=== PATIENT | female | born 1985 | race American Indian/Alaskan Native ===

== ENCOUNTER 2016-10-14 17:47 | Emergency (ER) | payer SELFPAY ==
[2016-10-14 19:13] LABS: Basophils % (Auto) 0.9 % (0.0-1.8); Eosinophils % (Auto) 0.1 % (0.0-4.3); Hematocrit 33.6 % (30.3-42.9); Hemoglobin 10.5 gm/dl (10.1-14.3); Mean Corpuscular HGB Conc 31 % (30-34); Mean Corpuscular Hemoglobin 28 pg (28-32); Mean Corpuscular Volume 89 fl (79-97); Platelet Count 284 K/mm3 (140-440); Red Blood Count 3.79 M/mm3 (3.65-5.03); Reticulocyte % 3.29 % (0.78-2.58); White Blood Count 18.2 K/mm3 (4.5-11.0)
[2016-10-14 19:26] LABS: Red Cell Distribution Width 21.3 % (13.2-15.2)
[2016-10-14] MEDS ORDERED: BENADRYL IV ONE (20:46)
[2016-10-14] MEDS ORDERED: DILAUDID IV ONE (20:46)
[2016-10-14] MEDS ORDERED: ZOFRAN IV ONE (20:46)
[2016-10-14] MEDS ORDERED: D5NS 0.2% 1,000 ML IV SCH (21:00)
[2016-10-14] MEDS ORDERED: ULTRAM PO ONE (21:13)
[2016-10-14] MEDS ORDERED: DUONEB 0.5 MG-3 MG/3 ML SOLN IH ONE (21:19)
[2016-10-14] MEDS ORDERED: LASIX IV ONE (21:19)
--- NOTE | 2016-10-14 21:28 | Emergency Department Report ---
HPI - General Chief Complaint: Sickle Cell Crisis Time Seen by Provider: 10/14/16 20:44 - HPI HPI: The patient is a 31-year-old female with a history of sickle cell disease, CHF, COPD, on 2 L home O2, chronic tachycardia, and mild chronic kidney disease, presents for evaluation of dyspnea and leg pain. The patient reports constant and severe dyspnea since this morning, onset 8 hours ago, exacerbated with physical activity and lying flat. She also complains of pain to the bilateral distal lower extremities, consistent with previous sickle cell pain attacks, throbbing in quality, 10/10 in severity, constant since onset 8 hours ago as well. The patient denies fall or trauma to the chest or legs, productive cough , syncope, chest pain, hemoptysis, back pain, paresthesias, chills, fever. She shares that she was discharged from [facility] yesterday after admission for similar symptoms. She and her mother submit that the patient has been admitted multiple times agree hospital over the past 2-3 months. ED Past Medical Hx - Past Medical History Previous Medical History?: Yes Hx Congestive Heart Failure: Yes Hx Renal Disease: Yes Hx Sickle Cell Disease: Yes - Social History Smoking Status: Never Smoker Substance Use Type: None - Medications Home Medications: Home Medications Medication Instructions Recorded Confirmed Last Taken Type ALBUTEROL Inhaler [Proair] 2 puff IH QID PRN 10/14/16 10/14/16 10/14/16 History Folic Acid [FA-8] 0.8 mg PO DAILY 10/14/16 10/14/16 10/14/16 History Furosemide [Lasix TAB] 40 mg PO QDAY 10/14/16 10/14/16 10/14/16 History Metoprolol [Lopressor TAB] 50 mg PO BID 10/14/16 10/14/16 10/14/16 History Nystatin [Nystop Powder] 1 applicatio TP TID 10/14/16 10/14/16 10/14/16 History Ranitidine HCl 75 mg PO DAILY 10/14/16 10/14/16 10/14/16 History traMADol [Ultram] 50 mg PO Q4HR PRN 10/14/16 10/14/16 10/14/16 History ED Review of Systems ROS: Stated complaint: SICKLE CELL CRISIS Other details as noted in HPI Constitutional: denies: fever ENT: denies: throat or neck pain Respiratory: reports: cough & shortness of breath Cardiovascular: denies: chest pain Endocrine: denies unexplained weight loss or gain Gastrointestinal: denies: abdominal pain, nausea Genitourinary: denies: dysuria Musculoskeletal: reports leg pain and leg swelling Skin: denies: rash Neurological: denies: headache Hematological/Lymphatic: denies: easy bleeding or easy bruising Psych: denies sadness or hopelessness Physical Exam - Physical Exam Vital Signs: Vital Signs 10/14/16 10/14/16 10/14/16 17:42 17:50 17:56 Temperature 98.7 F Pulse Rate 115 H Respiratory Rate Blood Pressure 130/69 Blood Pressure [Right] O2 Sat by Pulse 56 L 100 66 L Oximetry 10/14/16 10/14/16 10/14/16 18:00 18:01 18:10 Temperature Pulse Rate Respiratory 16 Rate Blood Pressure 130/69 123/66 Blood Pressure [Right] O2 Sat by Pulse 100 66 L 98 Oximetry 10/14/16 10/14/16 10/14/16 18:20 18:30 18:40 Temperature Pulse Rate Respiratory Rate Blood Pressure 99/28 99/28 99/28 Blood Pressure [Right] O2 Sat by Pulse 66 L 69 L 75 L Oximetry 10/14/16 10/14/16 10/14/16 18:50 19:00 19:10 Temperature Pulse Rate Respiratory Rate Blood Pressure 99/28 99/28 52/37 Blood Pressure [Right] O2 Sat by Pulse 80 L 60 L 69 L Oximetry 10/14/16 10/14/16 10/14/16 19:20 19:30 19:38 Temperature Pulse Rate 95 H Respiratory 16 Rate Blood Pressure 52/37 52/37 Blood Pressure 112/81 [Right] O2 Sat by Pulse 80 L 83 L 81 L Oximetry 10/14/16 10/14/16 10/14/16 19:48 19:51 20:01 Temperature Pulse Rate 140 H 140 H 144 H Respiratory 20 25 H 32 H Rate Blood Pressure 99/28 89/48 Blood Pressure [Right] O2 Sat by Pulse 81 L 86 78 L Oximetry 10/14/16 20:11 Temperature Pulse Rate 148 H Respiratory 11 L Rate Blood Pressure 89/48 Blood Pressure [Right] O2 Sat by Pulse 81 L Oximetry Physical Exam: General: well-nourished, well-developed, no acute distress, patient morbidly obese Head: Normocephalic, atraumatic Eyes: normal sclera ENT: Mucous membranes are pale and dry Neck: trachea midline, neck supple, No neck stiffness, no cervical adenopathy Respiratory: Diminished breath sounds and bi-basialr crackles present to bilateral lung kelly Cardio: S1 and S2 present, no murmurs, rubs, gallops, capillary refill is delayed Abdomen: Normoactive bowel sounds, soft abdomen, no rigidity, no guarding or rebound tenderness Musc: 1+ pitting edema to bilateral legs, circumferential distal lower leg tenderness to palpation present bilaterally, no redness, fluctuance, or crepitus , no sign of infection Skin: No rash Neuro: no facial drooping, normal speech Psych: Normal affect ED Course Vital Signs 10/14/16 10/14/16 10/14/16 17:42 17:50 17:56 Temperature 98.7 F Pulse Rate 115 H Respiratory Rate Blood Pressure 130/69 Blood Pressure [Right] O2 Sat by Pulse 56 L 100 66 L Oximetry 10/14/16 10/14/16 10/14/16 18:00 18:01 18:10 Temperature Pulse Rate Respiratory 16 Rate Blood Pressure 130/69 123/66 Blood Pressure [Right] O2 Sat by Pulse 100 66 L 98 Oximetry 10/14/16 10/14/16 10/14/16 18:20 18:30 18:40 Temperature Pulse Rate Respiratory Rate Blood Pressure 99/28 99/28 99/28 Blood Pressure [Right] O2 Sat by Pulse 66 L 69 L 75 L Oximetry 10/14/16 10/14/16 10/14/16 18:50 19:00 19:10 Temperature Pulse Rate Respiratory Rate Blood Pressure 99/28 99/28 52/37 Blood Pressure [Right] O2 Sat by Pulse 80 L 60 L 69 L Oximetry 10/14/16 10/14/16 10/14/16 19:20 19:30 19:38 Temperature Pulse Rate 95 H Respiratory 16 Rate Blood Pressure 52/37 52/37 Blood Pressure 112/81 [Right] O2 Sat by Pulse 80 L 83 L 81 L Oximetry 10/14/16 10/14/16 10/14/16 19:48 19:51 20:01 Temperature Pulse Rate 140 H 140 H 144 H Respiratory 20 25 H 32 H Rate Blood Pressure 99/28 89/48 Blood Pressure [Right] O2 Sat by Pulse 81 L 86 78 L Oximetry 10/14/16 20:11 Temperature Pulse Rate 148 H Respiratory 11 L Rate Blood Pressure 89/48 Blood Pressure [Right] O2 Sat by Pulse 81 L Oximetry ED Medical Decision Making - Lab Data Result diagrams: 10/14/16 18:50 10/14/16 22:12 - Medical Decision Making The patient was seen and examined by myself. The patient is placed on a shelter monitor and continuous pulse ox. On initial evaluation, the patient was found to have crackles to bibasilar lung kelly, exam findings concerning for acute CHF, and with hypotension, blood pressure 84/40, HR in 140s, and low oxygen saturation of 80% on home O2 of 2L, and despite increasing supplemental oxygenation via nasal cannula. The patient is placed on a nonrebreather as she has no tachypnea and only reports mild dyspnea, and she is given a tablet of tramadol for pain, a slow infusion of fluid for low blood pressure, and IV Lasix for treatment of CHF. Oxygen saturation increases to 95% on nonrebreather. EKG exhibited a narrow QRS complexes regular tachycardia, sinus tachycardia versus an SVT. The patient and family members deny known history of arrhythmia. The patient states that her heart rate is "always 150" when not on her labetalol. As the patient is likely in an acute CHF, chronotropic inhibiting medications will be withheld. The on-call quarter lining smoother is paged. Discharge record from [facility] are reviewed and exhibit that the patient has history of chronic tachycardia during admissions at [facility]. Evaluation and management orders were placed. The patient's blood pressure is found to have increased to 101/62. The patient is given 5 mg of IV Cardizem and her heart rate decreases from 150 to 125. Multiple bedside assessments were performed to assess patient responsiveness to administer medications. X-ray of the chest reveals cardiomegaly, moderate to severe pulmonary vascular congestion, and bilateral pleural effusions. Lab results reveal leukocytosis, WBC 18, elevated BNP of 13,000. The patient and the patient's mother submit that they prefers that the patient be transferred to [facility] where the patient has received care during multiple admissions over the past 2-3 months. The [facility] transfer line is contacted. The on shift [place] ER physician Dr. Roman agrees to accept transfer of the patient. The [facility] on-call quarter lining smoother Dr. Dela Cruz returns page. 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 The patient is given IV adenosine and her tachycardia resolves. The patient is placed on BiPAP at request of accepting transfer physician. On reevaluation the patient's found to have oxygen saturation of 100%, and maintenance of normal blood pressure and heart rate. The patient is transferred in serious condition to [facility]. Critical Care Time: Yes Critical care time in (mins) excluding proc time.: 45 Critical care attestation.: If time is entered above; I have spent that time in minutes in the direct care of this critically ill patient, excluding procedure time. Critical Care Time: Due to the critical nature of this patients presentation, which necessitated multiple bedside assessments, manipulation and supportive measures to prevent further life threatening deterioration, I would like to bill for a total of 45 minutes of critical care time. This was exclusive of any separately billable procedures. ED Disposition Clinical Impression: Heart failure, acute systolic, Sickle cell pain crisis, AVNRT (AV ray re- entry tachycardia), Hypovolemic shock Respiratory failure with hypoxia Qualifiers: Chronicity: acute on chronic Qualified Code(s): J96.21 - Acute and chronic respiratory failure with hypoxia Disposition: DC/TX ANOTHER TYPE HEALTHCARE Is pt being admited?: No Does the pt Need Aspirin: No Condition: Critical Referrals: PRIMARY CARE, [Primary Care Provider] - 3-5 Days Time of Disposition: 21:24
[2016-10-14] MEDS ORDERED: CARDIZEM IV ONE (22:41)
[2016-10-14 22:42] LABS: Alanine Aminotransferase 16 units/L (7-56); Albumin 3.3 g/dL (3.9-5); Alkaline Phosphatase 53 units/L (35-129); Anion Gap 18 mmol/L; BUN/Creatinine Ratio 11.66; Bilirubin,Total 7.4 mg/dL (0.1-1.2); Blood Urea Nitrogen 14 mg/dL (7-17); Calcium 8.7 mg/dL (8.4-10.2); Carbon Dioxide 33 mmol/L (22-30); Chloride 96.8 mmol/L (98-107); Glucose 114 mg/dL (65-100); Potassium 4.9 mmol/L (3.6-5.0); Sodium 143 mmol/L (137-145); Total Protein 6.6 g/dL (6.3-8.2)
[2016-10-14] MEDS ORDERED: NACL 0.9% 1000 ML 1,000 ML ONE (23:32)
[2016-10-15] LABS: ISTAT Base Excess 9; ISTAT HCO3 33.4; ISTAT PCO2 51.7 (35-45); ISTAT PH 7.419 (7.35-7.45); ISTAT PO2 136 (80-105); ISTAT SO2 99; ISTAT TCO2 35
[2016-10-15 00:22] VITALS: BP 115/81
[2016-10-15 00:48] LABS: Bilirubin,Urine NEG (Negative); Blood,Urine NEG (Negative); Ketones,Urine NEG (Negative); Leukocyte Esterase,Urine NEG (Negative); Nitrite,Urine NEG (Negative); Protein,Urine <15 mg/dL mg/dL (Negative); RBC,Urine < 1.0 /HPF (0.0-6.0); Urobilinogen,Urine < 2.0 mg/dL (<2.0); WBC,Urine < 1.0 /HPF (0.0-6.0)
[2016-10-15] MEDS ORDERED: NACL 0.9% 1000 ML 1,000 ML IV ONE (01:05)
--- NOTE | 2016-10-15 09:38 | XRay Report ---
PORTABLE CHEST INDICATION: Chest pain. COMPARISON: None similar. FINDINGS: Portable, frontal chest radiographs, 2 images, suggest cardiomegaly with silhouette obscured due to pulmonary haziness, more so in the mid to lower lung zones, possibly congestive/atelectatic/related to patient's body habitus. Diaphragm not visible. Right suprahilar bronchovascular prominence. EKG leads. Intact bones. CONCLUSION: Cardiomegaly and mild pulmonary vascular congestion suspected on this exam limited due to patient body habitus, as described. Please correlate. Thank you for the opportunity to participate in this patient's care.
== END 2016-10-15 01:11 | disposition other institution (70) ==
LOC: ED 17:47
DX: I50.21 Acute systolic (congestive) heart failure (principal); D57.00 Hb-SS disease with crisis, unspecified; I47.1 Supraventricular tachycardia; R57.1 Hypovolemic shock; J96.21 Acute and chronic respiratory failure with hypoxia; N28.9 Disorder of kidney and ureter, unspecified; Z88.5 Allergy status to narcotic agent
CPT/HCPCS: 36415; 71010; 80053; 80061; 81001; 82140; 82803; 83880; 84484; 85025; 85045; 93005; 93010; 96374; 96375; J0153; J1170; J1200; J1940; J2405; J7030

== ENCOUNTER 2017-02-08 19:09 | Inpatient (IN) | payer OTHER ==
[2017-02-08] MEDS ORDERED: LASIX IV ONE (20:25)
[2017-02-08] MEDS ORDERED: LOPRESSOR IV ONE (20:25)
[2017-02-08 20:50] LABS: Hematocrit 29.8 % (30.3-42.9); Hemoglobin 9.8 gm/dl (10.1-14.3); Mean Corpuscular HGB Conc 33 % (30-34); Mean Corpuscular Hemoglobin 28 pg (28-32); Mean Corpuscular Volume 86 fl (79-97); Platelet Count 302 K/mm3 (140-440); Red Blood Count 3.45 M/mm3 (3.65-5.03)
[2017-02-08 20:55] LABS: Red Cell Distribution Width 20.4 % (13.2-15.2)
[2017-02-08 21:10] LABS: Anion Gap 15 mmol/L; BUN/Creatinine Ratio 8.57; Blood Urea Nitrogen 6 mg/dL (7-17); Calcium 8.5 mg/dL (8.4-10.2); Carbon Dioxide 32 mmol/L (22-30); Chloride 100.1 mmol/L (98-107); Glucose 89 mg/dL (65-100); Sodium 143 mmol/L (137-145)
[2017-02-08 21:30] LABS: Albumin 3.3 g/dL (3.9-5); Bilirubin,Direct 1.1 mg/dL (0-0.2); Bilirubin,Indirect 6.1 mg/dL; Bilirubin,Total 7.2 mg/dL (0.1-1.2); Total Protein 6.7 g/dL (6.3-8.2)
[2017-02-08 21:32] LABS: Blastocytes % (Manual) 0 %
[2017-02-08 21:33] LABS: Basophils % (Manual) 0 % (0.0-1.8)
[2017-02-08 21:36] LABS: Sickle Cells Few; Target Cells 3+
[2017-02-08 21:37] LABS: Anisocytosis 1+; Diff Status Complete; Giant Platelets 1+; Platelet Estimate Consistent w Auto; Poikilocytosis Few
[2017-02-08 21:54] LABS: Cholesterol 64 mg/dL (50-199); HDL Cholesterol 21 mg/dL (40-59); LDL Cholesterol,Direct 28 mg/dL (50-130); Triglycerides 76 mg/dL (2-149)
--- NOTE | 2017-02-08 22:42 | XRay Report ---
FINAL REPORT EXAM: XR CHEST 1V AP HISTORY: shortness of breath TECHNIQUE: AP portable chest radiograph. PRIORS: None FINDINGS: There are bilateral ground-glass opacities and dilated pulmonary arteries. The left hemidiaphragm and costophrenic angle are obscured. The cardiac silhouette is markedly enlarged. The osseous structures are intact. IMPRESSION: CHF. Probable small bilateral pleural effusions. Marked cardiomegaly. Pericardial effusion is not excluded.
--- NOTE | 2017-02-08 23:03 | Emergency Department Report ---
HPI - General Chief Complaint: Dyspnea/Respdistress Time Seen by Provider: 02/08/17 20:24 - HPI HPI: Patient is 31 with complicated medical history. She has history of morbid obesity, CHF, sickle cell disease. Patient states for the past 2 days she has been short of breath, unable to walk, due to her symptoms. Patient states she has been holding her cardiac medications due to dizziness. Patient states her legs have progressively become more swollen. She denies any alleviating or exacerbating factors. Patient denies any sick contacts. Patient's also complaining of chest pain, left-sided, pressure-like, 4-10. ED Past Medical Hx - Past Medical History Previous Medical History?: Yes Hx Hypertension: Yes Hx Congestive Heart Failure: Yes Hx Renal Disease: Yes Hx Sickle Cell Disease: Yes Hx Asthma: Yes - Surgical History Past Surgical History?: No - Family History Family history: hypertension - Social History Smoking Status: Never Smoker Substance Use Type: None - Medications Home Medications: Home Medications Medication Instructions Recorded Confirmed Last Taken Type ALBUTEROL Inhaler [Proair] 2 puff IH QID PRN 10/14/16 02/08/17 02/08/17 History Folic Acid [FA-8] 0.8 mg PO DAILY 10/14/16 02/08/17 02/08/17 History Furosemide [Lasix TAB] 40 mg PO QDAY 10/14/16 02/08/17 02/08/17 History Metoprolol [Lopressor TAB] 50 mg PO BID 10/14/16 02/08/17 01/25/17 History Nystatin [Nystop Powder] 1 applicatio TP TID 10/14/16 02/08/17 02/08/17 History Ranitidine HCl 75 mg PO DAILY 10/14/16 02/08/17 02/08/17 History traMADol [Ultram] 50 mg PO Q4HR PRN 10/14/16 02/08/17 02/08/17 History ED Review of Systems ROS: Stated complaint: SOB X2DAYS/BED SORES/SWELLING LEGS Other details as noted in HPI Comment: All other systems reviewed and negative Respiratory: wheezing Cardiovascular: chest pain Physical Exam - Physical Exam Vital Signs: Vital Signs 02/08/17 02/08/17 02/08/17 19:43 19:53 20:38 Temperature 99.0 F Pulse Rate 141 H 141 H 134 H Respiratory 13 13 Rate Blood Pressure 139/59 122/56 Blood Pressure 139/59 [Left] O2 Sat by Pulse 99 99 Oximetry 02/08/17 21:38 Temperature Pulse Rate 96 H Respiratory 20 Rate Blood Pressure Blood Pressure 102/67 [Left] O2 Sat by Pulse 93 Oximetry Physical Exam: - General Limitations: No Limitations General appearance: alert, morbidly obese - Head Head exam: Present: atraumatic, normocephalic - Eye Eye exam: Present: normal appearance, EOMI. Absent: nystagmus - ENT ENT exam: Present: normal exam, normal orophraynx, mucous membranes moist, normal external ear exam - Neck Neck exam: Present: normal inspection, full ROM. Absent: tenderness, meningismus - Respiratory Respiratory exam: Present: normal lung sounds bilaterally. Absent: respiratory distress, wheezes, rales, rhonchi, stridor, chest wall tenderness, accessory muscle use, decreased breath sounds, prolonged expiratory - Cardiovascular Cardiovascular Exam: Patient has tachycardia, severe JVD bilaterally - GI/Abdominal GI/Abdominal exam: Present: soft, normal bowel sounds. Absent: distended, tenderness, guarding, rebound, rigid, pulsatile mass - Rectal Rectal exam: Present: deferred - Extremities Exam Extremities exam: Present: Four plus pedal edema bilaterally - Back Exam Back exam: Present: normal inspection, full ROM. Absent: tenderness, CVA tenderness (R), CVA tenderness (L), muscle spasm, paraspinal tenderness, vertebral tenderness - Neurological Exam Neurological exam: Present: alert, oriented X3, normal gait, other (Extraocular movements intact. Tongue midline. No facial droop. Facial sensation intact to light touch in the V1, V2, V3 distribution bilaterally. 5 and 5 strength in 4 extremities.. Sensation is intact to light touch in 4 extremities.). Absent : motor sensory deficit - Psychiatric Psychiatric exam: Present: flat affect, suicidal ideation. Absent: homicidal ideation - Skin Skin exam: Present: warm, dry, intact, normal color. Absent: rash ED Course Vital Signs 02/08/17 02/08/17 02/08/17 19:43 19:53 20:38 Temperature 99.0 F Pulse Rate 141 H 141 H 134 H Respiratory 13 13 Rate Blood Pressure 139/59 122/56 Blood Pressure 139/59 [Left] O2 Sat by Pulse 99 99 Oximetry 02/08/17 21:38 Temperature Pulse Rate 96 H Respiratory 20 Rate Blood Pressure Blood Pressure 102/67 [Left] O2 Sat by Pulse 93 Oximetry ED Medical Decision Making - Lab Data Result diagrams: 02/08/17 20:39 02/08/17 20:39 Critical care attestation.: If time is entered above; I have spent that time in minutes in the direct care of this critically ill patient, excluding procedure time. ED Disposition Clinical Impression: Acute exacerbation of CHF (congestive heart failure) Disposition: OP ADMIT IP TO THIS HOSP Is pt being admited?: Yes Does the pt Need Aspirin: Yes Condition: Stable Referrals: PRIMARY CARE, [Primary Care Provider] - 3-5 Days
[2017-02-08] MEDS ORDERED: PROAIR IH PRN (23:32)
[2017-02-08] MEDS ORDERED: ULTRAM PO PRN (23:32)
[2017-02-08] MEDS ORDERED: AMBIEN PO PRN (23:34)
[2017-02-08] MEDS ORDERED: ZOFRAN IV PRN (23:34)
[2017-02-08] MEDS ORDERED: TYLENOL PO PRN (23:34)
--- NOTE | 2017-02-08 23:35 | History and Physical Report ---
History of Present Illness Date of examination: 02/08/17 Date of admission: 02/08/17 23:04 Chief complaint: Shortness of breath History of present illness: Patient is a 31-year-old extremely obese woman BMI 98.7 who is mostly bedbound with history of hypertension, anemia with prior blood transfusions, asthma, CHF and sickle cell disease who presents with shortness of breath and increased swelling in her back flank legs with a pain crisis. She was taken off her Lasix and other CHF medication 2 weeks ago she went to [facility], reason not given. She developed leg swelling and her mother called the cardiology clinic at [place] but was unable to get to see the doctor, so she stayed off her CHF medications. Patient denies any chest pain, fevers or chills. She has sores between her thighs, nonproductive cough, or between her buttocks. Chest x- ray, 1 view reported as CHF, probable small bilateral pleural effusion, marked cardiomegaly, pericardial effusion is not excluded. Carbon dioxide 32, total bilirubin 7.2 with direct bilirubin 1.1 normal AST ALT alcohol phosphatase, troponin 0.062, proBNP 1445. Past medical history: CHF, extreme obesity, sickle cell disease, hypertension Past surgical history: Tonsillectomy, ankle surgery Social history: Denies tobacco smoking or alcohol or drugs Family history: Father of heart failure in his 40s and hypertension ROS: Constitutional: no weight loss, no weight gain, no chills, no sweats, no fatigue , no weakness, no poor appetite Ears, nose, mouth and throat: no deferred, no ear pain, no decreased hearing, no sinus pressure, no bleeding gums, no dental pain, no mouth pain, no hoarseness, no sore throat, no swelling in mouth, no post-nasal drip, no headache, no vertigo, no pain front of neck, no neck lump Cardiovascular: See HPI Respiratory: no cough with sputum, no excessive sputum, no hemoptysis, no pleurisy, no pain, no pain on inspiration, no respiratory infections, no other Gastrointestinal: no nausea, no diarrhea, no constipation, no hematemesis, no hematochezia, no loss of appetite, no early satiety, no indigestion, no dyspepsia/bloating Genitourinary Male: no flank pain, no discharge, no urinary hesitancy, no nocturia Rectal: no incontinence, no bleeding, no itching, no discharge Musculoskeletal: no neck stiffness, no shooting arm pain, no arm numbness/ tingling, no shooting leg pain, no leg numbness/tingling, no atrophy, no limitation of motion, no fractures, no loss of height, no prior amputations, no arthritis Integumentary: no depigmentation, no dryness, no unusual bruising Neurological: no weakness, no tingling, no syncope, no vertigo, no migraines, no aphasia, no change in mentation, no changes in smell/taste, no balance difficulties, no double vision, no burning pain, no paralysis Psychiatric: hypersomnia, change in libido, irritability, no anxiety, no memory loss, no sleep disturbances, no change in appetite, no disorientation, no hallucinations, no paranoia, no hopelessness, no anxiety attacks, no confusion Endocrine: no cold intolerance, no polyphagia, no polydipsia, no polyuria, no nocturia, no proptosis, no palpatations, no high blood sugars, no low blood sugars, no fatigue Hematologic/Lymphatic: no easy bruising, no lymphedema Allergic/Immunologic: no urticaria, no allergic rhinitis, no anaphylaxis Medications and Allergies Allergies Allergy/AdvReac Type Severity Reaction Status Date / Time morphine Allergy Hives Verified 02/08/17 19:50 shrimp Allergy Hives Verified 02/08/17 19:50 Home Medications Medication Instructions Recorded Confirmed Last Taken Type ALBUTEROL Inhaler [Proair] 2 puff IH QID PRN 10/14/16 02/08/17 02/08/17 History Folic Acid [FA-8] 0.8 mg PO DAILY 10/14/16 02/08/17 02/08/17 History Furosemide [Lasix TAB] 40 mg PO QDAY 10/14/16 02/08/17 02/08/17 History Metoprolol [Lopressor TAB] 50 mg PO BID 10/14/16 02/08/17 01/25/17 History Nystatin [Nystop Powder] 1 applicatio TP TID 10/14/16 02/08/17 02/08/17 History Ranitidine HCl 75 mg PO DAILY 10/14/16 02/08/17 02/08/17 History traMADol [Ultram] 50 mg PO Q4HR PRN 10/14/16 02/08/17 02/08/17 History Active Meds: Active Medications Acetaminophen (Tylenol) 325 mg PO Q6H PRN PRN Reason: Pain, Mild (1-3) Albuterol (Proair) 2 puff IH QID PRN PRN Reason: Shortness Of Breath Diphenhydramine HCl (Benadryl) 25 mg IV Q6H PRN PRN Reason: Itching Furosemide (Lasix) 40 mg IV 0600,1800 ONEAL Hydromorphone HCl (Dilaudid) 1 mg IV Q4H PRN PRN Reason: Pain , Severe (7-10) Metoprolol Tartrate (Lopressor) 50 mg PO BID ONEAL Nystatin (Nystop) 1 applic TP TID ONEAL Ondansetron HCl (Zofran) 4 mg IV Q4H PRN PRN Reason: Nausea And Vomiting Pantoprazole Sodium (Protonix) 40 mg PO QDAY ONEAL Zolpidem Tartrate (Ambien) 5 mg PO QHS PRN PRN Reason: Sleep Exam - Physical Exam Narrative exam: Pulse ox dropped to 82% with minimal activity, 96% on 2 L GEN: Extreme obesity BMI 98.7 mild increase accessory muscle usage, AWAKE, ALERT , ORIENTATED x 3 HEENT: NCAT, PERRL, EOMI, OP CLEAR, sclera icterus NECK: SUPPLE, NO THYROMEGALY, equivocal JVD, NO LAD CVS: Regular tachycardia, NORMAL S1S2 LUNGS/CHEST: Bibasilar crackles, NORMAL CHEST EXPANSION B, diminished AIR ENTRY B ABD: nontender, distended but soft Anasarca and flanks, GBS, NO REBOUND OR GUARDING EXT/SKIN: Anasarca, leg edema bilaterally, jaundice MSK: FROM X 4 EXTREMITIES NEURO: CN 2-12 GROSSLY INTACT, NO NEW FOCAL DEFICITS PSY: CALM - Constitutional Vitals: Temp Pulse Resp BP Pulse Ox 99.0 F 96 H 20 102/67 93 02/08/17 19:43 02/08/17 21:38 02/08/17 21:38 02/08/17 21:38 02/08/17 21:38 Results - Labs CBC & Chem 7: 02/08/17 20:39 02/08/17 20:39 Assessment and Plan Patient is a 31-year-old extremely obese woman BMI 98.7 who is mostly bedbound with history of hypertension, anemia with prior blood transfusions, asthma, CHF and sickle cell disease who presents with shortness of breath and increased swelling in her back flank legs with a pain crisis. She was taken off her Lasix and other CHF medication 2 weeks ago she went to [facility], reason not given. She developed leg swelling and her mother called the cardiology clinic at [place] but was unable to get to see the doctor, so she stayed off her CHF medications. Patient denies any chest pain, fevers or chills. She has sores between her thighs, nonproductive cough, or between her buttocks. Chest x- ray, 1 view reported as CHF, probable small bilateral pleural effusion, marked cardiomegaly, pericardial effusion is not excluded. Carbon dioxide 32, total bilirubin 7.2 with direct bilirubin 1.1 normal AST/ALT/alk phosphatase, troponin 0.062, proBNP 1445. -Acute hypoxic respiratory failure due to CHF due to noncompliance: Treat with oxygen and CHF, counseled compliance -Suspect acute on chronic diastolic heart failure, not on CARLOS MANUEL inhibitor, patient does mention a history of acute renal failure in the past, I don't know if this is the reason they took off her CHF medications when she visited [place] ED ~ 2 weeks ago: Treat with IV Lasix, consult cardiology, get echocardiogram -Extreme obesity BMI 98.7: Consult Dietitian -Sickle cell pain crisis with hemolytic anemia and jaundice: Consulted hematology/oncology, With IV fluids because of the heart failure, complex medical decision, treat with IV pain medicine and Benadryl -Functional quadriplegia: Consult PT -Pressure wound bedbound state: Consult wound care to evaluate any wounds -Mildly elevated troponin may be related to CHF: Repeat cardiac enzymes and troponin follow levels, consult cardiology -Anemia most likely related to sickle cell anemia: Consult hematology oncology -DVT prophylaxis: Subcutaneous heparin, monitor CBC carefully Full code Disposition: Inpatient care The high probability of a clinically significant, sudden or life threatening deterioration of the [neurologic,cardiac] system(s) required my full and direct attention, intervention and personal management. The aggregate critical care time was [42] minutes. This time is in addition to time spent performing reported procedures but includes the following: [x] Data Review and interpretation [x] Patient assessment and monitoring of vital signs [x] Documentation [x] Medication orders and management
[2017-02-08] MEDS ORDERED: PROVENTIL IH PRN (23:42)
[2017-02-09] MEDS: HEPARIN SUB-Q SCH ×3 (00:52→23:03)
[2017-02-09] MEDS: DILAUDID IV PRN ×3 (04:33→23:02)
[2017-02-09] MEDS: BENADRYL IV PRN ×3 (04:34→23:03)
--- NOTE | 2017-02-09 05:54 | Admit Criteria Form ---
Admission Criteria Documentation: HEART FAILURE: COMMON COMPLICATIONS Clinical Indications for Inpatient Care ([place]/check or initial the applicable condition/criteria): Ongoing inpatient care may be indicated for heart failure with 1 or more of the following (1)(2)(3)(4)(5)(6)(7)(8): [ ]I. New-onset heart failure [ ]II. Acute cardiac ischemia causing or associated with failure [ ]III. Ongoing need for care for primary condition requiring frequent therapy adjustments because of changes in cardiac function (eg, drug dosage changes for drugs that are renally metabolized) [X ]IV. Complications of heart failure, including 1 or more of the following: [ ]a) Hemodynamic instability [ ]b) Pericardial effusion [ ]c) Symptomatic pleural effusion(16) [ ]d) Hypoxemia [ ]e) Tachypnea [ X]f) Dyspnea [ ]g) Syncope [ ]h) Altered mental status [ ]i) Acute renal insufficiency that is severe (reduction of more than 50% in estimated glomerular filtration rate from baseline) or progressive (reduction of more than 25% in estimated glomerular filtration rate from baseline, with creatinine continuing to rise) [ ]j) Debilitating anasarca (eg tissue breakdown with infection, inability to void due to edema)(E) (17) [ ]k) Clinically significant metabolic abnormalities due to heart failure (e.g., new-onset metabolic acidosis) Extended stay may be needed until ALL of the following are present(1)(3)(18)(41) (55): [ ]a) Hemodynamic stability [ ]b) Stable and effective diuretic regimen established (or patient on stable dialysis regimen if in chronic renal failure) [ ]c) Volume status acceptable on oral medication [ ]d) Breathing comfortably at rest [ ]e) Saturation of arterial oxygen greater than 90% or at acceptable baseline [ ]f) Pulmonary edema absent or improved [ ]g) Peripheral or sacral edema absent or improved [ ]h) Renal function stable and manageable at a lower level of care [ ]i) Complications (e.g., pleural effusion) resolved or manageable at a lower level of care [ ]j) Patient or caregiver has received written discharge instructions or educational material addressing activity level, diet, discharge medications, follow-up appointment, weight monitoring, and what to do if symptoms worsen. (56)(57)(58) The original [facility] [employer] content created by Yudelka Roberto has been revised. The portions of the content which have been revised are identified through the use of italic text or in bold, and Yudelka Roberto has neither reviewed nor approved the modified material.All other unmodified content is copyright [facility] [employer]. Please see references footnoted in the original [facility] edition 2017 Admission Criteria Met: Yes
[2017-02-09 06:18] LABS: Hemoglobin 10.1 gm/dl (10.1-14.3); Mean Corpuscular HGB Conc 34 % (30-34); Mean Corpuscular Hemoglobin 29 pg (28-32); Mean Corpuscular Volume 86 fl (79-97); Platelet Count 299 K/mm3 (140-440); Red Blood Count 3.51 M/mm3 (3.65-5.03); White Blood Count 9.6 K/mm3 (4.5-11.0)
[2017-02-09 06:19] LABS: Red Cell Distribution Width 20.4 % (13.2-15.2)
[2017-02-09 06:35] LABS: Creatine Kinase 47 units/L (30-135)
[2017-02-09 06:36] LABS: Creatine Kinase MB < 1.0 ng/mL (0.0-4.0)
[2017-02-09 06:38] LABS: Alanine Aminotransferase 9 units/L (7-56); Albumin 3.4 g/dL (3.9-5); Alkaline Phosphatase 69 units/L (35-129); Anion Gap 16 mmol/L; BUN/Creatinine Ratio 8.75; Blood Urea Nitrogen 7 mg/dL (7-17); Calcium 8.3 mg/dL (8.4-10.2); Carbon Dioxide 32 mmol/L (22-30); Chloride 99.4 mmol/L (98-107); Glucose 95 mg/dL (65-100); Potassium 3.8 mmol/L (3.6-5.0); Sodium 144 mmol/L (137-145); Total Protein 6.9 g/dL (6.3-8.2)
[2017-02-09] MEDS: LASIX IV SCH ×2 (07:03→17:40)
--- NOTE | 2017-02-09 07:25 | Progress Note ---
<MARKOS LU - Last Filed: 02/09/17 14:16> Assessment and Plan Assessment and plan: Acute hypoxic respiratory failure due to CHF due to noncompliance Oxygen supplement counseled compliance Suspect acute on chronic diastolic heart failure Echocardiogram awaiting for results District I's and daily weights, fluid restriction 1200ml in 24 hrs Treat with IV Lasix, Beta blockers consult cardiology, Sickle cell pain crisis with hemolytic anemia and jaundice Consulted hematology/oncology, With IV fluids because of the heart failure, complex medical decision, treat with IV pain medicine and Benadryl Mildly elevated troponin may be related to CHF: Repeat cardiac enzymes and troponin follow levels Consulted cardiology Anemia most likely related to sickle cell anemia Consult hematology oncology Pressure wound bed bound state Pressure ulcer to left buttock Consult wound care Dr. Glynn Berg Functional quadriplegia Consult PT Extreme obesity BMI 98.7 Consult Dietitian DVT prophylaxis Subcutaneous heparin monitor CBC carefully History Interval history: Patient complaining left leg pain rated her pain level 7/10. Hospitalist Physical - Constitutional Vitals: Temp Pulse Resp BP Pulse Ox 98.9 F 113 H 20 98/44 92 02/09/17 05:22 02/09/17 05:22 02/09/17 05:22 02/09/17 05:22 02/09/17 05:22 General appearance: Present: mild distress, other (on 2LNC with SPO2 >95%) - EENT Eyes: Present: PERRL ENT: hearing intact - Neck Neck: Present: supple - Respiratory Respiratory: bilateral: rales - Cardiovascular Heart rate: 100 Rhythm: regular Heart Sounds: Present: S1 & S2 - Extremities Extremities: no ischemia Peripheral Pulses: within normal limits - Abdominal General gastrointestinal: soft, non-tender - Integumentary Integumentary: Present: clear, warm, dry - Psychiatric Psychiatric: appropriate mood/affect - Neurologic Neurologic: CNII-XII intact - Allied Health Allied health notes reviewed: nursing Results - Labs CBC & Chem 7: 02/09/17 05:37 02/09/17 05:37 Labs: Laboratory Last Values WBC 9.6 K/mm3 (4.5-11.0) 02/09/17 05:37 RBC 3.51 M/mm3 (3.65-5.03) L 02/09/17 05:37 Hgb 10.1 gm/dl (10.1-14.3) 02/09/17 05:37 Hct 30.0 % (30.3-42.9) L 02/09/17 05:37 MCV 86 fl (79-97) 02/09/17 05:37 MCH 29 pg (28-32) 02/09/17 05:37 MCHC 34 % (30-34) 02/09/17 05:37 RDW 20.4 % (13.2-15.2) H 02/09/17 05:37 Plt Count 299 K/mm3 (140-440) 02/09/17 05:37 Claiborne % (Auto) Appliance Service Technician 02/08/17 20:39 Add Manual Diff Complete 02/08/17 20:39 Total Counted 100 02/08/17 20:39 Seg Neuts % (Manual) 65.0 % (40.0-70.0) 02/08/17 20:39 Band Neutrophils % 0 % 02/08/17 20:39 Lymphocytes % (Manual) 13.0 % (13.4-35.0) L 02/08/17 20:39 Reactive Lymphs % (Man) 0 % 02/08/17 20:39 Monocytes % (Manual) 20.0 % (0.0-7.3) H 02/08/17 20:39 Eosinophils % (Manual) 2.0 % (0.0-4.3) 02/08/17 20:39 Basophils % (Manual) 0 % (0.0-1.8) 02/08/17 20:39 Metamyelocytes % 0 % 02/08/17 20:39 Myelocytes % 0 % 02/08/17 20:39 Promyelocytes % 0 % 02/08/17 20:39 Blast Cells % 0 % 02/08/17 20:39 Nucleated RBC % 1.0 % (0.0-0.9) H 02/08/17 20:39 Seg Neutrophils # Man 5.9 K/mm3 (1.8-7.7) 02/08/17 20:39 Band Neutrophils # 0.0 K/mm3 02/08/17 20:39 Lymphocytes # (Manual) 1.2 K/mm3 (1.2-5.4) 02/08/17 20:39 Abs React Lymphs (Man) 0.0 K/mm3 02/08/17 20:39 Monocytes # (Manual) 1.8 K/mm3 (0.0-0.8) H 02/08/17 20:39 Eosinophils # (Manual) 0.2 K/mm3 (0.0-0.4) 02/08/17 20:39 Basophils # (Manual) 0.0 K/mm3 (0.0-0.1) 02/08/17 20:39 Metamyelocytes # 0.0 K/mm3 02/08/17 20:39 Myelocytes # 0.0 K/mm3 02/08/17 20:39 Promyelocytes # 0.0 K/mm3 02/08/17 20:39 Blast Cells # 0.0 K/mm3 02/08/17 20:39 WBC Morphology Not Reportable 02/08/17 20:39 Hypersegmented Neuts Not Reportable 02/08/17 20:39 Hyposegmented Neuts Not Reportable 02/08/17 20:39 Hypogranular Neuts Not Reportable 02/08/17 20:39 Smudge Cells Not Reportable 02/08/17 20:39 Toxic Granulation Not Reportable 02/08/17 20:39 Toxic Vacuolation Not Reportable 02/08/17 20:39 Dohle Bodies Not Reportable 02/08/17 20:39 Pelger-Huet Anomaly Not Reportable 02/08/17 20:39 James Rods Not Reportable 02/08/17 20:39 Platelet Estimate Consistent w auto 02/08/17 20:39 Clumped Platelets Not Reportable 02/08/17 20:39 Plt Clumps, EDTA Not Reportable 02/08/17 20:39 Large Platelets Not Reportable 02/08/17 20:39 Giant Platelets 1+ 02/08/17 20:39 Platelet Satelliting Not Reportable 02/08/17 20:39 Plt Morphology Comment Not Reportable 02/08/17 20:39 RBC Morphology Not Reportable 02/08/17 20:39 Dimorphic RBCs Not Reportable 02/08/17 20:39 Polychromasia Not Reportable 02/08/17 20:39 Hypochromasia Not Reportable 02/08/17 20:39 Poikilocytosis Few 02/08/17 20:39 Anisocytosis 1+ 02/08/17 20:39 Microcytosis Not Reportable 02/08/17 20:39 Macrocytosis Not Reportable 02/08/17 20:39 Spherocytes Not Reportable 02/08/17 20:39 Pappenheimer Bodies Not Reportable 02/08/17 20:39 Sickle Cells Few 02/08/17 20:39 Target Cells 3+ 02/08/17 20:39 Tear Drop Cells Not Reportable 02/08/17 20:39 Ovalocytes Not Reportable 02/08/17 20:39 Helmet Cells Not Reportable 02/08/17 20:39 [place] Bodies Not Reportable 02/08/17 20:39 Troy Rings Not Reportable 02/08/17 20:39 [place] Cells Not Reportable 02/08/17 20:39 Bite Cells Not Reportable 02/08/17 20:39 Crenated Cell Not Reportable 02/08/17 20:39 Elliptocytes Not Reportable 02/08/17 20:39 Acanthocytes (Spur) Not Reportable 02/08/17 20:39 Rouleaux Not Reportable 02/08/17 20:39 Hemoglobin C Crystals Not Reportable 02/08/17 20:39 Schistocytes Not Reportable 02/08/17 20:39 Malaria parasites Not Reportable 02/08/17 20:39 Benjamin Bodies Not Reportable 02/08/17 20:39 Hem Pathologist Commnt No 02/08/17 20:39 Sodium 144 mmol/L (137-145) 02/09/17 05:37 Potassium 3.8 mmol/L (3.6-5.0) 02/09/17 05:37 Chloride 99.4 mmol/L (98-107) 02/09/17 05:37 Carbon Dioxide 32 mmol/L (22-30) H 02/09/17 05:37 Anion Gap 16 mmol/L 02/09/17 05:37 BUN 7 mg/dL (7-17) 02/09/17 05:37 Creatinine 0.8 mg/dL (0.7-1.2) 02/09/17 05:37 Estimated GFR > 60 ml/min 02/09/17 05:37 BUN/Creatinine Ratio 8.75 % 02/09/17 05:37 Glucose 95 mg/dL (65-100) 02/09/17 05:37 Calcium 8.3 mg/dL (8.4-10.2) L 02/09/17 05:37 Total Bilirubin 8.40 mg/dL (0.1-1.2) H 02/09/17 05:37 Direct Bilirubin 1.1 mg/dL (0-0.2) H 02/08/17 20:39 Indirect Bilirubin 6.1 mg/dL 02/08/17 20:39 AST 20 units/L (5-40) 02/09/17 05:37 ALT 9 units/L (7-56) 02/09/17 05:37 Alkaline Phosphatase 69 units/L (35-129) 02/09/17 05:37 Total Creatine Kinase 47 units/L (30-135) 02/09/17 05:37 CK-MB (CK-2) < 1.0 ng/mL (0.0-4.0) 02/09/17 05:37 CK-MB (CK-2) Rel Index 2.1 (0-4) 02/09/17 05:37 Troponin T 0.065 ng/mL (0.00-0.029) H 02/09/17 05:37 NT-Pro-B Natriuret Pep 1445 pg/mL (0-450) H 02/08/17 20:39 Total Protein 6.9 g/dL (6.3-8.2) 02/09/17 05:37 Albumin 3.4 g/dL (3.9-5) L 02/09/17 05:37 Albumin/Globulin Ratio 1.0 % 02/09/17 05:37 Triglycerides 76 mg/dL (2-149) 02/08/17 20:39 Cholesterol 64 mg/dL (50-199) 02/08/17 20:39 LDL Cholesterol Direct 28 mg/dL (50-130) L 02/08/17 20:39 HDL Cholesterol 21 mg/dL (40-59) L 02/08/17 20:39 Cholesterol/HDL Ratio 3.04 % 02/08/17 20:39 TSH 6.720 mlU/mL (0.270-4.200) H 02/09/17 05:37 HCG, Qual Negative (Negative) 02/08/17 20:39 <EMMANUELLE LAL - Last Filed: 02/10/17 02:34> Assessment and Plan Assessment and plan: I saw and evaluated the patient. I agree with the findings and the plan of care as documented in the Nurse Practitioner's~note, with the following corrections and additions. Patient is morbidly obese with BMI of 98.7. She has acute on chronic CHF. Cardiology following. Hospitalist Physical - Constitutional Vitals: Temp Pulse Resp BP Pulse Ox 98.9 F 132 H 22 129/58 95 02/09/17 05:22 02/09/17 23:16 02/09/17 23:02 02/09/17 23:16 02/09/17 21:12 Results - Labs CBC & Chem 7: 02/09/17 05:37 02/09/17 05:37 Labs: Laboratory Last Values WBC 9.6 K/mm3 (4.5-11.0) 02/09/17 05:37 RBC 3.51 M/mm3 (3.65-5.03) L 02/09/17 05:37 Hgb 10.1 gm/dl (10.1-14.3) 02/09/17 05:37 Hct 30.0 % (30.3-42.9) L 02/09/17 05:37 MCV 86 fl (79-97) 02/09/17 05:37 MCH 29 pg (28-32) 02/09/17 05:37 MCHC 34 % (30-34) 02/09/17 05:37 RDW 20.4 % (13.2-15.2) H 02/09/17 05:37 Plt Count 299 K/mm3 (140-440) 02/09/17 05:37 Claiborne % (Auto) Appliance Service Technician 02/08/17 20:39 Add Manual Diff Complete 02/08/17 20:39 Total Counted 100 02/08/17 20:39 Seg Neuts % (Manual) 65.0 % (40.0-70.0) 02/08/17 20:39 Band Neutrophils % 0 % 02/08/17 20:39 Lymphocytes % (Manual) 13.0 % (13.4-35.0) L 02/08/17 20:39 Reactive Lymphs % (Man) 0 % 02/08/17 20:39 Monocytes % (Manual) 20.0 % (0.0-7.3) H 02/08/17 20:39 Eosinophils % (Manual) 2.0 % (0.0-4.3) 02/08/17 20:39 Basophils % (Manual) 0 % (0.0-1.8) 02/08/17 20:39 Metamyelocytes % 0 % 02/08/17 20:39 Myelocytes % 0 % 02/08/17 20:39 Promyelocytes % 0 % 02/08/17 20:39 Blast Cells % 0 % 02/08/17 20:39 Nucleated RBC % 1.0 % (0.0-0.9) H 02/08/17 20:39 Seg Neutrophils # Man 5.9 K/mm3 (1.8-7.7) 02/08/17 20:39 Band Neutrophils # 0.0 K/mm3 02/08/17 20:39 Lymphocytes # (Manual) 1.2 K/mm3 (1.2-5.4) 02/08/17 20:39 Abs React Lymphs (Man) 0.0 K/mm3 02/08/17 20:39 Monocytes # (Manual) 1.8 K/mm3 (0.0-0.8) H 02/08/17 20:39 Eosinophils # (Manual) 0.2 K/mm3 (0.0-0.4) 02/08/17 20:39 Basophils # (Manual) 0.0 K/mm3 (0.0-0.1) 02/08/17 20:39 Metamyelocytes # 0.0 K/mm3 02/08/17 20:39 Myelocytes # 0.0 K/mm3 02/08/17 20:39 Promyelocytes # 0.0 K/mm3 02/08/17 20:39 Blast Cells # 0.0 K/mm3 02/08/17 20:39 WBC Morphology Not Reportable 02/08/17 20:39 Hypersegmented Neuts Not Reportable 02/08/17 20:39 Hyposegmented Neuts Not Reportable 02/08/17 20:39 Hypogranular Neuts Not Reportable 02/08/17 20:39 Smudge Cells Not Reportable 02/08/17 20:39 Toxic Granulation Not Reportable 02/08/17 20:39 Toxic Vacuolation Not Reportable 02/08/17 20:39 Dohle Bodies Not Reportable 02/08/17 20:39 Pelger-Huet Anomaly Not Reportable 02/08/17 20:39 James Rods Not Reportable 02/08/17 20:39 Platelet Estimate Consistent w auto 02/08/17 20:39 Clumped Platelets Not Reportable 02/08/17 20:39 Plt Clumps, EDTA Not Reportable 02/08/17 20:39 Large Platelets Not Reportable 02/08/17 20:39 Giant Platelets 1+ 02/08/17 20:39 Platelet Satelliting Not Reportable 02/08/17 20:39 Plt Morphology Comment Not Reportable 02/08/17 20:39 RBC Morphology Not Reportable 02/08/17 20:39 Dimorphic RBCs Not Reportable 02/08/17 20:39 Polychromasia Not Reportable 02/08/17 20:39 Hypochromasia Not Reportable 02/08/17 20:39 Poikilocytosis Few 02/08/17 20:39 Anisocytosis 1+ 02/08/17 20:39 Microcytosis Not Reportable 02/08/17 20:39 Macrocytosis Not Reportable 02/08/17 20:39 Spherocytes Not Reportable 02/08/17 20:39 Pappenheimer Bodies Not Reportable 02/08/17 20:39 Sickle Cells Few 02/08/17 20:39 Target Cells 3+ 02/08/17 20:39 Tear Drop Cells Not Reportable 02/08/17 20:39 Ovalocytes Not Reportable 02/08/17 20:39 Helmet Cells Not Reportable 02/08/17 20:39 [place] Bodies Not Reportable 02/08/17 20:39 Troy Rings Not Reportable 02/08/17 20:39 Fabi Cells Not Reportable 02/08/17 20:39 Bite Cells Not Reportable 02/08/17 20:39 Crenated Cell Not Reportable 02/08/17 20:39 Elliptocytes Not Reportable 02/08/17 20:39 Acanthocytes (Spur) Not Reportable 02/08/17 20:39 Rouleaux Not Reportable 02/08/17 20:39 Hemoglobin C Crystals Not Reportable 02/08/17 20:39 Schistocytes Not Reportable 02/08/17 20:39 Malaria parasites Not Reportable 02/08/17 20:39 Benjamin Bodies Not Reportable 02/08/17 20:39 Hem Pathologist Commnt No 02/08/17 20:39 Sodium 144 mmol/L (137-145) 02/09/17 05:37 Potassium 3.8 mmol/L (3.6-5.0) 02/09/17 05:37 Chloride 99.4 mmol/L (98-107) 02/09/17 05:37 Carbon Dioxide 32 mmol/L (22-30) H 02/09/17 05:37 Anion Gap 16 mmol/L 02/09/17 05:37 BUN 7 mg/dL (7-17) 02/09/17 05:37 Creatinine 0.8 mg/dL (0.7-1.2) 02/09/17 05:37 Estimated GFR > 60 ml/min 02/09/17 05:37 BUN/Creatinine Ratio 8.75 % 02/09/17 05:37 Glucose 95 mg/dL (65-100) 02/09/17 05:37 Calcium 8.3 mg/dL (8.4-10.2) L 02/09/17 05:37 Total Bilirubin 8.40 mg/dL (0.1-1.2) H 02/09/17 05:37 Direct Bilirubin 1.1 mg/dL (0-0.2) H 02/08/17 20:39 Indirect Bilirubin 6.1 mg/dL 02/08/17 20:39 AST 20 units/L (5-40) 02/09/17 05:37 ALT 9 units/L (7-56) 02/09/17 05:37 Alkaline Phosphatase 69 units/L (35-129) 02/09/17 05:37 Total Creatine Kinase 47 units/L (30-135) 02/09/17 05:37 CK-MB (CK-2) < 1.0 ng/mL (0.0-4.0) 02/09/17 05:37 CK-MB (CK-2) Rel Index 2.1 (0-4) 02/09/17 05:37 Troponin T 0.065 ng/mL (0.00-0.029) H 02/09/17 05:37 NT-Pro-B Natriuret Pep 1445 pg/mL (0-450) H 02/08/17 20:39 Total Protein 6.9 g/dL (6.3-8.2) 02/09/17 05:37 Albumin 3.4 g/dL (3.9-5) L 02/09/17 05:37 Albumin/Globulin Ratio 1.0 % 02/09/17 05:37 Triglycerides 76 mg/dL (2-149) 02/08/17 20:39 Cholesterol 64 mg/dL (50-199) 02/08/17 20:39 LDL Cholesterol Direct 28 mg/dL (50-130) L 02/08/17 20:39 HDL Cholesterol 21 mg/dL (40-59) L 02/08/17 20:39 Cholesterol/HDL Ratio 3.04 % 02/08/17 20:39 TSH 6.720 mlU/mL (0.270-4.200) H 02/09/17 05:37 Free T4 1.24 ng/dL (0.76-1.46) 02/09/17 05:37 HCG, Qual Negative (Negative) 02/08/17 20:39
[2017-02-09] MEDS: DUONEB *Not for PRN Use IH SCH ×3 (08:08→20:48)
[2017-02-09] MEDS: PROTONIX PO SCH (11:27)
[2017-02-09] MEDS: LOPRESSOR PO SCH ×2 (11:27→23:16)
--- NOTE | 2017-02-09 14:05 | Consultation ---
History of Present Illness Consult date: 02/09/17 Consult reason: congestive heart failure History of present illness: This is a 31yr old female with a history of morbid obesity, CHF and Sickle cell disease on home oxygen. Patient reports she is bedbound and hasn't walked in 6 months. She presented to this hospital with complaints of short of breath admitted with acute hypoxic respiratory failure. Patient states her cardiac medications were discontinued and since then, her breathing has progressively worsened. She denies chest pain. A chest x-ray in the ED reports CHF with possible pericardial effusion. Cardiology consultation was requested. Medications and Allergies Allergies Allergy/AdvReac Type Severity Reaction Status Date / Time morphine Allergy Hives Verified 02/08/17 19:50 shrimp Allergy Hives Verified 02/08/17 19:50 Home Medications Medication Instructions Recorded Confirmed Last Taken Type ALBUTEROL Inhaler [Proair] 2 puff IH QID PRN 10/14/16 02/08/17 02/08/17 History Folic Acid [FA-8] 0.8 mg PO DAILY 10/14/16 02/08/17 02/08/17 History Furosemide [Lasix TAB] 40 mg PO QDAY 10/14/16 02/08/17 02/08/17 History Metoprolol [Lopressor TAB] 50 mg PO BID 10/14/16 02/08/17 01/25/17 History Nystatin [Nystop Powder] 1 applicatio TP TID 10/14/16 02/08/17 02/08/17 History Ranitidine HCl 75 mg PO DAILY 10/14/16 02/08/17 02/08/17 History traMADol [Ultram] 50 mg PO Q4HR PRN 10/14/16 02/08/17 02/08/17 History Active Meds: Active Medications Acetaminophen (Tylenol) 325 mg PO Q6H PRN PRN Reason: Pain, Mild (1-3) Albuterol (Proventil) 2.5 mg IH Q4HRT PRN PRN Reason: Shortness Of Breath Albuterol/Ipratropium (Duoneb *Not For Prn Use*) 1 ampul IH TIDRT ONEAL Last Admin: 02/09/17 08:08 Dose: 1 ampul Diphenhydramine HCl (Benadryl) 25 mg IV Q6H PRN PRN Reason: Itching Last Admin: 02/09/17 04:34 Dose: 25 mg Furosemide (Lasix) 40 mg IV 0600,1800 [facility] Last Admin: 02/09/17 07:03 Dose: 40 mg Heparin Sodium (Porcine) (Heparin) 5,000 unit SUB-Q Q12HR [facility] Last Admin: 02/09/17 11:27 Dose: 5,000 unit Hydromorphone HCl (Dilaudid) 1 mg IV Q4H PRN PRN Reason: Pain , Severe (7-10) Last Admin: 02/09/17 04:33 Dose: 1 mg Metoprolol Tartrate (Lopressor) 50 mg PO BID [facility] Last Admin: 02/09/17 11:27 Dose: 50 mg Nystatin (Nystop) 1 applic TP TID [facility] Ondansetron HCl (Zofran) 4 mg IV Q4H PRN PRN Reason: Nausea And Vomiting Pantoprazole Sodium (Protonix) 40 mg PO QDAY [facility] Last Admin: 02/09/17 11:27 Dose: 40 mg Zolpidem Tartrate (Ambien) 5 mg PO QHS PRN PRN Reason: Sleep Physical Examination Vital Signs Temp Pulse Resp BP Pulse Ox 99.0 F 141 H 13 139/59 99 02/08/17 19:43 02/08/17 19:43 02/08/17 19:43 02/08/17 19:43 02/08/17 19:43 General appearance: no acute distress, obese Cardiac: Positive: Reg Rate and Rhythm Results 02/09/17 05:37 02/09/17 05:37 Cardiac Enzymes 02/09/17 02/09/17 02/09/17 Range/Units 00:30 05:37 05:37 AST 20 (5-40) units/L CK-MB (CK-2) 1.0 < 1.0 (0.0-4.0) ng/mL CBC 02/09/17 Range/Units 05:37 WBC 9.6 (4.5-11.0) K/mm3 RBC 3.51 L (3.65-5.03) M/mm3 Hgb 10.1 (10.1-14.3) gm/dl Hct 30.0 L (30.3-42.9) % Plt Count 299 (140-440) K/mm3 Comprehensive Metabolic Panel 08/21/17 Range/Units 05:37 Sodium 144 (137-145) mmol/L Potassium 3.8 (3.6-5.0) mmol/L Chloride 99.4 (98-107) mmol/L Carbon Dioxide 32 H (22-30) mmol/L BUN 7 (7-17) mg/dL Creatinine 0.8 (0.7-1.2) mg/dL Glucose 95 (65-100) mg/dL Calcium 8.3 L (8.4-10.2) mg/dL AST 20 (5-40) units/L ALT 9 (7-56) units/L Alkaline Phosphatase 69 (35-129) units/L Total Protein 6.9 (6.3-8.2) g/dL Albumin 3.4 L (3.9-5) g/dL Assessment and Plan Acute hypoxic respiratory failure CHF Sickle cell disease on home oxygen Morbidly obese Pressure ulcers Hypothyroidism TSH 6.7 We will get an echocardiogram for LVEF assessment.
[2017-02-09] MEDS: NYSTOP TP SCH ×2 (17:40→23:29)
[2017-02-10] MEDS: BENADRYL IV PRN ×4 (04:35→22:27)
[2017-02-10] MEDS: DILAUDID IV PRN ×4 (04:35→22:25)
[2017-02-10] MEDS: LASIX IV SCH ×2 (06:21→17:42)
--- NOTE | 2017-02-10 07:32 | Progress Note ---
<MARKOS LU - Last Filed: 02/10/17 10:57> Assessment and Plan Assessment and plan: Acute hypoxic respiratory failure due to CHF due to noncompliance Oxygen supplement counseled compliance Acute on chronic diastolic heart failure Echocardiogram awaiting for results District I's and daily weights, fluid restriction 1200ml in 24 hrs Treat with IV Lasix, Beta blockers Followed by cardiology. Sickle cell pain crisis with hemolytic anemia and jaundice Consulted hematology/oncology, With IV fluids because of the heart failure, complex medical decision, treat with IV pain medicine and Benadryl Mildly elevated troponin may be related to CHF: Repeat cardiac enzymes and troponin follow levels Consulted cardiology Anemia most likely related to sickle cell anemia Consult hematology oncology Pressure wound bed bound state Pressure ulcer to left buttock Consult wound care Dr. Glynn Berg Functional quadriplegia Consult physical therapy Extreme obesity BMI 98.7 Counseling done patient strongly advised to lose weight and life style changes is important to improve cardiovascular diseases. Consult Dietitian DVT prophylaxis Subcutaneous heparin History Interval history: Patient has uneventful overnight, she denies pain at present time. Hospitalist Physical - Constitutional Vitals: Temp Pulse Resp BP Pulse Ox 98.3 F 117 H 20 115/59 93 02/10/17 07:13 02/10/17 07:13 02/10/17 07:13 02/10/17 07:13 02/10/17 07:13 General appearance: Present: mild distress, other (on 2LNC with SPO2 >95%) - EENT Eyes: Present: PERRL ENT: hearing intact - Neck Neck: Present: supple - Respiratory Respiratory effort: normal Respiratory: bilateral: CTA - Cardiovascular Heart rate: 102 Rhythm: regular Heart Sounds: Present: S1 & S2 - Extremities Extremities: no ischemia Extremity abnormal: edema (Left lower extremity), other - Abdominal General gastrointestinal: soft, non-tender - Integumentary Integumentary: Present: clear (Sacral ulcers), warm, dry - Psychiatric Psychiatric: appropriate mood/affect - Neurologic Neurologic: CNII-XII intact - Allied Health Allied health notes reviewed: nursing Results - Labs CBC & Chem 7: 02/10/17 07:55 02/10/17 07:55 Labs: Laboratory Last Values WBC 9.6 K/mm3 (4.5-11.0) 02/09/17 05:37 RBC 3.51 M/mm3 (3.65-5.03) L 02/09/17 05:37 Hgb 10.1 gm/dl (10.1-14.3) 02/09/17 05:37 Hct 30.0 % (30.3-42.9) L 02/09/17 05:37 MCV 86 fl (79-97) 02/09/17 05:37 MCH 29 pg (28-32) 02/09/17 05:37 MCHC 34 % (30-34) 02/09/17 05:37 RDW 20.4 % (13.2-15.2) H 02/09/17 05:37 Plt Count 299 K/mm3 (140-440) 02/09/17 05:37 [place] % (Auto) Hand Inspector 02/08/17 20:39 Add Manual Diff Complete 02/08/17 20:39 Total Counted 100 02/08/17 20:39 Seg Neuts % (Manual) 65.0 % (40.0-70.0) 02/08/17 20:39 Band Neutrophils % 0 % 02/08/17 20:39 Lymphocytes % (Manual) 13.0 % (13.4-35.0) L 02/08/17 20:39 Reactive Lymphs % (Man) 0 % 02/08/17 20:39 Monocytes % (Manual) 20.0 % (0.0-7.3) H 02/08/17 20:39 Eosinophils % (Manual) 2.0 % (0.0-4.3) 02/08/17 20:39 Basophils % (Manual) 0 % (0.0-1.8) 02/08/17 20:39 Metamyelocytes % 0 % 02/08/17 20:39 Myelocytes % 0 % 02/08/17 20:39 Promyelocytes % 0 % 02/08/17 20:39 Blast Cells % 0 % 02/08/17 20:39 Nucleated RBC % 1.0 % (0.0-0.9) H 02/08/17 20:39 Seg Neutrophils # Man 5.9 K/mm3 (1.8-7.7) 02/08/17 20:39 Band Neutrophils # 0.0 K/mm3 02/08/17 20:39 Lymphocytes # (Manual) 1.2 K/mm3 (1.2-5.4) 02/08/17 20:39 Abs React Lymphs (Man) 0.0 K/mm3 02/08/17 20:39 Monocytes # (Manual) 1.8 K/mm3 (0.0-0.8) H 02/08/17 20:39 Eosinophils # (Manual) 0.2 K/mm3 (0.0-0.4) 02/08/17 20:39 Basophils # (Manual) 0.0 K/mm3 (0.0-0.1) 02/08/17 20:39 Metamyelocytes # 0.0 K/mm3 02/08/17 20:39 Myelocytes # 0.0 K/mm3 02/08/17 20:39 Promyelocytes # 0.0 K/mm3 02/08/17 20:39 Blast Cells # 0.0 K/mm3 02/08/17 20:39 WBC Morphology Not Reportable 02/08/17 20:39 Hypersegmented Neuts Not Reportable 02/08/17 20:39 Hyposegmented Neuts Not Reportable 02/08/17 20:39 Hypogranular Neuts Not Reportable 02/08/17 20:39 Smudge Cells Not Reportable 02/08/17 20:39 Toxic Granulation Not Reportable 02/08/17 20:39 Toxic Vacuolation Not Reportable 02/08/17 20:39 Dohle Bodies Not Reportable 02/08/17 20:39 Pelger-Huet Anomaly Not Reportable 02/08/17 20:39 James Rods Not Reportable 02/08/17 20:39 Platelet Estimate Consistent w auto 02/08/17 20:39 Clumped Platelets Not Reportable 02/08/17 20:39 Plt Clumps, EDTA Not Reportable 02/08/17 20:39 Large Platelets Not Reportable 02/08/17 20:39 Giant Platelets 1+ 02/08/17 20:39 Platelet Satelliting Not Reportable 02/08/17 20:39 Plt Morphology Comment Not Reportable 02/08/17 20:39 RBC Morphology Not Reportable 02/08/17 20:39 Dimorphic RBCs Not Reportable 02/08/17 20:39 Polychromasia Not Reportable 02/08/17 20:39 Hypochromasia Not Reportable 02/08/17 20:39 Poikilocytosis Few 02/08/17 20:39 Anisocytosis 1+ 02/08/17 20:39 Microcytosis Not Reportable 02/08/17 20:39 Macrocytosis Not Reportable 02/08/17 20:39 Spherocytes Not Reportable 02/08/17 20:39 Pappenheimer Bodies Not Reportable 02/08/17 20:39 Sickle Cells Few 02/08/17 20:39 Target Cells 3+ 02/08/17 20:39 Tear Drop Cells Not Reportable 02/08/17 20:39 Ovalocytes Not Reportable 02/08/17 20:39 Helmet Cells Not Reportable 02/08/17 20:39 [place] Bodies Not Reportable 02/08/17 20:39 [place] Rings Not Reportable 02/08/17 20:39 Fabi Cells Not Reportable 02/08/17 20:39 Bite Cells Not Reportable 02/08/17 20:39 Crenated Cell Not Reportable 02/08/17 20:39 Elliptocytes Not Reportable 02/08/17 20:39 Acanthocytes (Spur) Not Reportable 02/08/17 20:39 Rouleaux Not Reportable 02/08/17 20:39 Hemoglobin C Crystals Not Reportable 02/08/17 20:39 Schistocytes Not Reportable 02/08/17 20:39 Malaria parasites Not Reportable 02/08/17 20:39 Benjamin Bodies Not Reportable 02/08/17 20:39 Hem Pathologist Commnt No 02/08/17 20:39 Sodium 144 mmol/L (137-145) 02/09/17 05:37 Potassium 3.8 mmol/L (3.6-5.0) 02/09/17 05:37 Chloride 99.4 mmol/L (98-107) 02/09/17 05:37 Carbon Dioxide 32 mmol/L (22-30) H 02/09/17 05:37 Anion Gap 16 mmol/L 02/09/17 05:37 BUN 7 mg/dL (7-17) 02/09/17 05:37 Creatinine 0.8 mg/dL (0.7-1.2) 02/09/17 05:37 Estimated GFR > 60 ml/min 02/09/17 05:37 BUN/Creatinine Ratio 8.75 % 02/09/17 05:37 Glucose 95 mg/dL (65-100) 02/09/17 05:37 Calcium 8.3 mg/dL (8.4-10.2) L 02/09/17 05:37 Total Bilirubin 8.40 mg/dL (0.1-1.2) H 02/09/17 05:37 Direct Bilirubin 1.1 mg/dL (0-0.2) H 02/08/17 20:39 Indirect Bilirubin 6.1 mg/dL 02/08/17 20:39 AST 20 units/L (5-40) 02/09/17 05:37 ALT 9 units/L (7-56) 02/09/17 05:37 Alkaline Phosphatase 69 units/L (35-129) 02/09/17 05:37 Total Creatine Kinase 47 units/L (30-135) 02/09/17 05:37 CK-MB (CK-2) < 1.0 ng/mL (0.0-4.0) 02/09/17 05:37 CK-MB (CK-2) Rel Index 2.1 (0-4) 02/09/17 05:37 Troponin T 0.065 ng/mL (0.00-0.029) H 02/09/17 05:37 NT-Pro-B Natriuret Pep 1445 pg/mL (0-450) H 02/08/17 20:39 Total Protein 6.9 g/dL (6.3-8.2) 02/09/17 05:37 Albumin 3.4 g/dL (3.9-5) L 02/09/17 05:37 Albumin/Globulin Ratio 1.0 % 02/09/17 05:37 Triglycerides 76 mg/dL (2-149) 02/08/17 20:39 Cholesterol 64 mg/dL (50-199) 02/08/17 20:39 LDL Cholesterol Direct 28 mg/dL (50-130) L 02/08/17 20:39 HDL Cholesterol 21 mg/dL (40-59) L 02/08/17 20:39 Cholesterol/HDL Ratio 3.04 % 02/08/17 20:39 TSH 6.720 mlU/mL (0.270-4.200) H 02/09/17 05:37 Free T4 1.24 ng/dL (0.76-1.46) 02/09/17 05:37 HCG, Qual Negative (Negative) 02/08/17 20:39 <KAMANDA,EMMANUELLE O - Last Filed: 02/10/17 14:16> Assessment and Plan Assessment and plan: I saw and evaluated the patient. I agree with the findings and the plan of care as documented in the Nurse Practitioner's~note, with the following corrections and additions. Patient with morbid obesity with acute on chronic CHF. She also has cor pulmonale. Will consult pulmonology environmental services manager as recommended. Hospitalist Physical - Constitutional Vitals: Temp Pulse Resp BP Pulse Ox 98.7 F 115 H 20 113/64 95 02/10/17 11:05 02/10/17 11:05 02/10/17 11:05 02/10/17 11:05 02/10/17 11:05 Results - Labs CBC & Chem 7: 02/10/17 07:55 02/10/17 07:55 Labs: Laboratory Last Values WBC 9.7 K/mm3 (4.5-11.0) 02/10/17 07:55 RBC 3.49 M/mm3 (3.65-5.03) L 02/10/17 07:55 Hgb 10.1 gm/dl (10.1-14.3) 02/10/17 07:55 Hct 29.8 % (30.3-42.9) L 02/10/17 07:55 MCV 85 fl (79-97) 02/10/17 07:55 MCH 29 pg (28-32) 02/10/17 07:55 MCHC 34 % (30-34) 02/10/17 07:55 RDW 20.6 % (13.2-15.2) H 02/10/17 07:55 Plt Count 300 K/mm3 (140-440) 02/10/17 07:55 [place] % (Auto) Hand Inspector 02/10/17 07:55 Add Manual Diff Complete 02/10/17 07:55 Total Counted 100 02/10/17 07:55 Seg Neuts % (Manual) 40.0 % (40.0-70.0) 02/10/17 07:55 Band Neutrophils % 2.0 % 02/10/17 07:55 Lymphocytes % (Manual) 31.0 % (13.4-35.0) 02/10/17 07:55 Reactive Lymphs % (Man) 0 % 02/10/17 07:55 Monocytes % (Manual) 21.0 % (0.0-7.3) H 02/10/17 07:55 Eosinophils % (Manual) 5.0 % (0.0-4.3) H 02/10/17 07:55 Basophils % (Manual) 0 % (0.0-1.8) 02/10/17 07:55 Metamyelocytes % 1.0 % 02/10/17 07:55 Myelocytes % 0 % 02/10/17 07:55 Promyelocytes % 0 % 02/10/17 07:55 Blast Cells % 0 % 02/10/17 07:55 Nucleated RBC % Not Reportable 02/10/17 07:55 Seg Neutrophils # Man 3.9 K/mm3 (1.8-7.7) 02/10/17 07:55 Band Neutrophils # 0.2 K/mm3 02/10/17 07:55 Lymphocytes # (Manual) 3.0 K/mm3 (1.2-5.4) 02/10/17 07:55 Abs React Lymphs (Man) 0.0 K/mm3 02/10/17 07:55 Monocytes # (Manual) 2.0 K/mm3 (0.0-0.8) H 02/10/17 07:55 Eosinophils # (Manual) 0.5 K/mm3 (0.0-0.4) H 02/10/17 07:55 Basophils # (Manual) 0.0 K/mm3 (0.0-0.1) 02/10/17 07:55 Metamyelocytes # 0.1 K/mm3 02/10/17 07:55 Myelocytes # 0.0 K/mm3 02/10/17 07:55 Promyelocytes # 0.0 K/mm3 02/10/17 07:55 Blast Cells # 0.0 K/mm3 02/10/17 07:55 WBC Morphology Not Reportable 02/10/17 07:55 Hypersegmented Neuts Not Reportable 02/10/17 07:55 Hyposegmented Neuts Not Reportable 02/10/17 07:55 Hypogranular Neuts Not Reportable 02/10/17 07:55 Smudge Cells Not Reportable 02/10/17 07:55 Toxic Granulation Not Reportable 02/10/17 07:55 Toxic Vacuolation Not Reportable 02/10/17 07:55 Dohle Bodies Not Reportable 02/10/17 07:55 Pelger-Huet Anomaly Not Reportable 02/10/17 07:55 James Rods Not Reportable 02/10/17 07:55 Platelet Estimate Not Reportable 02/10/17 07:55 Clumped Platelets Not Reportable 02/10/17 07:55 Plt Clumps, EDTA Not Reportable 02/10/17 07:55 Large Platelets Not Reportable 02/10/17 07:55 Giant Platelets Not Reportable 02/10/17 07:55 Platelet Satelliting Not Reportable 02/10/17 07:55 Plt Morphology Comment Not Reportable 02/10/17 07:55 RBC Morphology Not Reportable 02/10/17 07:55 Dimorphic RBCs Not Reportable 02/10/17 07:55 Polychromasia Few 02/10/17 07:55 Hypochromasia 1+ 02/10/17 07:55 Poikilocytosis Not Reportable 02/10/17 07:55 Anisocytosis 1+ 02/10/17 07:55 Microcytosis Not Reportable 02/10/17 07:55 Macrocytosis Not Reportable 02/10/17 07:55 Spherocytes Not Reportable 02/10/17 07:55 Pappenheimer Bodies Not Reportable 02/10/17 07:55 Sickle Cells Not Reportable 02/10/17 07:55 Target Cells 2+ 02/10/17 07:55 Tear Drop Cells Not Reportable 02/10/17 07:55 Ovalocytes Not Reportable 02/10/17 07:55 Helmet Cells Not Reportable 02/10/17 07:55 [place] Bodies Not Reportable 02/10/17 07:55 [place] Rings Not Reportable 02/10/17 07:55 Fabi Cells Not Reportable 02/10/17 07:55 Bite Cells Not Reportable 02/10/17 07:55 Crenated Cell Not Reportable 02/10/17 07:55 Elliptocytes Not Reportable 02/10/17 07:55 Acanthocytes (Spur) Not Reportable 02/10/17 07:55 Rouleaux Not Reportable 02/10/17 07:55 Hemoglobin C Crystals Not Reportable 02/10/17 07:55 Schistocytes Few 02/10/17 07:55 Malaria parasites Not Reportable 02/10/17 07:55 Benjamin Bodies Not Reportable 02/10/17 07:55 Hem Pathologist Commnt No 02/10/17 07:55 Sodium 142 mmol/L (137-145) 02/10/17 07:55 Potassium 4.6 mmol/L (3.6-5.0) D 02/10/17 07:55 Chloride 97.8 mmol/L (98-107) L 02/10/17 07:55 Carbon Dioxide 34 mmol/L (22-30) H 02/10/17 07:55 Anion Gap 15 mmol/L 02/10/17 07:55 BUN 8 mg/dL (7-17) 02/10/17 07:55 Creatinine 1.1 mg/dL (0.7-1.2) 02/10/17 07:55 Estimated GFR > 60 ml/min 02/10/17 07:55 BUN/Creatinine Ratio 7.27 % 02/10/17 07:55 Glucose 98 mg/dL (65-100) 02/10/17 07:55 Calcium 8.2 mg/dL (8.4-10.2) L 02/10/17 07:55 Total Bilirubin 8.40 mg/dL (0.1-1.2) H 02/09/17 05:37 Direct Bilirubin 1.1 mg/dL (0-0.2) H 02/08/17 20:39 Indirect Bilirubin 6.1 mg/dL 02/08/17 20:39 AST 20 units/L (5-40) 02/09/17 05:37 ALT 9 units/L (7-56) 02/09/17 05:37 Alkaline Phosphatase 69 units/L (35-129) 02/09/17 05:37 Total Creatine Kinase 47 units/L (30-135) 02/09/17 05:37 CK-MB (CK-2) < 1.0 ng/mL (0.0-4.0) 02/09/17 05:37 CK-MB (CK-2) Rel Index 2.1 (0-4) 02/09/17 05:37 Troponin T 0.065 ng/mL (0.00-0.029) H 02/09/17 05:37 NT-Pro-B Natriuret Pep 1445 pg/mL (0-450) H 02/08/17 20:39 Total Protein 6.9 g/dL (6.3-8.2) 02/09/17 05:37 Albumin 3.4 g/dL (3.9-5) L 02/09/17 05:37 Albumin/Globulin Ratio 1.0 % 02/09/17 05:37 Triglycerides 76 mg/dL (2-149) 02/08/17 20:39 Cholesterol 64 mg/dL (50-199) 02/08/17 20:39 LDL Cholesterol Direct 28 mg/dL (50-130) L 02/08/17 20:39 HDL Cholesterol 21 mg/dL (40-59) L 02/08/17 20:39 Cholesterol/HDL Ratio 3.04 % 02/08/17 20:39 TSH 6.720 mlU/mL (0.270-4.200) H 02/09/17 05:37 Free T4 1.24 ng/dL (0.76-1.46) 02/09/17 05:37 HCG, Qual Negative (Negative) 02/08/17 20:39
[2017-02-10] MEDS: NYSTOP TP SCH ×4 (08:00→22:34)
[2017-02-10 08:41] LABS: Hematocrit 29.8 % (30.3-42.9); Hemoglobin 10.1 gm/dl (10.1-14.3); Mean Corpuscular HGB Conc 34 % (30-34); Mean Corpuscular Hemoglobin 29 pg (28-32); Mean Corpuscular Volume 85 fl (79-97); Platelet Count 300 K/mm3 (140-440); Red Blood Count 3.49 M/mm3 (3.65-5.03); White Blood Count 9.7 K/mm3 (4.5-11.0)
[2017-02-10 08:44] LABS: Red Cell Distribution Width 20.6 % (13.2-15.2)
[2017-02-10 08:54] LABS: Anion Gap 15 mmol/L; BUN/Creatinine Ratio 7.27; Blood Urea Nitrogen 8 mg/dL (7-17); Calcium 8.2 mg/dL (8.4-10.2); Carbon Dioxide 34 mmol/L (22-30); Chloride 97.8 mmol/L (98-107); Glucose 98 mg/dL (65-100); Sodium 142 mmol/L (137-145)
[2017-02-10] MEDS: DUONEB *Not for PRN Use IH SCH ×3 (09:00→22:18)
[2017-02-10] MEDS ORDERED: PROVENTIL IH PRN (09:06)
[2017-02-10] MEDS: HEPARIN SUB-Q SCH ×2 (09:19→22:16)
[2017-02-10] MEDS: LOPRESSOR PO SCH ×2 (09:19→22:32)
[2017-02-10] MEDS: PROTONIX PO SCH (09:20)
[2017-02-10 09:24] LABS: Potassium 4.6 mmol/L (3.6-5.0)
[2017-02-10 10:11] LABS: Anisocytosis 1+; Basophils % (Manual) 0 % (0.0-1.8); Blastocytes % (Manual) 0 %
[2017-02-10 10:12] LABS: Hypochromasia 1+; Polychromasia Few; Schistocytes Few; Target Cells 2+
[2017-02-10 10:13] LABS: Diff Status Complete
--- NOTE | 2017-02-10 11:49 | Progress Note ---
Assessment and Plan Acute hypoxic respiratory failure CHF with a preserved ejection fraction Sickle cell disease on home oxygen Morbidly obese Pressure ulcers Hypothyroidism TSH 6.7 Echocardiogram demonstrates a dilated right heart chambers, moderate tricuspid regurgitation and moderate pulmonary hypertension. Findings are consistent with cor pulmonale associated with her chronic lung disease. Left ventricle chamber size and systolic function are normal, EF 50-55%. Recommendations: Pulmonary evaluation and management of her chronic lung disease, cor pulmonale and pulmonary hypertension. Continue medical therapy for CHF with a preserved ejection fraction. Subjective Date of service: 02/10/17 Interval history: Patient reports she is feeling better. Objective Vital Signs Temp Pulse Pulse Pulse Resp Resp Resp 02/10/17 09:21 20 02/10/17 09:19 102 H 02/10/17 09:16 02/10/17 09:15 132 H 20 02/10/17 09:03 02/10/17 09:00 119 H 18 02/10/17 08:59 02/10/17 08:51 20 02/10/17 07:35 20 02/10/17 07:13 98.3 F 117 H 20 02/10/17 05:05 20 02/10/17 04:35 20 02/09/17 23:32 20 02/09/17 23:16 132 H 02/09/17 23:02 22 02/09/17 22:00 110 H 20 22 02/09/17 21:12 02/09/17 20:55 97 H 24 02/09/17 20:42 95 H 22 02/09/17 19:17 75 02/09/17 14:18 88 20 02/09/17 14:08 85 20 BP Pulse Ox 02/10/17 09:21 02/10/17 09:19 116/81 02/10/17 09:16 95 02/10/17 09:15 02/10/17 09:03 93 02/10/17 09:00 02/10/17 08:59 93 02/10/17 08:51 02/10/17 07:35 02/10/17 07:13 115/59 93 02/10/17 05:05 02/10/17 04:35 02/09/17 23:32 02/09/17 23:16 129/58 02/09/17 23:02 02/09/17 22:00 02/09/17 21:12 95 02/09/17 20:55 02/09/17 20:42 02/09/17 19:17 02/09/17 14:18 02/09/17 14:08 - Physical Examination General: No Apparent Distress, Other (obese) HEENT: Positive: PERRL Neck: Positive: trachea midline Cardiac: Positive: Reg Rate and Rhythm - Labs and Meds CBC 02/10/17 Range/Units 07:55 WBC 9.7 (4.5-11.0) K/mm3 RBC 3.49 L (3.65-5.03) M/mm3 Hgb 10.1 (10.1-14.3) gm/dl Hct 29.8 L (30.3-42.9) % Plt Count 300 (140-440) K/mm3 Comprehensive Metabolic Panel 02/10/17 Range/Units 07:55 Sodium 142 (137-145) mmol/L Potassium 4.6 D (3.6-5.0) mmol/L Chloride 97.8 L (98-107) mmol/L Carbon Dioxide 34 H (22-30) mmol/L BUN 8 (7-17) mg/dL Creatinine 1.1 (0.7-1.2) mg/dL Glucose 98 (65-100) mg/dL Calcium 8.2 L (8.4-10.2) mg/dL
--- NOTE | 2017-02-10 12:11 | Consultation ---
History of Present Illness Consult date: 02/10/17 Reason for consult: other (Left buttock infection) - History of present illness History of present illness: Left buttock has been draining for "some time". No fever or chills. Medications and Allergies Allergies Allergy/AdvReac Type Severity Reaction Status Date / Time morphine Allergy Hives Verified 02/08/17 19:50 shrimp Allergy Hives Verified 02/08/17 19:50 Home Medications Medication Instructions Recorded Confirmed Last Taken Type ALBUTEROL Inhaler [Proair] 2 puff IH QID PRN 10/14/16 02/08/17 02/08/17 History Folic Acid [FA-8] 0.8 mg PO DAILY 10/14/16 02/08/17 02/08/17 History Furosemide [Lasix TAB] 40 mg PO QDAY 10/14/16 02/08/17 02/08/17 History Metoprolol [Lopressor TAB] 50 mg PO BID 10/14/16 02/08/17 01/25/17 History Nystatin [Nystop Powder] 1 applicatio TP TID 10/14/16 02/08/17 02/08/17 History Ranitidine HCl 75 mg PO DAILY 10/14/16 02/08/17 02/08/17 History traMADol [Ultram] 50 mg PO Q4HR PRN 10/14/16 02/08/17 02/08/17 History Active Meds: Active Medications Acetaminophen (Tylenol) 325 mg PO Q6H PRN PRN Reason: Pain, Mild (1-3) Albuterol (Proventil) 2.5 mg IH Q4HRT PRN PRN Reason: Shortness Of Breath Albuterol/Ipratropium (Duoneb *Not For Prn Use*) 1 ampul IH Q6HRT [facility] Budesonide (Pulmicort) 0.5 mg IH Q12HRT [facility] Diphenhydramine HCl (Benadryl) 25 mg IV Q6H PRN PRN Reason: Itching Last Admin: 02/10/17 10:00 Dose: 25 mg Furosemide (Lasix) 40 mg IV 0600,1800 [facility] Last Admin: 02/10/17 06:21 Dose: 40 mg Heparin Sodium (Porcine) (Heparin) 5,000 unit SUB-Q Q12HR [facility] Last Admin: 02/10/17 09:19 Dose: 5,000 unit Hydromorphone HCl (Dilaudid) 1 mg IV Q4H PRN PRN Reason: Pain , Severe (7-10) Last Admin: 02/10/17 08:51 Dose: 1 mg Metoprolol Tartrate (Lopressor) 50 mg PO BID [facility] Last Admin: 02/10/17 09:19 Dose: 50 mg Nystatin (Nystop) 1 applic TP TID [facility] Last Admin: 02/10/17 08:00 Dose: Not Given Ondansetron HCl (Zofran) 4 mg IV Q4H PRN PRN Reason: Nausea And Vomiting Pantoprazole Sodium (Protonix) 40 mg PO QDAY [facility] Last Admin: 02/10/17 09:20 Dose: 40 mg Zolpidem Tartrate (Ambien) 5 mg PO QHS PRN PRN Reason: Sleep Review of Systems All systems: negative Exam Vital Signs Temp Pulse Resp BP Pulse Ox 99.0 F 141 H 13 139/59 99 02/08/17 19:43 02/08/17 19:43 02/08/17 19:43 02/08/17 19:43 02/08/17 19:43 - General physical appearance Positive: well developed, well nourished, no distress - Eyes Positive: PERRL, normal occular movement - ENT Positive: normal pinna, normal nares, normal mucosa, no hearing loss, no congestion - Neck Positive: no masses, no bruits, trachea midline, no venous distension - Respiratory Positive: normal expansion, normal respiratory effort, clear to auscultation - Cardiovascular Rhythm: regular Heart Sounds: Present: S1 & S2. Absent: rub, click - Extremities Extremities: no ischemia, pulses symmetrical, No edema - Breasts Breasts: deferred - Abdomen Abdomen: Present: soft, bowel sounds normal. Absent: tender, distended Hernia: none - Genitourinary Female Genitourinary: deferred - Integumentary other (There is a medial left buttock abscess which is draining purulent fluid via a 3 mm punctum.) - Neurologic Neurologic: alert and oriented to time, place and person, motor strength and sensation are grossly intact - Musculoskeletal normal gait, normal posture - Psychiatric Psychiatric: appropriate mood/affect, intact judgment & insight Results - Labs 02/10/17 07:55 02/10/17 07:55 Abnormal lab results 02/10/17 02/10/17 Range/Units 07:55 07:55 RBC 3.49 L (3.65-5.03) M/mm3 Hct 29.8 L (30.3-42.9) % RDW 20.6 H (13.2-15.2) % Monocytes % (Manual) 21.0 H (0.0-7.3) % Eosinophils % (Manual) 5.0 H (0.0-4.3) % Monocytes # (Manual) 2.0 H (0.0-0.8) K/mm3 Eosinophils # (Manual) 0.5 H (0.0-0.4) K/mm3 Chloride 97.8 L (98-107) mmol/L Carbon Dioxide 34 H (22-30) mmol/L Calcium 8.2 L (8.4-10.2) mg/dL Diabetes panel 02/10/17 Range/Units 07:55 Sodium 142 (137-145) mmol/L Potassium 4.6 D (3.6-5.0) mmol/L Chloride 97.8 L (98-107) mmol/L Carbon Dioxide 34 H (22-30) mmol/L BUN 8 (7-17) mg/dL Creatinine 1.1 (0.7-1.2) mg/dL Glucose 98 (65-100) mg/dL Calcium 8.2 L (8.4-10.2) mg/dL Calcium panel 02/10/17 Range/Units 07:55 Calcium 8.2 L (8.4-10.2) mg/dL Pituitary panel 02/10/17 Range/Units 07:55 Sodium 142 (137-145) mmol/L Potassium 4.6 D (3.6-5.0) mmol/L Chloride 97.8 L (98-107) mmol/L Carbon Dioxide 34 H (22-30) mmol/L BUN 8 (7-17) mg/dL Creatinine 1.1 (0.7-1.2) mg/dL Glucose 98 (65-100) mg/dL Calcium 8.2 L (8.4-10.2) mg/dL Adrenal panel 02/10/17 Range/Units 07:55 Sodium 142 (137-145) mmol/L Potassium 4.6 D (3.6-5.0) mmol/L Chloride 97.8 L (98-107) mmol/L Carbon Dioxide 34 H (22-30) mmol/L BUN 8 (7-17) mg/dL Creatinine 1.1 (0.7-1.2) mg/dL Glucose 98 (65-100) mg/dL Calcium 8.2 L (8.4-10.2) mg/dL Assessment and Plan - Patient Problems (1) Left buttock abscess Current Visit: Yes Status: Acute Plan to address problem: I&D tomorrow. Pt is very anxious and wants to "talk it over" with her mother. I will go ahead and post her for I&D tomorrow and proceed if she consents.
[2017-02-10] MEDS ORDERED: LEVAQUIN 750MG/150ML 750 MG/150 ML BAG IV ONE (13:00)
--- NOTE | 2017-02-10 17:20 | Consultation ---
History of Present Illness Reason for consult: dyspnea, pulmonary hypertension, other (Cor pulmonale) History of present illness: 31-year-old extremely obese woman ,reportedly mostly bedbound for the past 6 mionths, admited with SOB,swelling and history of CHF. PMH of history of hypertension, anemia with prior blood transfusions, asthma, CHF and sickle cell disease who presents Reportedly, she was taken off her Lasix and other CHF medication 2 weeks ago, went to [facility], reason not given. She developed leg swelling and "her mother called the cardiology clinic at [place] but was unable to get to see the doctor, so she stayed off her CHF medications". Reportedly, the patient reports a stat she had been seeing a [facility] mostly for management of asthma. She seems to have established care there in April. She was sent to the pulmonary clinic and had been started oxygen at home. She was told that she may have sleep apnea but never had a sleep study ordered this appears to be pending. Denies any chest pain, fevers or chills Echocardiogram done here in the hospital shows evidence of severe pulmonary hypertension with pressure 77 mmHg, right ventricular strain changes and normal ejection fraction. See report on record. The patient be seen by cardiology already and pulmonary consultation was requested. Sleep history was reviewed with the patient. Sleep is characterized by a restless sleep. The patient reports snoring and breathing problems with sleep time. Also some history of daytime sleepiness with problems concentrating and doing routine tasks. Past History Past Medical History: heart failure, other (sleep apnea, asthma) Social history: single, lives with family, full code. denies: smoking, alcohol abuse, prescription drug abuse, IV drug use Medications and Allergies Allergies Allergy/AdvReac Type Severity Reaction Status Date / Time morphine Allergy Hives Verified 02/08/17 19:50 shrimp Allergy Hives Verified 02/08/17 19:50 Home Medications Medication Instructions Recorded Confirmed Last Taken Type ALBUTEROL Inhaler [Proair] 2 puff IH QID PRN 10/14/16 02/08/17 02/08/17 History Folic Acid [FA-8] 0.8 mg PO DAILY 10/14/16 02/08/17 02/08/17 History Furosemide [Lasix TAB] 40 mg PO QDAY 10/14/16 02/08/17 02/08/17 History Metoprolol [Lopressor TAB] 50 mg PO BID 10/14/16 02/08/17 01/25/17 History Nystatin [Nystop Powder] 1 applicatio TP TID 10/14/16 02/08/17 02/08/17 History Ranitidine HCl 75 mg PO DAILY 10/14/16 02/08/17 02/08/17 History traMADol [Ultram] 50 mg PO Q4HR PRN 10/14/16 02/08/17 02/08/17 History Active Meds: Active Medications Acetaminophen (Tylenol) 325 mg PO Q6H PRN PRN Reason: Pain, Mild (1-3) Albuterol (Proventil) 2.5 mg IH Q4HRT PRN PRN Reason: Shortness Of Breath Albuterol/Ipratropium (Duoneb *Not For Prn Use*) 1 ampul IH Q6HRT [facility] Last Admin: 02/10/17 14:33 Dose: 1 ampul Budesonide (Pulmicort) 0.5 mg IH Q12HRT [facility] Diphenhydramine HCl (Benadryl) 25 mg IV Q6H PRN PRN Reason: Itching Last Admin: 02/10/17 10:00 Dose: 25 mg Furosemide (Lasix) 40 mg IV 0600,1800 [facility] Last Admin: 02/10/17 06:21 Dose: 40 mg Heparin Sodium (Porcine) (Heparin) 5,000 unit SUB-Q Q12HR [facility] Last Admin: 02/10/17 09:19 Dose: 5,000 unit Hydromorphone HCl (Dilaudid) 1 mg IV Q4H PRN PRN Reason: Pain , Severe (7-10) Last Admin: 02/10/17 08:51 Dose: 1 mg Levofloxacin/Dextrose (Levaquin 750mg/150ml) 750 mg in 150 mls @ 100 mls/hr IV Q24H [facility] PRN Reason: Protocol Metoprolol Tartrate (Lopressor) 50 mg PO BID [facility] Last Admin: 02/10/17 09:19 Dose: 50 mg Nystatin (Nystop) 1 applic TP TID [facility] Last Admin: 02/10/17 08:00 Dose: Not Given Ondansetron HCl (Zofran) 4 mg IV Q4H PRN PRN Reason: Nausea And Vomiting Pantoprazole Sodium (Protonix) 40 mg PO QDAY [facility] Last Admin: 02/10/17 09:20 Dose: 40 mg Zolpidem Tartrate (Ambien) 5 mg PO QHS PRN PRN Reason: Sleep Physical Examination Vital signs: Vital Signs Temp Pulse Resp BP Pulse Ox 99.0 F 141 H 13 139/59 99 02/08/17 19:43 02/08/17 19:43 02/08/17 19:43 02/08/17 19:43 02/08/17 19:43 General appearance: no acute distress, alert, other (superobesity) Eyes: non-icteric ENT: oropharynx moist, other (R Boby Marco, Mallampati 4) Neck: supple, no lymphadenopathy, other (cannot evaluate for JVD) Ascultation: Bilateral: clear, diminished breath sounds (Limited excursions) Cardiovascular: regular rate and rhythm (grossly normal murmurs) Gastrointestinal: normoactive bowel sounds, non-distended, other (cannot evaluate for organomegaly severe morbid patient) Extremities: no cyanosis, edema (+1 lower extremities) normal mental status, non-focal exam, pupils equal and round, CN II-XII normal, motor strength normal and mood appropriate, affect normal Results - Laboratory Findings CBC and BMP: 02/10/17 07:55 02/10/17 07:55 Abnormal lab findings: Abnormal Labs 02/09/17 02/09/17 02/09/17 00:30 05:37 05:37 RBC Hct RDW Monocytes % (Manual) Eosinophils % (Manual) Monocytes # (Manual) Eosinophils # (Manual) Chloride Carbon Dioxide Calcium Total Bilirubin Troponin T 0.055 H 0.065 H Albumin TSH 6.720 H 02/09/17 02/09/17 02/10/17 05:37 05:37 07:55 RBC 3.51 L 3.49 L Hct 30.0 L 29.8 L RDW 20.4 H 20.6 H Monocytes % (Manual) 21.0 H Eosinophils % (Manual) 5.0 H Monocytes # (Manual) 2.0 H Eosinophils # (Manual) 0.5 H Chloride Carbon Dioxide 32 H Calcium 8.3 L Total Bilirubin 8.40 H Troponin T Albumin 3.4 L TSH 02/10/17 07:55 RBC Hct RDW Monocytes % (Manual) Eosinophils % (Manual) Monocytes # (Manual) Eosinophils # (Manual) Chloride 97.8 L Carbon Dioxide 34 H Calcium 8.2 L Total Bilirubin Troponin T Albumin TSH - Diagnostic Findings Chest x-ray: report reviewed PFT's: report reviewed (Echo) Assessment and Plan Dyspnea-multifactorial most likely related to combination of bronchial hyperactivity disorder, pulmonary hypertension and severe morbid obesity with mechanical limitations and deconditioning Cor pulmonale,secondary to PHT Pulmonary hypertension, c/u, possibly due to OHS,chronic hypoxia,SS disease. Extreme morbid obesity.Triggering all of the above Obesity hypoventilation syndrome, suspected-high HCO3+ STOP BANG >3 Asthma/bronchial hyperactivity disorder by history Buttock abscess Rec Gentle diuresis, but caution with volume depletion in the setting of RV overload Oxygen support avoid hypoxemia at night ABG,check for chronic hypercapnic failure,OHS May need BPAP at night empyrically ABX per IMS for buttock abscess Nutritional management , wt loss diet AVOID NARCOTICS if possible, if hypercapnic failure present Will need ventilation/perfusion scanning to evaluate for chronic thromboembolic pulmonary hypertension or CTEPH Consider also HIV for pulmonary hypertension evaluation Discussed with patient in detail.
[2017-02-10 19:37] LABS: ISTAT Base Excess 9; ISTAT HCO3 36.1; ISTAT PCO2 77.7 (35-45); ISTAT PH 7.276 (7.35-7.45); ISTAT PO2 68 (80-105); ISTAT SO2 89; ISTAT TCO2 38
[2017-02-10] MEDS: PULMICORT IH SCH (22:19)
[2017-02-10 23:02] LABS: ISTAT Base Excess 11; ISTAT HCO3 37.1; ISTAT PCO2 71.2 (35-45); ISTAT PH 7.325 (7.35-7.45); ISTAT PO2 77 (80-105); ISTAT SO2 93; ISTAT TCO2 39
[2017-02-11] MEDS: LASIX IV SCH ×2 (05:10→17:11)
[2017-02-11] MEDS: BENADRYL IV PRN ×3 (05:13→17:16)
[2017-02-11] MEDS: DILAUDID IV PRN (05:13)
[2017-02-11 05:27] LABS: ISTAT Base Excess 10; ISTAT HCO3 35.8; ISTAT PCO2 63.3 (35-45); ISTAT PO2 76 (80-105); ISTAT SO2 94; ISTAT TCO2 38
--- NOTE | 2017-02-11 08:18 | Progress Note ---
<MARKOS LU - Last Filed: 02/11/17 11:37> Assessment and Plan Assessment and plan: Acute hypoxic respiratory failure due to CHF due to noncompliance Most likely due to obesity hypoventilation syndrome She was on BiPAP overnight.Patient currently on 4NLC maintaining SPO2>98%. NO acute respiratory distress noted. Patient transfer back to Telemetry floor. Continue oxygen supplement counseled compliance Pulmonary consulted We will get ventilation/perfusion scanning and HIV testing, as part of pulmonary hypertension workup per Discontinue Dilaudid, due to risk of precipitating worsening respiratory failure per Pulmonary Obesity hypoventilation syndrome ABG when necessary Closely monitor patient. Pulmonary hypertension Most likely due to OHS,chronic hypoxia,SS disease. Cor pulmonale Most likely due to PHT Pulmonary consulted Acute on chronic diastolic heart failure Echocardiogram demonstrates a dilated right heart chambers, moderate tricuspid regurgitation and moderate pulmonary hypertension. Findings are consistent with cor pulmonale associated with her chronic lung disease. Left ventricle chamber size and systolic function are normal, EF 50-55%. Strict I/O's and daily weights, fluid restriction 1200ml in 24 hrs Treat with IV Lasix, Beta blockers Followed by cardiology. Sickle cell pain crisis with hemolytic anemia and jaundice Consulted hematology/oncology, With IV fluids because of the heart failure, complex medical decision, treat with IV pain medicine and Benadryl Mildly elevated troponin may be related to CHF: Consulted cardiology Anemia most likely related to sickle cell anemia Consult hematology oncology Pressure wound bed bound state Pressure ulcer to left buttock Consult wound care Dr. Glynn Berg Functional quadriplegia Consult physical therapy Extreme obesity BMI 98.7 Counseling done patient strongly advised to lose weight and life style changes is important to improve cardiovascular diseases. Consult Dietitian DVT prophylaxis Subcutaneous heparin History Interval history: Patient respiratory distress and transfer to ICU, currently on 4NCL and maintaining SPO2 >98% Hospitalist Physical - Constitutional Vitals: Temp Pulse Resp BP Pulse Ox 98.7 F 126 H 17 107/62 95 02/11/17 04:00 02/11/17 08:00 02/11/17 08:00 02/11/17 08:00 02/11/17 08:00 General appearance: Present: mild distress, other (on 4LNC with SPO2 >98%) - EENT Eyes: Present: PERRL ENT: hearing intact - Neck Neck: Present: supple, normal ROM - Respiratory Respiratory effort: normal Respiratory: bilateral: CTA - Cardiovascular Heart rate: 86 Rhythm: regular Heart Sounds: Present: S1 & S2 - Extremities Extremity abnormal: edema, other (left leg) - Abdominal General gastrointestinal: soft, non-tender - Integumentary Integumentary: Present: clear, warm, dry - Psychiatric Psychiatric: appropriate mood/affect - Neurologic Neurologic: CNII-XII intact - Allied Health Allied health notes reviewed: nursing Results - Labs CBC & Chem 7: 02/11/17 08:09 02/11/17 08:09 Labs: Laboratory Last Values WBC 9.7 K/mm3 (4.5-11.0) 02/10/17 07:55 RBC 3.49 M/mm3 (3.65-5.03) L 02/10/17 07:55 Hgb 10.1 gm/dl (10.1-14.3) 02/10/17 07:55 Hct 29.8 % (30.3-42.9) L 02/10/17 07:55 MCV 85 fl (79-97) 02/10/17 07:55 MCH 29 pg (28-32) 02/10/17 07:55 MCHC 34 % (30-34) 02/10/17 07:55 RDW 20.6 % (13.2-15.2) H 02/10/17 07:55 Plt Count 300 K/mm3 (140-440) 02/10/17 07:55 [place] % (Auto) Information Technology Security Analyst 02/10/17 07:55 Add Manual Diff Complete 02/10/17 07:55 Total Counted 100 02/10/17 07:55 Seg Neuts % (Manual) 40.0 % (40.0-70.0) 02/10/17 07:55 Band Neutrophils % 2.0 % 02/10/17 07:55 Lymphocytes % (Manual) 31.0 % (13.4-35.0) 02/10/17 07:55 Reactive Lymphs % (Man) 0 % 02/10/17 07:55 Monocytes % (Manual) 21.0 % (0.0-7.3) H 02/10/17 07:55 Eosinophils % (Manual) 5.0 % (0.0-4.3) H 02/10/17 07:55 Basophils % (Manual) 0 % (0.0-1.8) 02/10/17 07:55 Metamyelocytes % 1.0 % 02/10/17 07:55 Myelocytes % 0 % 02/10/17 07:55 Promyelocytes % 0 % 02/10/17 07:55 Blast Cells % 0 % 02/10/17 07:55 Nucleated RBC % Not Reportable 02/10/17 07:55 Seg Neutrophils # Man 3.9 K/mm3 (1.8-7.7) 02/10/17 07:55 Band Neutrophils # 0.2 K/mm3 02/10/17 07:55 Lymphocytes # (Manual) 3.0 K/mm3 (1.2-5.4) 02/10/17 07:55 Abs React Lymphs (Man) 0.0 K/mm3 02/10/17 07:55 Monocytes # (Manual) 2.0 K/mm3 (0.0-0.8) H 02/10/17 07:55 Eosinophils # (Manual) 0.5 K/mm3 (0.0-0.4) H 02/10/17 07:55 Basophils # (Manual) 0.0 K/mm3 (0.0-0.1) 02/10/17 07:55 Metamyelocytes # 0.1 K/mm3 02/10/17 07:55 Myelocytes # 0.0 K/mm3 02/10/17 07:55 Promyelocytes # 0.0 K/mm3 02/10/17 07:55 Blast Cells # 0.0 K/mm3 02/10/17 07:55 WBC Morphology Not Reportable 02/10/17 07:55 Hypersegmented Neuts Not Reportable 02/10/17 07:55 Hyposegmented Neuts Not Reportable 02/10/17 07:55 Hypogranular Neuts Not Reportable 02/10/17 07:55 Smudge Cells Not Reportable 02/10/17 07:55 Toxic Granulation Not Reportable 02/10/17 07:55 Toxic Vacuolation Not Reportable 02/10/17 07:55 Dohle Bodies Not Reportable 02/10/17 07:55 Pelger-Huet Anomaly Not Reportable 02/10/17 07:55 James Rods Not Reportable 02/10/17 07:55 Platelet Estimate Not Reportable 02/10/17 07:55 Clumped Platelets Not Reportable 02/10/17 07:55 Plt Clumps, EDTA Not Reportable 02/10/17 07:55 Large Platelets Not Reportable 02/10/17 07:55 Giant Platelets Not Reportable 02/10/17 07:55 Platelet Satelliting Not Reportable 02/10/17 07:55 Plt Morphology Comment Not Reportable 02/10/17 07:55 RBC Morphology Not Reportable 02/10/17 07:55 Dimorphic RBCs Not Reportable 02/10/17 07:55 Polychromasia Few 02/10/17 07:55 Hypochromasia 1+ 02/10/17 07:55 Poikilocytosis Not Reportable 02/10/17 07:55 Anisocytosis 1+ 02/10/17 07:55 Microcytosis Not Reportable 02/10/17 07:55 Macrocytosis Not Reportable 02/10/17 07:55 Spherocytes Not Reportable 02/10/17 07:55 Pappenheimer Bodies Not Reportable 02/10/17 07:55 Sickle Cells Not Reportable 02/10/17 07:55 Target Cells 2+ 02/10/17 07:55 Tear Drop Cells Not Reportable 02/10/17 07:55 Ovalocytes Not Reportable 02/10/17 07:55 Helmet Cells Not Reportable 02/10/17 07:55 [place] Bodies Not Reportable 02/10/17 07:55 [place] Rings Not Reportable 02/10/17 07:55 [place] Cells Not Reportable 02/10/17 07:55 Bite Cells Not Reportable 02/10/17 07:55 Crenated Cell Not Reportable 02/10/17 07:55 Elliptocytes Not Reportable 02/10/17 07:55 Acanthocytes (Spur) Not Reportable 02/10/17 07:55 Rouleaux Not Reportable 02/10/17 07:55 Hemoglobin C Crystals Not Reportable 02/10/17 07:55 Schistocytes Few 02/10/17 07:55 Malaria parasites Not Reportable 02/10/17 07:55 [place] Bodies Not Reportable 02/10/17 07:55 Hem Pathologist Commnt No 02/10/17 07:55 POC ABG pH 7.360 (7.35-7.45) 02/11/17 05:19 POC ABG pCO2 63.3 (35-45) H 02/11/17 05:19 POC ABG pO2 76 (80-105) L 02/11/17 05:19 POC ABG HCO3 35.8 02/11/17 05:19 POC ABG Total CO2 38 02/11/17 05:19 POC ABG O2 Sat 94 02/11/17 05:19 POC ABG Base Excess 10 02/11/17 05:19 FiO2 35 % 02/11/17 05:19 Sodium 142 mmol/L (137-145) 02/10/17 07:55 Potassium 4.6 mmol/L (3.6-5.0) D 02/10/17 07:55 Chloride 97.8 mmol/L (98-107) L 02/10/17 07:55 Carbon Dioxide 34 mmol/L (22-30) H 02/10/17 07:55 Anion Gap 15 mmol/L 02/10/17 07:55 BUN 8 mg/dL (7-17) 02/10/17 07:55 Creatinine 1.1 mg/dL (0.7-1.2) 02/10/17 07:55 Estimated GFR > 60 ml/min 02/10/17 07:55 BUN/Creatinine Ratio 7.27 % 02/10/17 07:55 Glucose 98 mg/dL (65-100) 02/10/17 07:55 Calcium 8.2 mg/dL (8.4-10.2) L 02/10/17 07:55 Total Bilirubin 8.40 mg/dL (0.1-1.2) H 02/09/17 05:37 Direct Bilirubin 1.1 mg/dL (0-0.2) H 02/08/17 20:39 Indirect Bilirubin 6.1 mg/dL 02/08/17 20:39 AST 20 units/L (5-40) 02/09/17 05:37 ALT 9 units/L (7-56) 02/09/17 05:37 Alkaline Phosphatase 69 units/L (35-129) 02/09/17 05:37 Total Creatine Kinase 47 units/L (30-135) 02/09/17 05:37 CK-MB (CK-2) < 1.0 ng/mL (0.0-4.0) 02/09/17 05:37 CK-MB (CK-2) Rel Index 2.1 (0-4) 02/09/17 05:37 Troponin T 0.065 ng/mL (0.00-0.029) H 02/09/17 05:37 NT-Pro-B Natriuret Pep 1445 pg/mL (0-450) H 02/08/17 20:39 Total Protein 6.9 g/dL (6.3-8.2) 02/09/17 05:37 Albumin 3.4 g/dL (3.9-5) L 02/09/17 05:37 Albumin/Globulin Ratio 1.0 % 02/09/17 05:37 Triglycerides 76 mg/dL (2-149) 02/08/17 20:39 Cholesterol 64 mg/dL (50-199) 02/08/17 20:39 LDL Cholesterol Direct 28 mg/dL (50-130) L 02/08/17 20:39 HDL Cholesterol 21 mg/dL (40-59) L 02/08/17 20:39 Cholesterol/HDL Ratio 3.04 % 02/08/17 20:39 TSH 6.720 mlU/mL (0.270-4.200) H 02/09/17 05:37 Free T4 1.24 ng/dL (0.76-1.46) 02/09/17 05:37 HCG, Qual Negative (Negative) 02/08/17 20:39 <EMMANUELLE LAL O - Last Filed: 02/11/17 12:09> Assessment and Plan Assessment and plan: I saw and evaluated the patient. I agree with the findings and the plan of care as documented in the Nurse Practitioner's~note, with the following corrections and additions. Patient transferred to ICU yesterday because of acute on chronic resp failure. She was put on BIPAP, is now better, so will transfer back to telemetry. Hospitalist Physical - Constitutional Vitals: Temp Pulse Resp BP Pulse Ox 98.5 F 75 13 116/63 98 02/11/17 08:00 02/11/17 11:51 02/11/17 11:51 02/11/17 11:51 02/11/17 11:51 Results - Labs CBC & Chem 7: 02/11/17 08:09 02/11/17 08:09 Labs: Laboratory Last Values WBC 10.0 K/mm3 (4.5-11.0) 02/11/17 08:09 RBC 3.43 M/mm3 (3.65-5.03) L 02/11/17 08:09 Hgb 9.9 gm/dl (10.1-14.3) L 02/11/17 08:09 Hct 29.2 % (30.3-42.9) L 02/11/17 08:09 MCV 85 fl (79-97) 02/11/17 08:09 MCH 29 pg (28-32) 02/11/17 08:09 MCHC 34 % (30-34) 02/11/17 08:09 RDW 20.1 % (13.2-15.2) H 02/11/17 08:09 Plt Count 313 K/mm3 (140-440) 02/11/17 08:09 [place] % (Auto) Information Technology Security Analyst 02/10/17 07:55 Add Manual Diff Complete 02/10/17 07:55 Total Counted 100 02/10/17 07:55 Seg Neuts % (Manual) 40.0 % (40.0-70.0) 02/10/17 07:55 Band Neutrophils % 2.0 % 02/10/17 07:55 Lymphocytes % (Manual) 31.0 % (13.4-35.0) 02/10/17 07:55 Reactive Lymphs % (Man) 0 % 02/10/17 07:55 Monocytes % (Manual) 21.0 % (0.0-7.3) H 02/10/17 07:55 Eosinophils % (Manual) 5.0 % (0.0-4.3) H 02/10/17 07:55 Basophils % (Manual) 0 % (0.0-1.8) 02/10/17 07:55 Metamyelocytes % 1.0 % 02/10/17 07:55 Myelocytes % 0 % 02/10/17 07:55 Promyelocytes % 0 % 02/10/17 07:55 Blast Cells % 0 % 02/10/17 07:55 Nucleated RBC % Not Reportable 02/10/17 07:55 Seg Neutrophils # Man 3.9 K/mm3 (1.8-7.7) 02/10/17 07:55 Band Neutrophils # 0.2 K/mm3 02/10/17 07:55 Lymphocytes # (Manual) 3.0 K/mm3 (1.2-5.4) 02/10/17 07:55 Abs React Lymphs (Man) 0.0 K/mm3 02/10/17 07:55 Monocytes # (Manual) 2.0 K/mm3 (0.0-0.8) H 02/10/17 07:55 Eosinophils # (Manual) 0.5 K/mm3 (0.0-0.4) H 02/10/17 07:55 Basophils # (Manual) 0.0 K/mm3 (0.0-0.1) 02/10/17 07:55 Metamyelocytes # 0.1 K/mm3 02/10/17 07:55 Myelocytes # 0.0 K/mm3 02/10/17 07:55 Promyelocytes # 0.0 K/mm3 02/10/17 07:55 Blast Cells # 0.0 K/mm3 02/10/17 07:55 WBC Morphology Not Reportable 02/10/17 07:55 Hypersegmented Neuts Not Reportable 02/10/17 07:55 Hyposegmented Neuts Not Reportable 02/10/17 07:55 Hypogranular Neuts Not Reportable 02/10/17 07:55 Smudge Cells Not Reportable 02/10/17 07:55 Toxic Granulation Not Reportable 02/10/17 07:55 Toxic Vacuolation Not Reportable 02/10/17 07:55 Dohle Bodies Not Reportable 02/10/17 07:55 Pelger-Huet Anomaly Not Reportable 02/10/17 07:55 James Rods Not Reportable 02/10/17 07:55 Platelet Estimate Not Reportable 02/10/17 07:55 Clumped Platelets Not Reportable 02/10/17 07:55 Plt Clumps, EDTA Not Reportable 02/10/17 07:55 Large Platelets Not Reportable 02/10/17 07:55 Giant Platelets Not Reportable 02/10/17 07:55 Platelet Satelliting Not Reportable 02/10/17 07:55 Plt Morphology Comment Not Reportable 02/10/17 07:55 RBC Morphology Not Reportable 02/10/17 07:55 Dimorphic RBCs Not Reportable 02/10/17 07:55 Polychromasia Few 02/10/17 07:55 Hypochromasia 1+ 02/10/17 07:55 Poikilocytosis Not Reportable 02/10/17 07:55 Anisocytosis 1+ 02/10/17 07:55 Microcytosis Not Reportable 02/10/17 07:55 Macrocytosis Not Reportable 02/10/17 07:55 Spherocytes Not Reportable 02/10/17 07:55 Pappenheimer Bodies Not Reportable 02/10/17 07:55 Sickle Cells Not Reportable 02/10/17 07:55 Target Cells 2+ 02/10/17 07:55 Tear Drop Cells Not Reportable 02/10/17 07:55 Ovalocytes Not Reportable 02/10/17 07:55 Helmet Cells Not Reportable 02/10/17 07:55 [place] Bodies Not Reportable 02/10/17 07:55 [place] Rings Not Reportable 02/10/17 07:55 [place] Cells Not Reportable 02/10/17 07:55 Bite Cells Not Reportable 02/10/17 07:55 Crenated Cell Not Reportable 02/10/17 07:55 Elliptocytes Not Reportable 02/10/17 07:55 Acanthocytes (Spur) Not Reportable 02/10/17 07:55 Rouleaux Not Reportable 02/10/17 07:55 Hemoglobin C Crystals Not Reportable 02/10/17 07:55 Schistocytes Few 02/10/17 07:55 [place] parasites Not Reportable 02/10/17 07:55 Benjamin Bodies Not Reportable 02/10/17 07:55 Hem Pathologist Commnt No 02/10/17 07:55 POC ABG pH 7.360 (7.35-7.45) 02/11/17 05:19 POC ABG pCO2 63.3 (35-45) H 02/11/17 05:19 POC ABG pO2 76 (80-105) L 02/11/17 05:19 POC ABG HCO3 35.8 02/11/17 05:19 POC ABG Total CO2 38 02/11/17 05:19 POC ABG O2 Sat 94 02/11/17 05:19 POC ABG Base Excess 10 02/11/17 05:19 FiO2 35 % 02/11/17 05:19 Sodium 140 mmol/L (137-145) 02/11/17 08:09 Potassium 4.3 mmol/L (3.6-5.0) 02/11/17 08:09 Chloride 97.2 mmol/L (98-107) L 02/11/17 08:09 Carbon Dioxide 32 mmol/L (22-30) H 02/11/17 08:09 Anion Gap 15 mmol/L 02/11/17 08:09 BUN 9 mg/dL (7-17) 02/11/17 08:09 Creatinine 1.1 mg/dL (0.7-1.2) 02/11/17 08:09 Estimated GFR > 60 ml/min 02/11/17 08:09 BUN/Creatinine Ratio 8.18 % 02/11/17 08:09 Glucose 78 mg/dL (65-100) 02/11/17 08:09 Calcium 8.1 mg/dL (8.4-10.2) L 02/11/17 08:09 Total Bilirubin 7.60 mg/dL (0.1-1.2) H 02/11/17 08:09 Direct Bilirubin 1.1 mg/dL (0-0.2) H 02/08/17 20:39 Indirect Bilirubin 6.1 mg/dL 02/08/17 20:39 AST 19 units/L (5-40) 02/11/17 08:09 ALT 8 units/L (7-56) 02/11/17 08:09 Alkaline Phosphatase 62 units/L (35-129) 02/11/17 08:09 Total Creatine Kinase 47 units/L (30-135) 02/09/17 05:37 CK-MB (CK-2) < 1.0 ng/mL (0.0-4.0) 02/09/17 05:37 CK-MB (CK-2) Rel Index 2.1 (0-4) 02/09/17 05:37 Troponin T 0.065 ng/mL (0.00-0.029) H 02/09/17 05:37 NT-Pro-B Natriuret Pep 1445 pg/mL (0-450) H 02/08/17 20:39 Total Protein 6.6 g/dL (6.3-8.2) 02/11/17 08:09 Albumin 3.1 g/dL (3.9-5) L 02/11/17 08:09 Albumin/Globulin Ratio 0.9 % 02/11/17 08:09 Triglycerides 76 mg/dL (2-149) 02/08/17 20:39 Cholesterol 64 mg/dL (50-199) 02/08/17 20:39 LDL Cholesterol Direct 28 mg/dL (50-130) L 02/08/17 20:39 HDL Cholesterol 21 mg/dL (40-59) L 02/08/17 20:39 Cholesterol/HDL Ratio 3.04 % 02/08/17 20:39 TSH 6.720 mlU/mL (0.270-4.200) H 02/09/17 05:37 Free T4 1.24 ng/dL (0.76-1.46) 02/09/17 05:37 HCG, Qual Negative (Negative) 02/08/17 20:39
[2017-02-11] MEDS: NYSTOP TP SCH ×3 (08:21→21:25)
[2017-02-11 08:30] LABS: Hematocrit 29.2 % (30.3-42.9); Hemoglobin 9.9 gm/dl (10.1-14.3); Mean Corpuscular HGB Conc 34 % (30-34); Mean Corpuscular Hemoglobin 29 pg (28-32); Mean Corpuscular Volume 85 fl (79-97); Platelet Count 313 K/mm3 (140-440); Red Blood Count 3.43 M/mm3 (3.65-5.03)
[2017-02-11 08:32] LABS: Red Cell Distribution Width 20.1 % (13.2-15.2)
[2017-02-11 08:39] LABS: Alanine Aminotransferase 8 units/L (7-56); Albumin 3.1 g/dL (3.9-5); Albumin/Globulin Ratio 0.9 %; Alkaline Phosphatase 62 units/L (35-129); Anion Gap 15 mmol/L; BUN/Creatinine Ratio 8.18; Blood Urea Nitrogen 9 mg/dL (7-17); Calcium 8.1 mg/dL (8.4-10.2); Carbon Dioxide 32 mmol/L (22-30); Chloride 97.2 mmol/L (98-107); Glucose 78 mg/dL (65-100); Potassium 4.3 mmol/L (3.6-5.0); Sodium 140 mmol/L (137-145); Total Protein 6.6 g/dL (6.3-8.2)
--- NOTE | 2017-02-11 08:47 | Progress Note ---
Assessment and Plan Acute on chronic respiratory failure. Consistent with initial diagnostic impression of obesity hypoventilation syndrome. She was on BiPAP overnight. Currently she appears to be stable. No wheezing or chest congestion noted Cor pulmonale,secondary to PHT. Heart COMPENSATION picture Pulmonary hypertension, c/u, possibly due to OHS,chronic hypoxia,SS disease. Extreme morbid obesity.Triggering all of the above Obesity hypoventilation syndrome, see ABG Asthma/bronchial hyperactivity disorder by history Buttock abscess Rec Continue oxygen support. Goal is to maintain oximetry between 90 and 92%. Discussed with nurse and respiratory therapy. I agree with BiPAP at nighttime empirically. This was discussed with the patient. Oxygen goals are the same. She will need outpatient sleep study evaluation for review of concurrent RENE. Discussed with hospitalist need for ventilation/perfusion scanning and HIV testing, as part of pulmonary hypertension workup Also recommend to discontinue Dilaudid, due to risk of precipitating worsening respiratory failure. Recommend nonnarcotic medications and caution with sedation DVT prophylaxis should be maintained at all times, in view of echo findings Discussed need for weight reduction diet/program with energy engineer. She will discuss this with the patient. Critical care time was 35 minutes of [id number]-en-[id number] evaluation coordination of care Subjective Date of service: 02/11/17 Principal diagnosis: a/c ARF,OHS,cor pulmonale,PHT Interval history: Reports no respiratory complaints but "I will like a breathing treatment". Also wants to eat. Objective Vital Signs - 12hr 02/10/17 02/10/17 02/10/17 20:51 21:01 21:11 Temperature Pulse Rate 81 82 82 Respiratory 20 17 18 Rate Blood Pressure 116/55 107/60 107/60 O2 Sat by Pulse 98 86 97 Oximetry 02/10/17 02/10/17 02/10/17 21:21 21:30 21:31 Temperature Pulse Rate 83 79 82 Respiratory 18 18 15 Rate Blood Pressure 107/60 106/55 107/60 O2 Sat by Pulse 96 97 96 Oximetry 02/10/17 02/10/17 02/10/17 21:41 21:51 22:00 Temperature Pulse Rate 82 84 Respiratory 18 15 20 Rate Blood Pressure 107/60 107/60 O2 Sat by Pulse 95 94 97 Oximetry 02/10/17 02/10/17 02/10/17 22:01 22:11 22:21 Temperature Pulse Rate 82 81 82 Respiratory 15 18 25 H Rate Blood Pressure 106/55 106/55 106/55 O2 Sat by Pulse 90 97 97 Oximetry 02/10/17 02/10/17 02/10/17 22:31 22:32 22:41 Temperature Pulse Rate 84 81 82 Respiratory 21 15 Rate Blood Pressure 106/55 106/55 106/55 O2 Sat by Pulse 97 95 Oximetry 02/10/17 02/10/17 02/10/17 22:51 23:01 23:11 Temperature Pulse Rate 82 81 85 Respiratory 22 19 17 Rate Blood Pressure 106/55 124/61 124/61 O2 Sat by Pulse 99 90 91 Oximetry 02/10/17 02/10/17 02/10/17 23:21 23:31 23:40 Temperature Pulse Rate 83 83 82 Respiratory 17 13 185 H Rate Blood Pressure 106/55 106/55 124/61 O2 Sat by Pulse 96 97 93 Oximetry 02/10/17 02/10/17 02/10/17 23:41 23:42 23:51 Temperature Pulse Rate 84 82 83 Respiratory 17 16 19 Rate Blood Pressure 106/55 124/61 106/55 O2 Sat by Pulse 92 91 92 Oximetry 02/10/17 02/11/17 02/11/17 23:57 00:00 00:01 Temperature 98.8 F Pulse Rate 82 84 Respiratory 19 17 Rate Blood Pressure 106/55 91/28 O2 Sat by Pulse 93 85 Oximetry 02/11/17 02/11/17 02/11/17 00:11 00:21 00:31 Temperature Pulse Rate 82 93 H 81 Respiratory 20 15 18 Rate Blood Pressure 91/28 91/28 124/61 O2 Sat by Pulse 94 89 89 Oximetry 02/11/17 02/11/17 02/11/17 00:41 00:51 01:01 Temperature Pulse Rate 81 88 79 Respiratory 16 20 14 Rate Blood Pressure 124/61 124/61 124/61 O2 Sat by Pulse 90 88 87 Oximetry 02/11/17 02/11/17 02/11/17 01:11 01:21 01:31 Temperature Pulse Rate 80 81 82 Respiratory 12 15 20 Rate Blood Pressure 151/71 151/71 91/28 O2 Sat by Pulse 93 93 90 Oximetry 02/11/17 02/11/17 02/11/17 01:41 01:51 02:01 Temperature Pulse Rate 79 80 81 Respiratory 21 13 19 Rate Blood Pressure 91/28 91/28 123/51 O2 Sat by Pulse 91 96 89 Oximetry 02/11/17 02/11/17 02/11/17 02:10 02:20 02:31 Temperature Pulse Rate 81 82 81 Respiratory 13 18 20 Rate Blood Pressure 123/51 123/51 123/51 O2 Sat by Pulse 92 93 94 Oximetry 02/11/17 02/11/17 02/11/17 02:33 02:41 02:50 Temperature Pulse Rate 81 86 85 Respiratory 18 12 19 Rate Blood Pressure 123/51 123/51 123/51 O2 Sat by Pulse 93 92 94 Oximetry 02/11/17 02/11/17 02/11/17 03:01 03:11 03:20 Temperature Pulse Rate 88 88 88 Respiratory 17 14 17 Rate Blood Pressure 103/53 103/53 103/53 O2 Sat by Pulse 88 91 92 Oximetry 02/11/17 02/11/17 02/11/17 03:31 03:41 03:50 Temperature Pulse Rate 89 87 87 Respiratory 15 14 21 Rate Blood Pressure 103/53 103/53 103/53 O2 Sat by Pulse 89 92 92 Oximetry 02/11/17 02/11/17 02/11/17 04:00 04:01 04:11 Temperature 98.7 F Pulse Rate 84 85 87 Respiratory 18 13 Rate Blood Pressure 167/69 167/69 O2 Sat by Pulse 88 92 Oximetry 02/11/17 02/11/17 02/11/17 04:21 04:31 04:41 Temperature Pulse Rate 88 91 H 92 H Respiratory 15 15 15 Rate Blood Pressure 167/69 167/69 167/69 O2 Sat by Pulse 96 76 L 87 Oximetry 02/11/17 02/11/17 02/11/17 04:50 05:00 05:11 Temperature Pulse Rate 86 Respiratory 16 14 18 Rate Blood Pressure 167/69 123/77 123/77 O2 Sat by Pulse 94 95 72 L Oximetry 02/11/17 02/11/17 02/11/17 05:21 05:31 05:41 Temperature Pulse Rate 85 71 138 H Respiratory 19 20 13 Rate Blood Pressure 123/77 140/77 140/77 O2 Sat by Pulse 91 89 92 Oximetry 02/11/17 02/11/17 02/11/17 05:51 06:00 06:11 Temperature Pulse Rate 139 H 73 Respiratory 19 19 19 Rate Blood Pressure 140/77 113/60 113/60 O2 Sat by Pulse 90 90 91 Oximetry 02/11/17 02/11/17 02/11/17 06:21 06:31 06:41 Temperature Pulse Rate 75 166 H 87 Respiratory 17 16 12 Rate Blood Pressure 113/60 113/60 113/60 O2 Sat by Pulse 93 83 L 97 Oximetry 02/11/17 02/11/17 02/11/17 06:51 07:00 07:11 Temperature Pulse Rate 165 H 154 H 152 H Respiratory 20 18 21 Rate Blood Pressure 113/60 102/56 102/56 O2 Sat by Pulse 93 85 93 Oximetry 02/11/17 02/11/17 02/11/17 07:21 07:31 07:41 Temperature Pulse Rate 113 H 86 93 H Respiratory 21 20 22 Rate Blood Pressure 102/56 102/56 102/56 O2 Sat by Pulse 94 92 91 Oximetry 02/11/17 02/11/17 07:51 08:00 Temperature 98.5 F Pulse Rate 126 H Respiratory 16 17 Rate Blood Pressure 102/56 107/62 O2 Sat by Pulse 95 95 Oximetry Constitutional: no acute distress, alert, other (superobesity) Eyes: non-icteric ENT: oropharynx moist, other (macroglossia, Mallampati 4) Neck: supple, no lymphadenopathy, other (cannot evaluate for JVD) Ascultation: Bilateral: clear, diminished breath sounds (Limited excursions) Cardiovascular: regular rate and rhythm (no murmurs) Gastrointestinal: normoactive bowel sounds, non-distended, other (cannot evaluate for organomegaly severe morbid patient) Extremities: no cyanosis, edema (+1 lower extremities) Neurologic: normal mental status, non-focal exam, pupils equal and round, CN II- XII normal, motor strength normal and Psychiatric: mood appropriate, affect normal CBC and BMP: 02/11/17 08:09 02/11/17 08:09 ABG, PT/INR, D-dimer: ABG POC ABG pH 7.360 (7.35-7.45) 02/11/17 05:19 POC ABG pCO2 63.3 (35-45) H 02/11/17 05:19 POC ABG pO2 76 (80-105) L 02/11/17 05:19 POC ABG HCO3 35.8 02/11/17 05:19 POC ABG Total CO2 38 02/11/17 05:19 POC ABG O2 Sat 94 02/11/17 05:19 Abnormal lab findings: Abnormal Labs 02/09/17 02/09/17 02/09/17 00:30 05:37 05:37 RBC Hgb Hct RDW Monocytes % (Manual) Eosinophils % (Manual) Monocytes # (Manual) Eosinophils # (Manual) POC ABG pH POC ABG pCO2 POC ABG pO2 Chloride Carbon Dioxide Calcium Total Bilirubin Troponin T 0.055 H 0.065 H Albumin TSH 6.720 H 02/09/17 02/09/17 02/10/17 05:37 05:37 07:55 RBC 3.51 L 3.49 L Hgb Hct 30.0 L 29.8 L RDW 20.4 H 20.6 H Monocytes % (Manual) 21.0 H Eosinophils % (Manual) 5.0 H Monocytes # (Manual) 2.0 H Eosinophils # (Manual) 0.5 H POC ABG pH POC ABG pCO2 POC ABG pO2 Chloride Carbon Dioxide 32 H Calcium 8.3 L Total Bilirubin 8.40 H Troponin T Albumin 3.4 L TSH 02/10/17 02/10/17 02/10/17 07:55 18:16 22:52 RBC Hgb Hct RDW Monocytes % (Manual) Eosinophils % (Manual) Monocytes # (Manual) Eosinophils # (Manual) POC ABG pH 7.276 L 7.325 L POC ABG pCO2 77.7 H 71.2 H POC ABG pO2 68 L 77 L Chloride 97.8 L Carbon Dioxide 34 H Calcium 8.2 L Total Bilirubin Troponin T Albumin TSH 02/11/17 02/11/17 02/11/17 05:19 08:09 08:09 RBC 3.43 L Hgb 9.9 L Hct 29.2 L RDW 20.1 H Monocytes % (Manual) Eosinophils % (Manual) Monocytes # (Manual) Eosinophils # (Manual) POC ABG pH POC ABG pCO2 63.3 H POC ABG pO2 76 L Chloride 97.2 L Carbon Dioxide 32 H Calcium 8.1 L Total Bilirubin 7.60 H Troponin T Albumin 3.1 L TSH
[2017-02-11] MEDS: DUONEB *Not for PRN Use IH SCH ×4 (09:16→20:16)
[2017-02-11] MEDS: PULMICORT IH SCH ×2 (09:18→20:16)
--- NOTE | 2017-02-11 09:59 | Progress Note ---
Hospitalist Physical - Constitutional Vitals: Temp Pulse Resp BP Pulse Ox 98.5 F 126 H 17 107/62 95 02/11/17 08:00 02/11/17 08:00 02/11/17 08:00 02/11/17 08:00 02/11/17 08:00 General appearance: Present: mild distress, other (on 2LNC with SPO2 >95%) Results - Labs CBC & Chem 7: 02/11/17 08:09 02/11/17 08:09 Labs: Laboratory Last Values WBC 10.0 K/mm3 (4.5-11.0) 02/11/17 08:09 RBC 3.43 M/mm3 (3.65-5.03) L 02/11/17 08:09 Hgb 9.9 gm/dl (10.1-14.3) L 02/11/17 08:09 Hct 29.2 % (30.3-42.9) L 02/11/17 08:09 MCV 85 fl (79-97) 02/11/17 08:09 MCH 29 pg (28-32) 02/11/17 08:09 MCHC 34 % (30-34) 02/11/17 08:09 RDW 20.1 % (13.2-15.2) H 02/11/17 08:09 Plt Count 313 K/mm3 (140-440) 02/11/17 08:09 [place] % (Auto) Utility Person 02/10/17 07:55 Add Manual Diff Complete 02/10/17 07:55 Total Counted 100 02/10/17 07:55 Seg Neuts % (Manual) 40.0 % (40.0-70.0) 02/10/17 07:55 Band Neutrophils % 2.0 % 02/10/17 07:55 Lymphocytes % (Manual) 31.0 % (13.4-35.0) 02/10/17 07:55 Reactive Lymphs % (Man) 0 % 02/10/17 07:55 Monocytes % (Manual) 21.0 % (0.0-7.3) H 02/10/17 07:55 Eosinophils % (Manual) 5.0 % (0.0-4.3) H 02/10/17 07:55 Basophils % (Manual) 0 % (0.0-1.8) 02/10/17 07:55 Metamyelocytes % 1.0 % 02/10/17 07:55 Myelocytes % 0 % 02/10/17 07:55 Promyelocytes % 0 % 02/10/17 07:55 Blast Cells % 0 % 02/10/17 07:55 Nucleated RBC % Not Reportable 02/10/17 07:55 Seg Neutrophils # Man 3.9 K/mm3 (1.8-7.7) 02/10/17 07:55 Band Neutrophils # 0.2 K/mm3 02/10/17 07:55 Lymphocytes # (Manual) 3.0 K/mm3 (1.2-5.4) 02/10/17 07:55 Abs React Lymphs (Man) 0.0 K/mm3 02/10/17 07:55 Monocytes # (Manual) 2.0 K/mm3 (0.0-0.8) H 02/10/17 07:55 Eosinophils # (Manual) 0.5 K/mm3 (0.0-0.4) H 02/10/17 07:55 Basophils # (Manual) 0.0 K/mm3 (0.0-0.1) 02/10/17 07:55 Metamyelocytes # 0.1 K/mm3 02/10/17 07:55 Myelocytes # 0.0 K/mm3 02/10/17 07:55 Promyelocytes # 0.0 K/mm3 02/10/17 07:55 Blast Cells # 0.0 K/mm3 02/10/17 07:55 WBC Morphology Not Reportable 02/10/17 07:55 Hypersegmented Neuts Not Reportable 02/10/17 07:55 Hyposegmented Neuts Not Reportable 02/10/17 07:55 Hypogranular Neuts Not Reportable 02/10/17 07:55 Smudge Cells Not Reportable 02/10/17 07:55 Toxic Granulation Not Reportable 02/10/17 07:55 Toxic Vacuolation Not Reportable 02/10/17 07:55 Dohle Bodies Not Reportable 02/10/17 07:55 Pelger-Huet Anomaly Not Reportable 02/10/17 07:55 James Rods Not Reportable 02/10/17 07:55 Platelet Estimate Not Reportable 02/10/17 07:55 Clumped Platelets Not Reportable 02/10/17 07:55 Plt Clumps, EDTA Not Reportable 02/10/17 07:55 Large Platelets Not Reportable 02/10/17 07:55 Giant Platelets Not Reportable 02/10/17 07:55 Platelet Satelliting Not Reportable 02/10/17 07:55 Plt Morphology Comment Not Reportable 02/10/17 07:55 RBC Morphology Not Reportable 02/10/17 07:55 Dimorphic RBCs Not Reportable 02/10/17 07:55 Polychromasia Few 02/10/17 07:55 Hypochromasia 1+ 02/10/17 07:55 Poikilocytosis Not Reportable 02/10/17 07:55 Anisocytosis 1+ 02/10/17 07:55 Microcytosis Not Reportable 02/10/17 07:55 Macrocytosis Not Reportable 02/10/17 07:55 Spherocytes Not Reportable 02/10/17 07:55 Pappenheimer Bodies Not Reportable 02/10/17 07:55 Sickle Cells Not Reportable 02/10/17 07:55 Target Cells 2+ 02/10/17 07:55 Tear Drop Cells Not Reportable 02/10/17 07:55 Ovalocytes Not Reportable 02/10/17 07:55 Helmet Cells Not Reportable 02/10/17 07:55 [place] Bodies Not Reportable 02/10/17 07:55 [place] Rings Not Reportable 02/10/17 07:55 Fabi Cells Not Reportable 02/10/17 07:55 Bite Cells Not Reportable 02/10/17 07:55 Crenated Cell Not Reportable 02/10/17 07:55 Elliptocytes Not Reportable 02/10/17 07:55 Acanthocytes (Spur) Not Reportable 02/10/17 07:55 Rouleaux Not Reportable 02/10/17 07:55 Hemoglobin C Crystals Not Reportable 02/10/17 07:55 Schistocytes Few 02/10/17 07:55 Malaria parasites Not Reportable 02/10/17 07:55 Benjamin Bodies Not Reportable 02/10/17 07:55 Hem Pathologist Commnt No 02/10/17 07:55 POC ABG pH 7.360 (7.35-7.45) 02/11/17 05:19 POC ABG pCO2 63.3 (35-45) H 02/11/17 05:19 POC ABG pO2 76 (80-105) L 02/11/17 05:19 POC ABG HCO3 35.8 02/11/17 05:19 POC ABG Total CO2 38 02/11/17 05:19 POC ABG O2 Sat 94 02/11/17 05:19 POC ABG Base Excess 10 02/11/17 05:19 FiO2 35 % 02/11/17 05:19 Sodium 140 mmol/L (137-145) 02/11/17 08:09 Potassium 4.3 mmol/L (3.6-5.0) 02/11/17 08:09 Chloride 97.2 mmol/L (98-107) L 02/11/17 08:09 Carbon Dioxide 32 mmol/L (22-30) H 02/11/17 08:09 Anion Gap 15 mmol/L 02/11/17 08:09 BUN 9 mg/dL (7-17) 02/11/17 08:09 Creatinine 1.1 mg/dL (0.7-1.2) 02/11/17 08:09 Estimated GFR > 60 ml/min 02/11/17 08:09 BUN/Creatinine Ratio 8.18 % 02/11/17 08:09 Glucose 78 mg/dL (65-100) 02/11/17 08:09 Calcium 8.1 mg/dL (8.4-10.2) L 02/11/17 08:09 Total Bilirubin 7.60 mg/dL (0.1-1.2) H 02/11/17 08:09 Direct Bilirubin 1.1 mg/dL (0-0.2) H 02/08/17 20:39 Indirect Bilirubin 6.1 mg/dL 02/08/17 20:39 AST 19 units/L (5-40) 02/11/17 08:09 ALT 8 units/L (7-56) 02/11/17 08:09 Alkaline Phosphatase 62 units/L (35-129) 02/11/17 08:09 Total Creatine Kinase 47 units/L (30-135) 02/09/17 05:37 CK-MB (CK-2) < 1.0 ng/mL (0.0-4.0) 02/09/17 05:37 CK-MB (CK-2) Rel Index 2.1 (0-4) 02/09/17 05:37 Troponin T 0.065 ng/mL (0.00-0.029) H 02/09/17 05:37 NT-Pro-B Natriuret Pep 1445 pg/mL (0-450) H 02/08/17 20:39 Total Protein 6.6 g/dL (6.3-8.2) 02/11/17 08:09 Albumin 3.1 g/dL (3.9-5) L 02/11/17 08:09 Albumin/Globulin Ratio 0.9 % 02/11/17 08:09 Triglycerides 76 mg/dL (2-149) 02/08/17 20:39 Cholesterol 64 mg/dL (50-199) 02/08/17 20:39 LDL Cholesterol Direct 28 mg/dL (50-130) L 02/08/17 20:39 HDL Cholesterol 21 mg/dL (40-59) L 02/08/17 20:39 Cholesterol/HDL Ratio 3.04 % 02/08/17 20:39 TSH 6.720 mlU/mL (0.270-4.200) H 02/09/17 05:37 Free T4 1.24 ng/dL (0.76-1.46) 02/09/17 05:37 HCG, Qual Negative (Negative) 02/08/17 20:39
[2017-02-11] MEDS: LOPRESSOR PO SCH ×2 (10:42→21:24)
[2017-02-11] MEDS: PROTONIX PO SCH (10:43)
[2017-02-11] MEDS: HEPARIN SUB-Q SCH ×4 (10:45→21:25)
[2017-02-11] MEDS ORDERED: LEVAQUIN 750MG/150ML 750 MG/150 ML BAG IV SCH (13:00)
--- NOTE | 2017-02-11 13:09 | Progress Note ---
Assessment and Plan Acute hypoxic respiratory failure CHF with a preserved ejection fraction Sickle cell disease on home oxygen Morbidly obese Buttock abscess Hypothyroidism TSH 6.7 Echocardiogram demonstrates a dilated right heart chambers, moderate tricuspid regurgitation and moderate pulmonary hypertension. Findings are consistent with cor pulmonale associated with her chronic lung disease. Left ventricle chamber size and systolic function are normal, EF 50-55%. Recommendations: Continue medical therapy for CHF with a preserved ejection fraction. Subjective Date of service: 02/11/17 Principal diagnosis: a/c ARF,OHS,cor pulmonale,PHT Interval history: Transferred to CCU overnight. Patient has no complaints. Objective Vital Signs Temp Pulse Pulse Resp Resp BP Pulse Ox 02/11/17 12:22 95 H 18 02/11/17 12:00 98.0 F 02/11/17 11:51 75 13 116/63 98 02/11/17 11:41 71 11 L 116/63 99 02/11/17 11:31 72 16 116/63 97 02/11/17 11:21 75 21 116/63 94 02/11/17 11:11 95 H 14 116/63 74 L 02/11/17 11:00 86 12 116/63 86 02/11/17 10:51 102 H 12 113/59 92 02/11/17 10:42 86 113/59 02/11/17 10:41 103 H 12 113/59 94 02/11/17 10:31 84 18 113/59 85 02/11/17 10:21 87 12 113/59 90 02/11/17 10:11 84 11 L 113/59 89 02/11/17 10:00 83 12 113/59 96 02/11/17 09:51 91 H 14 104/69 78 L 02/11/17 09:41 86 15 104/69 92 02/11/17 09:31 84 11 L 104/69 96 02/11/17 09:21 83 11 L 104/69 94 02/11/17 09:11 10 L 104/69 90 02/11/17 09:00 83 12 104/69 90 02/11/17 08:51 83 14 107/62 81 L 02/11/17 08:50 94 H 18 02/11/17 08:41 167 H 24 107/62 87 02/11/17 08:31 183 H 19 107/62 88 02/11/17 08:21 161 H 20 107/62 93 02/11/17 08:11 101 H 27 H 107/62 92 02/11/17 08:00 98.5 F 126 H 17 107/62 95 02/11/17 07:51 16 102/56 95 02/11/17 07:41 93 H 22 102/56 91 02/11/17 07:31 86 20 102/56 92 02/11/17 07:21 113 H 21 102/56 94 02/11/17 07:11 152 H 21 102/56 93 02/11/17 07:00 154 H 18 102/56 85 02/11/17 06:51 165 H 20 113/60 93 02/11/17 06:41 87 12 113/60 97 02/11/17 06:31 166 H 16 113/60 83 L 02/11/17 06:21 75 17 113/60 93 02/11/17 06:11 73 19 113/60 91 02/11/17 06:00 139 H 19 113/60 90 02/11/17 05:51 19 140/77 90 02/11/17 05:41 138 H 13 140/77 92 02/11/17 05:31 71 20 140/77 89 02/11/17 05:21 85 19 123/77 91 02/11/17 05:11 18 123/77 72 L 02/11/17 05:00 14 123/77 95 02/11/17 04:50 86 16 167/69 94 02/11/17 04:41 92 H 15 167/69 87 02/11/17 04:31 91 H 15 167/69 76 L 02/11/17 04:21 88 15 167/69 96 02/11/17 04:11 87 13 167/69 92 02/11/17 04:01 85 18 167/69 88 02/11/17 04:00 98.7 F 84 02/11/17 03:50 87 21 103/53 92 02/11/17 03:41 87 14 103/53 92 02/11/17 03:31 89 15 103/53 89 02/11/17 03:20 88 17 103/53 92 02/11/17 03:11 88 14 103/53 91 02/11/17 03:01 88 17 103/53 88 02/11/17 02:50 85 19 123/51 94 02/11/17 02:41 86 12 123/51 92 02/11/17 02:33 81 18 123/51 93 02/11/17 02:31 81 20 123/51 94 02/11/17 02:20 82 18 123/51 93 02/11/17 02:10 81 13 123/51 92 02/11/17 02:01 81 19 123/51 89 02/11/17 01:51 80 13 / 96 02/11/17 01:41 79 21 91 02/11/17 01:31 82 20 / 90 02/11/17 01:21 81 15 151/71 93 02/11/17 01:11 80 12 151/71 93 02/11/17 01:01 79 14 124/61 87 02/11/17 00:51 88 20 124/61 88 02/11/17 00:41 81 16 124/61 90 02/11/17 00:31 81 18 124/61 89 02/11/17 00:21 93 H 15 89 02/11/17 00:11 82 20 94 02/11/17 00:01 84 17 85 02/11/17 00:00 98.8 F 02/10/17 23:57 82 19 106/55 93 02/10/17 23:51 83 19 106/55 92 02/10/17 23:42 82 16 124/61 91 02/10/17 23:41 84 17 106/55 92 02/10/17 23:40 82 185 H 124/61 93 02/10/17 23:31 83 13 106/55 97 02/10/17 23:21 83 17 106/55 96 02/10/17 23:11 85 17 124/61 91 02/10/17 23:01 81 19 124/61 90 02/10/17 22:51 82 22 106/55 99 02/10/17 22:41 82 15 106/55 95 02/10/17 22:32 81 106/55 02/10/17 22:31 84 21 106/55 97 02/10/17 22:21 82 25 H 106/55 97 02/10/17 22:11 81 18 106/55 97 02/10/17 22:01 82 15 106/55 90 02/10/17 22:00 20 97 02/10/17 21:51 84 15 107/60 94 02/10/17 21:41 82 18 107/60 95 02/10/17 21:31 82 15 107/60 96 02/10/17 21:30 79 18 106/55 97 02/10/17 21:21 83 18 107/60 96 02/10/17 21:11 82 18 107/60 97 02/10/17 21:01 82 17 107/60 86 02/10/17 20:51 81 20 116/55 98 02/10/17 20:41 81 14 116/55 97 02/10/17 20:31 81 14 116/55 95 02/10/17 20:21 82 13 116/55 95 02/10/17 20:11 81 15 116/55 97 02/10/17 20:00 83 16 88/36 98 02/10/17 19:51 13 88/36 97 02/10/17 19:41 110 H 23 98 02/10/17 19:30 22 88/36 96 02/10/17 19:20 87 19 02/10/17 19:14 13 02/10/17 18:16 98 02/10/17 15:07 98.4 F 90 20 133/61 93 02/10/17 14:45 80 20 02/10/17 14:33 80 20 - Physical Examination General: No Apparent Distress, Other (obese) HEENT: Positive: PERRL Cardiac: Positive: Reg Rate and Rhythm - Labs and Meds Cardiac Enzymes 02/11/17 Range/Units 08:09 AST 19 (5-40) units/L CBC 02/11/17 Range/Units 08:09 WBC 10.0 (4.5-11.0) K/mm3 RBC 3.43 L (3.65-5.03) M/mm3 Hgb 9.9 L (10.1-14.3) gm/dl Hct 29.2 L (30.3-42.9) % Plt Count 313 (140-440) K/mm3 Comprehensive Metabolic Panel 02/11/17 Range/Units 08:09 Sodium 140 (137-145) mmol/L Potassium 4.3 (3.6-5.0) mmol/L Chloride 97.2 L (98-107) mmol/L Carbon Dioxide 32 H (22-30) mmol/L BUN 9 (7-17) mg/dL Creatinine 1.1 (0.7-1.2) mg/dL Glucose 78 (65-100) mg/dL Calcium 8.1 L (8.4-10.2) mg/dL AST 19 (5-40) units/L ALT 8 (7-56) units/L Alkaline Phosphatase 62 (35-129) units/L Total Protein 6.6 (6.3-8.2) g/dL Albumin 3.1 L (3.9-5) g/dL
--- NOTE | 2017-02-11 16:40 | Progress Note ---
Assessment and Plan 1) Pt refuses I&D even under local with IV sedation. She is concerned about respiratory complications. This is not unreasonable but I did inform her that I thought the I&D could be performed under local with IV sedation with minimal risk of complication. Despite my encouragement, she refuses to give consent. I will therefore sign off. I would continue appropriate antibiotics (Cipro or Levaquin) for at least two weeks. - Patient Problems (1) Left buttock abscess Current Visit: Yes Status: Acute Subjective Date of service: 02/11/17 Patient Reports: Positive: no new complaints, feels better (Pt is afraid to have surgery, even under local with IV sedation.) Objective Vital Signs - 12hr 02/11/17 02/11/17 02/11/17 04:41 04:50 05:00 Temperature Pulse Rate 92 H 86 Pulse Rate [ Anterior Bilateral Throughout] Pulse Rate [ Left Radial] Pulse Rate [ Right Radial] Respiratory 15 16 14 Rate Respiratory Rate [Anterior Bilateral Throughout] Blood Pressure 167/69 167/69 123/77 O2 Sat by Pulse 87 94 95 Oximetry 02/11/17 02/11/17 02/11/17 05:11 05:21 05:31 Temperature Pulse Rate 85 71 Pulse Rate [ Anterior Bilateral Throughout] Pulse Rate [ Left Radial] Pulse Rate [ Right Radial] Respiratory 18 19 20 Rate Respiratory Rate [Anterior Bilateral Throughout] Blood Pressure 123/77 123/77 140/77 O2 Sat by Pulse 72 L 91 89 Oximetry 02/11/17 02/11/17 02/11/17 05:41 05:51 06:00 Temperature Pulse Rate 138 H 139 H Pulse Rate [ Anterior Bilateral Throughout] Pulse Rate [ Left Radial] Pulse Rate [ Right Radial] Respiratory 13 19 19 Rate Respiratory Rate [Anterior Bilateral Throughout] Blood Pressure 140/77 140/77 113/60 O2 Sat by Pulse 92 90 90 Oximetry 02/11/17 02/11/17 02/11/17 06:11 06:21 06:31 Temperature Pulse Rate 73 75 166 H Pulse Rate [ Anterior Bilateral Throughout] Pulse Rate [ Left Radial] Pulse Rate [ Right Radial] Respiratory 19 17 16 Rate Respiratory Rate [Anterior Bilateral Throughout] Blood Pressure 113/60 113/60 113/60 O2 Sat by Pulse 91 93 83 L Oximetry 02/11/17 02/11/17 02/11/17 06:41 06:51 07:00 Temperature Pulse Rate 87 165 H 154 H Pulse Rate [ Anterior Bilateral Throughout] Pulse Rate [ Left Radial] Pulse Rate [ Right Radial] Respiratory 12 20 18 Rate Respiratory Rate [Anterior Bilateral Throughout] Blood Pressure 113/60 113/60 102/56 O2 Sat by Pulse 97 93 85 Oximetry 02/11/17 02/11/17 02/11/17 07:11 07:21 07:31 Temperature Pulse Rate 152 H 113 H 86 Pulse Rate [ Anterior Bilateral Throughout] Pulse Rate [ Left Radial] Pulse Rate [ Right Radial] Respiratory 21 21 20 Rate Respiratory Rate [Anterior Bilateral Throughout] Blood Pressure 102/56 102/56 102/56 O2 Sat by Pulse 93 94 92 Oximetry 02/11/17 02/11/17 02/11/17 07:41 07:51 08:00 Temperature 98.5 F Pulse Rate 93 H 126 H Pulse Rate [ Anterior Bilateral Throughout] Pulse Rate [ Left Radial] Pulse Rate [ Right Radial] Respiratory 22 16 17 Rate Respiratory Rate [Anterior Bilateral Throughout] Blood Pressure 102/56 102/56 107/62 O2 Sat by Pulse 91 95 95 Oximetry 02/11/17 02/11/17 02/11/17 08:11 08:21 08:31 Temperature Pulse Rate 101 H 161 H 183 H Pulse Rate [ Anterior Bilateral Throughout] Pulse Rate [ Left Radial] Pulse Rate [ Right Radial] Respiratory 27 H 20 19 Rate Respiratory Rate [Anterior Bilateral Throughout] Blood Pressure 107/62 107/62 107/62 O2 Sat by Pulse 92 93 88 Oximetry 02/11/17 02/11/17 02/11/17 08:41 08:50 08:51 Temperature Pulse Rate 167 H 83 Pulse Rate [ 94 H Anterior Bilateral Throughout] Pulse Rate [ Left Radial] Pulse Rate [ Right Radial] Respiratory 24 14 Rate Respiratory 18 Rate [Anterior Bilateral Throughout] Blood Pressure 107/62 107/62 O2 Sat by Pulse 87 81 L Oximetry 02/11/17 02/11/17 02/11/17 09:00 09:11 09:21 Temperature Pulse Rate 83 83 Pulse Rate [ Anterior Bilateral Throughout] Pulse Rate [ Left Radial] Pulse Rate [ Right Radial] Respiratory 12 10 L 11 L Rate Respiratory Rate [Anterior Bilateral Throughout] Blood Pressure 104/69 104/69 104/69 O2 Sat by Pulse 90 90 94 Oximetry 02/11/17 02/11/17 02/11/17 09:31 09:41 09:51 Temperature Pulse Rate 84 86 91 H Pulse Rate [ Anterior Bilateral Throughout] Pulse Rate [ Left Radial] Pulse Rate [ Right Radial] Respiratory 11 L 15 14 Rate Respiratory Rate [Anterior Bilateral Throughout] Blood Pressure 104/69 104/69 104/69 O2 Sat by Pulse 96 92 78 L Oximetry 02/11/17 02/11/17 02/11/17 10:00 10:11 10:21 Temperature Pulse Rate 83 84 87 Pulse Rate [ Anterior Bilateral Throughout] Pulse Rate [ Left Radial] Pulse Rate [ Right Radial] Respiratory 12 11 L 12 Rate Respiratory Rate [Anterior Bilateral Throughout] Blood Pressure 113/59 113/59 113/59 O2 Sat by Pulse 96 89 90 Oximetry 02/11/17 02/11/17 02/11/17 10:31 10:41 10:42 Temperature Pulse Rate 84 103 H 86 Pulse Rate [ Anterior Bilateral Throughout] Pulse Rate [ Left Radial] Pulse Rate [ Right Radial] Respiratory 18 12 Rate Respiratory Rate [Anterior Bilateral Throughout] Blood Pressure 113/59 113/59 113/59 O2 Sat by Pulse 85 94 Oximetry 02/11/17 02/11/17 02/11/17 10:51 11:00 11:11 Temperature Pulse Rate 102 H 86 95 H Pulse Rate [ Anterior Bilateral Throughout] Pulse Rate [ Left Radial] Pulse Rate [ Right Radial] Respiratory 12 12 14 Rate Respiratory Rate [Anterior Bilateral Throughout] Blood Pressure 113/59 116/63 116/63 O2 Sat by Pulse 92 86 74 L Oximetry 02/11/17 02/11/17 02/11/17 11:21 11:31 11:41 Temperature Pulse Rate 75 72 71 Pulse Rate [ Anterior Bilateral Throughout] Pulse Rate [ Left Radial] Pulse Rate [ Right Radial] Respiratory 21 16 11 L Rate Respiratory Rate [Anterior Bilateral Throughout] Blood Pressure 116/63 116/63 116/63 O2 Sat by Pulse 94 97 99 Oximetry 02/11/17 02/11/17 02/11/17 11:51 12:00 12:11 Temperature 98.0 F Pulse Rate 75 98 H 96 H Pulse Rate [ Anterior Bilateral Throughout] Pulse Rate [ Left Radial] Pulse Rate [ Right Radial] Respiratory 13 13 28 H Rate Respiratory Rate [Anterior Bilateral Throughout] Blood Pressure 116/63 117/80 117/80 O2 Sat by Pulse 98 97 93 Oximetry 02/11/17 02/11/17 02/11/17 12:21 12:22 12:31 Temperature Pulse Rate 94 H 92 H Pulse Rate [ 95 H Anterior Bilateral Throughout] Pulse Rate [ Left Radial] Pulse Rate [ Right Radial] Respiratory 22 19 Rate Respiratory 18 Rate [Anterior Bilateral Throughout] Blood Pressure 117/80 117/80 O2 Sat by Pulse 95 97 Oximetry 02/11/17 02/11/17 02/11/17 12:41 12:51 13:00 Temperature Pulse Rate 94 H 92 H 66 Pulse Rate [ Anterior Bilateral Throughout] Pulse Rate [ Left Radial] Pulse Rate [ Right Radial] Respiratory 25 H 14 25 H Rate Respiratory Rate [Anterior Bilateral Throughout] Blood Pressure 117/80 117/80 115/64 O2 Sat by Pulse 93 96 92 Oximetry 02/11/17 02/11/17 02/11/17 14:18 14:28 15:17 Temperature 98.7 F Pulse Rate Pulse Rate [ 71 68 Anterior Bilateral Throughout] Pulse Rate [ 98 H Left Radial] Pulse Rate [ 78 Right Radial] Respiratory 20 Rate Respiratory 20 20 Rate [Anterior Bilateral Throughout] Blood Pressure 156/78 O2 Sat by Pulse 96 Oximetry - General physical appearance well developed, well nourished, no distress, severe distress, obese - Rectum other (Left buttock abscess was not re-examined.) - Labs 02/11/17 08:09 02/11/17 08:09 Diabetes panel 02/11/17 Range/Units 08:09 Sodium 140 (137-145) mmol/L Potassium 4.3 (3.6-5.0) mmol/L Chloride 97.2 L (98-107) mmol/L Carbon Dioxide 32 H (22-30) mmol/L BUN 9 (7-17) mg/dL Creatinine 1.1 (0.7-1.2) mg/dL Glucose 78 (65-100) mg/dL Calcium 8.1 L (8.4-10.2) mg/dL AST 19 (5-40) units/L ALT 8 (7-56) units/L Alkaline Phosphatase 62 (35-129) units/L Total Protein 6.6 (6.3-8.2) g/dL Albumin 3.1 L (3.9-5) g/dL Calcium panel 02/11/17 Range/Units 08:09 Calcium 8.1 L (8.4-10.2) mg/dL Albumin 3.1 L (3.9-5) g/dL Pituitary panel 02/11/17 Range/Units 08:09 Sodium 140 (137-145) mmol/L Potassium 4.3 (3.6-5.0) mmol/L Chloride 97.2 L (98-107) mmol/L Carbon Dioxide 32 H (22-30) mmol/L BUN 9 (7-17) mg/dL Creatinine 1.1 (0.7-1.2) mg/dL Glucose 78 (65-100) mg/dL Calcium 8.1 L (8.4-10.2) mg/dL Adrenal panel 02/11/17 Range/Units 08:09 Sodium 140 (137-145) mmol/L Potassium 4.3 (3.6-5.0) mmol/L Chloride 97.2 L (98-107) mmol/L Carbon Dioxide 32 H (22-30) mmol/L BUN 9 (7-17) mg/dL Creatinine 1.1 (0.7-1.2) mg/dL Glucose 78 (65-100) mg/dL Calcium 8.1 L (8.4-10.2) mg/dL Total Bilirubin 7.60 H (0.1-1.2) mg/dL AST 19 (5-40) units/L ALT 8 (7-56) units/L Alkaline Phosphatase 62 (35-129) units/L Total Protein 6.6 (6.3-8.2) g/dL Albumin 3.1 L (3.9-5) g/dL
[2017-02-11] MEDS: PERCOCET 5/325 PO PRN (22:04)
[2017-02-12] MEDS: BENADRYL IV PRN (01:01)
[2017-02-12] MEDS: DUONEB *Not for PRN Use IH SCH ×4 (02:56→19:35)
[2017-02-12] MEDS: HEPARIN SUB-Q SCH ×3 (06:48→21:40)
[2017-02-12] MEDS: PULMICORT IH SCH ×2 (08:03→19:35)
[2017-02-12] MEDS: NYSTOP TP SCH ×3 (09:00→21:41)
--- NOTE | 2017-02-12 11:22 | Progress Note ---
Assessment and Plan Acute on chronic respiratory failure. Consistent with initial diagnostic impression of obesity hypoventilation syndrome. Tolerating BiPAP overnight. Currently she appears to be stable. Cor pulmonale,secondary to PHT. Stabilized Pulmonary hypertension, c/u, possibly due to OHS,chronic hypoxia,SS disease. Extreme morbid obesity.Triggering all of the above Obesity hypoventilation syndrome, see ABG Asthma/bronchial hyperactivity disorder by history.No wheezing or chest congestion noted Buttock abscess. Patient declined any surgical drainage. See surgery note Leg pain Rec Will order venous Doppler out of an abundance of caution Continue oxygen support at current level Continue with BiPAP at nighttime empirically. Outpatient sleep study evaluation for review of concurrent RENE. Ventilation scanning and HIV testing, as part of pulmonary hypertension workup I discussed the problem with narcotic and hypercapnic respiratory failure the patient . We will favor nonnarcotic medications and caution with sedation DVT prophylaxis should be maintained at all times, in view of echo findings Discussed need for weight reduction diet/program with olap developer. Subjective Date of service: 02/12/17 Principal diagnosis: a/c ARF,OHS,cor pulmonale,PHT, asthma Interval history: Complaints of having asthma, in the morning. Reportedly used the BiPAP system overnight. Complains also of left lower extremity pain "because my sickle cell was ". States that Percocet is not strong enough for her pain Objective Vital Signs - 12hr 02/11/17 02/12/17 02/12/17 23:46 06:35 08:00 Temperature 97.9 F 97.8 F 98.5 F Pulse Rate 80 70 82 Pulse Rate [ Anterior Bilateral Throughout] Respiratory 20 22 22 Rate Respiratory Rate [Anterior Bilateral Throughout] Blood Pressure 148/70 125/78 125/65 O2 Sat by Pulse 98 93 97 Oximetry 02/12/17 02/12/17 08:04 08:15 Temperature Pulse Rate Pulse Rate [ 82 83 Anterior Bilateral Throughout] Respiratory Rate Respiratory 20 20 Rate [Anterior Bilateral Throughout] Blood Pressure O2 Sat by Pulse 95 Oximetry Constitutional: no acute distress, alert, asleep (found sleep snoring) Eyes: non-icteric ENT: oropharynx moist, other (macroglossia, Mallampati 4) Neck: supple, no lymphadenopathy, other (cannot evaluate for JVD) Ascultation: Bilateral: clear, diminished breath sounds (Limited excursions) Cardiovascular: regular rate and rhythm (no murmurs) Gastrointestinal: normoactive bowel sounds, non-distended, other (cannot evaluate for organomegaly severe morbid patient) Extremities: no cyanosis, edema (+1 lower extremities. Some tenderness on the left leg, Ghassan is negative) Neurologic: normal mental status, non-focal exam, pupils equal and round, CN II- XII normal, motor strength normal and Psychiatric: mood appropriate, affect normal CBC and BMP: 02/11/17 08:09 02/11/17 08:09 ABG, PT/INR, D-dimer: ABG POC ABG pH 7.360 (7.35-7.45) 02/11/17 05:19 POC ABG pCO2 63.3 (35-45) H 02/11/17 05:19 POC ABG pO2 76 (80-105) L 02/11/17 05:19 POC ABG HCO3 35.8 02/11/17 05:19 POC ABG Total CO2 38 02/11/17 05:19 POC ABG O2 Sat 94 02/11/17 05:19 Abnormal lab findings: Abnormal Labs 02/09/17 02/09/17 02/09/17 00:30 05:37 05:37 RBC Hgb Hct RDW Monocytes % (Manual) Eosinophils % (Manual) Monocytes # (Manual) Eosinophils # (Manual) POC ABG pH POC ABG pCO2 POC ABG pO2 Chloride Carbon Dioxide Calcium Total Bilirubin Troponin T 0.055 H 0.065 H Albumin TSH 6.720 H 02/09/17 02/09/17 02/10/17 05:37 05:37 07:55 RBC 3.51 L 3.49 L Hgb Hct 30.0 L 29.8 L RDW 20.4 H 20.6 H Monocytes % (Manual) 21.0 H Eosinophils % (Manual) 5.0 H Monocytes # (Manual) 2.0 H Eosinophils # (Manual) 0.5 H POC ABG pH POC ABG pCO2 POC ABG pO2 Chloride Carbon Dioxide 32 H Calcium 8.3 L Total Bilirubin 8.40 H Troponin T Albumin 3.4 L TSH 02/10/17 02/10/17 02/10/17 07:55 18:16 22:52 RBC Hgb Hct RDW Monocytes % (Manual) Eosinophils % (Manual) Monocytes # (Manual) Eosinophils # (Manual) POC ABG pH 7.276 L 7.325 L POC ABG pCO2 77.7 H 71.2 H POC ABG pO2 68 L 77 L Chloride 97.8 L Carbon Dioxide 34 H Calcium 8.2 L Total Bilirubin Troponin T Albumin TSH 02/11/17 02/11/17 02/11/17 05:19 08:09 08:09 RBC 3.43 L Hgb 9.9 L Hct 29.2 L RDW 20.1 H Monocytes % (Manual) Eosinophils % (Manual) Monocytes # (Manual) Eosinophils # (Manual) POC ABG pH POC ABG pCO2 63.3 H POC ABG pO2 76 L Chloride 97.2 L Carbon Dioxide 32 H Calcium 8.1 L Total Bilirubin 7.60 H Troponin T Albumin 3.1 L TSH
--- NOTE | 2017-02-12 11:31 | Progress Note ---
Assessment and Plan Acute hypoxic respiratory failure CHF with a preserved ejection fraction Sickle cell disease on home oxygen Sleep apnea Morbidly obese Buttock abscess Hypothyroidism TSH 6.7 Cor pulmonale Echocardiogram demonstrates a dilated right heart chambers, moderate tricuspid regurgitation and moderate pulmonary hypertension. Findings are consistent with cor pulmonale associated with her chronic lung disease. Left ventricle chamber size and systolic function are normal, EF 50-55%. Recommendations: Continue medical therapy for CHF with a preserved ejection fraction. Subjective Date of service: 02/12/17 Principal diagnosis: a/c ARF,OHS,cor pulmonale,PHT, asthma Interval history: No interval changes. Objective Vital Signs Temp Pulse Pulse Pulse Pulse Resp Resp 02/12/17 08:15 83 20 02/12/17 08:04 82 20 02/12/17 08:00 98.5 F 82 22 02/12/17 06:35 97.8 F 70 22 02/11/17 23:46 97.9 F 80 20 02/11/17 22:00 73 35 H 02/11/17 21:24 02/11/17 20:52 98.4 F 84 20 02/11/17 20:30 88 20 02/11/17 20:19 86 20 02/11/17 17:17 98.2 F 76 20 02/11/17 17:08 20 02/11/17 15:17 98.7 F 98 H 78 20 02/11/17 14:28 68 20 02/11/17 14:18 71 20 02/11/17 13:00 66 25 H 02/11/17 12:51 92 H 14 02/11/17 12:41 94 H 25 H 02/11/17 12:31 92 H 19 02/11/17 12:22 95 H 18 02/11/17 12:21 94 H 22 02/11/17 12:11 96 H 28 H 02/11/17 12:00 98.0 F 98 H 13 02/11/17 11:51 75 13 02/11/17 11:41 71 11 L 02/11/17 11:31 72 16 BP Pulse Ox 02/12/17 08:15 02/12/17 08:04 95 02/12/17 08:00 125/65 97 02/12/17 06:35 125/78 93 02/11/17 23:46 148/70 98 02/11/17 22:00 91 02/11/17 21:24 130/61 02/11/17 20:52 130/61 97 02/11/17 20:30 02/11/17 20:19 02/11/17 17:17 120/58 90 02/11/17 17:08 02/11/17 15:17 156/78 96 02/11/17 14:28 02/11/17 14:18 02/11/17 13:00 115/64 92 02/11/17 12:51 117/80 96 02/11/17 12:41 117/80 93 02/11/17 12:31 117/80 97 02/11/17 12:22 02/11/17 12:21 117/80 95 02/11/17 12:11 117/80 93 02/11/17 12:00 117/80 97 02/11/17 11:51 116/63 98 02/11/17 11:41 116/63 99 02/11/17 11:31 116/63 97 - Physical Examination General: No Apparent Distress, Other (obese) HEENT: Positive: PERRL Cardiac: Positive: Reg Rate and Rhythm
[2017-02-12] MEDS: LOPRESSOR PO SCH ×2 (13:01→21:40)
[2017-02-12] MEDS: PERCOCET 5/325 PO PRN ×2 (13:01→21:46)
[2017-02-12] MEDS: LEVAQUIN PO SCH (13:02)
[2017-02-12] MEDS: PROTONIX PO SCH (13:03)
--- NOTE | 2017-02-12 13:23 | Progress Note ---
<MARKOS LU - Last Filed: 02/12/17 13:43> Assessment and Plan Assessment and plan: Acute hypoxic respiratory failure due to CHF due to noncompliance Most likely due to obesity hypoventilation syndrome Patient currently on 4NLC maintaining SPO2>98%. NO acute respiratory distress noted. Continue oxygen supplement counseled compliance Pulmonary consulted We will get ventilation/perfusion scanning and HIV testing, as part of pulmonary hypertension workup per Discontinue Dilaudid, due to risk of precipitating worsening respiratory failure per Pulmonary Obesity hypoventilation syndrome ABG when necessary Closely monitor patient. Pulmonary hypertension Most likely due to OHS,chronic hypoxia,SS disease. Cor pulmonale Most likely due to PHT Pulmonary consulted Acute on chronic diastolic heart failure Echocardiogram demonstrates a dilated right heart chambers, moderate tricuspid regurgitation and moderate pulmonary hypertension. Findings are consistent with cor pulmonale associated with her chronic lung disease. Left ventricle chamber size and systolic function are normal, EF 50-55%. Strict I/O's and daily weights, fluid restriction 1200ml in 24 hrs Treat with IV Lasix, Beta blockers Followed by cardiology. Hyperbilirubinemia Nothing by mouth US of the abdomen pending Buttock abscess. Patient declined any surgical drainage. Consult wound care Dr. Glynn Berg Sickle cell pain crisis with hemolytic anemia and jaundice Consulted hematology/oncology, With IV fluids because of the heart failure, complex medical decision, treat with IV pain medicine and Benadryl Mildly elevated troponin may be related to CHF: Consulted cardiology Anemia most likely related to sickle cell anemia Consult hematology oncology Functional quadriplegia Consult physical therapy Extreme obesity BMI 98.7 Counseling done patient strongly advised to lose weight and life style changes is important to improve cardiovascular diseases. Consult Dietitian DVT prophylaxis Subcutaneous heparin History Interval history: Patient currently on 4NCL and maintaining SPO2 >98%. no acute respiratory distress noted. Hospitalist Physical - Constitutional Vitals: Temp Pulse Resp BP Pulse Ox 99.1 F 87 22 131/72 97 02/12/17 13:04 02/12/17 13:04 02/12/17 13:04 02/12/17 13:04 02/12/17 13:04 General appearance: Present: mild distress, other (on 4LNC with SPO2 >98%) - EENT Eyes: Present: PERRL ENT: hearing intact - Neck Neck: Present: supple - Respiratory Respiratory effort: normal Respiratory: bilateral: wheezing (mild) - Cardiovascular Rhythm: regular Heart Sounds: Present: S1 & S2 - Extremities Extremities: no ischemia Extremity abnormal: edema (left lower extremity ), other - Abdominal General gastrointestinal: soft, non-tender - Integumentary Integumentary: Present: clear, warm, dry - Psychiatric Psychiatric: appropriate mood/affect - Neurologic Neurologic: CNII-XII intact, moves all extremities - Allied Health Allied health notes reviewed: nursing Results - Labs CBC & Chem 7: 02/11/17 08:09 02/11/17 08:09 Labs: Laboratory Last Values WBC 10.0 K/mm3 (4.5-11.0) 02/11/17 08:09 RBC 3.43 M/mm3 (3.65-5.03) L 02/11/17 08:09 Hgb 9.9 gm/dl (10.1-14.3) L 02/11/17 08:09 Hct 29.2 % (30.3-42.9) L 02/11/17 08:09 MCV 85 fl (79-97) 02/11/17 08:09 MCH 29 pg (28-32) 02/11/17 08:09 MCHC 34 % (30-34) 02/11/17 08:09 RDW 20.1 % (13.2-15.2) H 02/11/17 08:09 Plt Count 313 K/mm3 (140-440) 02/11/17 08:09 [place] % (Auto) Roll Hauler 02/10/17 07:55 Add Manual Diff Complete 02/10/17 07:55 Total Counted 100 02/10/17 07:55 Seg Neuts % (Manual) 40.0 % (40.0-70.0) 02/10/17 07:55 Band Neutrophils % 2.0 % 02/10/17 07:55 Lymphocytes % (Manual) 31.0 % (13.4-35.0) 02/10/17 07:55 Reactive Lymphs % (Man) 0 % 02/10/17 07:55 Monocytes % (Manual) 21.0 % (0.0-7.3) H 02/10/17 07:55 Eosinophils % (Manual) 5.0 % (0.0-4.3) H 02/10/17 07:55 Basophils % (Manual) 0 % (0.0-1.8) 02/10/17 07:55 Metamyelocytes % 1.0 % 02/10/17 07:55 Myelocytes % 0 % 02/10/17 07:55 Promyelocytes % 0 % 02/10/17 07:55 Blast Cells % 0 % 02/10/17 07:55 Nucleated RBC % Not Reportable 02/10/17 07:55 Seg Neutrophils # Man 3.9 K/mm3 (1.8-7.7) 02/10/17 07:55 Band Neutrophils # 0.2 K/mm3 02/10/17 07:55 Lymphocytes # (Manual) 3.0 K/mm3 (1.2-5.4) 02/10/17 07:55 Abs React Lymphs (Man) 0.0 K/mm3 02/10/17 07:55 Monocytes # (Manual) 2.0 K/mm3 (0.0-0.8) H 02/10/17 07:55 Eosinophils # (Manual) 0.5 K/mm3 (0.0-0.4) H 02/10/17 07:55 Basophils # (Manual) 0.0 K/mm3 (0.0-0.1) 02/10/17 07:55 Metamyelocytes # 0.1 K/mm3 02/10/17 07:55 Myelocytes # 0.0 K/mm3 02/10/17 07:55 Promyelocytes # 0.0 K/mm3 02/10/17 07:55 Blast Cells # 0.0 K/mm3 02/10/17 07:55 WBC Morphology Not Reportable 02/10/17 07:55 Hypersegmented Neuts Not Reportable 02/10/17 07:55 Hyposegmented Neuts Not Reportable 02/10/17 07:55 Hypogranular Neuts Not Reportable 02/10/17 07:55 Smudge Cells Not Reportable 02/10/17 07:55 Toxic Granulation Not Reportable 02/10/17 07:55 Toxic Vacuolation Not Reportable 02/10/17 07:55 Dohle Bodies Not Reportable 02/10/17 07:55 Pelger-Huet Anomaly Not Reportable 02/10/17 07:55 James Rods Not Reportable 02/10/17 07:55 Platelet Estimate Not Reportable 02/10/17 07:55 Clumped Platelets Not Reportable 02/10/17 07:55 Plt Clumps, EDTA Not Reportable 02/10/17 07:55 Large Platelets Not Reportable 02/10/17 07:55 Giant Platelets Not Reportable 02/10/17 07:55 Platelet Satelliting Not Reportable 02/10/17 07:55 Plt Morphology Comment Not Reportable 02/10/17 07:55 RBC Morphology Not Reportable 02/10/17 07:55 Dimorphic RBCs Not Reportable 02/10/17 07:55 Polychromasia Few 02/10/17 07:55 Hypochromasia 1+ 02/10/17 07:55 Poikilocytosis Not Reportable 02/10/17 07:55 Anisocytosis 1+ 02/10/17 07:55 Microcytosis Not Reportable 02/10/17 07:55 Macrocytosis Not Reportable 02/10/17 07:55 Spherocytes Not Reportable 02/10/17 07:55 Pappenheimer Bodies Not Reportable 02/10/17 07:55 Sickle Cells Not Reportable 02/10/17 07:55 Target Cells 2+ 02/10/17 07:55 Tear Drop Cells Not Reportable 02/10/17 07:55 Ovalocytes Not Reportable 02/10/17 07:55 Helmet Cells Not Reportable 02/10/17 07:55 [place] Bodies Not Reportable 02/10/17 07:55 [place] Rings Not Reportable 02/10/17 07:55 Fabi Cells Not Reportable 02/10/17 07:55 Bite Cells Not Reportable 02/10/17 07:55 Crenated Cell Not Reportable 02/10/17 07:55 Elliptocytes Not Reportable 02/10/17 07:55 Acanthocytes (Spur) Not Reportable 02/10/17 07:55 Rouleaux Not Reportable 02/10/17 07:55 Hemoglobin C Crystals Not Reportable 02/10/17 07:55 Schistocytes Few 02/10/17 07:55 Malaria parasites Not Reportable 02/10/17 07:55 Benjamin Bodies Not Reportable 02/10/17 07:55 Hem Pathologist Commnt No 02/10/17 07:55 POC ABG pH 7.360 (7.35-7.45) 02/11/17 05:19 POC ABG pCO2 63.3 (35-45) H 02/11/17 05:19 POC ABG pO2 76 (80-105) L 02/11/17 05:19 POC ABG HCO3 35.8 02/11/17 05:19 POC ABG Total CO2 38 02/11/17 05:19 POC ABG O2 Sat 94 02/11/17 05:19 POC ABG Base Excess 10 02/11/17 05:19 FiO2 35 % 02/11/17 05:19 Sodium 140 mmol/L (137-145) 02/11/17 08:09 Potassium 4.3 mmol/L (3.6-5.0) 02/11/17 08:09 Chloride 97.2 mmol/L (98-107) L 02/11/17 08:09 Carbon Dioxide 32 mmol/L (22-30) H 02/11/17 08:09 Anion Gap 15 mmol/L 02/11/17 08:09 BUN 9 mg/dL (7-17) 02/11/17 08:09 Creatinine 1.1 mg/dL (0.7-1.2) 02/11/17 08:09 Estimated GFR > 60 ml/min 02/11/17 08:09 BUN/Creatinine Ratio 8.18 % 02/11/17 08:09 Glucose 78 mg/dL (65-100) 02/11/17 08:09 Calcium 8.1 mg/dL (8.4-10.2) L 02/11/17 08:09 Total Bilirubin 7.60 mg/dL (0.1-1.2) H 02/11/17 08:09 Direct Bilirubin 1.1 mg/dL (0-0.2) H 02/08/17 20:39 Indirect Bilirubin 6.1 mg/dL 02/08/17 20:39 AST 19 units/L (5-40) 02/11/17 08:09 ALT 8 units/L (7-56) 02/11/17 08:09 Alkaline Phosphatase 62 units/L (35-129) 02/11/17 08:09 Total Creatine Kinase 47 units/L (30-135) 02/09/17 05:37 CK-MB (CK-2) < 1.0 ng/mL (0.0-4.0) 02/09/17 05:37 CK-MB (CK-2) Rel Index 2.1 (0-4) 02/09/17 05:37 Troponin T 0.065 ng/mL (0.00-0.029) H 02/09/17 05:37 NT-Pro-B Natriuret Pep 1445 pg/mL (0-450) H 02/08/17 20:39 Total Protein 6.6 g/dL (6.3-8.2) 02/11/17 08:09 Albumin 3.1 g/dL (3.9-5) L 02/11/17 08:09 Albumin/Globulin Ratio 0.9 % 02/11/17 08:09 Triglycerides 76 mg/dL (2-149) 02/08/17 20:39 Cholesterol 64 mg/dL (50-199) 02/08/17 20:39 LDL Cholesterol Direct 28 mg/dL (50-130) L 02/08/17 20:39 HDL Cholesterol 21 mg/dL (40-59) L 02/08/17 20:39 Cholesterol/HDL Ratio 3.04 % 02/08/17 20:39 TSH 6.720 mlU/mL (0.270-4.200) H 02/09/17 05:37 Free T4 1.24 ng/dL (0.76-1.46) 02/09/17 05:37 HCG, Qual Negative (Negative) 02/08/17 20:39 <EMMANUELLE LAL O - Last Filed: 02/12/17 20:22> Assessment and Plan Assessment and plan: I saw and evaluated the patient. I agree with the findings and the plan of care as documented in the Nurse Practitioner's~note, with the following corrections and additions. Patient with CHF exacerbation, sickle cell crisis,morbid obesity. Continue current management. Hospitalist Physical - Constitutional Vitals: Temp Pulse Resp BP Pulse Ox 98.4 F 86 24 143/73 96 02/12/17 19:06 02/12/17 19:06 02/12/17 19:06 02/12/17 19:06 02/12/17 19:36 Results - Labs CBC & Chem 7: 02/11/17 08:09 02/11/17 08:09 Labs: Laboratory Last Values WBC 10.0 K/mm3 (4.5-11.0) 02/11/17 08:09 RBC 3.43 M/mm3 (3.65-5.03) L 02/11/17 08:09 Hgb 9.9 gm/dl (10.1-14.3) L 02/11/17 08:09 Hct 29.2 % (30.3-42.9) L 02/11/17 08:09 MCV 85 fl (79-97) 02/11/17 08:09 MCH 29 pg (28-32) 02/11/17 08:09 MCHC 34 % (30-34) 02/11/17 08:09 RDW 20.1 % (13.2-15.2) H 02/11/17 08:09 Plt Count 313 K/mm3 (140-440) 02/11/17 08:09 [place] % (Auto) Roll Hauler 02/10/17 07:55 Add Manual Diff Complete 02/10/17 07:55 Total Counted 100 02/10/17 07:55 Seg Neuts % (Manual) 40.0 % (40.0-70.0) 02/10/17 07:55 Band Neutrophils % 2.0 % 02/10/17 07:55 Lymphocytes % (Manual) 31.0 % (13.4-35.0) 02/10/17 07:55 Reactive Lymphs % (Man) 0 % 02/10/17 07:55 Monocytes % (Manual) 21.0 % (0.0-7.3) H 02/10/17 07:55 Eosinophils % (Manual) 5.0 % (0.0-4.3) H 02/10/17 07:55 Basophils % (Manual) 0 % (0.0-1.8) 02/10/17 07:55 Metamyelocytes % 1.0 % 02/10/17 07:55 Myelocytes % 0 % 02/10/17 07:55 Promyelocytes % 0 % 02/10/17 07:55 Blast Cells % 0 % 02/10/17 07:55 Nucleated RBC % Not Reportable 02/10/17 07:55 Seg Neutrophils # Man 3.9 K/mm3 (1.8-7.7) 02/10/17 07:55 Band Neutrophils # 0.2 K/mm3 02/10/17 07:55 Lymphocytes # (Manual) 3.0 K/mm3 (1.2-5.4) 02/10/17 07:55 Abs React Lymphs (Man) 0.0 K/mm3 02/10/17 07:55 Monocytes # (Manual) 2.0 K/mm3 (0.0-0.8) H 02/10/17 07:55 Eosinophils # (Manual) 0.5 K/mm3 (0.0-0.4) H 02/10/17 07:55 Basophils # (Manual) 0.0 K/mm3 (0.0-0.1) 02/10/17 07:55 Metamyelocytes # 0.1 K/mm3 02/10/17 07:55 Myelocytes # 0.0 K/mm3 02/10/17 07:55 Promyelocytes # 0.0 K/mm3 02/10/17 07:55 Blast Cells # 0.0 K/mm3 02/10/17 07:55 WBC Morphology Not Reportable 02/10/17 07:55 Hypersegmented Neuts Not Reportable 02/10/17 07:55 Hyposegmented Neuts Not Reportable 02/10/17 07:55 Hypogranular Neuts Not Reportable 02/10/17 07:55 Smudge Cells Not Reportable 02/10/17 07:55 Toxic Granulation Not Reportable 02/10/17 07:55 Toxic Vacuolation Not Reportable 02/10/17 07:55 Dohle Bodies Not Reportable 02/10/17 07:55 Pelger-Huet Anomaly Not Reportable 02/10/17 07:55 James Rods Not Reportable 02/10/17 07:55 Platelet Estimate Not Reportable 02/10/17 07:55 Clumped Platelets Not Reportable 02/10/17 07:55 Plt Clumps, EDTA Not Reportable 02/10/17 07:55 Large Platelets Not Reportable 02/10/17 07:55 Giant Platelets Not Reportable 02/10/17 07:55 Platelet Satelliting Not Reportable 02/10/17 07:55 Plt Morphology Comment Not Reportable 02/10/17 07:55 RBC Morphology Not Reportable 02/10/17 07:55 Dimorphic RBCs Not Reportable 02/10/17 07:55 Polychromasia Few 02/10/17 07:55 Hypochromasia 1+ 02/10/17 07:55 Poikilocytosis Not Reportable 02/10/17 07:55 Anisocytosis 1+ 02/10/17 07:55 Microcytosis Not Reportable 02/10/17 07:55 Macrocytosis Not Reportable 02/10/17 07:55 Spherocytes Not Reportable 02/10/17 07:55 Pappenheimer Bodies Not Reportable 02/10/17 07:55 Sickle Cells Not Reportable 02/10/17 07:55 Target Cells 2+ 02/10/17 07:55 Tear Drop Cells Not Reportable 02/10/17 07:55 Ovalocytes Not Reportable 02/10/17 07:55 Helmet Cells Not Reportable 02/10/17 07:55 [place] Bodies Not Reportable 02/10/17 07:55 [place] Rings Not Reportable 02/10/17 07:55 Fabi Cells Not Reportable 02/10/17 07:55 Bite Cells Not Reportable 02/10/17 07:55 Crenated Cell Not Reportable 02/10/17 07:55 Elliptocytes Not Reportable 02/10/17 07:55 Acanthocytes (Spur) Not Reportable 02/10/17 07:55 Rouleaux Not Reportable 02/10/17 07:55 Hemoglobin C Crystals Not Reportable 02/10/17 07:55 Schistocytes Few 02/10/17 07:55 Malaria parasites Not Reportable 02/10/17 07:55 Benjamin Bodies Not Reportable 02/10/17 07:55 Hem Pathologist Commnt No 02/10/17 07:55 POC ABG pH 7.360 (7.35-7.45) 02/11/17 05:19 POC ABG pCO2 63.3 (35-45) H 02/11/17 05:19 POC ABG pO2 76 (80-105) L 02/11/17 05:19 POC ABG HCO3 35.8 02/11/17 05:19 POC ABG Total CO2 38 02/11/17 05:19 POC ABG O2 Sat 94 02/11/17 05:19 POC ABG Base Excess 10 02/11/17 05:19 FiO2 35 % 02/11/17 05:19 Sodium 140 mmol/L (137-145) 02/11/17 08:09 Potassium 4.3 mmol/L (3.6-5.0) 02/11/17 08:09 Chloride 97.2 mmol/L (98-107) L 02/11/17 08:09 Carbon Dioxide 32 mmol/L (22-30) H 02/11/17 08:09 Anion Gap 15 mmol/L 02/11/17 08:09 BUN 9 mg/dL (7-17) 02/11/17 08:09 Creatinine 1.1 mg/dL (0.7-1.2) 02/11/17 08:09 Estimated GFR > 60 ml/min 02/11/17 08:09 BUN/Creatinine Ratio 8.18 % 02/11/17 08:09 Glucose 78 mg/dL (65-100) 02/11/17 08:09 Calcium 8.1 mg/dL (8.4-10.2) L 02/11/17 08:09 Total Bilirubin 7.60 mg/dL (0.1-1.2) H 02/11/17 08:09 Direct Bilirubin 1.1 mg/dL (0-0.2) H 02/08/17 20:39 Indirect Bilirubin 6.1 mg/dL 02/08/17 20:39 AST 19 units/L (5-40) 02/11/17 08:09 ALT 8 units/L (7-56) 02/11/17 08:09 Alkaline Phosphatase 62 units/L (35-129) 02/11/17 08:09 Total Creatine Kinase 47 units/L (30-135) 02/09/17 05:37 CK-MB (CK-2) < 1.0 ng/mL (0.0-4.0) 02/09/17 05:37 CK-MB (CK-2) Rel Index 2.1 (0-4) 02/09/17 05:37 Troponin T 0.065 ng/mL (0.00-0.029) H 02/09/17 05:37 NT-Pro-B Natriuret Pep 1445 pg/mL (0-450) H 02/08/17 20:39 Total Protein 6.6 g/dL (6.3-8.2) 02/11/17 08:09 Albumin 3.1 g/dL (3.9-5) L 02/11/17 08:09 Albumin/Globulin Ratio 0.9 % 02/11/17 08:09 Triglycerides 76 mg/dL (2-149) 02/08/17 20:39 Cholesterol 64 mg/dL (50-199) 02/08/17 20:39 LDL Cholesterol Direct 28 mg/dL (50-130) L 02/08/17 20:39 HDL Cholesterol 21 mg/dL (40-59) L 02/08/17 20:39 Cholesterol/HDL Ratio 3.04 % 02/08/17 20:39 TSH 6.720 mlU/mL (0.270-4.200) H 02/09/17 05:37 Free T4 1.24 ng/dL (0.76-1.46) 02/09/17 05:37 HCG, Qual Negative (Negative) 02/08/17 20:39
--- NOTE | 2017-02-12 14:02 | Ultrasound Report ---
RIGHT UPPER QUADRANT ULTRASOUND: HISTORY: Hyperbilirubinemia. Technique: Transabdominal ultrasound imaging with Doppler interrogation. FINDINGS: A mild degree of sludge in the gallbladder. No evidence for gallstones, gallbladder wall thickening, abnormal distention or surrounding fluid. The CBD measures 3 mm. Images of the liver parenchyma, pancreas, right kidney and aorta are within normal limits. No perihepatic ascites. IMPRESSION: Small amount of sludge in the gallbladder. No evidence for acute cholecystitis.
[2017-02-12] MEDS ORDERED: BENADRYL PO PRN (16:55)
[2017-02-12] MEDS: LASIX IV SCH (17:31)
[2017-02-13] MEDS: DUONEB *Not for PRN Use IH SCH ×3 (02:23→13:22)
[2017-02-13] MEDS: HEPARIN SUB-Q SCH ×2 (05:46→16:26)
[2017-02-13] MEDS: LASIX IV SCH ×2 (05:46→17:26)
--- NOTE | 2017-02-13 07:43 | Progress Note ---
Hospitalist Physical - Constitutional Vitals: Temp Pulse Resp BP Pulse Ox 98.7 F 74 20 137/76 95 02/13/17 04:14 02/13/17 04:14 02/13/17 04:14 02/13/17 04:14 02/13/17 04:14 General appearance: Present: mild distress, other (on 4LNC with SPO2 >98%) Results - Labs CBC & Chem 7: 02/11/17 08:09 02/11/17 08:09 Labs: Laboratory Last Values WBC 10.0 K/mm3 (4.5-11.0) 02/11/17 08:09 RBC 3.43 M/mm3 (3.65-5.03) L 02/11/17 08:09 Hgb 9.9 gm/dl (10.1-14.3) L 02/11/17 08:09 Hct 29.2 % (30.3-42.9) L 02/11/17 08:09 MCV 85 fl (79-97) 02/11/17 08:09 MCH 29 pg (28-32) 02/11/17 08:09 MCHC 34 % (30-34) 02/11/17 08:09 RDW 20.1 % (13.2-15.2) H 02/11/17 08:09 Plt Count 313 K/mm3 (140-440) 02/11/17 08:09 [place] % (Auto) Marketing Researcher 02/10/17 07:55 Add Manual Diff Complete 02/10/17 07:55 Total Counted 100 02/10/17 07:55 Seg Neuts % (Manual) 40.0 % (40.0-70.0) 02/10/17 07:55 Band Neutrophils % 2.0 % 02/10/17 07:55 Lymphocytes % (Manual) 31.0 % (13.4-35.0) 02/10/17 07:55 Reactive Lymphs % (Man) 0 % 02/10/17 07:55 Monocytes % (Manual) 21.0 % (0.0-7.3) H 02/10/17 07:55 Eosinophils % (Manual) 5.0 % (0.0-4.3) H 02/10/17 07:55 Basophils % (Manual) 0 % (0.0-1.8) 02/10/17 07:55 Metamyelocytes % 1.0 % 02/10/17 07:55 Myelocytes % 0 % 02/10/17 07:55 Promyelocytes % 0 % 02/10/17 07:55 Blast Cells % 0 % 02/10/17 07:55 Nucleated RBC % Not Reportable 02/10/17 07:55 Seg Neutrophils # Man 3.9 K/mm3 (1.8-7.7) 02/10/17 07:55 Band Neutrophils # 0.2 K/mm3 02/10/17 07:55 Lymphocytes # (Manual) 3.0 K/mm3 (1.2-5.4) 02/10/17 07:55 Abs React Lymphs (Man) 0.0 K/mm3 02/10/17 07:55 Monocytes # (Manual) 2.0 K/mm3 (0.0-0.8) H 02/10/17 07:55 Eosinophils # (Manual) 0.5 K/mm3 (0.0-0.4) H 02/10/17 07:55 Basophils # (Manual) 0.0 K/mm3 (0.0-0.1) 02/10/17 07:55 Metamyelocytes # 0.1 K/mm3 02/10/17 07:55 Myelocytes # 0.0 K/mm3 02/10/17 07:55 Promyelocytes # 0.0 K/mm3 02/10/17 07:55 Blast Cells # 0.0 K/mm3 02/10/17 07:55 WBC Morphology Not Reportable 02/10/17 07:55 Hypersegmented Neuts Not Reportable 02/10/17 07:55 Hyposegmented Neuts Not Reportable 02/10/17 07:55 Hypogranular Neuts Not Reportable 02/10/17 07:55 Smudge Cells Not Reportable 02/10/17 07:55 Toxic Granulation Not Reportable 02/10/17 07:55 Toxic Vacuolation Not Reportable 02/10/17 07:55 Dohle Bodies Not Reportable 02/10/17 07:55 Pelger-Huet Anomaly Not Reportable 02/10/17 07:55 James Rods Not Reportable 02/10/17 07:55 Platelet Estimate Not Reportable 02/10/17 07:55 Clumped Platelets Not Reportable 02/10/17 07:55 Plt Clumps, EDTA Not Reportable 02/10/17 07:55 Large Platelets Not Reportable 02/10/17 07:55 Giant Platelets Not Reportable 02/10/17 07:55 Platelet Satelliting Not Reportable 02/10/17 07:55 Plt Morphology Comment Not Reportable 02/10/17 07:55 RBC Morphology Not Reportable 02/10/17 07:55 Dimorphic RBCs Not Reportable 02/10/17 07:55 Polychromasia Few 02/10/17 07:55 Hypochromasia 1+ 02/10/17 07:55 Poikilocytosis Not Reportable 02/10/17 07:55 Anisocytosis 1+ 02/10/17 07:55 Microcytosis Not Reportable 02/10/17 07:55 Macrocytosis Not Reportable 02/10/17 07:55 Spherocytes Not Reportable 02/10/17 07:55 Pappenheimer Bodies Not Reportable 02/10/17 07:55 Sickle Cells Not Reportable 02/10/17 07:55 Target Cells 2+ 02/10/17 07:55 Tear Drop Cells Not Reportable 02/10/17 07:55 Ovalocytes Not Reportable 02/10/17 07:55 Helmet Cells Not Reportable 02/10/17 07:55 [place] Bodies Not Reportable 02/10/17 07:55 [place] Rings Not Reportable 02/10/17 07:55 [place] Cells Not Reportable 02/10/17 07:55 Bite Cells Not Reportable 02/10/17 07:55 Crenated Cell Not Reportable 02/10/17 07:55 Elliptocytes Not Reportable 02/10/17 07:55 Acanthocytes (Spur) Not Reportable 02/10/17 07:55 Rouleaux Not Reportable 02/10/17 07:55 Hemoglobin C Crystals Not Reportable 02/10/17 07:55 Schistocytes Few 02/10/17 07:55 Malaria parasites Not Reportable 02/10/17 07:55 Benjamin Bodies Not Reportable 02/10/17 07:55 Hem Pathologist Commnt No 02/10/17 07:55 POC ABG pH 7.360 (7.35-7.45) 02/11/17 05:19 POC ABG pCO2 63.3 (35-45) H 02/11/17 05:19 POC ABG pO2 76 (80-105) L 02/11/17 05:19 POC ABG HCO3 35.8 02/11/17 05:19 POC ABG Total CO2 38 02/11/17 05:19 POC ABG O2 Sat 94 02/11/17 05:19 POC ABG Base Excess 10 02/11/17 05:19 FiO2 35 % 02/11/17 05:19 Sodium 140 mmol/L (137-145) 02/11/17 08:09 Potassium 4.3 mmol/L (3.6-5.0) 02/11/17 08:09 Chloride 97.2 mmol/L (98-107) L 02/11/17 08:09 Carbon Dioxide 32 mmol/L (22-30) H 02/11/17 08:09 Anion Gap 15 mmol/L 02/11/17 08:09 BUN 9 mg/dL (7-17) 02/11/17 08:09 Creatinine 1.1 mg/dL (0.7-1.2) 02/11/17 08:09 Estimated GFR > 60 ml/min 02/11/17 08:09 BUN/Creatinine Ratio 8.18 % 02/11/17 08:09 Glucose 78 mg/dL (65-100) 02/11/17 08:09 Calcium 8.1 mg/dL (8.4-10.2) L 02/11/17 08:09 Total Bilirubin 7.60 mg/dL (0.1-1.2) H 02/11/17 08:09 Direct Bilirubin 1.1 mg/dL (0-0.2) H 02/08/17 20:39 Indirect Bilirubin 6.1 mg/dL 02/08/17 20:39 AST 19 units/L (5-40) 02/11/17 08:09 ALT 8 units/L (7-56) 02/11/17 08:09 Alkaline Phosphatase 62 units/L (35-129) 02/11/17 08:09 Total Creatine Kinase 47 units/L (30-135) 02/09/17 05:37 CK-MB (CK-2) < 1.0 ng/mL (0.0-4.0) 02/09/17 05:37 CK-MB (CK-2) Rel Index 2.1 (0-4) 02/09/17 05:37 Troponin T 0.065 ng/mL (0.00-0.029) H 02/09/17 05:37 NT-Pro-B Natriuret Pep 1445 pg/mL (0-450) H 02/08/17 20:39 Total Protein 6.6 g/dL (6.3-8.2) 02/11/17 08:09 Albumin 3.1 g/dL (3.9-5) L 02/11/17 08:09 Albumin/Globulin Ratio 0.9 % 02/11/17 08:09 Triglycerides 76 mg/dL (2-149) 02/08/17 20:39 Cholesterol 64 mg/dL (50-199) 02/08/17 20:39 LDL Cholesterol Direct 28 mg/dL (50-130) L 02/08/17 20:39 HDL Cholesterol 21 mg/dL (40-59) L 02/08/17 20:39 Cholesterol/HDL Ratio 3.04 % 02/08/17 20:39 TSH 6.720 mlU/mL (0.270-4.200) H 02/09/17 05:37 Free T4 1.24 ng/dL (0.76-1.46) 02/09/17 05:37 HCG, Qual Negative (Negative) 02/08/17 20:39
[2017-02-13 08:15] LABS: Hematocrit 28.8 % (30.3-42.9); Hemoglobin 9.3 gm/dl (10.1-14.3); Mean Corpuscular HGB Conc 33 % (30-34); Mean Corpuscular Hemoglobin 28 pg (28-32); Mean Corpuscular Volume 86 fl (79-97); Platelet Count 291 K/mm3 (140-440); Red Blood Count 3.34 M/mm3 (3.65-5.03); White Blood Count 13.4 K/mm3 (4.5-11.0)
[2017-02-13 08:24] LABS: Red Cell Distribution Width 20.2 % (13.2-15.2)
[2017-02-13 08:31] LABS: Anion Gap 14 mmol/L; BUN/Creatinine Ratio 12.22; Blood Urea Nitrogen 11 mg/dL (7-17); Carbon Dioxide 36 mmol/L (22-30); Glucose 84 mg/dL (65-100); Potassium 3.9 mmol/L (3.6-5.0); Sodium 145 mmol/L (137-145)
[2017-02-13] MEDS: PULMICORT IH SCH (09:20)
[2017-02-13 09:38] LABS: Blastocytes % (Manual) 0 %
[2017-02-13] MEDS: LEVAQUIN PO SCH (09:41)
[2017-02-13 09:42] LABS: Hypochromasia 2+; Target Cells 2+
[2017-02-13] MEDS: LOPRESSOR PO SCH (09:42)
[2017-02-13] MEDS: PROTONIX PO SCH (09:42)
[2017-02-13 09:43] LABS: Anisocytosis 2+
[2017-02-13] MEDS: NYSTOP TP SCH ×2 (09:43→15:10)
[2017-02-13 09:44] LABS: Microcytosis 1+
[2017-02-13 09:46] LABS: Diff Status Complete; Platelet Estimate Consistent w Auto
--- NOTE | 2017-02-13 11:27 | Progress Note ---
Assessment and Plan Acute hypoxic respiratory failure CHF with a preserved ejection fraction Sickle cell disease on home oxygen Sleep apnea Morbidly obese Buttock abscess Hypothyroidism TSH 6.7 Cor pulmonale Echocardiogram demonstrates a dilated right heart chambers, moderate tricuspid regurgitation and moderate pulmonary hypertension. Findings are consistent with cor pulmonale associated with her chronic lung disease. Left ventricle chamber size and systolic function are normal, EF 50-55%. Recommendations: Continue medical therapy for CHF with a preserved ejection fraction. Subjective Date of service: 02/13/17 Principal diagnosis: a/c ARF,OHS,cor pulmonale,PHT, asthma Interval history: Emotional this morning. Complains of leg pain. Objective Vital Signs Temp Pulse Pulse Resp Resp BP Pulse Ox 02/13/17 09:42 77 118/53 02/13/17 07:00 98.5 F 77 22 118/53 91 02/13/17 04:14 98.7 F 74 20 137/76 95 02/13/17 02:20 80 26 H 99 02/13/17 00:15 81 29 H 95 02/12/17 23:45 97.8 F 80 20 125/72 95 02/12/17 19:36 96 02/12/17 19:06 98.4 F 86 24 143/73 92 02/12/17 16:00 98.9 F 86 22 134/72 97 02/12/17 13:23 89 20 02/12/17 13:13 87 20 02/12/17 13:04 99.1 F 87 22 131/72 97 02/12/17 13:01 87 131/72 - Physical Examination General: No Apparent Distress, Other (obese) HEENT: Positive: PERRL Neck: Positive: trachea midline Cardiac: Positive: Reg Rate and Rhythm - Labs and Meds CBC 02/13/17 Range/Units 07:21 WBC 13.4 H (4.5-11.0) K/mm3 RBC 3.34 L (3.65-5.03) M/mm3 Hgb 9.3 L (10.1-14.3) gm/dl Hct 28.8 L (30.3-42.9) % Plt Count 291 (140-440) K/mm3 Comprehensive Metabolic Panel 02/13/17 Range/Units 07:21 Sodium 145 (137-145) mmol/L Potassium 3.9 (3.6-5.0) mmol/L Chloride 99.0 (98-107) mmol/L Carbon Dioxide 36 H (22-30) mmol/L BUN 11 (7-17) mg/dL Creatinine 0.9 (0.7-1.2) mg/dL Glucose 84 (65-100) mg/dL Calcium 8.0 L (8.4-10.2) mg/dL
--- NOTE | 2017-02-13 12:12 | Discharge Summary ---
<EMMANUELLE LAL - Last Filed: 02/13/17 15:51> Providers - Providers Date of Admission: 02/08/17 23:04 Attending physician: EMMANUELLE LAL 02/08/17 23:29 Consult to Dietitian/Nutrition [CONS] Routine Physician Instructions: Reason For Exam: Reason for Consult: Diet education Consult to Physician [CONS] Routine Consulting Provider: EDI MCGOWAN Reason For Exam: Sickle cell pain crisis with jaundice, anemia Place consult to:: Dr. Gabriel Mcgowan Notified:: Diana RN Phone number called:: Was contact made?: Yes If yes, spoke with:: Jaylyn-Office Time called:: 09:04 02/08/17 23:31 Consult to Physician [CONS] Routine Consulting Provider: NAZIA NORMAN Reason For Exam: CHF Place consult to:: Nazia Norman MD Notified:: Diana RN Phone number called:: Was contact made?: Yes If yes, spoke with:: Mary-vu service Time called:: 08:22 02/08/17 23:33 Consult to Wound/ET Nurse [CONS] Routine Reason For Exam: wound eval 02/08/17 23:50 Physical Therapy Evaluation and Treat [CONS] Routine Comment: Reason For Exam: functional immobility, bmi 98 02/09/17 13:00 Consult to Physician [CONS] Routine Consulting Provider: SOCORRO MAKI Reason For Exam: wound buttock Place consult to:: Dr. Maki Notified:: Diana RN Phone number called:: [phone] Was contact made?: Yes If yes, spoke with:: Sheryl-Office Time called:: 13:34 02/10/17 14:14 Consult to Physician [CONS] Routine Consulting Provider: FAN GRANADOS Reason For Exam: Cor pulmonale, shortness of breath Place consult to:: Dr. Granados Notified:: Suyapa RN Phone number called:: Was contact made?: Yes If yes, spoke with:: Urmila-office Time called:: 15:42 02/13/17 11:35 Consult to Mental Health [CONS] Routine Reason For Exam: anxiety Place consult to:: Psych Notified:: department Phone number called:: [phone] Primary care physician: BREAKER UP MACHINE OPERATOR Hospitalization Condition: Stable Disposition: [id number] HOME UNDER HOME HLTH Exam - Constitutional Vitals: Temp Pulse Resp BP Pulse Ox 98.5 F 81 20 118/53 98 02/13/17 07:00 02/13/17 13:29 02/13/17 13:29 02/13/17 09:42 02/13/17 13:25 Plan Additional Instructions: 1.Follow up with PCP in 3-5 days. 2.Follow up with Dr. Granados, Building Construction Engineer in 3-5 days. 3.Continue home Oxygen. 4.Outpatient sleep study to be arranged when she follows with Dr. Granados Follow up with: PRIMARY CARE, [Primary Care Provider] - 3-5 Days Prescriptions: Furosemide [Furosemide ORAL LIQ] 40 mg PO QDAY #60 ml Metoprolol [Lopressor TAB] 50 mg PO BID #60 tablet <MARKOS LU - Last Filed: 02/14/17 11:00> Providers - Providers Date of Admission: 02/08/17 23:04 Date of discharge: 02/13/17 Attending physician: EMMANUELLE LAL 02/08/17 23:29 Consult to Dietitian/Nutrition [CONS] Routine Physician Instructions: Reason For Exam: Reason for Consult: Diet education Consult to Physician [CONS] Routine Consulting Provider: EDI MCGOWAN Reason For Exam: Sickle cell pain crisis with jaundice, anemia Place consult to:: Dr. Gabriel Mcgowan Notified:: Diana SOLORIO Phone number called:: Was contact made?: Yes If yes, spoke with:: Jaylyn-Office Time called:: 09:04 02/08/17 23:31 Consult to Physician [CONS] Routine Consulting Provider: NAZIA NORMAN Reason For Exam: CHF Place consult to:: Nazia Norman MD Notified:: Diana SOLORIO Phone number called:: Was contact made?: Yes If yes, spoke with:: Mary-answering service Time called:: 08:22 02/08/17 23:33 Consult to Wound/ET Nurse [CONS] Routine Reason For Exam: wound eval 02/08/17 23:50 Physical Therapy Evaluation and Treat [CONS] Routine Comment: Reason For Exam: functional immobility, bmi 98 02/09/17 13:00 Consult to Physician [CONS] Routine Consulting Provider: SOCORRO MAKI Reason For Exam: wound buttock Place consult to:: Dr. Maki Notified:: Diana RN Phone number called:: [phone] Was contact made?: Yes If yes, spoke with:: Sheryl-Office Time called:: 13:34 02/10/17 14:14 Consult to Physician [CONS] Routine Consulting Provider: FAN GRANADOS Reason For Exam: Cor pulmonale, shortness of breath Place consult to:: Dr. Granados Notified:: Suyapa RN Phone number called:: Was contact made?: Yes If yes, spoke with:: Urmila-office Time called:: 15:42 02/13/17 11:35 Consult to Mental Health [CONS] Routine Reason For Exam: anxiety Place consult to:: Psych Primary care physician: BREAKER UP MACHINE OPERATOR Hospitalization Hospital course: Patient is a 31-year-old extremely obese woman BMI 98.7 who is mostly bedbound with history of hypertension, anemia with prior blood transfusions, asthma, CHF and sickle cell disease who presents with shortness of breath and increased swelling in her back flank legs with a pain crisis. Echocardiogram demonstrates a dilated right heart chambers, moderate tricuspid regurgitation and moderate pulmonary hypertension. Findings are consistent with cor pulmonale associated with her chronic lung disease. Left ventricle chamber size and systolic function are normal, EF 50-55%. Xray WLN, US of the abdomen no evidence of acute cholecystitis. VL LE doppler no evidence of DVT/SVT. Patient was diagnosed with Acute hypoxic respiratory failure, Obesity hypoventilation syndrome, Pulmonary hypertension, Cor-pulmonale, Acute on chronic diastolic heart failure,Hyperbilirubinemia,Buttock abscess, Sickle cell pain crisis with hemolytic anemia and jaundice, Mildly elevated troponin may be related to CHF, Anemia most likely related to sickle cell anemia, Functional quadriplegia, Extreme obesity BMI 98.7 She was treated with BiPAP, supplemental oxygen, aggressive nebulizer therapy and diuretics. Patient co-managed with Pulmonary, cardiology, hematolog, mental health wound care and nutrition. She is being discharged on BiPA at night and home oxygen per pulmonary recommendation. Patient clinically improved and stable for discharge. Patient was advised to follow up with pulmonary [facility] or Dr Tobias office. Patient instructed to follow up Outpatient sleep study evaluation for review of concurrent RENE. Also patient was advised to follow up with psychiatric as outpatient. Discussed need for weight reduction diet/program with concert manager which is patient verbalizing understanding. Discharge diagnosis Acute hypoxic respiratory failure Obesity hypoventilation syndrome Pulmonary hypertension Cor pulmonale Acute on chronic diastolic heart failure Hyperbilirubinemia Buttock abscess. Sickle cell pain crisis with hemolytic anemia and jaundice Mildly elevated troponin may be related to CHF: Anemia most likely related to sickle cell anemia Functional quadriplegia Extreme obesity BMI 98.7 Core Measure Documentation - Palliative Care Palliative Care/ Comfort Measures: Not Applicable - Core Measures Any of the following diagnoses?: none Exam - Constitutional Vitals: Temp Pulse Resp BP Pulse Ox 98.5 F 77 18 118/53 95 02/13/17 07:00 02/13/17 09:42 02/13/17 09:40 02/13/17 09:42 02/13/17 09:33 General appearance: Present: no acute distress - EENT Eyes: Present: PERRL ENT: hearing intact - Neck Neck: Present: supple - Respiratory Respiratory effort: normal Respiratory: bilateral: CTA, wheezing (mild midically optimized) - Cardiovascular Heart rate: 81 Rhythm: regular Heart Sounds: Present: S1 & S2 - Extremities Extremities: no ischemia Peripheral Pulses: within normal limits - Abdominal General gastrointestinal: Present: soft, non-tender Female genitourinary: Present: deferred - Rectal Rectal Exam: deferred - Integumentary Integumentary: Present: clear, warm, dry - Musculoskeletal Musculoskeletal: strength equal bilaterally - Psychiatric Psychiatric: appropriate mood/affect - Neurologic Neurologic: CNII-XII intact - Allied Health Allied health notes reviewed: nursing Plan Activity: no restrictions Weight Bearing Status: Weight Bear as Tolerated Diet: low fat, low cholesterol, low salt
[2017-02-13] MEDS ORDERED: PROVENTIL IH PRN (13:27)
--- NOTE | 2017-02-13 17:03 | Progress Note ---
Assessment and Plan Acute on chronic respiratory failure. Consistent with obesity hypoventilation syndrome. On BiPAP overnight. . Cor pulmonale,secondary to PHT. Stabilized Pulmonary hypertension, c/u, possibly due to OHS,chronic hypoxia,SS disease. Needs further workup. Because her weight limitation, the patient could not be sent for ventilation perfusion scan yesterday, reportedly weight too high for the patient's study. Extreme morbid obesity.Triggering all of the above Obesity hypoventilation syndrome, Asthma/bronchial hyperactivity disorder by history. Controlled Buttock abscess. Patient declined any surgical drainage. See surgery note Leg pain. Because Doppler reported as negative Rec Continue oxygen support at current level I discussed with hospitalist the patient needs to continue with BiPAP at nighttime empirically ( /, RR 12, FiO2 of 31-35% ). This can be reviewed as outpatient Outpatient sleep study evaluation for review of concurrent RENE. Operation workup for pulmonary hypertension. She currently follows at [place] and has plans to continue being seen there, probably because of insurance constraints. The patient appears to have some issues regarding compliance with medical treatment. For this reason I feel hesitant to initiate her empirically on any PAH medication, especially since she had not completed workup See prior recommendations regarding pain management and narcotics Discussed need for weight reduction diet/program with fireworks inspector. We'll sign off. Feel free to re-consult if necessary. Subjective Date of service: 02/13/17 Principal diagnosis: a/c ARF,OHS,cor pulmonale,PHT, asthma Interval history: No complaints now. Pending to leave Objective Vital Signs - 12hr 02/13/17 02/13/17 02/13/17 07:00 09:33 09:40 Temperature 98.5 F Pulse Rate 77 Pulse Rate [ 84 84 Anterior Bilateral Throughout] Respiratory 22 Rate Respiratory 18 18 Rate [Anterior Bilateral Throughout] Blood Pressure 118/53 O2 Sat by Pulse 91 95 Oximetry 02/13/17 02/13/17 02/13/17 09:42 13:22 13:25 Temperature Pulse Rate 77 Pulse Rate [ 83 Anterior Bilateral Throughout] Respiratory Rate Respiratory 20 Rate [Anterior Bilateral Throughout] Blood Pressure 118/53 O2 Sat by Pulse 98 Oximetry 02/13/17 13:29 Temperature Pulse Rate Pulse Rate [ 81 Anterior Bilateral Throughout] Respiratory Rate Respiratory 20 Rate [Anterior Bilateral Throughout] Blood Pressure O2 Sat by Pulse Oximetry Constitutional: no acute distress, alert Eyes: non-icteric ENT: oropharynx moist Neck: supple, no lymphadenopathy, other (cannot evaluate for JVD) Ascultation: Bilateral: clear, diminished breath sounds (Limited excursions) Cardiovascular: regular rate and rhythm (no murmurs) Gastrointestinal: normoactive bowel sounds, non-distended, other (cannot evaluate for organomegaly severe morbid patient) Extremities: no cyanosis, pink and warm Neurologic: normal mental status, non-focal exam, pupils equal and round, CN II- XII normal, motor strength normal and Psychiatric: mood appropriate, affect normal CBC and BMP: 02/13/17 07:21 02/13/17 07:21 ABG, PT/INR, D-dimer: ABG POC ABG pH 7.360 (7.35-7.45) 02/11/17 05:19 POC ABG pCO2 63.3 (35-45) H 02/11/17 05:19 POC ABG pO2 76 (80-105) L 02/11/17 05:19 POC ABG HCO3 35.8 02/11/17 05:19 POC ABG Total CO2 38 02/11/17 05:19 POC ABG O2 Sat 94 02/11/17 05:19 Abnormal lab findings: Abnormal Labs 02/09/17 02/09/17 02/09/17 00:30 05:37 05:37 WBC RBC Hgb Hct RDW Seg Neuts % (Manual) Lymphocytes % (Manual) Monocytes % (Manual) Eosinophils % (Manual) Nucleated RBC % Seg Neutrophils # Man Monocytes # (Manual) Eosinophils # (Manual) POC ABG pH POC ABG pCO2 POC ABG pO2 Chloride Carbon Dioxide Calcium Total Bilirubin Troponin T 0.055 H 0.065 H Albumin TSH 6.720 H 02/09/17 02/09/17 02/10/17 05:37 05:37 07:55 WBC RBC 3.51 L 3.49 L Hgb Hct 30.0 L 29.8 L RDW 20.4 H 20.6 H Seg Neuts % (Manual) Lymphocytes % (Manual) Monocytes % (Manual) 21.0 H Eosinophils % (Manual) 5.0 H Nucleated RBC % Seg Neutrophils # Man Monocytes # (Manual) 2.0 H Eosinophils # (Manual) 0.5 H POC ABG pH POC ABG pCO2 POC ABG pO2 Chloride Carbon Dioxide 32 H Calcium 8.3 L Total Bilirubin 8.40 H Troponin T Albumin 3.4 L TSH 02/10/17 02/10/17 02/10/17 07:55 18:16 22:52 WBC RBC Hgb Hct RDW Seg Neuts % (Manual) Lymphocytes % (Manual) Monocytes % (Manual) Eosinophils % (Manual) Nucleated RBC % Seg Neutrophils # Man Monocytes # (Manual) Eosinophils # (Manual) POC ABG pH 7.276 L 7.325 L POC ABG pCO2 77.7 H 71.2 H POC ABG pO2 68 L 77 L Chloride 97.8 L Carbon Dioxide 34 H Calcium 8.2 L Total Bilirubin Troponin T Albumin TSH 02/11/17 02/11/17 02/11/17 05:19 08:09 08:09 WBC RBC 3.43 L Hgb 9.9 L Hct 29.2 L RDW 20.1 H Seg Neuts % (Manual) Lymphocytes % (Manual) Monocytes % (Manual) Eosinophils % (Manual) Nucleated RBC % Seg Neutrophils # Man Monocytes # (Manual) Eosinophils # (Manual) POC ABG pH POC ABG pCO2 63.3 H POC ABG pO2 76 L Chloride 97.2 L Carbon Dioxide 32 H Calcium 8.1 L Total Bilirubin 7.60 H Troponin T Albumin 3.1 L TSH 02/13/17 02/13/17 07:21 07:21 WBC 13.4 H RBC 3.34 L Hgb 9.3 L Hct 28.8 L RDW 20.2 H Seg Neuts % (Manual) 74.0 H Lymphocytes % (Manual) 11.0 L Monocytes % (Manual) 10.0 H Eosinophils % (Manual) Nucleated RBC % 2.0 H Seg Neutrophils # Man 9.9 H Monocytes # (Manual) 1.3 H Eosinophils # (Manual) POC ABG pH POC ABG pCO2 POC ABG pO2 Chloride Carbon Dioxide 36 H Calcium 8.0 L Total Bilirubin Troponin T Albumin TSH
[2017-02-13] MEDS ORDERED: DUONEB *Not for PRN Use IH SCH (20:00)
[2017-02-13] MEDS ORDERED: PULMICORT IH SCH (20:00)
[2017-02-13 21:44] VITALS: BP 130/73
== END 2017-02-13 22:00 | disposition home health service (06) | DRG 291 ==
LOC: ED 19:09 → 4A 23:04 → CC1 02-10 21:37 → 4A 02-11 13:41
PROVIDERS: ADMIT Internal Medicine; ATTEND Internal Medicine
PROC: 4A033R1 Measurement of Arterial Saturation, Peripheral, Percutaneous Approach (ICD-10-PCS; principal; 2017-02-10)
PROC: 5A09457 Assistance with Respiratory Ventilation, 24-96 Consecutive Hours, Continuous Positive Airway Pressure (ICD-10-PCS; 2017-02-10)
DX: I11.0 Hypertensive heart disease with heart failure (principal); J96.01 Acute respiratory failure with hypoxia; D57.00 Hb-SS disease with crisis, unspecified; R53.2 Functional quadriplegia; Z68.45 Body mass index [BMI] 70 or greater, adult; R17 Unspecified jaundice; L02.31 Cutaneous abscess of buttock; E66.2 Morbid (severe) obesity with alveolar hypoventilation; I50.33 Acute on chronic diastolic (congestive) heart failure; J45.909 Unspecified asthma, uncomplicated; L89.329 Pressure ulcer of left buttock, unspecified stage; E03.9 Hypothyroidism, unspecified; J42 Unspecified chronic bronchitis; I27.81 Cor pulmonale (chronic); I27.2 Other secondary pulmonary hypertension; I07.1 Rheumatic tricuspid insufficiency; Z74.01 Bed confinement status
CPT/HCPCS: 36415; 36600; 71010; 76705; 80048; 80053; 80061; 80074; 82550; 82553; 82803; 83880; 84439; 84443; 84484; 84703; 85007; 85025; 85027; 93005; 93010; 93306; 94640; 94660; 94760; J1170; J1200; J1644; J1940; J1956

== ENCOUNTER 2017-02-25 16:56 | Inpatient (IN) | payer OTHER ==
[2017-02-25 19:28] LABS: Hematocrit 30.1 % (30.3-42.9); Hemoglobin 9.8 gm/dl (10.1-14.3); Mean Corpuscular HGB Conc 33 % (30-34); Mean Corpuscular Hemoglobin 28 pg (28-32); Mean Corpuscular Volume 87 fl (79-97); Platelet Count 334 K/mm3 (140-440); Red Blood Count 3.46 M/mm3 (3.65-5.03); Red Cell Distribution Width 20.1 % (13.2-15.2); White Blood Count 10.1 K/mm3 (4.5-11.0)
[2017-02-25 19:37] LABS: INR 1.35 (0.87-1.13)
[2017-02-25 19:43] LABS: Anion Gap 14 mmol/L; BUN/Creatinine Ratio 11.42; Blood Urea Nitrogen 8 mg/dL (7-17); Calcium 8.8 mg/dL (8.4-10.2); Carbon Dioxide 33 mmol/L (22-30); Chloride 99.9 mmol/L (98-107); Glucose 90 mg/dL (65-100); Potassium 4.4 mmol/L (3.6-5.0); Sodium 142 mmol/L (137-145)
[2017-02-25 20:08] LABS: Basophils % (Manual) 0 % (0.0-1.8); Blastocytes % (Manual) 0 %; Eosinophils % (Manual) 0 % (0.0-4.3)
[2017-02-25 20:09] LABS: Anisocytosis 1+
[2017-02-25 20:10] LABS: Diff Status Complete; Target Cells 3+
[2017-02-25] MEDS ORDERED: LASIX IV ONE (20:40)
--- NOTE | 2017-02-25 20:45 | Emergency Department Report ---
ED Shortness of Breath HPI - General Chief Complaint: Dizziness Stated Complaint: LT LEG PAIN Time Seen by Provider: 02/25/17 20:32 Source: patient, EMS Mode of arrival: Stretcher Limitations: Physical Limitation - History of Present Illness Initial Comments: 31 years old female morbidly obese with a BMI of 80 3. history of CHF cor pulmonale sickle cell disease presented with generalized swelling and shortness of breath. Patient denied any fever nausea vomiting. Patient was recently discharged from the hospital for the same. MD Complaint: shortness of breath -: Gradual Treatments Prior to Arrival: oxygen - Related Data Home Oxygen Therapy: Yes Home Medications Medication Instructions Recorded Confirmed Last Taken ALBUTEROL Inhaler [ProAir HFA 2 puff IH QID PRN 10/14/16 02/25/17 02/25/17 Inhaler] Folic Acid [FA-8] 0.8 mg PO DAILY 10/14/16 02/25/17 02/25/17 Nystatin [Nystop Powder] 1 applicatio TP TID 10/14/16 02/25/17 02/25/17 Ranitidine HCl 75 mg PO DAILY 10/14/16 02/25/17 02/25/17 traMADol [Ultram 50 MG tab] 50 mg PO Q4HR PRN 10/14/16 02/25/17 02/25/17 Previous Rx's Medication Instructions Recorded Last Taken Type Furosemide [Lasix TAB] 40 mg PO QDAY #60 02/13/17 02/25/17 Rx Metoprolol [Lopressor TAB] 50 mg PO BID #60 tablet 02/13/17 02/25/17 Rx Pantoprazole [Protonix TAB] 40 mg PO QDAY tablet 02/13/17 02/25/17 Rx Allergies Allergy/AdvReac Type Severity Reaction Status Date / Time morphine Allergy Hives Verified 02/25/17 19:44 shrimp Allergy Hives Verified 02/25/17 19:44 ED Review of Systems ROS: Stated complaint: LT LEG PAIN Other details as noted in HPI Comment: All other systems reviewed and negative Constitutional: denies: chills, fever Respiratory: orthopnea, shortness of breath Cardiovascular: dyspnea on exertion, orthopnea, edema. denies: chest pain Gastrointestinal: denies: abdominal pain, nausea, vomiting, diarrhea, hematemesis, hematochezia Skin: denies: rash Neurological: weakness (generalized). denies: headache, numbness, paresthesias ED Past Medical Hx - Past Medical History Previous Medical History?: Yes Hx Hypertension: Yes Hx Congestive Heart Failure: Yes Hx Renal Disease: Yes Hx Sickle Cell Disease: Yes Hx Asthma: Yes - Surgical History Past Surgical History?: Yes Additional Surgical History: ANKLE - Social History Smoking Status: Never Smoker Substance Use Type: None - Medications Home Medications: Home Medications Medication Instructions Recorded Confirmed Last Taken Type ALBUTEROL Inhaler [ProAir HFA 2 puff IH QID PRN 10/14/16 02/25/17 02/25/17 History Inhaler] Folic Acid [FA-8] 0.8 mg PO DAILY 10/14/16 02/25/17 02/25/17 History Nystatin [Nystop Powder] 1 applicatio TP TID 10/14/16 02/25/17 02/25/17 History Ranitidine HCl 75 mg PO DAILY 10/14/16 02/25/17 02/25/17 History traMADol [Ultram 50 MG tab] 50 mg PO Q4HR PRN 10/14/16 02/25/17 02/25/17 History Furosemide [Lasix TAB] 40 mg PO QDAY #60 02/13/17 02/25/17 02/25/17 Rx Metoprolol [Lopressor TAB] 50 mg PO BID #60 tablet 02/13/17 02/25/17 02/25/17 Rx Pantoprazole [Protonix TAB] 40 mg PO QDAY tablet 02/13/17 02/25/17 02/25/17 Rx ED Physical Exam - General Limitations: Physical Limitation General appearance: alert, in no apparent distress, other (morbidly obese) - Head Head exam: Present: atraumatic, normocephalic - Eye Eye exam: Present: normal appearance - ENT ENT exam: Present: normal exam, normal orophraynx - Neck Neck exam: Present: normal inspection. Absent: tenderness, meningismus - Respiratory Respiratory exam: Present: rales, decreased breath sounds. Absent: respiratory distress, wheezes, rhonchi, stridor, accessory muscle use, prolonged expiratory - Cardiovascular Cardiovascular Exam: Present: regular rate, normal rhythm, normal heart sounds - GI/Abdominal GI/Abdominal exam: Present: soft. Absent: distended, tenderness, guarding, rebound, mass, pulsatile mass - Extremities Exam Extremities exam: Present: pedal edema (4+) - Neurological Exam Neurological exam: Present: alert, oriented X3, CN II-XII intact ED Course Vital Signs 02/25/17 02/25/17 02/25/17 17:32 19:15 21:00 Temperature 98.9 F Pulse Rate 87 79 80 Respiratory 20 22 20 Rate Blood Pressure 129/50 Blood Pressure 136/94 135/90 [Right] O2 Sat by Pulse 100 95 93 Oximetry - Reevaluation(s) Reevaluation #1: 02/25/17 21:[address] Maria Dolores Norman presented the patient to Dr. Norman agreed to admit the patient to her service ED Medical Decision Making - Lab Data Result diagrams: 02/25/17 19:09 02/25/17 19:09 Critical care attestation.: If time is entered above; I have spent that time in minutes in the direct care of this critically ill patient, excluding procedure time. ED Disposition Clinical Impression: Acute exacerbation of CHF (congestive heart failure) Disposition: OP ADMIT IP TO THIS HOSP Is pt being admited?: Yes Does the pt Need Aspirin: No Condition: Stable Referrals: PRIMARY CARE, [Primary Care Provider] - 3-5 Days
[2017-02-25] MEDS ORDERED: DULCOLAX PR PRN (22:48)
[2017-02-25] MEDS ORDERED: MILK OF MAGNESIA PO PRN (22:48)
[2017-02-25] MEDS ORDERED: TYLENOL PO PRN (22:48)
[2017-02-25] MEDS ORDERED: ZOFRAN IV PRN (22:48)
[2017-02-25] MEDS ORDERED: PROAIR IH PRN (22:52)
--- NOTE | 2017-02-25 22:53 | History and Physical Report ---
History of Present Illness Date of examination: 02/25/17 History of present illness: 31-year-old male with a history of hypertension, sickle cell, morbid obesity, CHF comes to the emergency room with complaints of increasing lower extremity in her legs or abdomen. She denies any shortness of breath Review Of Systems: Constitutional: no weight loss Ears, eyes, nose, mouth and throat: no nasal congestion, no nasal discharge, no sinus pressure, blurry vision, diplopia Neck: No neck pain or rigidity. Cardiovascular: chest pain, orthopnea, palpitations Respiratory: No shortness of breath, cough Gastrointestinal: abdominal pain, hematochezia Genitourinary : no dysuria, frequency , hematuria Musculoskeletal: no muscle ache Integumentary: no rash, no pruritis Neurological: no parathesias, focal weakness Endocrine: no cold or heat intolerance, no polyuria or polydipsia Hematologic/Lymphatic: no easy bruising, no easy bleeding, no gland swelling Allergic/Immunologic: no urticaria, no angioedema. PAST MEDICAL HISTORY:hypertension, sickle cell, morbid obesity, CHF PAST SURGICAL HISTORY: Ankle FAMILY HISTORY:hypertension SOCIAL HISTORY: Denies alcohol, tobacco temperature Medications and Allergies Allergies Allergy/AdvReac Type Severity Reaction Status Date / Time morphine Allergy Hives Verified 02/25/17 19:44 shrimp Allergy Hives Verified 02/25/17 19:44 Home Medications Medication Instructions Recorded Confirmed Last Taken Type ALBUTEROL Inhaler [ProAir HFA 2 puff IH QID PRN 10/14/16 02/25/17 02/25/17 History Inhaler] Folic Acid [FA-8] 0.8 mg PO DAILY 10/14/16 02/25/17 02/25/17 History Nystatin [Nystop Powder] 1 applicatio TP TID 10/14/16 02/25/17 02/25/17 History Ranitidine HCl 75 mg PO DAILY 10/14/16 02/25/17 02/25/17 History traMADol [Ultram 50 MG tab] 50 mg PO Q4HR PRN 10/14/16 02/25/17 02/25/17 History Furosemide [Lasix TAB] 40 mg PO QDAY #60 02/13/17 02/25/17 02/25/17 Rx Metoprolol [Lopressor TAB] 50 mg PO BID #60 tablet 02/13/17 02/25/17 02/25/17 Rx Pantoprazole [Protonix TAB] 40 mg PO QDAY tablet 02/13/17 02/25/17 02/25/17 Rx Active Meds: Active Medications Acetaminophen (Tylenol) 650 mg PO Q4H PRN PRN Reason: Pain MILD(1-3)/Fever >100.5/AL Albuterol (Proair) 2 puff IH QID PRN PRN Reason: Shortness Of Breath Bisacodyl (Dulcolax) 10 mg SD QDAY PRN PRN Reason: Constipation unrelieved by MOM Enoxaparin Sodium (Lovenox) 30 mg SUB-Q QDAY [facility] Furosemide (Lasix) 40 mg IV BID@0600,1800 [facility] Magnesium Hydroxide (Milk Of Magnesia) 30 ml PO Q4H PRN PRN Reason: Constipation Metoprolol Tartrate (Lopressor) 50 mg PO BID [facility] Miscellaneous Medication (Folic Acid [Fa-8]) 0.8 mg PO DAILY [facility] Miscellaneous Medication (Ranitidine Hcl [Ranitidine Hcl]) 75 mg PO DAILY [facility] Ondansetron HCl (Zofran) 4 mg IV Q8H PRN PRN Reason: N/V unrelieved by Reglan Pantoprazole Sodium (Protonix) 40 mg PO QDAY [facility] Exam - Physical Exam Narrative exam: Gen. appearance: Patient lying in bed in no acute distress HEENT: Normocephalic/atraumatic, pupils equal round reactive to light, extra alkaline movement intact, no scleral icterus, no JVD or thyromegaly or nodule, neck is supple, mucous membrane moist, no erythema or exudate Heart: S1-S2, regular rate and rhythm Lungs: Crackles bilateral breathing comfortable Abdomen: Positive bowel sounds, nontender, nondistended, no organomegaly Extremities:+edema, cyanosis, clubbing Neuro:: Oriented 3 , cranial nerves II-12 intact, speech, motor intact Skin: No rash, nodules, warm dry - Constitutional Vitals: Temp Pulse Resp BP Pulse Ox 98.9 F 80 20 135/90 93 02/25/17 17:32 02/25/17 21:00 02/25/17 21:00 02/25/17 21:00 02/25/17 21:00 Results - Labs CBC & Chem 7: 02/25/17 19:09 02/25/17 19:09 Labs: Abnormal lab results 02/25/17 02/25/17 02/25/17 Range/Units 19:09 19:09 19:09 RBC 3.46 L (3.65-5.03) M/mm3 Hgb 9.8 L (10.1-14.3) gm/dl Hct 30.1 L (30.3-42.9) % RDW 20.1 H (13.2-15.2) % Seg Neuts % (Manual) 76.0 H (40.0-70.0) % PT (12.2-14.9) Sec. INR (0.87-1.13) Carbon Dioxide 33 H (22-30) mmol/L NT-Pro-B Natriuret Pep 1916 H (0-450) pg/mL 02/25/17 Range/Units 19:09 RBC (3.65-5.03) M/mm3 Hgb (10.1-14.3) gm/dl Hct (30.3-42.9) % RDW (13.2-15.2) % Seg Neuts % (Manual) (40.0-70.0) % PT 17.4 H (12.2-14.9) Sec. INR 1.35 H (0.87-1.13) Carbon Dioxide (22-30) mmol/L NT-Pro-B Natriuret Pep (0-450) pg/mL - Imaging and Cardiology EKG: image reviewed Chest x-ray: image reviewed Assessment and Plan Assessment Chf exacerbation, diastolic acute on chronic Hypertension Sickle cell Morbid obesity Plan Admit to medicine Diurese with IV Lasix Start Beta osmel, CARLOS MANUEL inhibitor, aspirin Monitor I's and O's, daily weights Consult cardiology, check echo Continue appropriate outpatient medication, start DVT prophylaxis
[2017-02-25] MEDS ORDERED: PROVENTIL IH PRN (23:55)
[2017-02-26] MEDS ORDERED: PERCOCET 5/325 PO PRN (04:28)
[2017-02-26 04:40] LABS: Hematocrit 29.7 % (30.3-42.9); Mean Corpuscular HGB Conc 34 % (30-34); Mean Corpuscular Hemoglobin 29 pg (28-32); Mean Corpuscular Volume 85 fl (79-97); Platelet Count 315 K/mm3 (140-440); Red Blood Count 3.47 M/mm3 (3.65-5.03); Red Cell Distribution Width 19.9 % (13.2-15.2); White Blood Count 10.6 K/mm3 (4.5-11.0)
[2017-02-26] MEDS: BENADRYL PO NR ×2 (04:45→05:50)
[2017-02-26 04:46] LABS: BUN/Creatinine Ratio 13.33; Blood Urea Nitrogen 8 mg/dL (7-17); Calcium 8.6 mg/dL (8.4-10.2); Carbon Dioxide 29 mmol/L (22-30); Chloride 98.7 mmol/L (98-107); Glucose 81 mg/dL (65-100); Sodium 141 mmol/L (137-145)
[2017-02-26 04:54] LABS: Anion Gap 18 mmol/L; Potassium 4.7 mmol/L (3.6-5.0)
[2017-02-26] MEDS ORDERED: BENADRYL PO NR (05:00)
[2017-02-26] MEDS: LASIX IV SCH ×2 (06:39→17:30)
[2017-02-26 06:45] LABS: Basophils % (Manual) 0 % (0.0-1.8); Blastocytes % (Manual) 0 %
[2017-02-26 06:46] LABS: Anisocytosis 1+; Diff Status Complete; Platelet Estimate Consistent w Auto; Stomatocytes 1+; Target Cells 1+
--- NOTE | 2017-02-26 07:25 | Admit Criteria Form ---
Admission Criteria Documentation: HEART FAILURE: COMMON COMPLICATIONS Clinical Indications for Inpatient Care ([place]/check or initial the applicable condition/criteria): Ongoing inpatient care may be indicated for heart failure with 1 or more of the following (1)(2)(3)(4)(5)(6)(7)(8): [ ]I. New-onset heart failure [ ]II. Acute cardiac ischemia causing or associated with failure [ ]III. Ongoing need for care for primary condition requiring frequent therapy adjustments because of changes in cardiac function (eg, drug dosage changes for drugs that are renally metabolized) [X ]IV. Complications of heart failure, including 1 or more of the following: [ ]a) Hemodynamic instability [ ]b) Pericardial effusion [ ]c) Symptomatic pleural effusion(16) [ ]d) Hypoxemia [ ]e) Tachypnea [ X]f) Dyspnea [ ]g) Syncope [ ]h) Altered mental status [ ]i) Acute renal insufficiency that is severe (reduction of more than 50% in estimated glomerular filtration rate from baseline) or progressive (reduction of more than 25% in estimated glomerular filtration rate from baseline, with creatinine continuing to rise) [ ]j) Debilitating anasarca (eg tissue breakdown with infection, inability to void due to edema)(E) (17) [ ]k) Clinically significant metabolic abnormalities due to heart failure (e.g., new-onset metabolic acidosis) Extended stay may be needed until ALL of the following are present(1)(3)(18)(41) (55): [ ]a) Hemodynamic stability [ ]b) Stable and effective diuretic regimen established (or patient on stable dialysis regimen if in chronic renal failure) [ ]c) Volume status acceptable on oral medication [ ]d) Breathing comfortably at rest [ ]e) Saturation of arterial oxygen greater than 90% or at acceptable baseline [ ]f) Pulmonary edema absent or improved [ ]g) Peripheral or sacral edema absent or improved [ ]h) Renal function stable and manageable at a lower level of care [ ]i) Complications (e.g., pleural effusion) resolved or manageable at a lower level of care [ ]j) Patient or caregiver has received written discharge instructions or educational material addressing activity level, diet, discharge medications, follow-up appointment, weight monitoring, and what to do if symptoms worsen. (56)(57)(58) The original [facility] content created by Yudelka Roberto has been revised. The portions of the content which have been revised are identified through the use of italic text or in bold, and Yudelka Roberto has neither reviewed nor approved the modified material.All other unmodified content is copyright [facility] [employer]. Please see references footnoted in the original [facility] edition 2017 Admission Criteria Met: Yes
--- NOTE | 2017-02-26 08:30 | XRay Report ---
PORTABLE CHEST INDICATION: Shortness of breath, fluid retention, dizziness, ankle swelling. History of bronchitis. COMPARISON: 02/08/2017 FINDINGS: Portable, frontal chest radiograph again suggests moderate cardiomegaly. Mild increased bronchovascular markings centrally, though overall less prominent since the prior exam. Limited left retrocardiac penetration. No significant right pleural effusion though suspected, to the extent assessed. EKG leads. Stable bones. CONCLUSION: Cardiomegaly and slight central congestion again suspected, with overall CHF pattern felt improved radiographically, as described. Please correlate. Thank you for the opportunity to participate in this patient's care.
[2017-02-26] MEDS ORDERED: LOPRESSOR PO SCH ×2 (10:00)
[2017-02-26] MEDS ORDERED: FOLIC ACID 0.8 MG PO SCH (10:00)
[2017-02-26] MEDS ORDERED: RANITIDINE HCL 75 MG PO SCH (10:00)
[2017-02-26] MEDS ORDERED: LOVENOX SUB-Q SCH ×2 (10:00)
--- NOTE | 2017-02-26 10:38 | Progress Note ---
Assessment and Plan Assessment and plan: 31-year-old woman medical history of diastolic CHF, morbid obesity, on home oxygen who presents with swelling of the lower extremities, swelling goes all the way to her abdominal pannus Cor pulmonale Echocardiogram demonstrates a dilated right heart chambers, moderate tricuspid regurgitation and moderate pulmonary hypertension. Findings are consistent with cor pulmonale associated with her chronic lung disease. Left ventricle chamber size and systolic function are normal, EF 50-55%. Acute on chronic hypoxic respiratory failure * Continue oxygen supplementation and CPAP while asleep Acute on chronic diastolic CHF with a preserved ejection fraction * Continue Lasix IV, optimize meds, beta osmel CARLOS MANUEL inhibitor, cardiology consult, low-sodium diet, strict I's and O's and daily weights Sickle cell disease * Chronic, not in acute exacerbation Sleep apnea/obesity hypoventilation * CPAP while asleep, noninvasive positive pressure ventilator as needed Morbidly obese * Has been counseled on lifestyle modification History of Buttock abscess * Wound care consults Subclinical Hypothyroidism TSH 6.7, with normal free T4 * Start low-dose Synthroid DVT prophylaxis Lovenox twice a day given morbid obesity Case management consulted to help with application for Health Insurance, as she has no insurance and many chronic medical conditions and is debilitated. she needs home oxygen, CPAP, NIV, and is on multiple medications. History Interval history: She continues to complain of shortness of breath and lower extremity swelling, dyspnea on exertion and orthopnea Hospitalist Physical - Physical exam Narrative exam: General.: Appears well, no distress, nontoxic HEENT: Moist mucous membranes, extraocular muscles intact, no lymphadenopathy Neck: supple Cardiac: S1-S2 Lungs: Bibasilar crackles Abdomen: soft , nontender, nondistended, bowel sounds positive Extremities: 3 plus bilateral lower extremity edema all the way up to the pannus Skin: no rash or lesions Neurologic: no gross focal deficits Psych: appropriate behavior, appropriate mood, corporative, judgment intact - Constitutional Vitals: Temp Pulse Resp BP Pulse Ox 98.6 F 97 H 18 117/64 100 02/26/17 07:52 02/26/17 07:52 02/26/17 07:52 02/26/17 07:52 02/26/17 07:52 Results - Labs CBC & Chem 7: 02/26/17 03:52 02/26/17 03:52 Labs: Laboratory Last Values WBC 10.6 K/mm3 (4.5-11.0) 02/26/17 03:52 RBC 3.47 M/mm3 (3.65-5.03) L 02/26/17 03:52 Hgb 10.0 gm/dl (10.1-14.3) L 02/26/17 03:52 Hct 29.7 % (30.3-42.9) L 02/26/17 03:52 MCV 85 fl (79-97) 02/26/17 03:52 MCH 29 pg (28-32) 02/26/17 03:52 MCHC 34 % (30-34) 02/26/17 03:52 RDW 19.9 % (13.2-15.2) H 02/26/17 03:52 Plt Count 315 K/mm3 (140-440) 02/26/17 03:52 Dawes % (Auto) Manager Social Work 02/26/17 03:52 Add Manual Diff Complete 02/26/17 03:52 Total Counted 100 02/26/17 03:52 Seg Neuts % (Manual) 67.0 % (40.0-70.0) 02/26/17 03:52 Band Neutrophils % 0 % 02/26/17 03:52 Lymphocytes % (Manual) 18.0 % (13.4-35.0) 02/26/17 03:52 Reactive Lymphs % (Man) 0 % 02/26/17 03:52 Monocytes % (Manual) 12.0 % (0.0-7.3) H 02/26/17 03:52 Eosinophils % (Manual) 3.0 % (0.0-4.3) 02/26/17 03:52 Basophils % (Manual) 0 % (0.0-1.8) 02/26/17 03:52 Metamyelocytes % 0 % 02/26/17 03:52 Myelocytes % 0 % 02/26/17 03:52 Promyelocytes % 0 % 02/26/17 03:52 Blast Cells % 0 % 02/26/17 03:52 Nucleated RBC % Not Reportable 02/26/17 03:52 Seg Neutrophils # Man 7.1 K/mm3 (1.8-7.7) 02/26/17 03:52 Band Neutrophils # 0.0 K/mm3 02/26/17 03:52 Lymphocytes # (Manual) 1.9 K/mm3 (1.2-5.4) 02/26/17 03:52 Abs React Lymphs (Man) 0.0 K/mm3 02/26/17 03:52 Monocytes # (Manual) 1.3 K/mm3 (0.0-0.8) H 02/26/17 03:52 Eosinophils # (Manual) 0.3 K/mm3 (0.0-0.4) 02/26/17 03:52 Basophils # (Manual) 0.0 K/mm3 (0.0-0.1) 02/26/17 03:52 Metamyelocytes # 0.0 K/mm3 02/26/17 03:52 Myelocytes # 0.0 K/mm3 02/26/17 03:52 Promyelocytes # 0.0 K/mm3 02/26/17 03:52 Blast Cells # 0.0 K/mm3 02/26/17 03:52 WBC Morphology Not Reportable 02/26/17 03:52 Hypersegmented Neuts Not Reportable 02/26/17 03:52 Hyposegmented Neuts Not Reportable 02/26/17 03:52 Hypogranular Neuts Not Reportable 02/26/17 03:52 Smudge Cells Not Reportable 02/26/17 03:52 Toxic Granulation Not Reportable 02/26/17 03:52 Toxic Vacuolation Not Reportable 02/26/17 03:52 Dohle Bodies Not Reportable 02/26/17 03:52 Pelger-Huet Anomaly Not Reportable 02/26/17 03:52 James Rods Not Reportable 02/26/17 03:52 Platelet Estimate Consistent w auto 02/26/17 03:52 Clumped Platelets Not Reportable 02/26/17 03:52 Plt Clumps, EDTA Not Reportable 02/26/17 03:52 Large Platelets Not Reportable 02/26/17 03:52 Giant Platelets Not Reportable 02/26/17 03:52 Platelet Satelliting Not Reportable 02/26/17 03:52 Plt Morphology Comment Not Reportable 02/26/17 03:52 RBC Morphology Not Reportable 02/26/17 03:52 Dimorphic RBCs Not Reportable 02/26/17 03:52 Polychromasia Not Reportable 02/26/17 03:52 Hypochromasia Not Reportable 02/26/17 03:52 Poikilocytosis Not Reportable 02/26/17 03:52 Anisocytosis 1+ 02/26/17 03:52 Microcytosis Not Reportable 02/26/17 03:52 Macrocytosis Not Reportable 02/26/17 03:52 Spherocytes Not Reportable 02/26/17 03:52 Pappenheimer Bodies Not Reportable 02/26/17 03:52 Sickle Cells Not Reportable 02/26/17 03:52 Target Cells 1+ 02/26/17 03:52 Tear Drop Cells Not Reportable 02/26/17 03:52 Ovalocytes Not Reportable 02/26/17 03:52 Stomatocytes 1+ 02/26/17 03:52 Helmet Cells Not Reportable 02/26/17 03:52 Wade-Sayre Bodies Not Reportable 02/26/17 03:52 Sophia Rings Not Reportable 02/26/17 03:52 Jesse Cells Not Reportable 02/26/17 03:52 Bite Cells Not Reportable 02/26/17 03:52 Crenated Cell Not Reportable 02/26/17 03:52 Elliptocytes Not Reportable 02/26/17 03:52 Acanthocytes (Spur) Not Reportable 02/26/17 03:52 Rouleaux Not Reportable 02/26/17 03:52 Hemoglobin C Crystals Not Reportable 02/26/17 03:52 Schistocytes Not Reportable 02/26/17 03:52 Malaria parasites Not Reportable 02/26/17 03:52 Benjamin Bodies Not Reportable 02/26/17 03:52 Hem Pathologist Commnt No 02/26/17 03:52 PT 17.4 Sec. (12.2-14.9) H 02/25/17 19:09 INR 1.35 (0.87-1.13) H 02/25/17 19:09 Sodium 141 mmol/L (137-145) 02/26/17 03:52 Potassium 4.7 mmol/L (3.6-5.0) 02/26/17 03:52 Chloride 98.7 mmol/L (98-107) 02/26/17 03:52 Carbon Dioxide 29 mmol/L (22-30) 02/26/17 03:52 Anion Gap 18 mmol/L 02/26/17 03:52 BUN 8 mg/dL (7-17) 02/26/17 03:52 Creatinine 0.6 mg/dL (0.7-1.2) L 02/26/17 03:52 Estimated GFR > 60 ml/min 02/26/17 03:52 BUN/Creatinine Ratio 13.33 % 02/26/17 03:52 Glucose 81 mg/dL (65-100) 02/26/17 03:52 Calcium 8.6 mg/dL (8.4-10.2) 02/26/17 03:52 Troponin T < 0.010 ng/mL (0.00-0.029) 02/25/17 19:09 NT-Pro-B Natriuret Pep 1916 pg/mL (0-450) H 02/25/17 19:09 HCG, Qual Negative (Negative) 02/25/17 19:09
[2017-02-26] MEDS: FOLVITE PO SCH (11:00)
[2017-02-26] MEDS: LOPRESSOR PO SCH ×2 (11:00→22:55)
[2017-02-26] MEDS: PROTONIX PO SCH (11:01)
[2017-02-26] MEDS: ZESTRIL PO SCH (11:02)
[2017-02-26] MEDS ORDERED: PNEUMOVAX 23 IM ONE (12:00)
--- NOTE | 2017-02-26 12:27 | Consultation ---
History of Present Illness Consult date: 02/26/17 Consult reason: congestive heart failure History of present illness: This is a 31yr old female whom is bed bound due to morbid obesity. She has a history of Sleep apnea, Hypothyroidism and Sickle cell disease for which she is on home oxygen. An echocardiogram done a few weeks ago shows a dilated right heart chambers, moderate tricuspid regurgitation and moderate pulmonary hypertension. Findings are consistent with cor pulmonale associated with her chronic lung disease. Left ventricle chamber size and systolic function are normal. She presented to this hospital with complaints of short of breath admitted with CHF exacerbation. Cardiac consultation was requested. Chest x-ray reports cardiomegaly with slight central congestion. Her ECG shows atrial fibrillation with a well controlled ventricular rate. This is a new finding likely associated with her dilated right heart chambers. Medications and Allergies Allergies Allergy/AdvReac Type Severity Reaction Status Date / Time morphine Allergy Hives Verified 02/25/17 19:44 shrimp Allergy Hives Verified 02/25/17 19:44 Home Medications Medication Instructions Recorded Confirmed Last Taken Type ALBUTEROL Inhaler [ProAir HFA 2 puff IH QID PRN 10/14/16 02/25/17 02/25/17 History Inhaler] Folic Acid [FA-8] 0.8 mg PO DAILY 10/14/16 02/25/17 02/25/17 History Nystatin [Nystop Powder] 1 applicatio TP TID 10/14/16 02/25/17 02/25/17 History Ranitidine HCl 75 mg PO DAILY 10/14/16 02/25/17 02/25/17 History traMADol [Ultram 50 MG tab] 50 mg PO Q4HR PRN 10/14/16 02/25/17 02/25/17 History Furosemide [Lasix TAB] 40 mg PO QDAY #60 02/13/17 02/25/17 02/25/17 Rx Metoprolol [Lopressor TAB] 50 mg PO BID #60 tablet 02/13/17 02/25/17 02/25/17 Rx Pantoprazole [Protonix TAB] 40 mg PO QDAY tablet 02/13/17 02/25/17 02/25/17 Rx Active Meds: Active Medications Acetaminophen (Tylenol) 650 mg PO Q4H PRN PRN Reason: Pain MILD(1-3)/Fever >100.5/AL Albuterol (Proventil) 2.5 mg IH Q4HRT PRN PRN Reason: Shortness Of Breath Bisacodyl (Dulcolax) 10 mg [place] QDAY PRN PRN Reason: Constipation unrelieved by MOM Enoxaparin Sodium (Lovenox) 60 mg SUB-Q BID [facility] Folic Acid (Folvite) 1 mg PO DAILY [facility] Last Admin: 02/26/17 11:00 Dose: 1 mg Furosemide (Lasix) 40 mg IV BID@0600,1800 [facility] Last Admin: 02/26/17 06:39 Dose: 40 mg Levothyroxine Sodium (Synthroid) 25 mcg PO DAILY@0600 [facility] Lisinopril (Zestril) 2.5 mg PO QDAY [facility] Last Admin: 02/26/17 11:02 Dose: 2.5 mg Magnesium Hydroxide (Milk Of Magnesia) 30 ml PO Q4H PRN PRN Reason: Constipation Metoprolol Tartrate (Lopressor) 12.5 mg PO BID [facility] Last Admin: 02/26/17 11:00 Dose: 12.5 mg Ondansetron HCl (Zofran) 4 mg IV Q8H PRN PRN Reason: N/V unrelieved by Reglan Pantoprazole Sodium (Protonix) 40 mg PO QDAY [facility] Last Admin: 02/26/17 11:01 Dose: 40 mg Tramadol HCl (Ultram) 50 mg PO Q4HR PRN PRN Reason: Pain Physical Examination Vital Signs Temp Pulse Resp BP Pulse Ox 98.9 F 87 20 129/50 100 02/25/17 17:32 02/25/17 17:32 02/25/17 17:32 02/25/17 17:32 02/25/17 17:32 Results 02/26/17 03:52 02/26/17 03:52 CBC 02/26/17 Range/Units 03:52 WBC 10.6 (4.5-11.0) K/mm3 RBC 3.47 L (3.65-5.03) M/mm3 Hgb 10.0 L (10.1-14.3) gm/dl Hct 29.7 L (30.3-42.9) % Plt Count 315 (140-440) K/mm3 Comprehensive Metabolic Panel 02/26/17 Range/Units 03:52 Sodium 141 (137-145) mmol/L Potassium 4.7 (3.6-5.0) mmol/L Chloride 98.7 (98-107) mmol/L Carbon Dioxide 29 (22-30) mmol/L BUN 8 (7-17) mg/dL Creatinine 0.6 L (0.7-1.2) mg/dL Glucose 81 (65-100) mg/dL Calcium 8.6 (8.4-10.2) mg/dL Assessment and Plan CHF with a preserved ejection fraction Cor pulmonale recent echocardiogram showed a dilated right heart chambers, moderate tricuspid regurgitation and moderate pulmonary hypertension. Findings are consistent with cor pulmonale associated with her chronic lung disease. Left ventricle chamber size and systolic function are normal, EF 50-55%. Atrial fibrillation, new onset Sickle cell disease on home oxygen Sleep apnea Morbidly obese Hypothyroidism
[2017-02-26] MEDS: LOVENOX SUB-Q SCH ×2 (12:43→22:47)
[2017-02-26] MEDS ORDERED: BENADRYL PO PRN (16:51)
[2017-02-26] MEDS: ULTRAM PO PRN (22:45)
[2017-02-26] MEDS: BENADRYL PO PRN (22:46)
[2017-02-27] MEDS: SYNTHROID PO SCH (06:51)
[2017-02-27] MEDS: LASIX IV SCH ×2 (06:51→20:14)
--- NOTE | 2017-02-27 07:33 | Progress Note ---
Assessment and Plan Assessment and plan: 31-year-old woman medical history of diastolic CHF, morbid obesity, on home oxygen who presents with swelling of the lower extremities, swelling goes all the way to her abdominal pannus New onset afib- rate controlled * cardiology input appreicated * initiate warfarin, goal INR is 1.8 to 2.5 given hx of sickle cell disease Acute on chronic hypoxic respiratory failure * Continue oxygen supplementation and CPAP while asleep Acute on chronic diastolic CHF with a preserved ejection fraction * Continue Lasix IV, optimize meds, beta osmel CARLOS MANUEL inhibitor, cardiology consult, low-sodium diet, strict I's and O's and daily weights Sickle cell disease * Chronic, not in acute exacerbation Sleep apnea/obesity hypoventilation * CPAP while asleep, noninvasive positive pressure ventilator as needed Cor pulmonale Echocardiogram demonstrates a dilated right heart chambers, moderate tricuspid regurgitation and moderate pulmonary hypertension. Findings are consistent with cor pulmonale associated with her chronic lung disease. Left ventricle chamber size and systolic function are normal, EF 50-55%. Morbidly obese * Has been counseled on lifestyle modification History of Buttock abscess * Wound care consults Subclinical Hypothyroidism TSH 6.7, with normal free T4 * continue low-dose Synthroid * TFTs to be rechecked in 4 to 6 weeks DVT prophylaxis Lovenox twice a day given morbid obesity Case management consulted to help with application for Health Insurance, as she has no insurance and many chronic medical conditions and is debilitated. she needs home oxygen, CPAP, NIV, and is on multiple medications. History Interval history: She continues to complain of shortness of breath and lower extremity swelling, dyspnea on exertion and orthopnea Hospitalist Physical - Physical exam Narrative exam: General.: Appears well, no distress, nontoxic HEENT: Moist mucous membranes, extraocular muscles intact, no lymphadenopathy, scleral icterus Neck: supple Cardiac: S1-S2 Lungs: CTA Abdomen: soft , nontender, nondistended, bowel sounds positive Extremities: 3 plus bilateral lower extremity edema all the way up to the pannus Skin: no rash or lesions Neurologic: no gross focal deficits Psych: appropriate behavior, appropriate mood, corporative, judgment intact - Constitutional Vitals: Temp Pulse Resp BP Pulse Ox 96.3 F L 110 H 18 122/56 97 02/26/17 12:01 02/26/17 22:55 02/26/17 23:10 02/26/17 23:10 02/26/17 23:10 Results - Labs CBC & Chem 7: 02/26/17 03:52 02/26/17 03:52 Labs: Laboratory Last Values WBC 10.6 K/mm3 (4.5-11.0) 02/26/17 03:52 RBC 3.47 M/mm3 (3.65-5.03) L 02/26/17 03:52 Hgb 10.0 gm/dl (10.1-14.3) L 02/26/17 03:52 Hct 29.7 % (30.3-42.9) L 02/26/17 03:52 MCV 85 fl (79-97) 02/26/17 03:52 MCH 29 pg (28-32) 02/26/17 03:52 MCHC 34 % (30-34) 02/26/17 03:52 RDW 19.9 % (13.2-15.2) H 02/26/17 03:52 Plt Count 315 K/mm3 (140-440) 02/26/17 03:52 [place] % (Auto) Plug Sorter 02/26/17 03:52 Add Manual Diff Complete 02/26/17 03:52 Total Counted 100 02/26/17 03:52 Seg Neuts % (Manual) 67.0 % (40.0-70.0) 02/26/17 03:52 Band Neutrophils % 0 % 02/26/17 03:52 Lymphocytes % (Manual) 18.0 % (13.4-35.0) 02/26/17 03:52 Reactive Lymphs % (Man) 0 % 02/26/17 03:52 Monocytes % (Manual) 12.0 % (0.0-7.3) H 02/26/17 03:52 Eosinophils % (Manual) 3.0 % (0.0-4.3) 02/26/17 03:52 Basophils % (Manual) 0 % (0.0-1.8) 02/26/17 03:52 Metamyelocytes % 0 % 02/26/17 03:52 Myelocytes % 0 % 02/26/17 03:52 Promyelocytes % 0 % 02/26/17 03:52 Blast Cells % 0 % 02/26/17 03:52 Nucleated RBC % Not Reportable 02/26/17 03:52 Seg Neutrophils # Man 7.1 K/mm3 (1.8-7.7) 02/26/17 03:52 Band Neutrophils # 0.0 K/mm3 02/26/17 03:52 Lymphocytes # (Manual) 1.9 K/mm3 (1.2-5.4) 02/26/17 03:52 Abs React Lymphs (Man) 0.0 K/mm3 02/26/17 03:52 Monocytes # (Manual) 1.3 K/mm3 (0.0-0.8) H 02/26/17 03:52 Eosinophils # (Manual) 0.3 K/mm3 (0.0-0.4) 02/26/17 03:52 Basophils # (Manual) 0.0 K/mm3 (0.0-0.1) 02/26/17 03:52 Metamyelocytes # 0.0 K/mm3 02/26/17 03:52 Myelocytes # 0.0 K/mm3 02/26/17 03:52 Promyelocytes # 0.0 K/mm3 02/26/17 03:52 Blast Cells # 0.0 K/mm3 02/26/17 03:52 Pathologist Review 02/25/17 19:09 WBC Morphology Not Reportable 02/26/17 03:52 Hypersegmented Neuts Not Reportable 02/26/17 03:52 Hyposegmented Neuts Not Reportable 02/26/17 03:52 Hypogranular Neuts Not Reportable 02/26/17 03:52 Smudge Cells Not Reportable 02/26/17 03:52 Toxic Granulation Not Reportable 02/26/17 03:52 Toxic Vacuolation Not Reportable 02/26/17 03:52 Dohle Bodies Not Reportable 02/26/17 03:52 Pelger-Huet Anomaly Not Reportable 02/26/17 03:52 James Rods Not Reportable 02/26/17 03:52 Platelet Estimate Consistent w auto 02/26/17 03:52 Clumped Platelets Not Reportable 02/26/17 03:52 Plt Clumps, EDTA Not Reportable 02/26/17 03:52 Large Platelets Not Reportable 02/26/17 03:52 Giant Platelets Not Reportable 02/26/17 03:52 Platelet Satelliting Not Reportable 02/26/17 03:52 Plt Morphology Comment Not Reportable 02/26/17 03:52 RBC Morphology Not Reportable 02/26/17 03:52 Dimorphic RBCs Not Reportable 02/26/17 03:52 Polychromasia Not Reportable 02/26/17 03:52 Hypochromasia Not Reportable 02/26/17 03:52 Poikilocytosis Not Reportable 02/26/17 03:52 Anisocytosis 1+ 02/26/17 03:52 Microcytosis Not Reportable 02/26/17 03:52 Macrocytosis Not Reportable 02/26/17 03:52 Spherocytes Not Reportable 02/26/17 03:52 Pappenheimer Bodies Not Reportable 02/26/17 03:52 Sickle Cells Not Reportable 02/26/17 03:52 Target Cells 1+ 02/26/17 03:52 Tear Drop Cells Not Reportable 02/26/17 03:52 Ovalocytes Not Reportable 02/26/17 03:52 Stomatocytes 1+ 02/26/17 03:52 Helmet Cells Not Reportable 02/26/17 03:52 Wdae-Shickley Bodies Not Reportable 02/26/17 03:52 [employer] Rings Not Reportable 02/26/17 03:52 [place] Cells Not Reportable 02/26/17 03:52 Bite Cells Not Reportable 02/26/17 03:52 Crenated Cell Not Reportable 02/26/17 03:52 Elliptocytes Not Reportable 02/26/17 03:52 Acanthocytes (Spur) Not Reportable 02/26/17 03:52 Rouleaux Not Reportable 02/26/17 03:52 Hemoglobin C Crystals Not Reportable 02/26/17 03:52 Schistocytes Not Reportable 02/26/17 03:52 Malaria parasites Not Reportable 02/26/17 03:52 Benjamin Bodies Not Reportable 02/26/17 03:52 Hem Pathologist Commnt No 02/26/17 03:52 PT 17.4 Sec. (12.2-14.9) H 02/25/17 19:09 INR 1.35 (0.87-1.13) H 02/25/17 19:09 Sodium 141 mmol/L (137-145) 02/26/17 03:52 Potassium 4.7 mmol/L (3.6-5.0) 02/26/17 03:52 Chloride 98.7 mmol/L (98-107) 02/26/17 03:52 Carbon Dioxide 29 mmol/L (22-30) 02/26/17 03:52 Anion Gap 18 mmol/L 02/26/17 03:52 BUN 8 mg/dL (7-17) 02/26/17 03:52 Creatinine 0.6 mg/dL (0.7-1.2) L 02/26/17 03:52 Estimated GFR > 60 ml/min 02/26/17 03:52 BUN/Creatinine Ratio 13.33 % 02/26/17 03:52 Glucose 81 mg/dL (65-100) 02/26/17 03:52 Calcium 8.6 mg/dL (8.4-10.2) 02/26/17 03:52 Troponin T < 0.010 ng/mL (0.00-0.029) 02/25/17 19:09 NT-Pro-B Natriuret Pep 1916 pg/mL (0-450) H 02/25/17 19:09 HCG, Qual Negative (Negative) 02/25/17 19:09
--- NOTE | 2017-02-27 08:26 | Progress Note ---
Assessment and Plan CHF with a preserved ejection fraction Cor pulmonale recent echocardiogram showed a dilated right heart chambers, moderate tricuspid regurgitation and moderate pulmonary hypertension. Findings are consistent with cor pulmonale associated with her chronic lung disease. Left ventricle chamber size and systolic function are normal, EF 50-55%. Atrial fibrillation, new onset rate controlled initiated on warfarin; low target INR of 1.8-2.5 Sickle cell disease on home oxygen Sleep apnea Morbidly obese Hypothyroidism Recommendations: Continue rate control and oral anticoagulation with Coumadin for stroke prophylaxis. Target INR of 1.8-2.5. Pulmonary consultation for management of her chronic lung disease. Subjective Date of service: 02/27/17 Interval history: Patient reports she is feeling better. She denies shortness of breath. Objective Vital Signs Temp Pulse Pulse Resp BP Pulse Ox 02/27/17 07:40 98.7 F 105 H 19 105/67 94 02/26/17 23:10 18 122/56 97 02/26/17 22:55 110 H 122/56 02/26/17 22:00 58 L 02/26/17 20:59 98 02/26/17 19:38 98.1 F 65 14 104/63 94 02/26/17 16:05 98.7 F 96 H 19 97/57 96 02/26/17 16:04 121 H 02/26/17 14:49 96 02/26/17 12:01 96.3 F L 96 H 19 98/55 97 02/26/17 11:02 96 H 116/73 02/26/17 11:00 96 H 116/73 98 02/26/17 10:00 90/48 100 02/26/17 09:00 100/39 97 - Physical Examination General: No Apparent Distress, Other (obese) Cardiac: Positive: irregularly irregular - Imaging and Cardiology EKG: image reviewed
[2017-02-27] MEDS: FOLVITE PO SCH (09:44)
[2017-02-27] MEDS: LOPRESSOR PO SCH ×2 (09:45→22:00)
[2017-02-27] MEDS: PROTONIX PO SCH (09:46)
[2017-02-27] MEDS: ZESTRIL PO SCH (09:46)
[2017-02-27 11:54] LABS: INR 1.37 (0.87-1.13)
[2017-02-27] MEDS ORDERED: ATARAX FEEDTUBE SCH (12:00)
[2017-02-27] MEDS: COUMADIN PO SCH (20:08)
[2017-02-27] MEDS: ATARAX PO SCH ×2 (20:08→20:09)
[2017-02-27] MEDS: ULTRAM PO PRN (22:00)
[2017-02-27] MEDS: BENADRYL PO PRN (22:06)
[2017-02-28] MEDS: ATARAX PO SCH ×4 (02:14→21:10)
[2017-02-28] MEDS: LASIX IV SCH ×2 (05:25→21:34)
[2017-02-28] MEDS: SYNTHROID PO SCH (05:25)
[2017-02-28 06:51] LABS: INR 1.31 (0.87-1.13)
--- NOTE | 2017-02-28 09:50 | Progress Note ---
Assessment and Plan 1. Pulmonary hypertension with chronic right heart failure. 2. Atrial fibrillation 3. Obesity 4. Sickle cell disease Plan. Currently stable. Hematology input regarding long-term anticoagulation. Continue present management. Subjective Date of service: 02/28/17 Principal diagnosis: Corpulmonale. Interval history: Patient denies any cardiac symptoms. She is more concerned about bilateral leg swelling. Objective Vital Signs Temp Pulse Resp BP BP Pulse Ox 02/28/17 07:17 98.9 F 120 H 16 116/70 93 02/27/17 23:44 98.4 F 106 H 100/60 94 02/27/17 22:00 107 H 109/52 02/27/17 20:20 98.1 F 70 18 110/51 94 02/27/17 16:03 98.7 F 93 H 19 116/67 94 02/27/17 16:00 105 H 02/27/17 10:00 96 - Physical Examination General: No Apparent Distress, Other (morbidly obese) HEENT: Neck: Positive: neck supple. Negative: JVD/HJR Cardiac: Positive: irregularly irregular, S1/S2, PMI, Laterally Displaced Lungs: Positive: clear to auscultation, No Wheeze, Rales, Rhonchi Abdomen: Positive: Soft, Active Bowel Sounds Extremities: Present: +2 Edema - Labs and Meds Coagulation 02/27/17 02/28/17 Range/Units 11:13 05:11 PT 16.8 H 16.2 H (12.2-14.9) Sec. INR 1.37 H 1.31 H (0.87-1.13) - Imaging and Cardiology EKG: image reviewed
[2017-02-28] MEDS: LOPRESSOR PO SCH ×2 (09:55→21:34)
[2017-02-28] MEDS: FOLVITE PO SCH (10:00)
[2017-02-28] MEDS: ZESTRIL PO SCH (10:00)
[2017-02-28] MEDS: PROTONIX PO SCH (10:00)
--- NOTE | 2017-02-28 13:01 | Progress Note ---
Assessment and Plan New onset afib - rate controlled - cardiology input appreicated - initiated warfarin, goal INR is 1.8 to 2.5 given hx of sickle cell disease Acute on chronic hypoxic respiratory failure - Likely due to CHF exacerbation, obesity hypoventilation syndrome and obstructive sleep apnea - Continue oxygen supplementation and CPAP while asleep Acute on chronic diastolic CHF with a preserved ejection fraction - Continue Lasix IV, optimize meds, beta osmel CARLOS MANUEL inhibitor, - cardiology following, low-sodium diet, strict I's and O's and daily weights Sickle cell disease - Chronic, not in acute exacerbation Sleep apnea/obesity hypoventilation - CPAP while asleep, noninvasive positive pressure ventilator as needed Cor pulmonale - Echocardiogram demonstrates a dilated right heart chambers, moderate tricuspid regurgitation and moderate pulmonary hypertension. Findings are consistent with cor pulmonale likely from chronic sleep apnea and obesity hypoventilation syndrome. Left ventricle chamber size and systolic function are normal, EF 50-55%. Morbidly obese - Has been counseled on lifestyle modification - May be benefited from bariatric surgery, recommended outpatient follow-up History of Buttock abscess - Wound care following Subclinical Hypothyroidism - TSH 6.7, with normal free T4 - continue low-dose Synthroid - TFTs to be rechecked in 4 to 6 weeks DVT prophylaxis Lovenox twice a day given morbid obesity Will DC when INR therapeutic Brief history: 31-year-old woman medical history of diastolic CHF, morbid obesity, on home oxygen who presents with swelling of the lower extremities, swelling goes all the way to her abdominal pannus. Case management consulted to help with application for Health Insurance, as she has no insurance and many chronic medical conditions and is debilitated. She needs home oxygen, CPAP, NIV , and is on multiple medications. Subjective Date of service: 02/28/17 Principal diagnosis: Corpulmonale. Interval history: Patient seen and examined. Medical records and medication list reviewed. No acute event overnight noted by the RN. Patient complains of itching. Patient is tolerating diet. Discussed plan of care at bedside with patient. Objective - Exam Narrative Exam: GENERAL: well-developed morbidly obese -[place] female lying on bed appeared to be in no discomfort. HEENT: Normocephalic. Atraumatic. No conjunctival congestion or icterus. Patient has moist mucous membranes. NECK: Supple. Trachea midline. CHEST/LUNGS: Clear to auscultated bilaterally, breathing nonlabored. No wheezes crackles or rhonchi. HEART/CARDIOVASCULAR: irRegular in rate and rhythm. S1 and S2 positive. ABDOMEN: Abdomen is soft, nontender, obese. Patient has normal bowel sounds. SKIN: There is no rash. Warm and dry. NEURO: No focal motor deficit. Follows command. MUSCULOSKELETAL: No joint effusion or tenderness. EXTRIMITY: + edema PSYCH: Cooperative. - Constitutional Vitals: Vital Signs - 12hr 02/28/17 02/28/17 02/28/17 07:17 09:55 12:13 Temperature 98.9 F 98.5 F Pulse Rate 120 H 106 H Respiratory 16 18 Rate Blood Pressure 116/70 116/80 105/44 O2 Sat by Pulse 93 93 Oximetry - Labs CBC & Chem 7: 02/26/17 03:52 02/26/17 03:52 Labs: Abnormal lab results 02/28/17 Range/Units 05:11 PT 16.2 H (12.2-14.9) Sec. INR 1.31 H (0.87-1.13)
[2017-02-28] MEDS: COUMADIN PO SCH (17:59)
[2017-02-28] MEDS: ULTRAM PO PRN (21:10)
--- NOTE | 2017-02-28 21:32 | Consultation ---
History of Present Illness - Reason for Consult Consult date: 02/28/17 anti coag/SCD. Requesting physician: MACARIO RUBIO - History of Present Illness Thank you for this consult, patient seen/examined, record reviewed, kindly asked to see for the reasons above. patient with SCD/a fib requiring anticoagulation. current inr 1.8. on coumadin.Will need to keep INR2-3.Monitor labs/coags, pain control. Past History Past Medical History: anemia Family history: no significant family history Medications and Allergies Allergies Allergy/AdvReac Type Severity Reaction Status Date / Time morphine Allergy Hives Verified 02/25/17 19:44 shrimp Allergy Hives Verified 02/25/17 19:44 Home Medications Medication Instructions Recorded Confirmed Last Taken Type ALBUTEROL Inhaler [ProAir HFA 2 puff IH QID PRN 10/14/16 02/25/17 02/25/17 History Inhaler] Folic Acid [FA-8] 0.8 mg PO DAILY 10/14/16 02/25/17 02/25/17 History Nystatin [Nystop Powder] 1 applicatio TP TID 10/14/16 02/25/17 02/25/17 History Ranitidine HCl 75 mg PO DAILY 10/14/16 02/25/17 02/25/17 History traMADol [Ultram 50 MG tab] 50 mg PO Q4HR PRN 10/14/16 02/25/17 02/25/17 History Furosemide [Lasix TAB] 40 mg PO QDAY #60 02/13/17 02/25/17 02/25/17 Rx Metoprolol [Lopressor TAB] 50 mg PO BID #60 tablet 02/13/17 02/25/17 02/25/17 Rx Pantoprazole [Protonix TAB] 40 mg PO QDAY tablet 02/13/17 02/25/17 02/25/17 Rx Active Meds: Active Medications Acetaminophen (Tylenol) 650 mg PO Q4H PRN PRN Reason: Pain MILD(1-3)/Fever >100.5/AL Albuterol (Proventil) 2.5 mg IH Q4HRT PRN PRN Reason: Shortness Of Breath Bisacodyl (Dulcolax) 10 mg OR QDAY PRN PRN Reason: Constipation unrelieved by MOM Diphenhydramine HCl (Benadryl) 25 mg PO Q6H PRN PRN Reason: Itching Last Admin: 02/27/17 22:06 Dose: 25 mg Folic Acid (Folvite) 1 mg PO DAILY [facility] Last Admin: 02/28/17 10:00 Dose: 1 mg Furosemide (Lasix) 40 mg IV BID@0600,1800 [facility] Last Admin: 02/28/17 05:25 Dose: 40 mg Hydroxyzine HCl (Atarax) 10 mg PO Q6H [facility] Last Admin: 02/28/17 21:10 Dose: 10 mg Levothyroxine Sodium (Synthroid) 25 mcg PO DAILY@0600 [facility] Last Admin: 02/28/17 05:25 Dose: 25 mcg Lisinopril (Zestril) 2.5 mg PO QDAY [facility] Last Admin: 02/28/17 10:00 Dose: 2.5 mg Magnesium Hydroxide (Milk Of Magnesia) 30 ml PO Q4H PRN PRN Reason: Constipation Metoprolol Tartrate (Lopressor) 12.5 mg PO BID [facility] Last Admin: 02/28/17 09:55 Dose: 12.5 mg Ondansetron HCl (Zofran) 4 mg IV Q8H PRN PRN Reason: N/V unrelieved by Reglan Pantoprazole Sodium (Protonix) 40 mg PO QDAY [facility] Last Admin: 02/28/17 10:00 Dose: 40 mg Tramadol HCl (Ultram) 50 mg PO Q4HR PRN PRN Reason: Pain Last Admin: 02/28/17 21:10 Dose: 50 mg Warfarin Sodium (Coumadin Pharmacy To Dose) 1 [facility] PRN Reason: Protocol Warfarin Sodium (Coumadin) 10 mg PO DAILY@1700 [facility] Last Admin: 02/28/17 17:59 Dose: 10 mg Review of Systems Constitutional: chronic pain Breasts: deferred Musculoskeletal: low back pain Exam - Constitutional Vitals: Temp Pulse Resp BP Pulse Ox 98.9 F 113 H 20 103/54 97 02/28/17 15:41 02/28/17 15:41 02/28/17 15:41 02/28/17 15:41 02/28/17 20:39 General appearance: Present: mild distress, well-nourished - EENT Eyes: Present: PERRL ENT: hearing intact, clear oral mucosa - Neck Neck: Present: supple, normal ROM - Respiratory Respiratory effort: normal Respiratory: bilateral: CTA - Cardiovascular Heart Sounds: Present: S1 & S2. Absent: rub, click - Extremities Extremities: pulses symmetrical, No edema Peripheral Pulses: within normal limits - Abdominal General gastrointestinal: Present: soft, non-tender, non-distended, normal bowel sounds Female genitourinary: Present: deferred - Rectal Rectal Exam: deferred - Integumentary Integumentary: Present: clear, warm, dry - Musculoskeletal Musculoskeletal: gait normal, strength equal bilaterally - Psychiatric Psychiatric: appropriate mood/affect, intact judgment & insight - Neurologic Neurologic: CNII-XII intact, moves all extremities Results - Labs CBC & Chem 7: 02/26/17 03:52 02/26/17 03:52 Labs: Abnormal lab results 02/28/17 Range/Units 05:11 PT 16.2 H (12.2-14.9) Sec. INR 1.31 H (0.87-1.13) Assessment and Plan - Patient Problems (1) A-fib Current Visit: Yes Status: Acute Qualifiers: Atrial fibrillation type: A Plan to address problem: follow cardilogy. (2) Subtherapeutic anticoagulation Current Visit: Yes Status: Acute Plan to address problem: adjust anticoagulannt dosage. (3) Sickle cell anemia Current Visit: Yes Status: Acute Qualifiers: Sickle-cell associated disorders: S Plan to address problem: see notes above.
[2017-03-01] MEDS: ATARAX PO SCH ×4 (02:13→18:44)
[2017-03-01] MEDS: LASIX IV SCH ×2 (05:40→18:39)
[2017-03-01] MEDS: SYNTHROID PO SCH (05:40)
[2017-03-01 05:59] LABS: INR 1.36 (0.87-1.13)
--- NOTE | 2017-03-01 10:17 | Progress Note ---
Assessment and Plan New onset afib - rate controlled, INR 1.36 today - cardiology input appreicated - initiated warfarin, goal INR is 2 to 3 - noted hematology recommendation, will need lifelong anticoagulation Acute on chronic hypoxic respiratory failure - Likely due to CHF exacerbation, obesity hypoventilation syndrome and obstructive sleep apnea - Continue oxygen supplementation and CPAP while asleep Acute on chronic diastolic CHF with a preserved ejection fraction - Continue Lasix IV, beta osmel, CARLOS MANUEL inhibitor, - cardiology following, low-sodium diet, strict I's and O's and daily weights Sickle cell disease - Chronic, not in acute exacerbation - H and H stable Sleep apnea/obesity hypoventilation - CPAP while asleep, noninvasive positive pressure ventilator as needed Cor pulmonale - Echocardiogram demonstrates a dilated right heart chambers, moderate tricuspid regurgitation and moderate pulmonary hypertension. Findings are consistent with cor pulmonale likely from chronic sleep apnea and obesity hypoventilation syndrome. Left ventricle chamber size and systolic function are normal, EF 50-55%. Morbidly obese - Has been counseled on lifestyle modification - May be benefited from bariatric surgery, recommended outpatient follow-up History of Buttock abscess - Wound care following Subclinical Hypothyroidism - TSH 6.7, with normal free T4 - continue low-dose Synthroid - TFTs to be rechecked in 4 to 6 weeks DVT prophylaxis Lovenox twice a day given morbid obesity Will DC when INR therapeutic Brief history: 31-year-old woman medical history of diastolic CHF, morbid obesity, on home oxygen who presents with swelling of the lower extremities, swelling goes all the way to her abdominal pannus. Case management consulted to help with application for Health Insurance, as she has no insurance and many chronic medical conditions and is debilitated. She needs home oxygen, CPAP, NIV , and is on multiple medications. Subjective Date of service: 03/01/17 Principal diagnosis: Corpulmonale. Interval history: Patient seen and examined. Medical records and medication list reviewed. No acute event overnight noted by the RN. Patient states that she lives with her mother and she is unable to take care of her. Objective - Exam Narrative Exam: GENERAL: well-developed morbidly obese -[place] female lying on bed appeared to be in no discomfort. HEENT: Normocephalic. Atraumatic. No conjunctival congestion or icterus. Patient has moist mucous membranes. NECK: Supple. Trachea midline. CHEST/LUNGS: Clear to auscultated bilaterally, breathing nonlabored. No wheezes crackles or rhonchi. HEART/CARDIOVASCULAR: irRegular in rate and rhythm. S1 and S2 positive. ABDOMEN: Abdomen is soft, nontender, obese. Patient has normal bowel sounds. SKIN: There is no rash. Warm and dry. NEURO: No focal motor deficit. Follows command. MUSCULOSKELETAL: No joint effusion or tenderness. EXTRIMITY: + edema PSYCH: Cooperative. - Constitutional Vitals: Vital Signs - 12hr 02/28/17 03/01/17 03/01/17 23:47 05:31 05:33 Temperature Pulse Rate 102 H 96 H Respiratory 16 24 Rate Blood Pressure 117/28 O2 Sat by Pulse 95 94 Oximetry 03/01/17 03/01/17 03/01/17 05:38 05:39 07:31 Temperature 97.7 F 98.4 F Pulse Rate 96 H Respiratory 18 Rate Blood Pressure 96/57 124/36 O2 Sat by Pulse 94 Oximetry - Labs CBC & Chem 7: 02/26/17 03:52 02/26/17 03:52 Labs: Abnormal lab results 03/01/17 Range/Units 04:46 PT 16.7 H (12.2-14.9) Sec. INR 1.36 H (0.87-1.13)
--- NOTE | 2017-03-01 10:21 | Progress Note ---
Assessment and Plan 1. Pulmonary hypertension with chronic right heart failure. 2. Atrial fibrillation 3. Obesity 4. Sickle cell disease Plan. Currently stable. Hematology input regarding long-term anticoagulation. Continue present management. Subjective Date of service: 03/01/17 Principal diagnosis: Corpulmonale. Interval history: Patient denies any cardiac symptoms. She is more concerned about bilateral leg swelling. Objective Vital Signs Temp Pulse Resp BP Pulse Ox 03/01/17 07:31 98.4 F 96 H 18 124/36 94 03/01/17 05:39 97.7 F 03/01/17 05:38 96/57 03/01/17 05:33 96 H 94 03/01/17 05:31 102 H 24 117/28 95 02/28/17 23:47 16 02/28/17 21:34 124 H 112/53 02/28/17 21:31 125 H 22 112/53 94 02/28/17 21:30 99.4 F 02/28/17 21:29 108 H 101/40 95 02/28/17 20:39 97 02/28/17 15:41 98.9 F 113 H 20 103/54 95 02/28/17 12:13 98.5 F 106 H 18 105/44 93 - Physical Examination General: No Apparent Distress, Other (morbidly obese) HEENT: Neck: Positive: neck supple. Negative: JVD/HJR Cardiac: Positive: Regular Rate, S1/S2, PMI, Dilated, Laterally Displaced Lungs: Positive: clear to auscultation, No Wheeze, Rales, Rhonchi Neuro: Positive: Grossly Intact Abdomen: Positive: Soft, Active Bowel Sounds Extremities: Present: +2 Edema - Labs and Meds Coagulation 03/01/17 Range/Units 04:46 PT 16.7 H (12.2-14.9) Sec. INR 1.36 H (0.87-1.13) - Imaging and Cardiology EKG: image reviewed
[2017-03-01] MEDS: LOPRESSOR PO SCH ×2 (12:23→21:34)
[2017-03-01] MEDS: ZESTRIL PO SCH (12:25)
[2017-03-01] MEDS: PROTONIX PO SCH (12:25)
[2017-03-01] MEDS: FOLVITE PO SCH (12:26)
[2017-03-01] MEDS ORDERED: COUMADIN PO SCH ×3 (17:00→17:46)
[2017-03-01] MEDS: COUMADIN PO SCH (19:26)
--- NOTE | 2017-03-01 21:22 | Consultation ---
History of Present Illness - Reason for Consult Consult date: 03/01/17 - History of Present Illness Patient seen/resting in bed, notes reviewed.continue anticoagulation, and monitor labs . Past History Past Medical History: anemia Family history: no significant family history Medications and Allergies Allergies Allergy/AdvReac Type Severity Reaction Status Date / Time morphine Allergy Hives Verified 02/25/17 19:44 shrimp Allergy Hives Verified 02/25/17 19:44 Home Medications Medication Instructions Recorded Confirmed Last Taken Type ALBUTEROL Inhaler [ProAir HFA 2 puff IH QID PRN 10/14/16 02/25/17 02/25/17 History Inhaler] Folic Acid [FA-8] 0.8 mg PO DAILY 10/14/16 02/25/17 02/25/17 History Nystatin [Nystop Powder] 1 applicatio TP TID 10/14/16 02/25/17 02/25/17 History Ranitidine HCl 75 mg PO DAILY 10/14/16 02/25/17 02/25/17 History traMADol [Ultram 50 MG tab] 50 mg PO Q4HR PRN 10/14/16 02/25/17 02/25/17 History Furosemide [Lasix TAB] 40 mg PO QDAY #60 02/13/17 02/25/17 02/25/17 Rx Metoprolol [Lopressor TAB] 50 mg PO BID #60 tablet 02/13/17 02/25/17 02/25/17 Rx Pantoprazole [Protonix TAB] 40 mg PO QDAY tablet 02/13/17 02/25/17 02/25/17 Rx Active Meds: Active Medications Acetaminophen (Tylenol) 650 mg PO Q4H PRN PRN Reason: Pain MILD(1-3)/Fever >100.5/AL Albuterol (Proventil) 2.5 mg IH Q4HRT PRN PRN Reason: Shortness Of Breath Bisacodyl (Dulcolax) 10 mg PA QDAY PRN PRN Reason: Constipation unrelieved by MOM Diphenhydramine HCl (Benadryl) 25 mg PO Q6H PRN PRN Reason: Itching Last Admin: 02/27/17 22:06 Dose: 25 mg Folic Acid (Folvite) 1 mg PO DAILY ONEAL Last Admin: 03/01/17 12:26 Dose: 1 mg Furosemide (Lasix) 40 mg IV BID@0600,1800 [facility] Last Admin: 03/01/17 18:39 Dose: 40 mg Hydroxyzine HCl (Atarax) 10 mg PO Q6H [facility] Last Admin: 03/01/17 18:44 Dose: 10 mg Levothyroxine Sodium (Synthroid) 25 mcg PO DAILY@0600 [facility] Last Admin: 03/01/17 05:40 Dose: 25 mcg Lisinopril (Zestril) 2.5 mg PO QDAY [facility] Last Admin: 03/01/17 12:25 Dose: 2.5 mg Magnesium Hydroxide (Milk Of Magnesia) 30 ml PO Q4H PRN PRN Reason: Constipation Metoprolol Tartrate (Lopressor) 12.5 mg PO BID [facility] Last Admin: 03/01/17 12:23 Dose: 12.5 mg Ondansetron HCl (Zofran) 4 mg IV Q8H PRN PRN Reason: N/V unrelieved by Reglan Pantoprazole Sodium (Protonix) 40 mg PO QDAY [facility] Last Admin: 03/01/17 12:25 Dose: 40 mg Tramadol HCl (Ultram) 50 mg PO Q4HR PRN PRN Reason: Pain Last Admin: 02/28/17 21:10 Dose: 50 mg Warfarin Sodium (Coumadin Pharmacy To Dose) 1 each PO PKCONSULT [facility] PRN Reason: Protocol Warfarin Sodium (Coumadin) 2.5 mg PO DAILY@1700 [facility] Last Admin: 03/01/17 18:38 Dose: 2.5 mg Warfarin Sodium (Coumadin) 10 mg PO DAILY@1700 [facility] Last Admin: 03/01/17 18:38 Dose: 10 mg Review of Systems Constitutional: chronic pain Breasts: deferred Exam - Constitutional Vitals: Temp Pulse Resp BP Pulse Ox 99.4 F 104 H 24 105/43 96 03/01/17 20:26 03/01/17 15:27 03/01/17 20:28 03/01/17 20:28 03/01/17 19:51 General appearance: Present: mild distress, well-nourished - EENT Eyes: Present: PERRL ENT: hearing intact, clear oral mucosa - Neck Neck: Present: supple, normal ROM - Respiratory Respiratory effort: normal Respiratory: bilateral: CTA - Cardiovascular Heart Sounds: Present: S1 & S2. Absent: rub, click - Extremities Extremities: pulses symmetrical, No edema Peripheral Pulses: within normal limits - Abdominal General gastrointestinal: Present: soft, non-tender, non-distended, normal bowel sounds Female genitourinary: Present: deferred - Rectal Rectal Exam: deferred - Integumentary Integumentary: Present: clear, warm, dry - Musculoskeletal Musculoskeletal: gait normal, strength equal bilaterally - Psychiatric Psychiatric: appropriate mood/affect, intact judgment & insight - Neurologic Neurologic: CNII-XII intact, moves all extremities Results - Labs CBC & Chem 7: 02/26/17 03:52 02/26/17 03:52 Labs: Abnormal lab results 03/01/17 Range/Units 04:46 PT 16.7 H (12.2-14.9) Sec. INR 1.36 H (0.87-1.13) Assessment and Plan - Patient Problems (1) A-fib Current Visit: Yes Status: Acute Qualifiers: Atrial fibrillation type: A Plan to address problem: follow cardilogy. (2) Subtherapeutic anticoagulation Current Visit: Yes Status: Acute Plan to address problem: adjust anticoagulant dosage. (3) Sickle cell anemia Current Visit: Yes Status: Acute Qualifiers: Sickle-cell associated disorders: S Plan to address problem: see notes above. continue with supportive.
[2017-03-01] MEDS: ULTRAM PO PRN (22:33)
[2017-03-02] MEDS: ATARAX PO SCH ×4 (00:11→23:47)
[2017-03-02 05:59] LABS: INR 1.38 (0.87-1.13)
[2017-03-02] MEDS: LASIX IV SCH ×2 (05:59→19:29)
[2017-03-02] MEDS: SYNTHROID PO SCH (05:59)
[2017-03-02] MEDS: LOPRESSOR PO SCH ×2 (10:00→21:30)
[2017-03-02] MEDS: ZESTRIL PO SCH (10:37)
[2017-03-02] MEDS: FOLVITE PO SCH (12:39)
[2017-03-02] MEDS: PROTONIX PO SCH (12:44)
--- NOTE | 2017-03-02 14:02 | Progress Note ---
Assessment and Plan Assessment and Plan New onset afib - rate controlled, INR not therapeutic - cardiology input appreicated - initiated warfarin, goal INR is 2 to 3 - noted hematology recommendation, will need lifelong anticoagulation Acute on chronic hypoxic respiratory failure - Likely due to CHF exacerbation, obesity hypoventilation syndrome and obstructive sleep apnea - Continue oxygen supplementation and CPAP while asleep Acute on chronic diastolic CHF with a preserved ejection fraction - Continue Lasix IV, beta osmel, CARLOS MANUEL inhibitor, - cardiology following, low-sodium diet, strict I's and O's and daily weights Sickle cell disease - Chronic, not in acute exacerbation - H and H stable Sleep apnea/obesity hypoventilation - CPAP while asleep, noninvasive positive pressure ventilator as needed Cor pulmonale - Echocardiogram demonstrates a dilated right heart chambers, moderate tricuspid regurgitation and moderate pulmonary hypertension. Findings are consistent with cor pulmonale likely from chronic sleep apnea and obesity hypoventilation syndrome. Left ventricle chamber size and systolic function are normal, EF 50-55%. Morbidly obese - Has been counseled on lifestyle modification - May be benefited from bariatric surgery, recommended outpatient follow-up History of Buttock abscess - Wound care following Subclinical Hypothyroidism - TSH 6.7, with normal free T4 - continue low-dose Synthroid - TFTs to be rechecked in 4 to 6 weeks DVT prophylaxis Lovenox twice a day given morbid obesity Subjective Date of service: 03/02/17 Principal diagnosis: Corpulmonale. Interval history: Lying in bed -comfortable Objective - Exam Narrative Exam: Morbidly obese - Constitutional Vitals: Vital Signs - 12hr 03/02/17 03/02/17 03/02/17 02:25 05:13 08:00 Temperature 98.5 F 98.5 F Pulse Rate 110 H 98 H 108 H Respiratory 22 16 Rate Blood Pressure 111/50 111/42 O2 Sat by Pulse 91 91 Oximetry 03/02/17 03/02/17 08:37 10:00 Temperature Pulse Rate Respiratory Rate Blood Pressure 111/42 O2 Sat by Pulse 96 Oximetry General appearance: Present: no acute distress, well-nourished - EENT Eyes: PERRL, EOM intact ENT: hearing intact, clear oral mucosa Ears: bilateral: normal - Neck Neck: supple, normal ROM - Respiratory Respiratory effort: normal Respiratory: bilateral: CTA - Breasts Breasts: normal - Cardiovascular Heart rate: 80 Rhythm: regular Heart Sounds: Present: S1 & S2. Absent: gallop, rub Extremities: no ischemia, pulses intact, No edema, normal color, Full ROM Extremity abnormal: edema - Gastrointestinal General gastrointestinal: Present: soft, non-tender, non-distended, normal bowel sounds - Genitourinary Female genitourinary: normal - Integumentary Integumentary: clear, warm, dry - Musculoskeletal Musculoskeletal: 1, strength equal bilaterally - Neurologic Neurologic: moves all extremities - Psychiatric Psychiatric: memory intact, appropriate mood/affect, intact judgment & insight - Labs CBC & Chem 7: 02/26/17 03:52 02/26/17 03:52 Labs: Abnormal lab results 03/02/17 Range/Units 04:49 PT 16.9 H (12.2-14.9) Sec. INR 1.38 H (0.87-1.13)
--- NOTE | 2017-03-02 16:47 | Progress Note ---
Assessment and Plan - Patient Problems (1) Atrial fibrillation Current Visit: Yes Status: Acute Qualifiers: Atrial fibrillation type: A Plan to address problem: Medical therapy for rate control of atrial fibrillation, and initiation of oral anticoagulation therapy under supervision of hematology. Subjective Date of service: 03/02/17 Principal diagnosis: Corpulmonale. Interval history: Patient is comfortably in no acute respiratory distress. No new cardiac complaints. Objective Vital Signs Temp Pulse Resp BP Pulse Ox 03/02/17 10:00 111/42 03/02/17 08:37 96 03/02/17 08:00 98.5 F 108 H 16 111/42 91 03/02/17 05:13 98.5 F 98 H 22 111/50 91 03/02/17 02:25 110 H 03/01/17 23:53 18 97 03/01/17 21:34 104 H 105/43 03/01/17 20:28 24 105/43 03/01/17 20:26 99.4 F 03/01/17 19:51 96 - Physical Examination General: No Apparent Distress, Other (morbidly obese) HEENT: Neck: Positive: neck supple. Negative: JVD/HJR Cardiac: Positive: irregularly irregular Lungs: Positive: Decreased Breath Sounds Neuro: Positive: Grossly Intact Abdomen: Positive: Soft, Active Bowel Sounds Skin: Positive: Clear Extremities: Present: edema (trace) - Labs and Meds Coagulation 03/02/17 Range/Units 04:49 PT 16.9 H (12.2-14.9) Sec. INR 1.38 H (0.87-1.13) - Imaging and Cardiology EKG: image reviewed
[2017-03-02] MEDS: COUMADIN PO SCH (19:29)
[2017-03-03] MEDS: ATARAX PO SCH ×4 (01:15→21:16)
[2017-03-03] MEDS: SYNTHROID PO SCH (05:54)
[2017-03-03] MEDS: LASIX IV SCH (05:54)
[2017-03-03 06:44] LABS: INR 1.49 (0.87-1.13)
[2017-03-03] MEDS: LOPRESSOR PO SCH ×2 (11:03→22:38)
[2017-03-03] MEDS: FOLVITE PO SCH (11:04)
[2017-03-03] MEDS: ZESTRIL PO SCH (11:05)
[2017-03-03] MEDS: PROTONIX PO SCH (11:06)
--- NOTE | 2017-03-03 13:35 | Progress Note ---
Assessment and Plan Assessment and plan: 31-year-old AAF, morbidly obese, with pulmonary hypertension, chronic respiratory failure, on home O2, diastolic CHF, RENE , presented for swelling of the lower extremities New onset afib - rate controlled on BB - anticoagulated with Coumadin, monitoring INR, today 1.49 - cardiology following Acute on chronic hypoxic respiratory failure - likely due to combination of heart failure, cor pulmonale, obesity hypoventilation syndrome and obstructive sleep apnea - continue oxygen supplementation and CPAP while asleep Acute on chronic diastolic CHF with a preserved ejection fraction - continue Lasix (change to po today), beta osmel, CARLOS MANUEL inhibitor - low-sodium diet, strict I's and O's and daily weights - cardiology following Cor pulmonale - Echocardiogram demonstrates a dilated right heart chambers, moderate tricuspid regurgitation and moderate pulmonary hypertension. Findings are consistent with cor pulmonale likely from chronic sleep apnea and obesity hypoventilation syndrome. Left ventricle chamber size and systolic function are normal, EF 50-55%. Sleep apnea/obesity hypoventilation - CPAP while asleep, noninvasive positive pressure ventilator as needed Morbidly obese - has been counseled on lifestyle modification - may be benefited from bariatric surgery, recommended outpatient follow-up Sickle cell disease - chronic, not in acute exacerbation - H and H stable Subclinical Hypothyroidism - TSH 6.7, with normal free T4 - continue low-dose Synthroid - TFTs to be rechecked in 4 to 6 weeks History of Buttock abscess - Wound care following DVT prophylaxis Lovenox twice a day given morbid obesity Will D/C when INR therapeutic Dispo CM working on discharge plans with SW at [facility] where she is followed for sickle cell disease as mother unable to care for her; awainting therapeutic INR . History Interval history: no acute events overnight, stable, monitoring INR Hospitalist Physical - Constitutional Vitals: Temp Pulse Resp BP Pulse Ox 122.0 F H 126 H 18 131/73 95 03/03/17 09:23 03/03/17 09:23 03/03/17 09:23 03/03/17 11:05 03/03/17 09:25 General appearance: Present: no acute distress, other (morbidly obese) - EENT Eyes: Present: PERRL, EOM intact. Absent: scleral icterus, conjunctival injection - Neck Neck: Absent: enlarged thyroid, masses or JVD, carotid bruits - Respiratory Respiratory effort: normal (at rest) Respiratory: bilateral: diminished (due to body habitus), negative: rhonchi, wheezing - Cardiovascular Rhythm: other (tachycardic) Heart Sounds: Present: S1 & S2, diastolic murmur. Absent: systolic murmur - Extremities Extremities: no ischemia Extremity abnormal: edema - Abdominal General gastrointestinal: soft, non-tender, normal bowel sounds, other (abdomen protuberant) - Neurologic Neurologic: no focal deficits Results - Labs CBC & Chem 7: 02/26/17 03:52 02/26/17 03:52 Labs: Laboratory Last Values WBC 10.6 K/mm3 (4.5-11.0) 02/26/17 03:52 RBC 3.47 M/mm3 (3.65-5.03) L 02/26/17 03:52 Hgb 10.0 gm/dl (10.1-14.3) L 02/26/17 03:52 Hct 29.7 % (30.3-42.9) L 02/26/17 03:52 MCV 85 fl (79-97) 02/26/17 03:52 MCH 29 pg (28-32) 02/26/17 03:52 MCHC 34 % (30-34) 02/26/17 03:52 RDW 19.9 % (13.2-15.2) H 02/26/17 03:52 Plt Count 315 K/mm3 (140-440) 02/26/17 03:52 [place] % (Auto) Record Keeper 02/26/17 03:52 Add Manual Diff Complete 02/26/17 03:52 Total Counted 100 02/26/17 03:52 Seg Neuts % (Manual) 67.0 % (40.0-70.0) 02/26/17 03:52 Band Neutrophils % 0 % 02/26/17 03:52 Lymphocytes % (Manual) 18.0 % (13.4-35.0) 02/26/17 03:52 Reactive Lymphs % (Man) 0 % 02/26/17 03:52 Monocytes % (Manual) 12.0 % (0.0-7.3) H 02/26/17 03:52 Eosinophils % (Manual) 3.0 % (0.0-4.3) 02/26/17 03:52 Basophils % (Manual) 0 % (0.0-1.8) 02/26/17 03:52 Metamyelocytes % 0 % 02/26/17 03:52 Myelocytes % 0 % 02/26/17 03:52 Promyelocytes % 0 % 02/26/17 03:52 Blast Cells % 0 % 02/26/17 03:52 Nucleated RBC % Not Reportable 02/26/17 03:52 Seg Neutrophils # Man 7.1 K/mm3 (1.8-7.7) 02/26/17 03:52 Band Neutrophils # 0.0 K/mm3 02/26/17 03:52 Lymphocytes # (Manual) 1.9 K/mm3 (1.2-5.4) 02/26/17 03:52 Abs React Lymphs (Man) 0.0 K/mm3 02/26/17 03:52 Monocytes # (Manual) 1.3 K/mm3 (0.0-0.8) H 02/26/17 03:52 Eosinophils # (Manual) 0.3 K/mm3 (0.0-0.4) 02/26/17 03:52 Basophils # (Manual) 0.0 K/mm3 (0.0-0.1) 02/26/17 03:52 Metamyelocytes # 0.0 K/mm3 02/26/17 03:52 Myelocytes # 0.0 K/mm3 02/26/17 03:52 Promyelocytes # 0.0 K/mm3 02/26/17 03:52 Blast Cells # 0.0 K/mm3 02/26/17 03:52 Pathologist Review 02/25/17 19:09 WBC Morphology Not Reportable 02/26/17 03:52 Hypersegmented Neuts Not Reportable 02/26/17 03:52 Hyposegmented Neuts Not Reportable 02/26/17 03:52 Hypogranular Neuts Not Reportable 02/26/17 03:52 Smudge Cells Not Reportable 02/26/17 03:52 Toxic Granulation Not Reportable 02/26/17 03:52 Toxic Vacuolation Not Reportable 02/26/17 03:52 Dohle Bodies Not Reportable 02/26/17 03:52 Pelger-Huet Anomaly Not Reportable 02/26/17 03:52 James Rods Not Reportable 02/26/17 03:52 Platelet Estimate Consistent w auto 02/26/17 03:52 Clumped Platelets Not Reportable 02/26/17 03:52 Plt Clumps, EDTA Not Reportable 02/26/17 03:52 Large Platelets Not Reportable 02/26/17 03:52 Giant Platelets Not Reportable 02/26/17 03:52 Platelet Satelliting Not Reportable 02/26/17 03:52 Plt Morphology Comment Not Reportable 02/26/17 03:52 RBC Morphology Not Reportable 02/26/17 03:52 Dimorphic RBCs Not Reportable 02/26/17 03:52 Polychromasia Not Reportable 02/26/17 03:52 Hypochromasia Not Reportable 02/26/17 03:52 Poikilocytosis Not Reportable 02/26/17 03:52 Anisocytosis 1+ 02/26/17 03:52 Microcytosis Not Reportable 02/26/17 03:52 Macrocytosis Not Reportable 02/26/17 03:52 Spherocytes Not Reportable 02/26/17 03:52 Pappenheimer Bodies Not Reportable 02/26/17 03:52 Sickle Cells Not Reportable 02/26/17 03:52 Target Cells 1+ 02/26/17 03:52 Tear Drop Cells Not Reportable 02/26/17 03:52 Ovalocytes Not Reportable 02/26/17 03:52 Stomatocytes 1+ 02/26/17 03:52 Helmet Cells Not Reportable 02/26/17 03:52 [place] Bodies Not Reportable 02/26/17 03:52 [place] Rings Not Reportable 02/26/17 03:52 [place] Cells Not Reportable 02/26/17 03:52 Bite Cells Not Reportable 02/26/17 03:52 Crenated Cell Not Reportable 02/26/17 03:52 Elliptocytes Not Reportable 02/26/17 03:52 Acanthocytes (Spur) Not Reportable 02/26/17 03:52 Rouleaux Not Reportable 02/26/17 03:52 Hemoglobin C Crystals Not Reportable 02/26/17 03:52 Schistocytes Not Reportable 02/26/17 03:52 Malaria parasites Not Reportable 02/26/17 03:52 Benjamin Bodies Not Reportable 02/26/17 03:52 Hem Pathologist Commnt No 02/26/17 03:52 PT 18.0 Sec. (12.2-14.9) H 03/03/17 05:39 INR 1.49 (0.87-1.13) H 03/03/17 05:39 Sodium 141 mmol/L (137-145) 02/26/17 03:52 Potassium 4.7 mmol/L (3.6-5.0) 02/26/17 03:52 Chloride 98.7 mmol/L (98-107) 02/26/17 03:52 Carbon Dioxide 29 mmol/L (22-30) 02/26/17 03:52 Anion Gap 18 mmol/L 02/26/17 03:52 BUN 8 mg/dL (7-17) 02/26/17 03:52 Creatinine 0.6 mg/dL (0.7-1.2) L 02/26/17 03:52 Estimated GFR > 60 ml/min 02/26/17 03:52 BUN/Creatinine Ratio 13.33 % 02/26/17 03:52 Glucose 81 mg/dL (65-100) 02/26/17 03:52 Calcium 8.6 mg/dL (8.4-10.2) 02/26/17 03:52 Troponin T < 0.010 ng/mL (0.00-0.029) 02/25/17 19:09 NT-Pro-B Natriuret Pep 1916 pg/mL (0-450) H 02/25/17 19:09 HCG, Qual Negative (Negative) 02/25/17 19:09
--- NOTE | 2017-03-03 14:06 | Progress Note ---
Assessment and Plan - Patient Problems (1) Atrial fibrillation Current Visit: Yes Status: Acute Qualifiers: Atrial fibrillation type: A Plan to address problem: Medical therapy for rate control of atrial fibrillation, and initiation of oral anticoagulation therapy under supervision of hematology. Current INR is 1.49. Subjective Date of service: 03/03/17 Principal diagnosis: Corpulmonale. Interval history: Patient is comfortably in no acute respiratory distress. No new cardiac complaints. Objective Vital Signs Temp Pulse Resp BP Pulse Ox 03/03/17 11:05 131/73 03/03/17 11:03 131/73 03/03/17 09:25 95 03/03/17 09:23 122.0 F H 126 H 18 131/73 93 03/02/17 21:30 116/52 03/02/17 21:16 99.4 F 114 H 24 116/52 92 03/02/17 18:19 97 03/02/17 18:01 131/69 03/02/17 15:44 98.3 F 16 111/58 - Physical Examination General: No Apparent Distress, Other (morbidly obese) HEENT: Neck: Positive: neck supple. Negative: JVD/HJR Cardiac: Positive: irregularly irregular Lungs: Positive: Decreased Breath Sounds Neuro: Positive: Grossly Intact Abdomen: Positive: Soft, Active Bowel Sounds Skin: Positive: Clear Extremities: Present: edema (trace) - Labs and Meds Coagulation 03/03/17 Range/Units 05:39 PT 18.0 H (12.2-14.9) Sec. INR 1.49 H (0.87-1.13) - Imaging and Cardiology EKG: image reviewed
[2017-03-03] MEDS: COUMADIN PO SCH (18:25)
[2017-03-03] MEDS: LASIX PO SCH (18:25)
--- NOTE | 2017-03-03 21:22 | Consultation ---
History of Present Illness - Reason for Consult Consult date: 03/03/17 - History of Present Illness Patient seen/examined, VSS, afebrile, alert , case d/w her.The main issue is that she needs coverage badly. Past History Past Medical History: anemia Family history: no significant family history Medications and Allergies Allergies Allergy/AdvReac Type Severity Reaction Status Date / Time morphine Allergy Hives Verified 02/25/17 19:44 shrimp Allergy Hives Verified 02/25/17 19:44 Home Medications Medication Instructions Recorded Confirmed Last Taken Type ALBUTEROL Inhaler [ProAir HFA 2 puff IH QID PRN 10/14/16 02/25/17 02/25/17 History Inhaler] Folic Acid [FA-8] 0.8 mg PO DAILY 10/14/16 02/25/17 02/25/17 History Nystatin [Nystop Powder] 1 applicatio TP TID 10/14/16 02/25/17 02/25/17 History Ranitidine HCl 75 mg PO DAILY 10/14/16 02/25/17 02/25/17 History traMADol [Ultram 50 MG tab] 50 mg PO Q4HR PRN 10/14/16 02/25/17 02/25/17 History Furosemide [Lasix TAB] 40 mg PO QDAY #60 02/13/17 02/25/17 02/25/17 Rx Metoprolol [Lopressor TAB] 50 mg PO BID #60 tablet 02/13/17 02/25/17 02/25/17 Rx Pantoprazole [Protonix TAB] 40 mg PO QDAY tablet 02/13/17 02/25/17 02/25/17 Rx Active Meds: Active Medications Acetaminophen (Tylenol) 650 mg PO Q4H PRN PRN Reason: Pain MILD(1-3)/Fever >100.5/AL Albuterol (Proventil) 2.5 mg IH Q4HRT PRN PRN Reason: Shortness Of Breath Bisacodyl (Dulcolax) 10 mg OR QDAY PRN PRN Reason: Constipation unrelieved by MOM Diphenhydramine HCl (Benadryl) 25 mg PO Q6H PRN PRN Reason: Itching Last Admin: 02/27/17 22:06 Dose: 25 mg Folic Acid (Folvite) 1 mg PO DAILY ONEAL Last Admin: 03/03/17 11:04 Dose: 1 mg Furosemide (Lasix) 40 mg PO 0600,1800 [facility] Last Admin: 03/03/17 18:25 Dose: 40 mg Hydroxyzine HCl (Atarax) 10 mg PO Q6H [facility] Last Admin: 03/03/17 14:04 Dose: 10 mg Levothyroxine Sodium (Synthroid) 25 mcg PO DAILY@0600 [facility] Last Admin: 03/03/17 05:54 Dose: 25 mcg Lisinopril (Zestril) 2.5 mg PO QDAY [facility] Last Admin: 03/03/17 11:05 Dose: 2.5 mg Magnesium Hydroxide (Milk Of Magnesia) 30 ml PO Q4H PRN PRN Reason: Constipation Metoprolol Tartrate (Lopressor) 12.5 mg PO BID [facility] Last Admin: 03/03/17 11:03 Dose: 12.5 mg Ondansetron HCl (Zofran) 4 mg IV Q8H PRN PRN Reason: N/V unrelieved by Reglan Pantoprazole Sodium (Protonix) 40 mg PO QDAY [facility] Last Admin: 03/03/17 11:06 Dose: 40 mg Tramadol HCl (Ultram) 50 mg PO Q4HR PRN PRN Reason: Pain Last Admin: 03/01/17 22:33 Dose: 50 mg Warfarin Sodium (Coumadin Pharmacy To Dose) 1 each PO PKCONSULT [facility] PRN Reason: Protocol Warfarin Sodium (Coumadin) 15 mg PO DAILY@1700 [facility] Last Admin: 03/03/17 18:25 Dose: 15 mg Review of Systems Constitutional: chronic pain Breasts: deferred Exam - Constitutional Vitals: Temp Pulse Resp BP Pulse Ox 98.5 F 91 H 18 135/52 98 03/03/17 15:42 03/03/17 15:42 03/03/17 15:42 03/03/17 15:42 03/03/17 15:42 General appearance: Present: mild distress, well-nourished - EENT Eyes: Present: PERRL ENT: hearing intact, clear oral mucosa - Neck Neck: Present: supple, normal ROM - Respiratory Respiratory: bilateral: diminished - Cardiovascular Heart Sounds: Present: S1 & S2. Absent: rub, click - Extremities Extremities: pulses symmetrical, No edema Peripheral Pulses: within normal limits - Abdominal General gastrointestinal: Present: soft, non-tender, non-distended, normal bowel sounds Female genitourinary: Present: deferred - Rectal Rectal Exam: deferred - Integumentary Integumentary: Present: clear, warm, dry - Musculoskeletal Musculoskeletal: gait normal, strength equal bilaterally - Psychiatric Psychiatric: appropriate mood/affect, intact judgment & insight - Neurologic Neurologic: CNII-XII intact, moves all extremities Results - Labs CBC & Chem 7: 02/26/17 03:52 02/26/17 03:52 Labs: Abnormal lab results 03/03/17 Range/Units 05:39 PT 18.0 H (12.2-14.9) Sec. INR 1.49 H (0.87-1.13) Assessment and Plan - Patient Problems (1) A-fib Current Visit: Yes Status: Acute Qualifiers: Atrial fibrillation type: A Plan to address problem: follow cardilogy. Continue anticoagulation (2) Subtherapeutic anticoagulation Current Visit: Yes Status: Acute Plan to address problem: adjust anticoagulant dosage. (3) Sickle cell anemia Current Visit: Yes Status: Acute Qualifiers: Sickle-cell associated disorders: S Plan to address problem: see notes above. continue with supportive.
[2017-03-04] MEDS: ATARAX PO SCH ×4 (02:16→18:53)
[2017-03-04 05:35] LABS: INR 1.63 (0.87-1.13)
[2017-03-04] MEDS: LASIX PO SCH ×2 (05:46→18:52)
[2017-03-04] MEDS: SYNTHROID PO SCH (05:46)
[2017-03-04] MEDS: FOLVITE PO SCH (09:51)
[2017-03-04] MEDS: LOPRESSOR PO SCH ×2 (09:51→21:54)
[2017-03-04] MEDS: PROTONIX PO SCH (09:52)
[2017-03-04] MEDS: ZESTRIL PO SCH (09:52)
--- NOTE | 2017-03-04 11:35 | Progress Note ---
Assessment and Plan CHF with a preserved ejection fraction Cor pulmonale recent echocardiogram showed a dilated right heart chambers, moderate tricuspid regurgitation and moderate pulmonary hypertension. Findings are consistent with cor pulmonale associated with her chronic lung disease. Left ventricle chamber size and systolic function are normal, EF 50-55%. Atrial fibrillation, new onset rate controlled initiated on warfarin; low target INR of 1.8-2.5 Sickle cell disease on home oxygen Sleep apnea Morbidly obese Hypothyroidism Recommendations: Continue rate control and oral anticoagulation with Coumadin for stroke prophylaxis. Target INR of 1.8-2.5. Otherwise, conservative cardiac management. Subjective Date of service: 03/04/17 Principal diagnosis: Corpulmonale. Interval history: Patient denies shortness of breath, chest pain and palpitations. INR of 1.63 today. Objective Vital Signs Temp Pulse Resp BP Pulse Ox 03/04/17 09:00 94 03/04/17 08:36 98.4 F 115 H 18 108/51 92 03/04/17 04:30 97.6 F 98 H 18 94 03/03/17 23:00 16 98 03/03/17 22:38 119 H 129/64 03/03/17 21:54 98.8 F 119 H 18 129/64 94 03/03/17 15:42 98.5 F 91 H 18 135/52 98 - Physical Examination General: No Apparent Distress, Other (morbidly obese) HEENT: Cardiac: Positive: irregularly irregular Neuro: Positive: Grossly Intact - Labs and Meds Coagulation 03/04/17 Range/Units 04:05 PT 19.3 H (12.2-14.9) Sec. INR 1.63 H (0.87-1.13) - Imaging and Cardiology EKG: image reviewed
[2017-03-04] MEDS: COUMADIN PO SCH (18:52)
--- NOTE | 2017-03-04 20:00 | Progress Note ---
Assessment and Plan Assessment and plan: 31-year-old AAF, morbidly obese, with pulmonary hypertension, chronic respiratory failure, on home O2, diastolic CHF, RENE , presented for swelling of the lower extremities New onset afib - rate controlled on BB - anticoagulated with Coumadin, monitoring INR, today 1.63 - cardiology following Acute on chronic hypoxic respiratory failure - likely due to combination of heart failure, cor pulmonale, obesity hypoventilation syndrome and obstructive sleep apnea - continue oxygen supplementation and CPAP while asleep Acute on chronic diastolic CHF with a preserved ejection fraction - continue Lasix (change to po today), beta osmel, CARLOS MANUEL inhibitor - low-sodium diet, strict I's and O's and daily weights - cardiology following Cor pulmonale - Echocardiogram demonstrates a dilated right heart chambers, moderate tricuspid regurgitation and moderate pulmonary hypertension. Findings are consistent with cor pulmonale likely from chronic sleep apnea and obesity hypoventilation syndrome. Left ventricle chamber size and systolic function are normal, EF 50-55%. Sleep apnea/obesity hypoventilation - CPAP while asleep, noninvasive positive pressure ventilator as needed Morbidly obese - has been counseled on lifestyle modification - may be benefited from bariatric surgery as BMI >90, recommended outpatient follow-up Sickle cell disease - chronic, not in acute exacerbation - H and H stable Subclinical Hypothyroidism - TSH 6.7, with normal free T4 - continue low-dose Synthroid - TFTs to be rechecked in 4 to 6 weeks History of Buttock abscess - Wound care following DVT prophylaxis Lovenox twice a day given morbid obesity Will D/C when INR therapeutic Dispo CM working on discharge plans with SW at [place] where she is followed for sickle cell disease as mother unable to care for her vs NH placement; awainting therapeutic INR . History Interval history: no acute events overnight, stable, monitoring INR Hospitalist Physical - Constitutional Vitals: Temp Pulse Resp BP Pulse Ox 98.5 F 100 H 16 108/64 92 03/04/17 14:55 03/04/17 14:55 03/04/17 14:55 03/04/17 14:55 03/04/17 14:55 General appearance: Present: no acute distress, obese (morbidly) - EENT Eyes: Present: PERRL, EOM intact. Absent: scleral icterus, conjunctival injection - Neck Neck: Absent: enlarged thyroid, masses or JVD, carotid bruits - Respiratory Respiratory effort: normal (at rest) Respiratory: bilateral: diminished (due to body habitus), negative: rhonchi, wheezing - Cardiovascular Rhythm: other (tachycardic) Heart Sounds: Present: S1 & S2. Absent: systolic murmur - Extremities Extremities: no ischemia - Abdominal General gastrointestinal: soft, non-tender, normal bowel sounds, other (obese, ptotuberant) - Neurologic Neurologic: no focal deficits Results - Labs CBC & Chem 7: 02/26/17 03:52 02/26/17 03:52 Labs: Laboratory Last Values WBC 10.6 K/mm3 (4.5-11.0) 02/26/17 03:52 RBC 3.47 M/mm3 (3.65-5.03) L 02/26/17 03:52 Hgb 10.0 gm/dl (10.1-14.3) L 02/26/17 03:52 Hct 29.7 % (30.3-42.9) L 02/26/17 03:52 MCV 85 fl (79-97) 02/26/17 03:52 MCH 29 pg (28-32) 02/26/17 03:52 MCHC 34 % (30-34) 02/26/17 03:52 RDW 19.9 % (13.2-15.2) H 02/26/17 03:52 Plt Count 315 K/mm3 (140-440) 02/26/17 03:52 [place] % (Auto) Federal Mediator 02/26/17 03:52 Add Manual Diff Complete 02/26/17 03:52 Total Counted 100 02/26/17 03:52 Seg Neuts % (Manual) 67.0 % (40.0-70.0) 02/26/17 03:52 Band Neutrophils % 0 % 02/26/17 03:52 Lymphocytes % (Manual) 18.0 % (13.4-35.0) 02/26/17 03:52 Reactive Lymphs % (Man) 0 % 02/26/17 03:52 Monocytes % (Manual) 12.0 % (0.0-7.3) H 02/26/17 03:52 Eosinophils % (Manual) 3.0 % (0.0-4.3) 02/26/17 03:52 Basophils % (Manual) 0 % (0.0-1.8) 02/26/17 03:52 Metamyelocytes % 0 % 02/26/17 03:52 Myelocytes % 0 % 02/26/17 03:52 Promyelocytes % 0 % 02/26/17 03:52 Blast Cells % 0 % 02/26/17 03:52 Nucleated RBC % Not Reportable 02/26/17 03:52 Seg Neutrophils # Man 7.1 K/mm3 (1.8-7.7) 02/26/17 03:52 Band Neutrophils # 0.0 K/mm3 02/26/17 03:52 Lymphocytes # (Manual) 1.9 K/mm3 (1.2-5.4) 02/26/17 03:52 Abs React Lymphs (Man) 0.0 K/mm3 02/26/17 03:52 Monocytes # (Manual) 1.3 K/mm3 (0.0-0.8) H 02/26/17 03:52 Eosinophils # (Manual) 0.3 K/mm3 (0.0-0.4) 02/26/17 03:52 Basophils # (Manual) 0.0 K/mm3 (0.0-0.1) 02/26/17 03:52 Metamyelocytes # 0.0 K/mm3 02/26/17 03:52 Myelocytes # 0.0 K/mm3 02/26/17 03:52 Promyelocytes # 0.0 K/mm3 02/26/17 03:52 Blast Cells # 0.0 K/mm3 02/26/17 03:52 Pathologist Review 02/25/17 19:09 WBC Morphology Not Reportable 02/26/17 03:52 Hypersegmented Neuts Not Reportable 02/26/17 03:52 Hyposegmented Neuts Not Reportable 02/26/17 03:52 Hypogranular Neuts Not Reportable 02/26/17 03:52 Smudge Cells Not Reportable 02/26/17 03:52 Toxic Granulation Not Reportable 02/26/17 03:52 Toxic Vacuolation Not Reportable 02/26/17 03:52 Dohle Bodies Not Reportable 02/26/17 03:52 Pelger-Huet Anomaly Not Reportable 02/26/17 03:52 James Rods Not Reportable 02/26/17 03:52 Platelet Estimate Consistent w auto 02/26/17 03:52 Clumped Platelets Not Reportable 02/26/17 03:52 Plt Clumps, EDTA Not Reportable 02/26/17 03:52 Large Platelets Not Reportable 02/26/17 03:52 Giant Platelets Not Reportable 02/26/17 03:52 Platelet Satelliting Not Reportable 02/26/17 03:52 Plt Morphology Comment Not Reportable 02/26/17 03:52 RBC Morphology Not Reportable 02/26/17 03:52 Dimorphic RBCs Not Reportable 02/26/17 03:52 Polychromasia Not Reportable 02/26/17 03:52 Hypochromasia Not Reportable 02/26/17 03:52 Poikilocytosis Not Reportable 02/26/17 03:52 Anisocytosis 1+ 02/26/17 03:52 Microcytosis Not Reportable 02/26/17 03:52 Macrocytosis Not Reportable 02/26/17 03:52 Spherocytes Not Reportable 02/26/17 03:52 Pappenheimer Bodies Not Reportable 02/26/17 03:52 Sickle Cells Not Reportable 02/26/17 03:52 Target Cells 1+ 02/26/17 03:52 Tear Drop Cells Not Reportable 02/26/17 03:52 Ovalocytes Not Reportable 02/26/17 03:52 Stomatocytes 1+ 02/26/17 03:52 Helmet Cells Not Reportable 02/26/17 03:52 [place] Bodies Not Reportable 02/26/17 03:52 [place] Rings Not Reportable 02/26/17 03:52 [place] Cells Not Reportable 02/26/17 03:52 Bite Cells Not Reportable 02/26/17 03:52 Crenated Cell Not Reportable 02/26/17 03:52 Elliptocytes Not Reportable 02/26/17 03:52 Acanthocytes (Spur) Not Reportable 02/26/17 03:52 Rouleaux Not Reportable 02/26/17 03:52 Hemoglobin C Crystals Not Reportable 02/26/17 03:52 Schistocytes Not Reportable 02/26/17 03:52 Malaria parasites Not Reportable 02/26/17 03:52 Benjamin Bodies Not Reportable 02/26/17 03:52 Hem Pathologist Commnt No 02/26/17 03:52 PT 19.3 Sec. (12.2-14.9) H 03/04/17 04:05 INR 1.63 (0.87-1.13) H 03/04/17 04:05 Sodium 141 mmol/L (137-145) 02/26/17 03:52 Potassium 4.7 mmol/L (3.6-5.0) 02/26/17 03:52 Chloride 98.7 mmol/L (98-107) 02/26/17 03:52 Carbon Dioxide 29 mmol/L (22-30) 02/26/17 03:52 Anion Gap 18 mmol/L 02/26/17 03:52 BUN 8 mg/dL (7-17) 02/26/17 03:52 Creatinine 0.6 mg/dL (0.7-1.2) L 02/26/17 03:52 Estimated GFR > 60 ml/min 02/26/17 03:52 BUN/Creatinine Ratio 13.33 % 02/26/17 03:52 Glucose 81 mg/dL (65-100) 02/26/17 03:52 Calcium 8.6 mg/dL (8.4-10.2) 02/26/17 03:52 Troponin T < 0.010 ng/mL (0.00-0.029) 02/25/17 19:09 NT-Pro-B Natriuret Pep 1916 pg/mL (0-450) H 02/25/17 19:09 HCG, Qual Negative (Negative) 02/25/17 19:09
[2017-03-04] MEDS: ULTRAM PO PRN (21:52)
--- NOTE | 2017-03-04 22:54 | Consultation ---
History of Present Illness - Reason for Consult Consult date: 03/04/17 - History of Present Illness Patient seen/examined, no new labs .last lab was on the . Past History Past Medical History: anemia Family history: no significant family history Medications and Allergies Allergies Allergy/AdvReac Type Severity Reaction Status Date / Time morphine Allergy Hives Verified 02/25/17 19:44 shrimp Allergy Hives Verified 02/25/17 19:44 Home Medications Medication Instructions Recorded Confirmed Last Taken Type ALBUTEROL Inhaler [ProAir HFA 2 puff IH QID PRN 10/14/16 02/25/17 02/25/17 History Inhaler] Folic Acid [FA-8] 0.8 mg PO DAILY 10/14/16 02/25/17 02/25/17 History Nystatin [Nystop Powder] 1 applicatio TP TID 10/14/16 02/25/17 02/25/17 History Ranitidine HCl 75 mg PO DAILY 10/14/16 02/25/17 02/25/17 History traMADol [Ultram 50 MG tab] 50 mg PO Q4HR PRN 10/14/16 02/25/17 02/25/17 History Furosemide [Lasix TAB] 40 mg PO QDAY #60 02/13/17 02/25/17 02/25/17 Rx Metoprolol [Lopressor TAB] 50 mg PO BID #60 tablet 02/13/17 02/25/17 02/25/17 Rx Pantoprazole [Protonix TAB] 40 mg PO QDAY tablet 02/13/17 02/25/17 02/25/17 Rx Active Meds: Active Medications Acetaminophen (Tylenol) 650 mg PO Q4H PRN PRN Reason: Pain MILD(1-3)/Fever >100.5/AL Last Admin: 03/04/17 09:52 Dose: 650 mg Albuterol (Proventil) 2.5 mg IH Q4HRT PRN PRN Reason: Shortness Of Breath Bisacodyl (Dulcolax) 10 mg MD QDAY PRN PRN Reason: Constipation unrelieved by MOM Diphenhydramine HCl (Benadryl) 25 mg PO Q6H PRN PRN Reason: Itching Last Admin: 02/27/17 22:06 Dose: 25 mg Folic Acid (Folvite) 1 mg PO DAILY ONEAL Last Admin: 03/04/17 09:51 Dose: 1 mg Furosemide (Lasix) 40 mg PO 0600,1800 [facility] Last Admin: 03/04/17 18:52 Dose: 40 mg Hydroxyzine HCl (Atarax) 10 mg PO Q6H [facility] Last Admin: 03/04/17 18:53 Dose: 10 mg Levothyroxine Sodium (Synthroid) 25 mcg PO DAILY@0600 [facility] Last Admin: 03/04/17 05:46 Dose: 25 mcg Lisinopril (Zestril) 2.5 mg PO QDAY [facility] Last Admin: 03/04/17 09:52 Dose: 2.5 mg Magnesium Hydroxide (Milk Of Magnesia) 30 ml PO Q4H PRN PRN Reason: Constipation Metoprolol Tartrate (Lopressor) 12.5 mg PO BID [facility] Last Admin: 03/04/17 21:54 Dose: 12.5 mg Ondansetron HCl (Zofran) 4 mg IV Q8H PRN PRN Reason: N/V unrelieved by Reglan Pantoprazole Sodium (Protonix) 40 mg PO QDAY [facility] Last Admin: 03/04/17 09:52 Dose: 40 mg Tramadol HCl (Ultram) 50 mg PO Q4HR PRN PRN Reason: Pain Last Admin: 03/04/17 21:52 Dose: 50 mg Warfarin Sodium (Coumadin Pharmacy To Dose) 1 each PO PKCONSULT [facility] PRN Reason: Protocol Warfarin Sodium (Coumadin) 15 mg PO DAILY@1700 [facility] Last Admin: 03/04/17 18:52 Dose: 15 mg Review of Systems Constitutional: chronic pain Breasts: deferred Exam - Constitutional Vitals: Temp Pulse Resp BP Pulse Ox 98.5 F 76 24 103/62 97 03/04/17 21:14 03/04/17 21:54 03/04/17 21:57 03/04/17 21:54 03/04/17 21:14 General appearance: Present: mild distress, well-nourished - EENT Eyes: Present: PERRL ENT: hearing intact, clear oral mucosa - Neck Neck: Present: supple, normal ROM - Respiratory Respiratory: bilateral: diminished - Cardiovascular Heart Sounds: Present: S1 & S2. Absent: rub, click - Extremities Extremities: pulses symmetrical, No edema Peripheral Pulses: within normal limits - Abdominal General gastrointestinal: Present: soft, non-tender, non-distended, normal bowel sounds Female genitourinary: Present: deferred - Rectal Rectal Exam: deferred - Integumentary Integumentary: Present: clear, warm, dry - Musculoskeletal Musculoskeletal: gait normal, strength equal bilaterally - Psychiatric Psychiatric: appropriate mood/affect, intact judgment & insight - Neurologic Neurologic: CNII-XII intact, moves all extremities Results - Labs CBC & Chem 7: 02/26/17 03:52 02/26/17 03:52 Labs: Abnormal lab results 03/04/17 Range/Units 04:05 PT 19.3 H (12.2-14.9) Sec. INR 1.63 H (0.87-1.13) Assessment and Plan - Patient Problems (1) A-fib Current Visit: Yes Status: Acute Qualifiers: Atrial fibrillation type: A Plan to address problem: follow cardilogy. Continue anticoagulation (2) Subtherapeutic anticoagulation Current Visit: Yes Status: Acute Plan to address problem: adjust anticoagulant dosage. (3) Sickle cell anemia Current Visit: Yes Status: Acute Qualifiers: Sickle-cell associated disorders: S Plan to address problem: see notes above. continue with supportive.
[2017-03-05] MEDS: BENADRYL PO PRN (00:23)
[2017-03-05] MEDS: ATARAX PO SCH ×4 (00:23→18:19)
[2017-03-05 06:33] LABS: Hematocrit 28.6 % (30.3-42.9); Hemoglobin 9.6 gm/dl (10.1-14.3); Mean Corpuscular HGB Conc 34 % (30-34); Mean Corpuscular Hemoglobin 28 pg (28-32); Mean Corpuscular Volume 84 fl (79-97); Platelet Count 270 K/mm3 (140-440); Red Blood Count 3.39 M/mm3 (3.65-5.03); Red Cell Distribution Width 19.2 % (13.2-15.2); Reticulocyte % 1.64 % (0.78-2.58); White Blood Count 7.4 K/mm3 (4.5-11.0)
[2017-03-05 06:42] LABS: INR 1.95 (0.87-1.13)
[2017-03-05 06:52] LABS: Anion Gap 13 mmol/L; BUN/Creatinine Ratio 14.44; Blood Urea Nitrogen 13 mg/dL (7-17); Calcium 8.4 mg/dL (8.4-10.2); Carbon Dioxide 38 mmol/L (22-30); Chloride 97.3 mmol/L (98-107); Glucose 87 mg/dL (65-100); Potassium 4.4 mmol/L (3.6-5.0); Sodium 144 mmol/L (137-145)
[2017-03-05] MEDS: SYNTHROID PO SCH (07:07)
[2017-03-05] MEDS: LASIX PO SCH ×2 (07:07→17:10)
[2017-03-05 07:44] LABS: Anisocytosis 1+; Basophils % (Manual) 0 % (0.0-1.8); Blastocytes % (Manual) 0 %; Target Cells 2+
[2017-03-05 07:46] LABS: Schistocytes Few
[2017-03-05 07:47] LABS: Diff Status Complete
--- NOTE | 2017-03-05 10:28 | Progress Note ---
Assessment and Plan CHF with a preserved ejection fraction Cor pulmonale recent echocardiogram showed a dilated right heart chambers, moderate tricuspid regurgitation and moderate pulmonary hypertension. Findings are consistent with cor pulmonale associated with her chronic lung disease. Left ventricle chamber size and systolic function are normal, EF 50-55%. Atrial fibrillation, new onset rate controlled initiated on warfarin; low target INR of 1.8-2.5 Sickle cell disease on home oxygen Sleep apnea Morbidly obese Hypothyroidism Recommendations: Continue rate control and oral anticoagulation with Coumadin for stroke prophylaxis. Conservative cardiac management. Subjective Date of service: 03/05/17 Principal diagnosis: Corpulmonale. Interval history: No cardiac events overnight. INR of 1.95. Objective Vital Signs Temp Pulse Resp BP Pulse Ox 03/05/17 07:53 98.6 F 106 H 18 97/54 96 03/05/17 07:49 96 03/05/17 01:55 98.3 F 108 H 20 95 03/05/17 01:54 107 H 111/49 95 03/04/17 21:57 24 03/04/17 21:54 76 103/62 03/04/17 21:52 24 03/04/17 21:14 98.5 F 113 H 20 103/62 100 03/04/17 21:03 97 03/04/17 14:55 98.5 F 100 H 16 108/64 92 03/04/17 13:51 98.0 F 100 H 20 109/54 93 - Physical Examination General: No Apparent Distress, Other (morbidly obese) HEENT: Cardiac: Positive: Reg Rate and Rhythm Extremities: Present: edema (trace) - Labs and Meds Coagulation 03/05/17 Range/Units 05:52 PT 22.3 H (12.2-14.9) Sec. INR 1.95 H (0.87-1.13) CBC 03/05/17 Range/Units 05:52 WBC 7.4 (4.5-11.0) K/mm3 RBC 3.39 L (3.65-5.03) M/mm3 Hgb 9.6 L (10.1-14.3) gm/dl Hct 28.6 L (30.3-42.9) % Plt Count 270 (140-440) K/mm3 Comprehensive Metabolic Panel 03/05/17 Range/Units 05:52 Sodium 144 (137-145) mmol/L Potassium 4.4 (3.6-5.0) mmol/L Chloride 97.3 L (98-107) mmol/L Carbon Dioxide 38 H (22-30) mmol/L BUN 13 (7-17) mg/dL Creatinine 0.9 (0.7-1.2) mg/dL Glucose 87 (65-100) mg/dL Calcium 8.4 (8.4-10.2) mg/dL - Imaging and Cardiology EKG: image reviewed
[2017-03-05] MEDS: FOLVITE PO SCH (10:40)
[2017-03-05] MEDS: LOPRESSOR PO SCH ×2 (10:40→21:36)
[2017-03-05] MEDS: PROTONIX PO SCH (10:41)
[2017-03-05] MEDS: ZESTRIL PO SCH (10:41)
[2017-03-05] MEDS: COUMADIN PO SCH (17:09)
--- NOTE | 2017-03-05 19:08 | Progress Note ---
Assessment and Plan Assessment and plan: 31-year-old AAF, morbidly obese, with pulmonary hypertension, chronic respiratory failure, on home O2, diastolic CHF, RENE , presented for swelling of the lower extremities New onset afib - rate controlled on BB - anticoagulated with Coumadin, monitoring INR, reached therapeutic level today - cardiology following Acute on chronic hypoxic respiratory failure - likely due to combination of heart failure, cor pulmonale, obesity hypoventilation syndrome and obstructive sleep apnea - continue oxygen supplementation and CPAP while asleep Acute on chronic diastolic CHF with a preserved ejection fraction - continue Lasix (changed to po), beta osmel, CARLOS MANUEL inhibitor - low-sodium diet, strict I's and O's and daily weights - cardiology following Cor pulmonale - Echocardiogram demonstrates a dilated right heart chambers, moderate tricuspid regurgitation and moderate pulmonary hypertension. Findings are consistent with cor pulmonale likely from chronic sleep apnea and obesity hypoventilation syndrome. Left ventricle chamber size and systolic function are normal, EF 50-55%. Sleep apnea/obesity hypoventilation - CPAP while asleep, noninvasive positive pressure ventilator as needed Morbidly obese - has been counseled on lifestyle modification - may be benefited from bariatric surgery as BMI >90, recommended outpatient follow-up Sickle cell disease - chronic, not in acute exacerbation - H and H stable Subclinical Hypothyroidism - TSH 6.7, with normal free T4 - continue low-dose Synthroid - TFTs to be rechecked in 4 to 6 weeks History of Buttock abscess - Wound care following DVT prophylaxis Lovenox twice a day given morbid obesity Will D/C when INR therapeutic Dispo CM working on discharge plans with SW at [place] where she is followed for sickle cell disease as mother unable to care for her vs NH placement; nursing homes have a weight limit of 450 pounds and patient has 550 pounds, + unfunded, so placement very difficult . History Interval history: no acute events overnight, stable, PT trying to work with her Hospitalist Physical - Constitutional Vitals: Temp Pulse Resp BP Pulse Ox 98.7 F 104 H 20 118/42 95 03/05/17 16:24 03/05/17 16:24 03/05/17 16:24 03/05/17 16:24 03/05/17 16:24 General appearance: Present: no acute distress, obese (morbidly) - EENT Eyes: Present: PERRL, EOM intact - Respiratory Respiratory effort: normal (at rest) Respiratory: bilateral: diminished (due to body habitus), negative: rhonchi, wheezing - Cardiovascular Rhythm: regular Heart Sounds: Present: S1 & S2. Absent: systolic murmur - Extremities Extremities: no ischemia - Abdominal General gastrointestinal: soft, non-tender, normal bowel sounds, other (abdomen obese, protuberant) - Psychiatric Psychiatric: depressed - Neurologic Neurologic: moves all extremities Results - Labs CBC & Chem 7: 03/05/17 05:52 03/05/17 05:52 Labs: Laboratory Last Values WBC 7.4 K/mm3 (4.5-11.0) 03/05/17 05:52 RBC 3.39 M/mm3 (3.65-5.03) L 03/05/17 05:52 Hgb 9.6 gm/dl (10.1-14.3) L 03/05/17 05:52 Hct 28.6 % (30.3-42.9) L 03/05/17 05:52 MCV 84 fl (79-97) 03/05/17 05:52 MCH 28 pg (28-32) 03/05/17 05:52 MCHC 34 % (30-34) 03/05/17 05:52 RDW 19.2 % (13.2-15.2) H 03/05/17 05:52 Plt Count 270 K/mm3 (140-440) 03/05/17 05:52 [place] % (Auto) Senior Internal Auditor 03/05/17 05:52 Add Manual Diff Complete 03/05/17 05:52 Total Counted 100 03/05/17 05:52 Seg Neuts % (Manual) 51 % (40.0-70.0) 03/05/17 05:52 Band Neutrophils % 3.0 % 03/05/17 05:52 Lymphocytes % (Manual) 25.0 % (13.4-35.0) 03/05/17 05:52 Reactive Lymphs % (Man) 0 % 03/05/17 05:52 Monocytes % (Manual) 14 % (0.0-7.3) H 03/05/17 05:52 Eosinophils % (Manual) 7.0 % (0.0-4.3) H 03/05/17 05:52 Basophils % (Manual) 0 % (0.0-1.8) 03/05/17 05:52 Metamyelocytes % 0 % 03/05/17 05:52 Myelocytes % 0 % 03/05/17 05:52 Promyelocytes % 0 % 03/05/17 05:52 Blast Cells % 0 % 03/05/17 05:52 Nucleated RBC % Not Reportable 03/05/17 05:52 Seg Neutrophils # Man 3.9 K/mm3 (1.8-7.7) 03/05/17 05:52 Band Neutrophils # 0.2 K/mm3 03/05/17 05:52 Lymphocytes # (Manual) 1.9 K/mm3 (1.2-5.4) 03/05/17 05:52 Abs React Lymphs (Man) 0.0 K/mm3 03/05/17 05:52 Monocytes # (Manual) 0.9 K/mm3 (0.0-0.8) H 03/05/17 05:52 Eosinophils # (Manual) 0.5 K/mm3 (0.0-0.4) H 03/05/17 05:52 Basophils # (Manual) 0.0 K/mm3 (0.0-0.1) 03/05/17 05:52 Metamyelocytes # 0.0 K/mm3 03/05/17 05:52 Myelocytes # 0.0 K/mm3 03/05/17 05:52 Promyelocytes # 0.0 K/mm3 03/05/17 05:52 Blast Cells # 0.0 K/mm3 03/05/17 05:52 Pathologist Review 02/25/17 19:09 WBC Morphology Not Reportable 03/05/17 05:52 Hypersegmented Neuts Not Reportable 03/05/17 05:52 Hyposegmented Neuts Not Reportable 03/05/17 05:52 Hypogranular Neuts Not Reportable 03/05/17 05:52 Smudge Cells Not Reportable 03/05/17 05:52 Toxic Granulation Not Reportable 03/05/17 05:52 Toxic Vacuolation Not Reportable 03/05/17 05:52 Dohle Bodies Not Reportable 03/05/17 05:52 Pelger-Huet Anomaly Not Reportable 03/05/17 05:52 James Rods Not Reportable 03/05/17 05:52 Platelet Estimate Not Reportable 03/05/17 05:52 Clumped Platelets Not Reportable 03/05/17 05:52 Plt Clumps, EDTA Not Reportable 03/05/17 05:52 Large Platelets Not Reportable 03/05/17 05:52 Giant Platelets Not Reportable 03/05/17 05:52 Platelet Satelliting Not Reportable 03/05/17 05:52 Plt Morphology Comment Not Reportable 03/05/17 05:52 RBC Morphology Not Reportable 03/05/17 05:52 Dimorphic RBCs Not Reportable 03/05/17 05:52 Polychromasia Not Reportable 03/05/17 05:52 Hypochromasia Not Reportable 03/05/17 05:52 Poikilocytosis Not Reportable 03/05/17 05:52 Anisocytosis 1+ 03/05/17 05:52 Microcytosis Not Reportable 03/05/17 05:52 Macrocytosis Not Reportable 03/05/17 05:52 Spherocytes Not Reportable 03/05/17 05:52 Pappenheimer Bodies Not Reportable 03/05/17 05:52 Sickle Cells Not Reportable 03/05/17 05:52 Target Cells 2+ 03/05/17 05:52 Tear Drop Cells Not Reportable 03/05/17 05:52 Ovalocytes Not Reportable 03/05/17 05:52 Stomatocytes 1+ 02/26/17 03:52 Helmet Cells Not Reportable 03/05/17 05:52 [place] Bodies Not Reportable 03/05/17 05:52 [place] Rings Not Reportable 03/05/17 05:52 [place] Cells Not Reportable 03/05/17 05:52 Bite Cells Not Reportable 03/05/17 05:52 Crenated Cell Not Reportable 03/05/17 05:52 Elliptocytes Not Reportable 03/05/17 05:52 Acanthocytes (Spur) Not Reportable 03/05/17 05:52 Rouleaux Not Reportable 03/05/17 05:52 Hemoglobin C Crystals Rare 03/05/17 05:52 Schistocytes Few 03/05/17 05:52 Malaria parasites Not Reportable 03/05/17 05:52 Percent Retic 1.64 % (0.78-2.58) 03/05/17 05:52 Benjamin Bodies Not Reportable 03/05/17 05:52 Hem Pathologist Commnt No 03/05/17 05:52 PT 22.3 Sec. (12.2-14.9) H 03/05/17 05:52 INR 1.95 (0.87-1.13) H 03/05/17 05:52 Sodium 144 mmol/L (137-145) 03/05/17 05:52 Potassium 4.4 mmol/L (3.6-5.0) 03/05/17 05:52 Chloride 97.3 mmol/L (98-107) L 03/05/17 05:52 Carbon Dioxide 38 mmol/L (22-30) H 03/05/17 05:52 Anion Gap 13 mmol/L 03/05/17 05:52 BUN 13 mg/dL (7-17) 03/05/17 05:52 Creatinine 0.9 mg/dL (0.7-1.2) 03/05/17 05:52 Estimated GFR > 60 ml/min 03/05/17 05:52 BUN/Creatinine Ratio 14.44 % 03/05/17 05:52 Glucose 87 mg/dL (65-100) 03/05/17 05:52 Calcium 8.4 mg/dL (8.4-10.2) 03/05/17 05:52 Troponin T < 0.010 ng/mL (0.00-0.029) 02/25/17 19:09 NT-Pro-B Natriuret Pep 1916 pg/mL (0-450) H 02/25/17 19:09 HCG, Qual Negative (Negative) 02/25/17 19:09
--- NOTE | 2017-03-05 21:10 | Consultation ---
History of Present Illness - Reason for Consult Consult date: 03/05/17 - History of Present Illness patient seen/examined, record reviewed, case d/w her.notes reviewed. with patient. Past History Past Medical History: anemia Family history: no significant family history Medications and Allergies Allergies Allergy/AdvReac Type Severity Reaction Status Date / Time morphine Allergy Hives Verified 02/25/17 19:44 shrimp Allergy Hives Verified 02/25/17 19:44 Home Medications Medication Instructions Recorded Confirmed Last Taken Type ALBUTEROL Inhaler [ProAir HFA 2 puff IH QID PRN 10/14/16 02/25/17 02/25/17 History Inhaler] Folic Acid [FA-8] 0.8 mg PO DAILY 10/14/16 02/25/17 02/25/17 History Nystatin [Nystop Powder] 1 applicatio TP TID 10/14/16 02/25/17 02/25/17 History Ranitidine HCl 75 mg PO DAILY 10/14/16 02/25/17 02/25/17 History traMADol [Ultram 50 MG tab] 50 mg PO Q4HR PRN 10/14/16 02/25/17 02/25/17 History Furosemide [Lasix TAB] 40 mg PO QDAY #60 02/13/17 02/25/17 02/25/17 Rx Metoprolol [Lopressor TAB] 50 mg PO BID #60 tablet 02/13/17 02/25/17 02/25/17 Rx Pantoprazole [Protonix TAB] 40 mg PO QDAY tablet 02/13/17 02/25/17 02/25/17 Rx Active Meds: Active Medications Acetaminophen (Tylenol) 650 mg PO Q4H PRN PRN Reason: Pain MILD(1-3)/Fever >100.5/AL Last Admin: 03/04/17 09:52 Dose: 650 mg Albuterol (Proventil) 2.5 mg IH Q4HRT PRN PRN Reason: Shortness Of Breath Bisacodyl (Dulcolax) 10 mg [place] QDAY PRN PRN Reason: Constipation unrelieved by MOM Diphenhydramine HCl (Benadryl) 25 mg PO Q6H PRN PRN Reason: Itching Last Admin: 03/05/17 00:23 Dose: 25 mg Folic Acid (Folvite) 1 mg PO DAILY ONEAL Last Admin: 03/05/17 10:40 Dose: 1 mg Furosemide (Lasix) 40 mg PO 0600,1800 [facility] Last Admin: 03/05/17 17:10 Dose: 40 mg Hydroxyzine HCl (Atarax) 10 mg PO Q6H [facility] Last Admin: 03/05/17 18:19 Dose: 10 mg Levothyroxine Sodium (Synthroid) 25 mcg PO DAILY@0600 [facility] Last Admin: 03/05/17 07:07 Dose: 25 mcg Lisinopril (Zestril) 2.5 mg PO QDAY [facility] Last Admin: 03/05/17 10:41 Dose: 2.5 mg Magnesium Hydroxide (Milk Of Magnesia) 30 ml PO Q4H PRN PRN Reason: Constipation Metoprolol Tartrate (Lopressor) 12.5 mg PO BID [facility] Last Admin: 03/05/17 10:40 Dose: 12.5 mg Ondansetron HCl (Zofran) 4 mg IV Q8H PRN PRN Reason: N/V unrelieved by Reglan Pantoprazole Sodium (Protonix) 40 mg PO QDAY [facility] Last Admin: 03/05/17 10:41 Dose: 40 mg Tramadol HCl (Ultram) 50 mg PO Q4HR PRN PRN Reason: Pain Last Admin: 03/04/17 21:52 Dose: 50 mg Warfarin Sodium (Coumadin Pharmacy To Dose) 1 each PO PKCONSULT [facility] PRN Reason: Protocol Warfarin Sodium (Coumadin) 15 mg PO DAILY@1700 [facility] Last Admin: 03/05/17 17:09 Dose: 15 mg Review of Systems Constitutional: chronic pain Breasts: deferred Exam - Constitutional Vitals: Temp Pulse Resp BP Pulse Ox 98.7 F 104 H 20 118/42 95 03/05/17 16:24 03/05/17 16:24 03/05/17 16:24 03/05/17 16:24 03/05/17 16:24 General appearance: Present: no acute distress, well-nourished - EENT Eyes: Present: PERRL ENT: hearing intact, clear oral mucosa - Neck Neck: Present: supple, normal ROM - Respiratory Respiratory effort: normal Respiratory: bilateral: CTA - Cardiovascular Heart Sounds: Present: S1 & S2. Absent: rub, click - Extremities Extremities: pulses symmetrical, No edema Peripheral Pulses: within normal limits - Abdominal General gastrointestinal: Present: soft, non-tender, non-distended, normal bowel sounds Female genitourinary: Present: deferred - Rectal Rectal Exam: deferred - Integumentary Integumentary: Present: clear, warm, dry - Musculoskeletal Musculoskeletal: gait normal, strength equal bilaterally - Psychiatric Psychiatric: appropriate mood/affect, intact judgment & insight - Neurologic Neurologic: CNII-XII intact, moves all extremities Results - Labs CBC & Chem 7: 03/05/17 05:52 03/05/17 05:52 Labs: Abnormal lab results 03/05/17 03/05/17 03/05/17 Range/Units 05:52 05:52 05:52 RBC 3.39 L (3.65-5.03) M/mm3 Hgb 9.6 L (10.1-14.3) gm/dl Hct 28.6 L (30.3-42.9) % RDW 19.2 H (13.2-15.2) % Monocytes % (Manual) 14 H (0.0-7.3) % Eosinophils % (Manual) 7.0 H (0.0-4.3) % Monocytes # (Manual) 0.9 H (0.0-0.8) K/mm3 Eosinophils # (Manual) 0.5 H (0.0-0.4) K/mm3 PT 22.3 H (12.2-14.9) Sec. INR 1.95 H (0.87-1.13) Chloride 97.3 L (98-107) mmol/L Carbon Dioxide 38 H (22-30) mmol/L Assessment and Plan - Patient Problems (1) A-fib Current Visit: Yes Status: Acute Qualifiers: Atrial fibrillation type: A Plan to address problem: follow cardilogy. Continue anticoagulation (2) Subtherapeutic anticoagulation Current Visit: Yes Status: Acute Plan to address problem: adjust anticoagulant dosage. (3) Sickle cell anemia Current Visit: Yes Status: Acute Qualifiers: Sickle-cell associated disorders: S Plan to address problem: see notes above. continue with supportive.
[2017-03-06] MEDS: BENADRYL PO PRN (01:19)
[2017-03-06] MEDS: ATARAX PO SCH ×5 (01:20→18:21)
[2017-03-06 05:25] LABS: INR 2.02 (0.87-1.13)
[2017-03-06] MEDS: SYNTHROID PO SCH (05:45)
[2017-03-06] MEDS: LASIX PO SCH ×3 (05:46→18:20)
--- NOTE | 2017-03-06 09:54 | Progress Note ---
Assessment and Plan CHF with a preserved ejection fraction Cor pulmonale recent echocardiogram showed a dilated right heart chambers, moderate tricuspid regurgitation and moderate pulmonary hypertension. Findings are consistent with cor pulmonale associated with her chronic lung disease. Left ventricle chamber size and systolic function are normal, EF 50-55%. Atrial fibrillation, new onset rate controlled initiated on warfarin; low target INR of 1.8-2.5. Pharmacy is following. Sickle cell disease on home oxygen Sleep apnea Morbidly obese Hypothyroidism Conservative cardiac management. Subjective Date of service: 03/06/17 Principal diagnosis: Corpulmonale. Interval history: Patient has no complaints. Objective Vital Signs Temp Pulse Resp BP BP Pulse Ox 03/06/17 05:42 95/63 03/06/17 00:13 98.5 F 106 H 20 108/48 100 03/05/17 23:33 113 H 18 97 03/05/17 21:36 98 H 104/81 03/05/17 21:00 98.6 F 117 H 20 84/44 94 03/05/17 16:24 98.7 F 104 H 20 118/42 95 - Physical Examination General: No Apparent Distress, Other (morbidly obese) HEENT: Neck: Negative: JVD/HJR Cardiac: Positive: irregularly irregular - Labs and Meds Coagulation 03/06/17 Range/Units 04:08 PT 23.9 H (12.2-14.9) Sec. INR 2.02 H (0.87-1.13) - Imaging and Cardiology EKG: image reviewed
--- NOTE | 2017-03-06 10:00 | Consultation ---
History of Present Illness - Reason for Consult Consult date: 03/06/17 - History of Present Illness Patient resting in bed, no new issues at this time. Past History Past Medical History: anemia Family history: no significant family history Medications and Allergies Allergies Allergy/AdvReac Type Severity Reaction Status Date / Time morphine Allergy Hives Verified 02/25/17 19:44 shrimp Allergy Hives Verified 02/25/17 19:44 Home Medications Medication Instructions Recorded Confirmed Last Taken Type ALBUTEROL Inhaler [ProAir HFA 2 puff IH QID PRN 10/14/16 02/25/17 02/25/17 History Inhaler] Folic Acid [FA-8] 0.8 mg PO DAILY 10/14/16 02/25/17 02/25/17 History Nystatin [Nystop Powder] 1 applicatio TP TID 10/14/16 02/25/17 02/25/17 History Ranitidine HCl 75 mg PO DAILY 10/14/16 02/25/17 02/25/17 History traMADol [Ultram 50 MG tab] 50 mg PO Q4HR PRN 10/14/16 02/25/17 02/25/17 History Furosemide [Lasix TAB] 40 mg PO QDAY #60 02/13/17 02/25/17 02/25/17 Rx Metoprolol [Lopressor TAB] 50 mg PO BID #60 tablet 02/13/17 02/25/17 02/25/17 Rx Pantoprazole [Protonix TAB] 40 mg PO QDAY tablet 02/13/17 02/25/17 02/25/17 Rx Active Meds: Active Medications Acetaminophen (Tylenol) 650 mg PO Q4H PRN PRN Reason: Pain MILD(1-3)/Fever >100.5/AL Last Admin: 03/04/17 09:52 Dose: 650 mg Albuterol (Proventil) 2.5 mg IH Q4HRT PRN PRN Reason: Shortness Of Breath Bisacodyl (Dulcolax) 10 mg [place] QDAY PRN PRN Reason: Constipation unrelieved by MOM Diphenhydramine HCl (Benadryl) 25 mg PO Q6H PRN PRN Reason: Itching Last Admin: 03/06/17 01:19 Dose: 25 mg Folic Acid (Folvite) 1 mg PO DAILY ONEAL Last Admin: 03/05/17 10:40 Dose: 1 mg Furosemide (Lasix) 40 mg PO 0600,1800 [facility] Last Admin: 03/06/17 07:04 Dose: 40 mg Hydroxyzine HCl (Atarax) 10 mg PO Q6H [facility] Last Admin: 03/06/17 06:47 Dose: Not Given Levothyroxine Sodium (Synthroid) 25 mcg PO DAILY@0600 [facility] Last Admin: 03/06/17 05:45 Dose: 25 mcg Lisinopril (Zestril) 2.5 mg PO QDAY [facility] Last Admin: 03/05/17 10:41 Dose: 2.5 mg Magnesium Hydroxide (Milk Of Magnesia) 30 ml PO Q4H PRN PRN Reason: Constipation Metoprolol Tartrate (Lopressor) 12.5 mg PO BID [facility] Last Admin: 03/05/17 21:36 Dose: 12.5 mg Ondansetron HCl (Zofran) 4 mg IV Q8H PRN PRN Reason: N/V unrelieved by Reglan Pantoprazole Sodium (Protonix) 40 mg PO QDAY [facility] Last Admin: 03/05/17 10:41 Dose: 40 mg Tramadol HCl (Ultram) 50 mg PO Q4HR PRN PRN Reason: Pain Last Admin: 03/04/17 21:52 Dose: 50 mg Warfarin Sodium (Coumadin Pharmacy To Dose) 1 each PO PKCONSULT [facility] PRN Reason: Protocol Warfarin Sodium (Coumadin) 15 mg PO DAILY@1700 [facility] Last Admin: 03/05/17 17:09 Dose: 15 mg Review of Systems Constitutional: chronic pain Breasts: deferred Exam - Constitutional Vitals: Temp Pulse Resp BP Pulse Ox 98.5 F 106 H 20 95/63 100 03/06/17 00:13 03/06/17 00:13 03/06/17 00:13 03/06/17 05:42 03/06/17 00:13 General appearance: Present: no acute distress, well-nourished - EENT Eyes: Present: PERRL ENT: hearing intact, clear oral mucosa - Neck Neck: Present: supple, normal ROM - Respiratory Respiratory: bilateral: diminished - Cardiovascular Heart Sounds: Present: S1 & S2. Absent: rub, click - Extremities Extremities: pulses symmetrical, No edema Peripheral Pulses: within normal limits - Abdominal General gastrointestinal: Present: soft, non-tender, non-distended, normal bowel sounds Female genitourinary: Present: deferred - Rectal Rectal Exam: deferred - Integumentary Integumentary: Present: clear, warm, dry - Musculoskeletal Musculoskeletal: gait normal, strength equal bilaterally - Psychiatric Psychiatric: appropriate mood/affect, intact judgment & insight - Neurologic Neurologic: CNII-XII intact, moves all extremities Results - Labs CBC & Chem 7: 03/05/17 05:52 03/05/17 05:52 Labs: Abnormal lab results 03/06/17 Range/Units 04:08 PT 23.9 H (12.2-14.9) Sec. INR 2.02 H (0.87-1.13) Assessment and Plan - Patient Problems (1) A-fib Current Visit: Yes Status: Acute Qualifiers: Atrial fibrillation type: A Plan to address problem: follow cardilogy. Continue anticoagulation (2) Subtherapeutic anticoagulation Current Visit: Yes Status: Acute Plan to address problem: adjust anticoagulant dosage. (3) Sickle cell anemia Current Visit: Yes Status: Acute Qualifiers: Sickle-cell associated disorders: S Plan to address problem: see notes above. continue with supportive.
[2017-03-06] MEDS: LOPRESSOR PO SCH ×2 (11:30→23:00)
[2017-03-06] MEDS: PROTONIX PO SCH (11:30)
[2017-03-06] MEDS: ZESTRIL PO SCH (11:30)
[2017-03-06] MEDS: FOLVITE PO SCH (13:27)
--- NOTE | 2017-03-06 16:37 | Progress Note ---
Assessment and Plan Assessment and plan: 31-year-old AAF, morbidly obese, with pulmonary hypertension, chronic respiratory failure, on home O2, diastolic CHF, RENE , presented for swelling of the lower extremities New onset afib - rate controlled on BB - anticoagulated with Coumadin, monitoring INR, reached therapeutic level - cardiology following Acute on chronic hypoxic respiratory failure - likely due to combination of heart failure, cor pulmonale, obesity hypoventilation syndrome and obstructive sleep apnea - continue oxygen supplementation and CPAP while asleep Acute on chronic diastolic CHF with a preserved ejection fraction - continue Lasix (changed to po), beta osmel, CARLOS MANUEL inhibitor - low-sodium diet, strict I's and O's and daily weights - cardiology following Cor pulmonale - Echocardiogram demonstrates a dilated right heart chambers, moderate tricuspid regurgitation and moderate pulmonary hypertension. Findings are consistent with cor pulmonale likely from chronic sleep apnea and obesity hypoventilation syndrome. Left ventricle chamber size and systolic function are normal, EF 50-55%. Sleep apnea/obesity hypoventilation - CPAP while asleep, noninvasive positive pressure ventilator as needed Morbidly obese - has been counseled on lifestyle modification - may be benefited from bariatric surgery as BMI >90, recommended outpatient follow-up Sickle cell disease - chronic, not in acute exacerbation - H and H stable Subclinical Hypothyroidism - TSH 6.7, with normal free T4 - continue low-dose Synthroid - TFTs to be rechecked in 4 to 6 weeks History of Buttock abscess - Wound care following DVT prophylaxis Lovenox twice a day given morbid obesity Will D/C when INR therapeutic Dispo CM working on discharge plans with SW at [place] where she is followed for sickle cell disease as mother unable to care for her vs NH placement, but nursing homes have a weight limit of 450 pounds and patient has 550 pounds, + unfunded, so placement very difficult . History Interval history: no acute events, stable, awainting placement Hospitalist Physical - Constitutional Vitals: Temp Pulse Resp BP Pulse Ox 98.5 F 106 H 20 103/54 96 03/06/17 00:13 03/06/17 00:13 03/06/17 00:13 03/06/17 11:30 03/06/17 10:00 General appearance: Present: no acute distress, obese (morbidly) - EENT Eyes: Present: PERRL, EOM intact - Neck Neck: Absent: enlarged thyroid, masses or JVD, carotid bruits - Respiratory Respiratory effort: normal (at rest) Respiratory: bilateral: diminished (due to body habitus), negative: rhonchi, wheezing - Cardiovascular Rhythm: other (tachycardic) Heart Sounds: Present: S1 & S2. Absent: systolic murmur - Extremities Extremities: no ischemia - Abdominal General gastrointestinal: soft, non-tender, non-distended, normal bowel sounds - Psychiatric Psychiatric: depressed - Neurologic Neurologic: moves all extremities Results - Labs CBC & Chem 7: 03/05/17 05:52 03/05/17 05:52 Labs: Laboratory Last Values WBC 7.4 K/mm3 (4.5-11.0) 03/05/17 05:52 RBC 3.39 M/mm3 (3.65-5.03) L 03/05/17 05:52 Hgb 9.6 gm/dl (10.1-14.3) L 03/05/17 05:52 Hct 28.6 % (30.3-42.9) L 03/05/17 05:52 MCV 84 fl (79-97) 03/05/17 05:52 MCH 28 pg (28-32) 03/05/17 05:52 MCHC 34 % (30-34) 03/05/17 05:52 RDW 19.2 % (13.2-15.2) H 03/05/17 05:52 Plt Count 270 K/mm3 (140-440) 03/05/17 05:52 [place] % (Auto) [employer] Manager 03/05/17 05:52 Add Manual Diff Complete 03/05/17 05:52 Total Counted 100 03/05/17 05:52 Seg Neuts % (Manual) 51 % (40.0-70.0) 03/05/17 05:52 Band Neutrophils % 3.0 % 03/05/17 05:52 Lymphocytes % (Manual) 25.0 % (13.4-35.0) 03/05/17 05:52 Reactive Lymphs % (Man) 0 % 03/05/17 05:52 Monocytes % (Manual) 14 % (0.0-7.3) H 03/05/17 05:52 Eosinophils % (Manual) 7.0 % (0.0-4.3) H 03/05/17 05:52 Basophils % (Manual) 0 % (0.0-1.8) 03/05/17 05:52 Metamyelocytes % 0 % 03/05/17 05:52 Myelocytes % 0 % 03/05/17 05:52 Promyelocytes % 0 % 03/05/17 05:52 Blast Cells % 0 % 03/05/17 05:52 Nucleated RBC % Not Reportable 03/05/17 05:52 Seg Neutrophils # Man 3.9 K/mm3 (1.8-7.7) 03/05/17 05:52 Band Neutrophils # 0.2 K/mm3 03/05/17 05:52 Lymphocytes # (Manual) 1.9 K/mm3 (1.2-5.4) 03/05/17 05:52 Abs React Lymphs (Man) 0.0 K/mm3 03/05/17 05:52 Monocytes # (Manual) 0.9 K/mm3 (0.0-0.8) H 03/05/17 05:52 Eosinophils # (Manual) 0.5 K/mm3 (0.0-0.4) H 03/05/17 05:52 Basophils # (Manual) 0.0 K/mm3 (0.0-0.1) 03/05/17 05:52 Metamyelocytes # 0.0 K/mm3 03/05/17 05:52 Myelocytes # 0.0 K/mm3 03/05/17 05:52 Promyelocytes # 0.0 K/mm3 03/05/17 05:52 Blast Cells # 0.0 K/mm3 03/05/17 05:52 Pathologist Review 02/25/17 19:09 WBC Morphology Not Reportable 03/05/17 05:52 Hypersegmented Neuts Not Reportable 03/05/17 05:52 Hyposegmented Neuts Not Reportable 03/05/17 05:52 Hypogranular Neuts Not Reportable 03/05/17 05:52 Smudge Cells Not Reportable 03/05/17 05:52 Toxic Granulation Not Reportable 03/05/17 05:52 Toxic Vacuolation Not Reportable 03/05/17 05:52 Dohle Bodies Not Reportable 03/05/17 05:52 Pelger-Huet Anomaly Not Reportable 03/05/17 05:52 James Rods Not Reportable 03/05/17 05:52 Platelet Estimate Not Reportable 03/05/17 05:52 Clumped Platelets Not Reportable 03/05/17 05:52 Plt Clumps, EDTA Not Reportable 03/05/17 05:52 Large Platelets Not Reportable 03/05/17 05:52 Giant Platelets Not Reportable 03/05/17 05:52 Platelet Satelliting Not Reportable 03/05/17 05:52 Plt Morphology Comment Not Reportable 03/05/17 05:52 RBC Morphology Not Reportable 03/05/17 05:52 Dimorphic RBCs Not Reportable 03/05/17 05:52 Polychromasia Not Reportable 03/05/17 05:52 Hypochromasia Not Reportable 03/05/17 05:52 Poikilocytosis Not Reportable 03/05/17 05:52 Anisocytosis 1+ 03/05/17 05:52 Microcytosis Not Reportable 03/05/17 05:52 Macrocytosis Not Reportable 03/05/17 05:52 Spherocytes Not Reportable 03/05/17 05:52 Pappenheimer Bodies Not Reportable 03/05/17 05:52 Sickle Cells Not Reportable 03/05/17 05:52 Target Cells 2+ 03/05/17 05:52 Tear Drop Cells Not Reportable 03/05/17 05:52 Ovalocytes Not Reportable 03/05/17 05:52 Stomatocytes 1+ 02/26/17 03:52 Helmet Cells Not Reportable 03/05/17 05:52 [place] Bodies Not Reportable 03/05/17 05:52 [place] Rings Not Reportable 03/05/17 05:52 Fabi Cells Not Reportable 03/05/17 05:52 Bite Cells Not Reportable 03/05/17 05:52 Crenated Cell Not Reportable 03/05/17 05:52 Elliptocytes Not Reportable 03/05/17 05:52 Acanthocytes (Spur) Not Reportable 03/05/17 05:52 Rouleaux Not Reportable 03/05/17 05:52 Hemoglobin C Crystals Rare 03/05/17 05:52 Schistocytes Few 03/05/17 05:52 Malaria parasites Not Reportable 03/05/17 05:52 Percent Retic 1.64 % (0.78-2.58) 03/05/17 05:52 Benjamin Bodies Not Reportable 03/05/17 05:52 Hem Pathologist Commnt No 03/05/17 05:52 PT 23.9 Sec. (12.2-14.9) H 03/06/17 04:08 INR 2.02 (0.87-1.13) H 03/06/17 04:08 Sodium 144 mmol/L (137-145) 03/05/17 05:52 Potassium 4.4 mmol/L (3.6-5.0) 03/05/17 05:52 Chloride 97.3 mmol/L (98-107) L 03/05/17 05:52 Carbon Dioxide 38 mmol/L (22-30) H 03/05/17 05:52 Anion Gap 13 mmol/L 03/05/17 05:52 BUN 13 mg/dL (7-17) 03/05/17 05:52 Creatinine 0.9 mg/dL (0.7-1.2) 03/05/17 05:52 Estimated GFR > 60 ml/min 03/05/17 05:52 BUN/Creatinine Ratio 14.44 % 03/05/17 05:52 Glucose 87 mg/dL (65-100) 03/05/17 05:52 Calcium 8.4 mg/dL (8.4-10.2) 03/05/17 05:52 Troponin T < 0.010 ng/mL (0.00-0.029) 02/25/17 19:09 NT-Pro-B Natriuret Pep 1916 pg/mL (0-450) H 02/25/17 19:09 HCG, Qual Negative (Negative) 02/25/17 19:09
[2017-03-06] MEDS: COUMADIN PO SCH (18:21)
[2017-03-07] MEDS: ATARAX PO SCH ×4 (00:02→19:48)
[2017-03-07] MEDS: BENADRYL PO PRN (00:02)
[2017-03-07 05:25] LABS: INR 2.26 (0.87-1.13)
[2017-03-07] MEDS: LASIX PO SCH ×2 (06:15→19:48)
[2017-03-07] MEDS: SYNTHROID PO SCH (06:15)
[2017-03-07] MEDS: FOLVITE PO SCH (10:13)
[2017-03-07] MEDS: ZESTRIL PO SCH (10:14)
[2017-03-07] MEDS: LOPRESSOR PO SCH ×2 (10:14→21:23)
[2017-03-07] MEDS: PROTONIX PO SCH (10:14)
--- NOTE | 2017-03-07 11:48 | Progress Note ---
Assessment and Plan CHF with a preserved ejection fraction Cor pulmonale recent echocardiogram showed a dilated right heart chambers, moderate tricuspid regurgitation and moderate pulmonary hypertension. Findings are consistent with cor pulmonale associated with her chronic lung disease. Left ventricle chamber size and systolic function are normal, EF 50-55%. Atrial fibrillation, new onset rate controlled initiated on warfarin; low target INR of 1.8-2.5. Pharmacy is following. Sickle cell disease on home oxygen Sleep apnea Morbidly obese Hypothyroidism Continue current cardiac management. We will sign off - please call with questions Subjective Date of service: 03/07/17 Principal diagnosis: Corpulmonale. Interval history: no acute events Objective Vital Signs Temp Pulse Pulse Resp Resp BP BP 03/07/17 07:56 98.4 F 94 H 18 93/63 03/07/17 07:31 03/07/17 00:23 99 H 16 03/06/17 23:48 99.0 F 107 H 20 84/54 03/06/17 23:45 99.0 F 112 H 20 84/54 03/06/17 23:00 84/54 03/06/17 20:46 101 H 18 03/06/17 20:26 98 H 18 03/06/17 20:19 03/06/17 16:02 98.6 F 101 H 20 110/77 Pulse Ox 03/07/17 07:56 93 03/07/17 07:31 98 03/07/17 00:23 96 03/06/17 23:48 03/06/17 23:45 100 03/06/17 23:00 03/06/17 20:46 03/06/17 20:26 03/06/17 20:19 94 03/06/17 16:02 91 - Physical Examination General: No Apparent Distress, Other (morbidly obese) HEENT: Neck: Positive: trachea midline. Negative: JVD/HJR Cardiac: Positive: Reg Rate and Rhythm Lungs: Positive: clear to auscultation Neuro: Positive: Grossly Intact Abdomen: Positive: Soft, Active Bowel Sounds Skin: Positive: Clear Extremities: Absent: edema (trace) - Labs and Meds Coagulation 03/07/17 Range/Units 03:27 PT 26.2 H (12.2-14.9) Sec. INR 2.26 H (0.87-1.13) - Imaging and Cardiology EKG: image reviewed
--- NOTE | 2017-03-07 18:06 | Progress Note ---
Assessment and Plan Assessment and plan: 31-year-old AAF, morbidly obese, with pulmonary hypertension, chronic respiratory failure, on home O2, diastolic CHF, RENE , presented for swelling of the lower extremities New onset afib - rate controlled on BB - anticoagulated with Coumadin, monitoring INR, reached therapeutic level - cardiology following Acute on chronic hypoxic respiratory failure - likely due to combination of heart failure, cor pulmonale, obesity hypoventilation syndrome and obstructive sleep apnea - continue oxygen supplementation and CPAP while asleep Acute on chronic diastolic CHF with a preserved ejection fraction - continue Lasix (changed to po), beta osmel, CARLOS MANUEL inhibitor - low-sodium diet, strict I's and O's and daily weights - cardiology following Cor pulmonale - Echocardiogram demonstrates a dilated right heart chambers, moderate tricuspid regurgitation and moderate pulmonary hypertension. Findings are consistent with cor pulmonale likely from chronic sleep apnea and obesity hypoventilation syndrome. Left ventricle chamber size and systolic function are normal, EF 50-55%. Sleep apnea/obesity hypoventilation - CPAP while asleep, noninvasive positive pressure ventilator as needed Morbidly obese - has been counseled on lifestyle modification - may be benefited from bariatric surgery as BMI >90, recommended outpatient follow-up Sickle cell disease - chronic, not in acute exacerbation - H and H stable Subclinical Hypothyroidism - TSH 6.7, with normal free T4 - continue low-dose Synthroid - TFTs to be rechecked in 4 to 6 weeks History of Buttock abscess - Wound care following DVT prophylaxis INR therapeutic now, D/C [facility] [facility] CM working on discharge plans with SW at [facility] where she is followed for sickle cell disease as mother unable to care for her vs NH placement, but nursing homes have a weight limit of 450 pounds and patient has 550 pounds, + unfunded, so placement very difficult . History Interval history: no acute events, stable, awainting placement Hospitalist Physical - Constitutional Vitals: Temp Pulse Resp BP Pulse Ox 98.1 F 104 H 18 78/59 93 03/07/17 17:20 03/07/17 17:20 03/07/17 17:20 03/07/17 17:20 03/07/17 17:20 General appearance: Present: no acute distress, obese (morbidly) - EENT Eyes: Present: PERRL, EOM intact - Respiratory Respiratory effort: normal (at rest) Respiratory: bilateral: diminished, negative: rhonchi, wheezing - Cardiovascular Rhythm: other (tachycardic) Heart Sounds: Present: S1 & S2. Absent: systolic murmur - Extremities Extremities: no ischemia - Abdominal General gastrointestinal: soft, non-tender, non-distended, normal bowel sounds - Psychiatric Psychiatric: depressed - Neurologic Neurologic: moves all extremities Results - Labs CBC & Chem 7: 03/05/17 05:52 03/05/17 05:52 Labs: Laboratory Last Values WBC 7.4 K/mm3 (4.5-11.0) 03/05/17 05:52 RBC 3.39 M/mm3 (3.65-5.03) L 03/05/17 05:52 Hgb 9.6 gm/dl (10.1-14.3) L 03/05/17 05:52 Hct 28.6 % (30.3-42.9) L 03/05/17 05:52 MCV 84 fl (79-97) 03/05/17 05:52 MCH 28 pg (28-32) 03/05/17 05:52 MCHC 34 % (30-34) 03/05/17 05:52 RDW 19.2 % (13.2-15.2) H 03/05/17 05:52 Plt Count 270 K/mm3 (140-440) 03/05/17 05:52 Wright % (Auto) Repairing Calibrator 03/05/17 05:52 Add Manual Diff Complete 03/05/17 05:52 Total Counted 100 03/05/17 05:52 Seg Neuts % (Manual) 51 % (40.0-70.0) 03/05/17 05:52 Band Neutrophils % 3.0 % 03/05/17 05:52 Lymphocytes % (Manual) 25.0 % (13.4-35.0) 03/05/17 05:52 Reactive Lymphs % (Man) 0 % 03/05/17 05:52 Monocytes % (Manual) 14 % (0.0-7.3) H 03/05/17 05:52 Eosinophils % (Manual) 7.0 % (0.0-4.3) H 03/05/17 05:52 Basophils % (Manual) 0 % (0.0-1.8) 03/05/17 05:52 Metamyelocytes % 0 % 03/05/17 05:52 Myelocytes % 0 % 03/05/17 05:52 Promyelocytes % 0 % 03/05/17 05:52 Blast Cells % 0 % 03/05/17 05:52 Nucleated RBC % Not Reportable 03/05/17 05:52 Seg Neutrophils # Man 3.9 K/mm3 (1.8-7.7) 03/05/17 05:52 Band Neutrophils # 0.2 K/mm3 03/05/17 05:52 Lymphocytes # (Manual) 1.9 K/mm3 (1.2-5.4) 03/05/17 05:52 Abs React Lymphs (Man) 0.0 K/mm3 03/05/17 05:52 Monocytes # (Manual) 0.9 K/mm3 (0.0-0.8) H 03/05/17 05:52 Eosinophils # (Manual) 0.5 K/mm3 (0.0-0.4) H 03/05/17 05:52 Basophils # (Manual) 0.0 K/mm3 (0.0-0.1) 03/05/17 05:52 Metamyelocytes # 0.0 K/mm3 03/05/17 05:52 Myelocytes # 0.0 K/mm3 03/05/17 05:52 Promyelocytes # 0.0 K/mm3 03/05/17 05:52 Blast Cells # 0.0 K/mm3 03/05/17 05:52 Pathologist Review 02/25/17 19:09 WBC Morphology Not Reportable 03/05/17 05:52 Hypersegmented Neuts Not Reportable 03/05/17 05:52 Hyposegmented Neuts Not Reportable 03/05/17 05:52 Hypogranular Neuts Not Reportable 03/05/17 05:52 Smudge Cells Not Reportable 03/05/17 05:52 Toxic Granulation Not Reportable 03/05/17 05:52 Toxic Vacuolation Not Reportable 03/05/17 05:52 Dohle Bodies Not Reportable 03/05/17 05:52 Pelger-Huet Anomaly Not Reportable 03/05/17 05:52 James Rods Not Reportable 03/05/17 05:52 Platelet Estimate Not Reportable 03/05/17 05:52 Clumped Platelets Not Reportable 03/05/17 05:52 Plt Clumps, EDTA Not Reportable 03/05/17 05:52 Large Platelets Not Reportable 03/05/17 05:52 Giant Platelets Not Reportable 03/05/17 05:52 Platelet Satelliting Not Reportable 03/05/17 05:52 Plt Morphology Comment Not Reportable 03/05/17 05:52 RBC Morphology Not Reportable 03/05/17 05:52 Dimorphic RBCs Not Reportable 03/05/17 05:52 Polychromasia Not Reportable 03/05/17 05:52 Hypochromasia Not Reportable 03/05/17 05:52 Poikilocytosis Not Reportable 03/05/17 05:52 Anisocytosis 1+ 03/05/17 05:52 Microcytosis Not Reportable 03/05/17 05:52 Macrocytosis Not Reportable 03/05/17 05:52 Spherocytes Not Reportable 03/05/17 05:52 Pappenheimer Bodies Not Reportable 03/05/17 05:52 Sickle Cells Not Reportable 03/05/17 05:52 Target Cells 2+ 03/05/17 05:52 Tear Drop Cells Not Reportable 03/05/17 05:52 Ovalocytes Not Reportable 03/05/17 05:52 Stomatocytes 1+ 02/26/17 03:52 Helmet Cells Not Reportable 03/05/17 05:52 Wade-Downing Bodies Not Reportable 03/05/17 05:52 [place] Rings Not Reportable 03/05/17 05:52 [place] Cells Not Reportable 03/05/17 05:52 Bite Cells Not Reportable 03/05/17 05:52 Crenated Cell Not Reportable 03/05/17 05:52 Elliptocytes Not Reportable 03/05/17 05:52 Acanthocytes (Spur) Not Reportable 03/05/17 05:52 Rouleaux Not Reportable 03/05/17 05:52 Hemoglobin C Crystals Rare 03/05/17 05:52 Schistocytes Few 03/05/17 05:52 Malaria parasites Not Reportable 03/05/17 05:52 Percent Retic 1.64 % (0.78-2.58) 03/05/17 05:52 Benjamin Bodies Not Reportable 03/05/17 05:52 Hem Pathologist Commnt No 03/05/17 05:52 PT 26.2 Sec. (12.2-14.9) H 03/07/17 03:27 INR 2.26 (0.87-1.13) H 03/07/17 03:27 Sodium 144 mmol/L (137-145) 03/05/17 05:52 Potassium 4.4 mmol/L (3.6-5.0) 03/05/17 05:52 Chloride 97.3 mmol/L (98-107) L 03/05/17 05:52 Carbon Dioxide 38 mmol/L (22-30) H 03/05/17 05:52 Anion Gap 13 mmol/L 03/05/17 05:52 BUN 13 mg/dL (7-17) 03/05/17 05:52 Creatinine 0.9 mg/dL (0.7-1.2) 03/05/17 05:52 Estimated GFR > 60 ml/min 03/05/17 05:52 BUN/Creatinine Ratio 14.44 % 03/05/17 05:52 Glucose 87 mg/dL (65-100) 03/05/17 05:52 Calcium 8.4 mg/dL (8.4-10.2) 03/05/17 05:52 Troponin T < 0.010 ng/mL (0.00-0.029) 02/25/17 19:09 NT-Pro-B Natriuret Pep 1916 pg/mL (0-450) H 02/25/17 19:09 HCG, Qual Negative (Negative) 02/25/17 19:09
--- NOTE | 2017-03-07 19:15 | Consultation ---
History of Present Illness - Reason for Consult Consult date: 03/07/17 - History of Present Illness Patient seen/examined, resting in bed, NAD, family at the bed side. Notes reviewed, d/w patient. Past History Past Medical History: anemia Family history: no significant family history Medications and Allergies Allergies Allergy/AdvReac Type Severity Reaction Status Date / Time morphine Allergy Hives Verified 02/25/17 19:44 shrimp Allergy Hives Verified 02/25/17 19:44 Home Medications Medication Instructions Recorded Confirmed Last Taken Type ALBUTEROL Inhaler [ProAir HFA 2 puff IH QID PRN 10/14/16 02/25/17 02/25/17 History Inhaler] Folic Acid [FA-8] 0.8 mg PO DAILY 10/14/16 02/25/17 02/25/17 History Nystatin [Nystop Powder] 1 applicatio TP TID 10/14/16 02/25/17 02/25/17 History Ranitidine HCl 75 mg PO DAILY 10/14/16 02/25/17 02/25/17 History traMADol [Ultram 50 MG tab] 50 mg PO Q4HR PRN 10/14/16 02/25/17 02/25/17 History Furosemide [Lasix TAB] 40 mg PO QDAY #60 02/13/17 02/25/17 02/25/17 Rx Metoprolol [Lopressor TAB] 50 mg PO BID #60 tablet 02/13/17 02/25/17 02/25/17 Rx Pantoprazole [Protonix TAB] 40 mg PO QDAY tablet 02/13/17 02/25/17 02/25/17 Rx Active Meds: Active Medications Acetaminophen (Tylenol) 650 mg PO Q4H PRN PRN Reason: Pain MILD(1-3)/Fever >100.5/AL Last Admin: 03/04/17 09:52 Dose: 650 mg Albuterol (Proventil) 2.5 mg IH Q4HRT PRN PRN Reason: Shortness Of Breath Last Admin: 03/06/17 20:25 Dose: 2.5 mg Bisacodyl (Dulcolax) 10 mg HI QDAY PRN PRN Reason: Constipation unrelieved by MOM Diphenhydramine HCl (Benadryl) 25 mg PO Q6H PRN PRN Reason: Itching Last Admin: 03/07/17 00:02 Dose: 25 mg Folic Acid (Folvite) 1 mg PO DAILY [facility] Last Admin: 03/07/17 10:13 Dose: 1 mg Furosemide (Lasix) 40 mg PO 0600,1800 [facility] Last Admin: 03/07/17 06:15 Dose: 40 mg Hydroxyzine HCl (Atarax) 10 mg PO Q6H [facility] Last Admin: 03/07/17 13:30 Dose: 10 mg Levothyroxine Sodium (Synthroid) 25 mcg PO DAILY@0600 [facility] Last Admin: 03/07/17 06:15 Dose: 25 mcg Lisinopril (Zestril) 2.5 mg PO QDAY [facility] Last Admin: 03/07/17 10:14 Dose: Not Given Magnesium Hydroxide (Milk Of Magnesia) 30 ml PO Q4H PRN PRN Reason: Constipation Metoprolol Tartrate (Lopressor) 12.5 mg PO BID [facility] Last Admin: 03/07/17 10:14 Dose: 12.5 mg Ondansetron HCl (Zofran) 4 mg IV Q8H PRN PRN Reason: N/V unrelieved by Reglan Pantoprazole Sodium (Protonix) 40 mg PO QDAY [facility] Last Admin: 03/07/17 10:14 Dose: 40 mg Tramadol HCl (Ultram) 50 mg PO Q4HR PRN PRN Reason: Pain Last Admin: 03/04/17 21:52 Dose: 50 mg Warfarin Sodium (Coumadin Pharmacy To Dose) 1 each PO PKCONSULT [facility] PRN Reason: Protocol Warfarin Sodium (Coumadin) 15 mg PO DAILY@1700 [facility] Last Admin: 03/06/17 18:21 Dose: 15 mg Review of Systems Constitutional: chronic pain Breasts: deferred Exam - Constitutional Vitals: Temp Pulse Resp BP Pulse Ox 98.1 F 104 H 18 78/59 93 03/07/17 17:20 03/07/17 17:20 03/07/17 17:20 03/07/17 17:20 03/07/17 17:20 General appearance: Present: no acute distress, well-nourished - EENT Eyes: Present: PERRL ENT: hearing intact, clear oral mucosa - Neck Neck: Present: supple, normal ROM - Respiratory Respiratory: bilateral: diminished - Cardiovascular Heart Sounds: Present: S1 & S2. Absent: rub, click - Extremities Extremities: pulses symmetrical, No edema Peripheral Pulses: within normal limits - Abdominal General gastrointestinal: Present: soft, non-tender, non-distended, normal bowel sounds Female genitourinary: Present: deferred, normal - Rectal Rectal Exam: deferred - Integumentary Integumentary: Present: clear, warm, dry - Musculoskeletal Musculoskeletal: gait normal, strength equal bilaterally - Psychiatric Psychiatric: appropriate mood/affect, intact judgment & insight - Neurologic Neurologic: CNII-XII intact, moves all extremities Results - Labs CBC & Chem 7: 03/05/17 05:52 03/05/17 05:52 Labs: Abnormal lab results 03/07/17 Range/Units 03:27 PT 26.2 H (12.2-14.9) Sec. INR 2.26 H (0.87-1.13) Assessment and Plan - Patient Problems (1) A-fib Current Visit: Yes Status: Acute Qualifiers: Atrial fibrillation type: A Plan to address problem: follow cardilogy. Continue anticoagulation (2) Subtherapeutic anticoagulation Current Visit: Yes Status: Acute Plan to address problem: adjust anticoagulant dosage. (3) Sickle cell anemia Current Visit: Yes Status: Acute Qualifiers: Sickle-cell associated disorders: S Plan to address problem: see notes above. continue with supportive.
[2017-03-07] MEDS: COUMADIN PO SCH (19:48)
[2017-03-08] MEDS: ULTRAM PO PRN (00:25)
[2017-03-08] MEDS: ATARAX PO SCH ×4 (00:25→18:14)
[2017-03-08] MEDS: LASIX PO SCH ×2 (06:07→18:14)
[2017-03-08] MEDS: SYNTHROID PO SCH (06:07)
[2017-03-08 07:11] LABS: INR 2.53 (0.87-1.13)
[2017-03-08] MEDS: FOLVITE PO SCH (10:30)
[2017-03-08] MEDS: ZESTRIL PO SCH (10:45)
[2017-03-08] MEDS: PROTONIX PO SCH (10:50)
[2017-03-08] MEDS: LOPRESSOR PO SCH ×2 (11:40→21:39)
[2017-03-08] MEDS: COUMADIN PO SCH (18:13)
--- NOTE | 2017-03-08 18:37 | Progress Note ---
Assessment and Plan Assessment and plan: 31-year-old AAF, morbidly obese, with pulmonary hypertension, chronic respiratory failure, on home O2, diastolic CHF, RENE , presented for swelling of the lower extremities New onset afib - rate controlled on BB - anticoagulated with Coumadin, monitoring INR, reached therapeutic level; >3 today, will discuss with pharmacy to adjust Coumadin dose - cardiology following Acute on chronic hypoxic respiratory failure - likely due to combination of heart failure, cor pulmonale, obesity hypoventilation syndrome and obstructive sleep apnea - continue oxygen supplementation and CPAP while asleep Acute on chronic diastolic CHF with a preserved ejection fraction - continue Lasix (changed to po), beta osmel, CARLOS MANUEL inhibitor - low-sodium diet, strict I's and O's and daily weights - cardiology following Cor pulmonale - Echocardiogram demonstrates a dilated right heart chambers, moderate tricuspid regurgitation and moderate pulmonary hypertension. Findings are consistent with cor pulmonale likely from chronic sleep apnea and obesity hypoventilation syndrome. Left ventricle chamber size and systolic function are normal, EF 50-55%. Sleep apnea/obesity hypoventilation - CPAP while asleep, noninvasive positive pressure ventilator as needed Morbidly obese - has been counseled on lifestyle modification - may be benefited from bariatric surgery as BMI >90, recommended outpatient follow-up Sickle cell disease - chronic, not in acute exacerbation - H and H stable Subclinical Hypothyroidism - TSH 6.7, with normal free T4 - continue low-dose Synthroid - TFTs to be rechecked in 4 to 6 weeks History of Buttock abscess - Wound care following DVT prophylaxis - INR therapeutic now, Lovenox discontinued Dispo ROSA working on discharge plans with SW at [facility] where she is followed for sickle cell disease as mother unable to care for her vs NH placement, but nursing homes have a weight limit of 450 pounds and patient has 550 pounds, + unfunded, so placement very difficult . History Interval history: no acute events, stable, awainting placement Hospitalist Physical - Constitutional Vitals: Temp Pulse Resp BP Pulse Ox 97.9 F 102 H 18 141/94 92 03/08/17 16:28 03/08/17 16:28 03/08/17 16:28 03/08/17 16:28 03/08/17 16:28 General appearance: Present: no acute distress, obese (morbidly) - EENT Eyes: Present: PERRL, EOM intact - Respiratory Respiratory effort: normal (at rest) Respiratory: bilateral: diminished (due to body habitus), negative: rhonchi, wheezing - Cardiovascular Rhythm: other (tachycardia) Heart Sounds: Present: S1 & S2. Absent: systolic murmur - Extremities Extremities: no ischemia - Abdominal General gastrointestinal: soft, non-tender, normal bowel sounds, other (abdomen obese, protuberant) - Psychiatric Psychiatric: depressed - Neurologic Neurologic: no focal deficits Results - Labs CBC & Chem 7: 03/05/17 05:52 03/05/17 05:52 Labs: Laboratory Last Values WBC 7.4 K/mm3 (4.5-11.0) 03/05/17 05:52 RBC 3.39 M/mm3 (3.65-5.03) L 03/05/17 05:52 Hgb 9.6 gm/dl (10.1-14.3) L 03/05/17 05:52 Hct 28.6 % (30.3-42.9) L 03/05/17 05:52 MCV 84 fl (79-97) 03/05/17 05:52 MCH 28 pg (28-32) 03/05/17 05:52 MCHC 34 % (30-34) 03/05/17 05:52 RDW 19.2 % (13.2-15.2) H 03/05/17 05:52 Plt Count 270 K/mm3 (140-440) 03/05/17 05:52 [place] % (Auto) Rn Otolaryngology 03/05/17 05:52 Add Manual Diff Complete 03/05/17 05:52 Total Counted 100 03/05/17 05:52 Seg Neuts % (Manual) 51 % (40.0-70.0) 03/05/17 05:52 Band Neutrophils % 3.0 % 03/05/17 05:52 Lymphocytes % (Manual) 25.0 % (13.4-35.0) 03/05/17 05:52 Reactive Lymphs % (Man) 0 % 03/05/17 05:52 Monocytes % (Manual) 14 % (0.0-7.3) H 03/05/17 05:52 Eosinophils % (Manual) 7.0 % (0.0-4.3) H 03/05/17 05:52 Basophils % (Manual) 0 % (0.0-1.8) 03/05/17 05:52 Metamyelocytes % 0 % 03/05/17 05:52 Myelocytes % 0 % 03/05/17 05:52 Promyelocytes % 0 % 03/05/17 05:52 Blast Cells % 0 % 03/05/17 05:52 Nucleated RBC % Not Reportable 03/05/17 05:52 Seg Neutrophils # Man 3.9 K/mm3 (1.8-7.7) 03/05/17 05:52 Band Neutrophils # 0.2 K/mm3 03/05/17 05:52 Lymphocytes # (Manual) 1.9 K/mm3 (1.2-5.4) 03/05/17 05:52 Abs React Lymphs (Man) 0.0 K/mm3 03/05/17 05:52 Monocytes # (Manual) 0.9 K/mm3 (0.0-0.8) H 03/05/17 05:52 Eosinophils # (Manual) 0.5 K/mm3 (0.0-0.4) H 03/05/17 05:52 Basophils # (Manual) 0.0 K/mm3 (0.0-0.1) 03/05/17 05:52 Metamyelocytes # 0.0 K/mm3 03/05/17 05:52 Myelocytes # 0.0 K/mm3 03/05/17 05:52 Promyelocytes # 0.0 K/mm3 03/05/17 05:52 Blast Cells # 0.0 K/mm3 03/05/17 05:52 Pathologist Review 02/25/17 19:09 WBC Morphology Not Reportable 03/05/17 05:52 Hypersegmented Neuts Not Reportable 03/05/17 05:52 Hyposegmented Neuts Not Reportable 03/05/17 05:52 Hypogranular Neuts Not Reportable 03/05/17 05:52 Smudge Cells Not Reportable 03/05/17 05:52 Toxic Granulation Not Reportable 03/05/17 05:52 Toxic Vacuolation Not Reportable 03/05/17 05:52 Dohle Bodies Not Reportable 03/05/17 05:52 Pelger-Huet Anomaly Not Reportable 03/05/17 05:52 James Rods Not Reportable 03/05/17 05:52 Platelet Estimate Not Reportable 03/05/17 05:52 Clumped Platelets Not Reportable 03/05/17 05:52 Plt Clumps, EDTA Not Reportable 03/05/17 05:52 Large Platelets Not Reportable 03/05/17 05:52 Giant Platelets Not Reportable 03/05/17 05:52 Platelet Satelliting Not Reportable 03/05/17 05:52 Plt Morphology Comment Not Reportable 03/05/17 05:52 RBC Morphology Not Reportable 03/05/17 05:52 Dimorphic RBCs Not Reportable 03/05/17 05:52 Polychromasia Not Reportable 03/05/17 05:52 Hypochromasia Not Reportable 03/05/17 05:52 Poikilocytosis Not Reportable 03/05/17 05:52 Anisocytosis 1+ 03/05/17 05:52 Microcytosis Not Reportable 03/05/17 05:52 Macrocytosis Not Reportable 03/05/17 05:52 Spherocytes Not Reportable 03/05/17 05:52 Pappenheimer Bodies Not Reportable 03/05/17 05:52 Sickle Cells Not Reportable 03/05/17 05:52 Target Cells 2+ 03/05/17 05:52 Tear Drop Cells Not Reportable 03/05/17 05:52 Ovalocytes Not Reportable 03/05/17 05:52 Stomatocytes 1+ 02/26/17 03:52 Helmet Cells Not Reportable 03/05/17 05:52 Wade-[place] Bodies Not Reportable 03/05/17 05:52 [place] Rings Not Reportable 03/05/17 05:52 [place] Cells Not Reportable 03/05/17 05:52 Bite Cells Not Reportable 03/05/17 05:52 Crenated Cell Not Reportable 03/05/17 05:52 Elliptocytes Not Reportable 03/05/17 05:52 Acanthocytes (Spur) Not Reportable 03/05/17 05:52 Rouleaux Not Reportable 03/05/17 05:52 Hemoglobin C Crystals Rare 03/05/17 05:52 Schistocytes Few 03/05/17 05:52 Malaria parasites Not Reportable 03/05/17 05:52 Percent Retic 1.64 % (0.78-2.58) 03/05/17 05:52 Benjamin Bodies Not Reportable 03/05/17 05:52 Hem Pathologist Commnt No 03/05/17 05:52 PT 28.6 Sec. (12.2-14.9) H 03/08/17 06:06 INR 2.53 (0.87-1.13) H 03/08/17 06:06 Sodium 144 mmol/L (137-145) 03/05/17 05:52 Potassium 4.4 mmol/L (3.6-5.0) 03/05/17 05:52 Chloride 97.3 mmol/L (98-107) L 03/05/17 05:52 Carbon Dioxide 38 mmol/L (22-30) H 03/05/17 05:52 Anion Gap 13 mmol/L 03/05/17 05:52 BUN 13 mg/dL (7-17) 03/05/17 05:52 Creatinine 0.9 mg/dL (0.7-1.2) 03/05/17 05:52 Estimated GFR > 60 ml/min 03/05/17 05:52 BUN/Creatinine Ratio 14.44 % 03/05/17 05:52 Glucose 87 mg/dL (65-100) 03/05/17 05:52 Calcium 8.4 mg/dL (8.4-10.2) 03/05/17 05:52 Troponin T < 0.010 ng/mL (0.00-0.029) 02/25/17 19:09 NT-Pro-B Natriuret Pep 1916 pg/mL (0-450) H 02/25/17 19:09 HCG, Qual Negative (Negative) 02/25/17 19:09
[2017-03-08] MEDS: BENADRYL PO PRN (21:39)
--- NOTE | 2017-03-08 23:45 | Consultation ---
History of Present Illness - Reason for Consult Consult date: 03/08/17 Past History Past Medical History: anemia Family history: no significant family history Medications and Allergies Allergies Allergy/AdvReac Type Severity Reaction Status Date / Time morphine Allergy Hives Verified 02/25/17 19:44 shrimp Allergy Hives Verified 02/25/17 19:44 Home Medications Medication Instructions Recorded Confirmed Last Taken Type ALBUTEROL Inhaler [ProAir HFA 2 puff IH QID PRN 10/14/16 02/25/17 02/25/17 History Inhaler] Folic Acid [FA-8] 0.8 mg PO DAILY 10/14/16 02/25/17 02/25/17 History Nystatin [Nystop Powder] 1 applicatio TP TID 10/14/16 02/25/17 02/25/17 History Ranitidine HCl 75 mg PO DAILY 10/14/16 02/25/17 02/25/17 History traMADol [Ultram 50 MG tab] 50 mg PO Q4HR PRN 10/14/16 02/25/17 02/25/17 History Furosemide [Lasix TAB] 40 mg PO QDAY #60 02/13/17 02/25/17 02/25/17 Rx Metoprolol [Lopressor TAB] 50 mg PO BID #60 tablet 02/13/17 02/25/17 02/25/17 Rx Pantoprazole [Protonix TAB] 40 mg PO QDAY tablet 02/13/17 02/25/17 02/25/17 Rx Active Meds: Active Medications Acetaminophen (Tylenol) 650 mg PO Q4H PRN PRN Reason: Pain MILD(1-3)/Fever >100.5/AL Last Admin: 03/04/17 09:52 Dose: 650 mg Albuterol (Proventil) 2.5 mg IH Q4HRT PRN PRN Reason: Shortness Of Breath Last Admin: 03/06/17 20:25 Dose: 2.5 mg Bisacodyl (Dulcolax) 10 mg GA QDAY PRN PRN Reason: Constipation unrelieved by MOM Diphenhydramine HCl (Benadryl) 25 mg PO Q6H PRN PRN Reason: Itching Last Admin: 03/08/17 21:39 Dose: 25 mg Folic Acid (Folvite) 1 mg PO DAILY [facility] Last Admin: 03/08/17 10:30 Dose: 1 mg Furosemide (Lasix) 40 mg PO 0600,1800 [facility] Last Admin: 03/08/17 18:14 Dose: 40 mg Hydroxyzine HCl (Atarax) 10 mg PO Q6H [facility] Last Admin: 03/08/17 18:14 Dose: 10 mg Levothyroxine Sodium (Synthroid) 25 mcg PO DAILY@0600 [facility] Last Admin: 03/08/17 06:07 Dose: 25 mcg Lisinopril (Zestril) 2.5 mg PO QDAY [facility] Last Admin: 03/08/17 10:45 Dose: 2.5 mg Magnesium Hydroxide (Milk Of Magnesia) 30 ml PO Q4H PRN PRN Reason: Constipation Metoprolol Tartrate (Lopressor) 12.5 mg PO BID [facility] Last Admin: 03/08/17 21:39 Dose: 12.5 mg Ondansetron HCl (Zofran) 4 mg IV Q8H PRN PRN Reason: N/V unrelieved by Reglan Pantoprazole Sodium (Protonix) 40 mg PO QDAY [facility] Last Admin: 03/08/17 10:50 Dose: 40 mg Tramadol HCl (Ultram) 50 mg PO Q4HR PRN PRN Reason: Pain Last Admin: 03/08/17 00:25 Dose: 50 mg Warfarin Sodium (Coumadin Pharmacy To Dose) 1 each PO PKCONSULT [facility] PRN Reason: Protocol Warfarin Sodium (Coumadin) 15 mg PO DAILY@1700 [facility] Last Admin: 03/08/17 18:13 Dose: 15 mg Review of Systems Breasts: deferred Exam - Constitutional Vitals: Temp Pulse Resp BP Pulse Ox 98.6 F 103 H 18 117/69 97 03/08/17 19:17 03/08/17 21:39 03/08/17 16:28 03/08/17 21:39 03/08/17 19:17 General appearance: Present: mild distress, well-nourished - EENT Eyes: Present: PERRL ENT: hearing intact, clear oral mucosa - Neck Neck: Present: supple, normal ROM - Respiratory Respiratory effort: normal Respiratory: bilateral: CTA - Cardiovascular Heart Sounds: Present: S1 & S2. Absent: rub, click - Extremities Extremities: pulses symmetrical, No edema Peripheral Pulses: within normal limits - Abdominal General gastrointestinal: Present: soft, non-tender, non-distended, normal bowel sounds Female genitourinary: Present: deferred - Rectal Rectal Exam: deferred - Integumentary Integumentary: Present: clear, warm, dry - Musculoskeletal Musculoskeletal: gait normal, strength equal bilaterally - Psychiatric Psychiatric: appropriate mood/affect, intact judgment & insight - Neurologic Neurologic: CNII-XII intact, moves all extremities Results - Labs CBC & Chem 7: 03/05/17 05:52 03/05/17 05:52 Labs: Abnormal lab results 03/08/17 Range/Units 06:06 PT 28.6 H (12.2-14.9) Sec. INR 2.53 H (0.87-1.13) Assessment and Plan - Patient Problems (1) A-fib Current Visit: Yes Status: Acute Qualifiers: Atrial fibrillation type: A Plan to address problem: follow cardilogy. Continue anticoagulation (2) Subtherapeutic anticoagulation Current Visit: Yes Status: Acute Plan to address problem: adjust anticoagulant dosage. (3) Sickle cell anemia Current Visit: Yes Status: Acute Qualifiers: Sickle-cell associated disorders: S Plan to address problem: see notes above. continue with supportive.
[2017-03-09] MEDS: ATARAX PO SCH ×4 (01:07→18:52)
[2017-03-09] MEDS: SYNTHROID PO SCH (05:58)
[2017-03-09] MEDS: LASIX PO SCH ×2 (05:58→18:52)
[2017-03-09 07:17] LABS: INR 3.21 (0.87-1.13)
[2017-03-09] MEDS: PROTONIX PO SCH (10:32)
[2017-03-09] MEDS: ZESTRIL PO SCH (10:32)
[2017-03-09] MEDS: FOLVITE PO SCH (10:32)
[2017-03-09] MEDS: LOPRESSOR PO SCH ×2 (10:32→22:52)
[2017-03-09] MEDS ORDERED: COUMADIN PO SCH (17:00)
--- NOTE | 2017-03-09 23:21 | Consultation ---
History of Present Illness - Reason for Consult Consult date: 03/09/17 ( patient seen. No new issues. ) - History of Present Illness patient seen, no new issues, resting in bed. Past History Past Medical History: anemia Family history: no significant family history Medications and Allergies Allergies Allergy/AdvReac Type Severity Reaction Status Date / Time morphine Allergy Hives Verified 02/25/17 19:44 shrimp Allergy Hives Verified 02/25/17 19:44 Home Medications Medication Instructions Recorded Confirmed Last Taken Type ALBUTEROL Inhaler [ProAir HFA 2 puff IH QID PRN 10/14/16 02/25/17 02/25/17 History Inhaler] Folic Acid [FA-8] 0.8 mg PO DAILY 10/14/16 02/25/17 02/25/17 History Nystatin [Nystop Powder] 1 applicatio TP TID 10/14/16 02/25/17 02/25/17 History Ranitidine HCl 75 mg PO DAILY 10/14/16 02/25/17 02/25/17 History traMADol [Ultram 50 MG tab] 50 mg PO Q4HR PRN 10/14/16 02/25/17 02/25/17 History Furosemide [Lasix TAB] 40 mg PO QDAY #60 02/13/17 02/25/17 02/25/17 Rx Metoprolol [Lopressor TAB] 50 mg PO BID #60 tablet 02/13/17 02/25/17 02/25/17 Rx Pantoprazole [Protonix TAB] 40 mg PO QDAY tablet 02/13/17 02/25/17 02/25/17 Rx Active Meds: Active Medications Acetaminophen (Tylenol) 650 mg PO Q4H PRN PRN Reason: Pain MILD(1-3)/Fever >100.5/AL Last Admin: 03/04/17 09:52 Dose: 650 mg Albuterol (Proventil) 2.5 mg IH Q4HRT PRN PRN Reason: Shortness Of Breath Last Admin: 03/06/17 20:25 Dose: 2.5 mg Bisacodyl (Dulcolax) 10 mg [place] QDAY PRN PRN Reason: Constipation unrelieved by MOM Diphenhydramine HCl (Benadryl) 25 mg PO Q6H PRN PRN Reason: Itching Last Admin: 03/08/17 21:39 Dose: 25 mg Folic Acid (Folvite) 1 mg PO DAILY [facility] Last Admin: 03/09/17 10:32 Dose: 1 mg Furosemide (Lasix) 40 mg PO 0600,1800 [facility] Last Admin: 03/09/17 18:52 Dose: 40 mg Hydroxyzine HCl (Atarax) 10 mg PO Q6H [facility] Last Admin: 03/09/17 18:52 Dose: 10 mg Levothyroxine Sodium (Synthroid) 25 mcg PO DAILY@0600 [facility] Last Admin: 03/09/17 05:58 Dose: 25 mcg Lisinopril (Zestril) 2.5 mg PO QDAY [facility] Last Admin: 03/09/17 10:32 Dose: 2.5 mg Magnesium Hydroxide (Milk Of Magnesia) 30 ml PO Q4H PRN PRN Reason: Constipation Metoprolol Tartrate (Lopressor) 12.5 mg PO BID [facility] Last Admin: 03/09/17 22:52 Dose: 12.5 mg Ondansetron HCl (Zofran) 4 mg IV Q8H PRN PRN Reason: N/V unrelieved by Reglan Pantoprazole Sodium (Protonix) 40 mg PO QDAY [facility] Last Admin: 03/09/17 10:32 Dose: 40 mg Tramadol HCl (Ultram) 50 mg PO Q4HR PRN PRN Reason: Pain Last Admin: 03/08/17 00:25 Dose: 50 mg Warfarin Sodium (Coumadin Pharmacy To Dose) 1 each PO PKCONSULT [facility] PRN Reason: Protocol Warfarin Sodium (Coumadin) 5 mg PO DAILY@1700 [facility] Stop: 03/09/17 23:59 Last Admin: 03/09/17 18:52 Dose: 5 mg Review of Systems Constitutional: chronic pain Breasts: deferred Exam - Constitutional Vitals: Temp Pulse Resp BP Pulse Ox 98.5 F 88 18 128/53 99 03/09/17 16:35 03/09/17 22:52 03/09/17 16:35 03/09/17 22:52 03/09/17 16:35 General appearance: Present: mild distress, well-nourished - EENT Eyes: Present: PERRL ENT: hearing intact, clear oral mucosa - Neck Neck: Present: supple, normal ROM - Respiratory Respiratory effort: normal Respiratory: bilateral: CTA - Cardiovascular Heart Sounds: Present: S1 & S2. Absent: rub, click - Extremities Extremities: pulses symmetrical, No edema Peripheral Pulses: within normal limits - Abdominal General gastrointestinal: Present: soft, non-tender, non-distended, normal bowel sounds Female genitourinary: Present: deferred - Rectal Rectal Exam: deferred - Integumentary Integumentary: Present: clear, warm, dry - Musculoskeletal Musculoskeletal: gait normal, strength equal bilaterally - Psychiatric Psychiatric: appropriate mood/affect, intact judgment & insight - Neurologic Neurologic: CNII-XII intact, moves all extremities Results - Labs CBC & Chem 7: 03/05/17 05:52 03/05/17 05:52 Labs: Abnormal lab results 03/09/17 Range/Units 06:07 PT 34.6 H (12.2-14.9) Sec. INR 3.21 H (0.87-1.13) Assessment and Plan - Patient Problems (1) A-fib Current Visit: Yes Status: Acute Qualifiers: Atrial fibrillation type: A Plan to address problem: follow cardilogy. Continue anticoagulation (2) Subtherapeutic anticoagulation Current Visit: Yes Status: Acute Plan to address problem: adjust anticoagulant dosage. (3) Sickle cell anemia Current Visit: Yes Status: Acute Qualifiers: Sickle-cell associated disorders: S Plan to address problem: see notes above. continue with supportive.
[2017-03-10] MEDS: ATARAX PO SCH ×5 (01:30→22:53)
[2017-03-10 05:44] LABS: INR 3.21 (0.87-1.13)
[2017-03-10] MEDS: SYNTHROID PO SCH (06:50)
[2017-03-10] MEDS: LASIX PO SCH ×2 (06:50→17:30)
--- NOTE | 2017-03-10 08:55 | Progress Note ---
Assessment and Plan Assessment and plan: patient is 31-year-old, morbidly obese, with pulmonary hypertension, chronic respiratory failure, on home O2, diastolic CHF, RENE , presented for swelling of the lower extremities New onset afib - rate controlled on BB - anticoagulated with Coumadin, monitoring INR. INR supratherapeutic today, 3.21 - cardiology following Acute on chronic hypoxic respiratory failure - likely due to combination of heart failure, cor pulmonale, obesity hypoventilation syndrome and obstructive sleep apnea - continue oxygen supplementation and CPAP while asleep Acute on chronic diastolic CHF with a preserved ejection fraction - continue Lasix (changed to po), beta osmel, CARLOS MANUEL inhibitor - low-sodium diet, strict I's and O's and daily weights - cardiology following Cor pulmonale - Echocardiogram demonstrates a dilated right heart chambers, moderate tricuspid regurgitation and moderate pulmonary hypertension. Findings are consistent with cor pulmonale likely from chronic sleep apnea and obesity hypoventilation syndrome. Left ventricle chamber size and systolic function are normal, EF 50-55%. Sleep apnea/obesity hypoventilation - CPAP while asleep, noninvasive positive pressure ventilator as needed Morbidly obese - has been counseled on lifestyle modification - may be benefited from bariatric surgery as BMI >90, recommended outpatient follow-up Sickle cell disease - chronic, not in acute exacerbation - H and H stable Subclinical Hypothyroidism - continue low-dose Synthroid - TFTs to be rechecked in 4 to 6 weeks History of Buttock abscess - Wound care following DVT prophylaxis - INR therapeutic now, Lovenox discontinued Dispo ROSA working on discharge plans with SW at [facility] where she is followed for 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 She is medically stable for discharge, awaiting placement. History Interval history: feels better, less leg edema no chest pain Hospitalist Physical - Physical exam Narrative exam: Gen Appearance: Not in acute distress, morbidly obese HEENT: normocephalic, atraumatic Neck: supple, no JVD Lungs: Clear to auscultation, bilaterally, no rales, no wheeze Heart: S1 and S2 regular, no murmurs or gallop Abdomen: Soft , non tender, non distended, normal bowel sounds Extremity: Trace edema, no clubbing or cyanosis Neuro : Awake,alert, oriented x 3, moves all extremities - Constitutional Vitals: Temp Pulse Resp BP Pulse Ox 97.7 F 95 H 20 114/60 93 03/10/17 07:37 03/10/17 07:37 03/10/17 07:37 03/10/17 07:37 03/10/17 07:37 General appearance: Present: mild distress, well-nourished Results - Labs CBC & Chem 7: 03/05/17 05:52 03/05/17 05:52 Labs: Laboratory Last Values WBC 7.4 K/mm3 (4.5-11.0) 03/05/17 05:52 RBC 3.39 M/mm3 (3.65-5.03) L 03/05/17 05:52 Hgb 9.6 gm/dl (10.1-14.3) L 03/05/17 05:52 Hct 28.6 % (30.3-42.9) L 03/05/17 05:52 MCV 84 fl (79-97) 03/05/17 05:52 MCH 28 pg (28-32) 03/05/17 05:52 MCHC 34 % (30-34) 03/05/17 05:52 RDW 19.2 % (13.2-15.2) H 03/05/17 05:52 Plt Count 270 K/mm3 (140-440) 03/05/17 05:52 [place] % (Auto) Drama Teacher 03/05/17 05:52 Add Manual Diff Complete 03/05/17 05:52 Total Counted 100 03/05/17 05:52 Seg Neuts % (Manual) 51 % (40.0-70.0) 03/05/17 05:52 Band Neutrophils % 3.0 % 03/05/17 05:52 Lymphocytes % (Manual) 25.0 % (13.4-35.0) 03/05/17 05:52 Reactive Lymphs % (Man) 0 % 03/05/17 05:52 Monocytes % (Manual) 14 % (0.0-7.3) H 03/05/17 05:52 Eosinophils % (Manual) 7.0 % (0.0-4.3) H 03/05/17 05:52 Basophils % (Manual) 0 % (0.0-1.8) 03/05/17 05:52 Metamyelocytes % 0 % 03/05/17 05:52 Myelocytes % 0 % 03/05/17 05:52 Promyelocytes % 0 % 03/05/17 05:52 Blast Cells % 0 % 03/05/17 05:52 Nucleated RBC % Not Reportable 03/05/17 05:52 Seg Neutrophils # Man 3.9 K/mm3 (1.8-7.7) 03/05/17 05:52 Band Neutrophils # 0.2 K/mm3 03/05/17 05:52 Lymphocytes # (Manual) 1.9 K/mm3 (1.2-5.4) 03/05/17 05:52 Abs React Lymphs (Man) 0.0 K/mm3 03/05/17 05:52 Monocytes # (Manual) 0.9 K/mm3 (0.0-0.8) H 03/05/17 05:52 Eosinophils # (Manual) 0.5 K/mm3 (0.0-0.4) H 03/05/17 05:52 Basophils # (Manual) 0.0 K/mm3 (0.0-0.1) 03/05/17 05:52 Metamyelocytes # 0.0 K/mm3 03/05/17 05:52 Myelocytes # 0.0 K/mm3 03/05/17 05:52 Promyelocytes # 0.0 K/mm3 03/05/17 05:52 Blast Cells # 0.0 K/mm3 03/05/17 05:52 Pathologist Review 02/25/17 19:09 WBC Morphology Not Reportable 03/05/17 05:52 Hypersegmented Neuts Not Reportable 03/05/17 05:52 Hyposegmented Neuts Not Reportable 03/05/17 05:52 Hypogranular Neuts Not Reportable 03/05/17 05:52 Smudge Cells Not Reportable 03/05/17 05:52 Toxic Granulation Not Reportable 03/05/17 05:52 Toxic Vacuolation Not Reportable 03/05/17 05:52 Dohle Bodies Not Reportable 03/05/17 05:52 Pelger-Huet Anomaly Not Reportable 03/05/17 05:52 James Rods Not Reportable 03/05/17 05:52 Platelet Estimate Not Reportable 03/05/17 05:52 Clumped Platelets Not Reportable 03/05/17 05:52 Plt Clumps, EDTA Not Reportable 03/05/17 05:52 Large Platelets Not Reportable 03/05/17 05:52 Giant Platelets Not Reportable 03/05/17 05:52 Platelet Satelliting Not Reportable 03/05/17 05:52 Plt Morphology Comment Not Reportable 03/05/17 05:52 RBC Morphology Not Reportable 03/05/17 05:52 Dimorphic RBCs Not Reportable 03/05/17 05:52 Polychromasia Not Reportable 03/05/17 05:52 Hypochromasia Not Reportable 03/05/17 05:52 Poikilocytosis Not Reportable 03/05/17 05:52 Anisocytosis 1+ 03/05/17 05:52 Microcytosis Not Reportable 03/05/17 05:52 Macrocytosis Not Reportable 03/05/17 05:52 Spherocytes Not Reportable 03/05/17 05:52 Pappenheimer Bodies Not Reportable 03/05/17 05:52 Sickle Cells Not Reportable 03/05/17 05:52 Target Cells 2+ 03/05/17 05:52 Tear Drop Cells Not Reportable 03/05/17 05:52 Ovalocytes Not Reportable 03/05/17 05:52 Stomatocytes 1+ 02/26/17 03:52 Helmet Cells Not Reportable 03/05/17 05:52 [place] Bodies Not Reportable 03/05/17 05:52 [place] Rings Not Reportable 03/05/17 05:52 Fabi Cells Not Reportable 03/05/17 05:52 Bite Cells Not Reportable 03/05/17 05:52 Crenated Cell Not Reportable 03/05/17 05:52 Elliptocytes Not Reportable 03/05/17 05:52 Acanthocytes (Spur) Not Reportable 03/05/17 05:52 Rouleaux Not Reportable 03/05/17 05:52 Hemoglobin C Crystals Rare 03/05/17 05:52 Schistocytes Few 03/05/17 05:52 Malaria parasites Not Reportable 03/05/17 05:52 Percent Retic 1.64 % (0.78-2.58) 03/05/17 05:52 Benjamin Bodies Not Reportable 03/05/17 05:52 Hem Pathologist Commnt No 03/05/17 05:52 PT 34.6 Sec. (12.2-14.9) H 03/10/17 03:54 INR 3.21 (0.87-1.13) H 03/10/17 03:54 Sodium 144 mmol/L (137-145) 03/05/17 05:52 Potassium 4.4 mmol/L (3.6-5.0) 03/05/17 05:52 Chloride 97.3 mmol/L (98-107) L 03/05/17 05:52 Carbon Dioxide 38 mmol/L (22-30) H 03/05/17 05:52 Anion Gap 13 mmol/L 03/05/17 05:52 BUN 13 mg/dL (7-17) 03/05/17 05:52 Creatinine 0.9 mg/dL (0.7-1.2) 03/05/17 05:52 Estimated GFR > 60 ml/min 03/05/17 05:52 BUN/Creatinine Ratio 14.44 % 03/05/17 05:52 Glucose 87 mg/dL (65-100) 03/05/17 05:52 Calcium 8.4 mg/dL (8.4-10.2) 03/05/17 05:52 Troponin T < 0.010 ng/mL (0.00-0.029) 02/25/17 19:09 NT-Pro-B Natriuret Pep 1916 pg/mL (0-450) H 02/25/17 19:09 HCG, Qual Negative (Negative) 02/25/17 19:09
[2017-03-10] MEDS: ZESTRIL PO SCH (10:58)
[2017-03-10] MEDS: PROTONIX PO SCH (10:59)
[2017-03-10] MEDS: LOPRESSOR PO SCH ×2 (10:59→22:54)
[2017-03-10] MEDS: FOLVITE PO SCH (10:59)
[2017-03-10] MEDS: COUMADIN PO SCH (17:30)
[2017-03-10] MEDS: BENADRYL PO PRN (22:53)
--- NOTE | 2017-03-10 23:03 | Consultation ---
History of Present Illness - Reason for Consult Consult date: 03/10/17 - History of Present Illness Patient seen. resting in bed notes reviewed, NO new issues ,just awaiting placement. Past History Past Medical History: anemia Family history: no significant family history Medications and Allergies Allergies Allergy/AdvReac Type Severity Reaction Status Date / Time morphine Allergy Hives Verified 02/25/17 19:44 shrimp Allergy Hives Verified 02/25/17 19:44 Home Medications Medication Instructions Recorded Confirmed Last Taken Type ALBUTEROL Inhaler [ProAir HFA 2 puff IH QID PRN 10/14/16 02/25/17 02/25/17 History Inhaler] Folic Acid [FA-8] 0.8 mg PO DAILY 10/14/16 02/25/17 02/25/17 History Nystatin [Nystop Powder] 1 applicatio TP TID 10/14/16 02/25/17 02/25/17 History Ranitidine HCl 75 mg PO DAILY 10/14/16 02/25/17 02/25/17 History traMADol [Ultram 50 MG tab] 50 mg PO Q4HR PRN 10/14/16 02/25/17 02/25/17 History Furosemide [Lasix TAB] 40 mg PO QDAY #60 02/13/17 02/25/17 02/25/17 Rx Metoprolol [Lopressor TAB] 50 mg PO BID #60 tablet 02/13/17 02/25/17 02/25/17 Rx Pantoprazole [Protonix TAB] 40 mg PO QDAY tablet 02/13/17 02/25/17 02/25/17 Rx Active Meds: Active Medications Acetaminophen (Tylenol) 650 mg PO Q4H PRN PRN Reason: Pain MILD(1-3)/Fever >100.5/AL Last Admin: 03/04/17 09:52 Dose: 650 mg Albuterol (Proventil) 2.5 mg IH Q4HRT PRN PRN Reason: Shortness Of Breath Last Admin: 03/06/17 20:25 Dose: 2.5 mg Bisacodyl (Dulcolax) 10 mg [place] QDAY PRN PRN Reason: Constipation unrelieved by MOM Diphenhydramine HCl (Benadryl) 25 mg PO Q6H PRN PRN Reason: Itching Last Admin: 03/10/17 22:53 Dose: 25 mg Folic Acid (Folvite) 1 mg PO DAILY [facility] Last Admin: 03/10/17 10:59 Dose: 1 mg Furosemide (Lasix) 40 mg PO 0600,1800 [facility] Last Admin: 03/10/17 17:30 Dose: 40 mg Hydroxyzine HCl (Atarax) 10 mg PO Q6H [facility] Last Admin: 03/10/17 22:53 Dose: 10 mg Levothyroxine Sodium (Synthroid) 25 mcg PO DAILY@0600 [facility] Last Admin: 03/10/17 06:50 Dose: 25 mcg Lisinopril (Zestril) 2.5 mg PO QDAY [facility] Last Admin: 03/10/17 10:58 Dose: 2.5 mg Magnesium Hydroxide (Milk Of Magnesia) 30 ml PO Q4H PRN PRN Reason: Constipation Metoprolol Tartrate (Lopressor) 12.5 mg PO BID [facility] Last Admin: 03/10/17 22:54 Dose: 12.5 mg Ondansetron HCl (Zofran) 4 mg IV Q8H PRN PRN Reason: N/V unrelieved by Reglan Pantoprazole Sodium (Protonix) 40 mg PO QDAY [facility] Last Admin: 03/10/17 10:59 Dose: 40 mg Tramadol HCl (Ultram) 50 mg PO Q4HR PRN PRN Reason: Pain Last Admin: 03/08/17 00:25 Dose: 50 mg Warfarin Sodium (Coumadin Pharmacy To Dose) 1 each PO PKCONSULT [facility] PRN Reason: Protocol Warfarin Sodium (Coumadin) 5 mg PO DAILY@1700 [facility] Last Admin: 03/10/17 17:30 Dose: 5 mg Exam - Constitutional Vitals: Temp Pulse Resp BP Pulse Ox 98.0 F 96 H 20 133/84 98 03/10/17 15:49 03/10/17 22:54 03/10/17 15:49 03/10/17 22:54 03/10/17 15:49 Results - Labs CBC & Chem 7: 03/05/17 05:52 03/05/17 05:52 Labs: Abnormal lab results 03/10/17 Range/Units 03:54 PT 34.6 H (12.2-14.9) Sec. INR 3.21 H (0.87-1.13) Assessment and Plan - Patient Problems (1) A-fib Current Visit: Yes Status: Acute Qualifiers: Atrial fibrillation type: A Plan to address problem: follow cardilogy. Continue anticoagulation (2) Subtherapeutic anticoagulation Current Visit: Yes Status: Acute Plan to address problem: adjust anticoagulant dosage. (3) Sickle cell anemia Current Visit: Yes Status: Acute Qualifiers: Sickle-cell associated disorders: S Plan to address problem: see notes above. continue with supportive.
[2017-03-11] MEDS: ATARAX PO SCH ×4 (01:24→18:40)
[2017-03-11] MEDS: SYNTHROID PO SCH (06:00)
[2017-03-11] MEDS: LASIX PO SCH ×2 (06:00→18:39)
[2017-03-11 06:18] LABS: INR 3.05 (0.87-1.13)
--- NOTE | 2017-03-11 10:40 | Progress Note ---
Assessment and Plan Assessment and plan: patient is 31-year-old, morbidly obese, with pulmonary hypertension, chronic respiratory failure, on home O2, diastolic CHF, RENE , presented for swelling of the lower extremities New onset afib - rate controlled on BB - anticoagulated with Coumadin, monitoring INR. INR supratherapeutic today, 3.05 - cardiology following Acute on chronic hypoxic respiratory failure - likely due to combination of heart failure, cor pulmonale, obesity hypoventilation syndrome and obstructive sleep apnea - continue oxygen supplementation and CPAP while asleep Acute on chronic diastolic CHF with a preserved ejection fraction - continue Lasix (changed to po), beta osmel, CARLOS MANUEL inhibitor - low-sodium diet, strict I's and O's and daily weights - cardiology following Cor pulmonale - Echocardiogram demonstrates a dilated right heart chambers, moderate tricuspid regurgitation and moderate pulmonary hypertension. Findings are consistent with cor pulmonale likely from chronic sleep apnea and obesity hypoventilation syndrome. Left ventricle chamber size and systolic function are normal, EF 50-55%. Sleep apnea/obesity hypoventilation - CPAP while asleep, noninvasive positive pressure ventilator as needed Morbidly obese - has been counseled on lifestyle modification - may be benefited from bariatric surgery as BMI >90, recommended outpatient follow-up Sickle cell disease - chronic, not in acute exacerbation - H and H stable Subclinical Hypothyroidism - continue low-dose Synthroid - TFTs to be rechecked in 4 to 6 weeks History of Buttock abscess - Wound care following DVT prophylaxis - INR therapeutic now, Lovenox discontinued Dispo ROSA working on discharge plans with SW at [place] where she is followed for 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 She is medically stable for discharge, awaiting placement. History Interval history: feels better, less leg edema no chest pain Hospitalist Physical - Physical exam Narrative exam: Gen Appearance: Not in acute distress, morbidly obese HEENT: normocephalic, atraumatic Neck: supple, no JVD Lungs: Clear to auscultation, bilaterally, no rales, no wheeze Heart: S1 and S2 regular, no murmurs or gallop Abdomen: Soft , non tender, non distended, normal bowel sounds Extremity: Trace edema, no clubbing or cyanosis Neuro : Awake,alert, oriented x 3, moves all extremities - Constitutional Vitals: Temp Pulse Resp BP Pulse Ox 98.8 F 105 H 20 136/60 98 03/10/17 23:02 03/10/17 23:02 03/10/17 23:02 03/10/17 23:02 03/11/17 08:08 General appearance: Present: mild distress, well-nourished Results - Labs CBC & Chem 7: 03/05/17 05:52 03/05/17 05:52 Labs: Laboratory Last Values WBC 7.4 K/mm3 (4.5-11.0) 03/05/17 05:52 RBC 3.39 M/mm3 (3.65-5.03) L 03/05/17 05:52 Hgb 9.6 gm/dl (10.1-14.3) L 03/05/17 05:52 Hct 28.6 % (30.3-42.9) L 03/05/17 05:52 MCV 84 fl (79-97) 03/05/17 05:52 MCH 28 pg (28-32) 03/05/17 05:52 MCHC 34 % (30-34) 03/05/17 05:52 RDW 19.2 % (13.2-15.2) H 03/05/17 05:52 Plt Count 270 K/mm3 (140-440) 03/05/17 05:52 [place] % (Auto) Automobile Rental Clerk 03/05/17 05:52 Add Manual Diff Complete 03/05/17 05:52 Total Counted 100 03/05/17 05:52 Seg Neuts % (Manual) 51 % (40.0-70.0) 03/05/17 05:52 Band Neutrophils % 3.0 % 03/05/17 05:52 Lymphocytes % (Manual) 25.0 % (13.4-35.0) 03/05/17 05:52 Reactive Lymphs % (Man) 0 % 03/05/17 05:52 Monocytes % (Manual) 14 % (0.0-7.3) H 03/05/17 05:52 Eosinophils % (Manual) 7.0 % (0.0-4.3) H 03/05/17 05:52 Basophils % (Manual) 0 % (0.0-1.8) 03/05/17 05:52 Metamyelocytes % 0 % 03/05/17 05:52 Myelocytes % 0 % 03/05/17 05:52 Promyelocytes % 0 % 03/05/17 05:52 Blast Cells % 0 % 03/05/17 05:52 Nucleated RBC % Not Reportable 03/05/17 05:52 Seg Neutrophils # Man 3.9 K/mm3 (1.8-7.7) 03/05/17 05:52 Band Neutrophils # 0.2 K/mm3 03/05/17 05:52 Lymphocytes # (Manual) 1.9 K/mm3 (1.2-5.4) 03/05/17 05:52 Abs React Lymphs (Man) 0.0 K/mm3 03/05/17 05:52 Monocytes # (Manual) 0.9 K/mm3 (0.0-0.8) H 03/05/17 05:52 Eosinophils # (Manual) 0.5 K/mm3 (0.0-0.4) H 03/05/17 05:52 Basophils # (Manual) 0.0 K/mm3 (0.0-0.1) 03/05/17 05:52 Metamyelocytes # 0.0 K/mm3 03/05/17 05:52 Myelocytes # 0.0 K/mm3 03/05/17 05:52 Promyelocytes # 0.0 K/mm3 03/05/17 05:52 Blast Cells # 0.0 K/mm3 03/05/17 05:52 Pathologist Review 02/25/17 19:09 WBC Morphology Not Reportable 03/05/17 05:52 Hypersegmented Neuts Not Reportable 03/05/17 05:52 Hyposegmented Neuts Not Reportable 03/05/17 05:52 Hypogranular Neuts Not Reportable 03/05/17 05:52 Smudge Cells Not Reportable 03/05/17 05:52 Toxic Granulation Not Reportable 03/05/17 05:52 Toxic Vacuolation Not Reportable 03/05/17 05:52 Dohle Bodies Not Reportable 03/05/17 05:52 Pelger-Huet Anomaly Not Reportable 03/05/17 05:52 James Rods Not Reportable 03/05/17 05:52 Platelet Estimate Not Reportable 03/05/17 05:52 Clumped Platelets Not Reportable 03/05/17 05:52 Plt Clumps, EDTA Not Reportable 03/05/17 05:52 Large Platelets Not Reportable 03/05/17 05:52 Giant Platelets Not Reportable 03/05/17 05:52 Platelet Satelliting Not Reportable 03/05/17 05:52 Plt Morphology Comment Not Reportable 03/05/17 05:52 RBC Morphology Not Reportable 03/05/17 05:52 Dimorphic RBCs Not Reportable 03/05/17 05:52 Polychromasia Not Reportable 03/05/17 05:52 Hypochromasia Not Reportable 03/05/17 05:52 Poikilocytosis Not Reportable 03/05/17 05:52 Anisocytosis 1+ 03/05/17 05:52 Microcytosis Not Reportable 03/05/17 05:52 Macrocytosis Not Reportable 03/05/17 05:52 Spherocytes Not Reportable 03/05/17 05:52 Pappenheimer Bodies Not Reportable 03/05/17 05:52 Sickle Cells Not Reportable 03/05/17 05:52 Target Cells 2+ 03/05/17 05:52 Tear Drop Cells Not Reportable 03/05/17 05:52 Ovalocytes Not Reportable 03/05/17 05:52 Stomatocytes 1+ 02/26/17 03:52 Helmet Cells Not Reportable 03/05/17 05:52 [place] Bodies Not Reportable 03/05/17 05:52 [place] Rings Not Reportable 03/05/17 05:52 [place] Cells Not Reportable 03/05/17 05:52 Bite Cells Not Reportable 03/05/17 05:52 Crenated Cell Not Reportable 03/05/17 05:52 Elliptocytes Not Reportable 03/05/17 05:52 Acanthocytes (Spur) Not Reportable 03/05/17 05:52 Rouleaux Not Reportable 03/05/17 05:52 Hemoglobin C Crystals Rare 03/05/17 05:52 Schistocytes Few 03/05/17 05:52 Malaria parasites Not Reportable 03/05/17 05:52 Percent Retic 1.64 % (0.78-2.58) 03/05/17 05:52 Benjamin Bodies Not Reportable 03/05/17 05:52 Hem Pathologist Commnt No 03/05/17 05:52 PT 33.2 Sec. (12.2-14.9) H 03/11/17 05:39 INR 3.05 (0.87-1.13) H 03/11/17 05:39 Sodium 144 mmol/L (137-145) 03/05/17 05:52 Potassium 4.4 mmol/L (3.6-5.0) 03/05/17 05:52 Chloride 97.3 mmol/L (98-107) L 03/05/17 05:52 Carbon Dioxide 38 mmol/L (22-30) H 03/05/17 05:52 Anion Gap 13 mmol/L 03/05/17 05:52 BUN 13 mg/dL (7-17) 03/05/17 05:52 Creatinine 0.9 mg/dL (0.7-1.2) 03/05/17 05:52 Estimated GFR > 60 ml/min 03/05/17 05:52 BUN/Creatinine Ratio 14.44 % 03/05/17 05:52 Glucose 87 mg/dL (65-100) 03/05/17 05:52 Calcium 8.4 mg/dL (8.4-10.2) 03/05/17 05:52 Troponin T < 0.010 ng/mL (0.00-0.029) 02/25/17 19:09 NT-Pro-B Natriuret Pep 1916 pg/mL (0-450) H 02/25/17 19:09 HCG, Qual Negative (Negative) 02/25/17 19:09
[2017-03-11] MEDS: ZESTRIL PO SCH (11:45)
[2017-03-11] MEDS: LOPRESSOR PO SCH ×2 (11:45→23:04)
[2017-03-11] MEDS: FOLVITE PO SCH (11:46)
[2017-03-11] MEDS: PROTONIX PO SCH (11:46)
--- NOTE | 2017-03-11 16:50 | Consultation ---
History of Present Illness - Reason for Consult Consult date: 03/11/17 - History of Present Illness patient seen, resting in bed, no new issues. Past History Past Medical History: anemia Family history: no significant family history Medications and Allergies Allergies Allergy/AdvReac Type Severity Reaction Status Date / Time morphine Allergy Hives Verified 02/25/17 19:44 shrimp Allergy Hives Verified 02/25/17 19:44 Home Medications Medication Instructions Recorded Confirmed Last Taken Type ALBUTEROL Inhaler [ProAir HFA 2 puff IH QID PRN 10/14/16 02/25/17 02/25/17 History Inhaler] Folic Acid [FA-8] 0.8 mg PO DAILY 10/14/16 02/25/17 02/25/17 History Nystatin [Nystop Powder] 1 applicatio TP TID 10/14/16 02/25/17 02/25/17 History Ranitidine HCl 75 mg PO DAILY 10/14/16 02/25/17 02/25/17 History traMADol [Ultram 50 MG tab] 50 mg PO Q4HR PRN 10/14/16 02/25/17 02/25/17 History Furosemide [Lasix TAB] 40 mg PO QDAY #60 02/13/17 02/25/17 02/25/17 Rx Metoprolol [Lopressor TAB] 50 mg PO BID #60 tablet 02/13/17 02/25/17 02/25/17 Rx Pantoprazole [Protonix TAB] 40 mg PO QDAY tablet 02/13/17 02/25/17 02/25/17 Rx Active Meds: Active Medications Acetaminophen (Tylenol) 650 mg PO Q4H PRN PRN Reason: Pain MILD(1-3)/Fever >100.5/AL Last Admin: 03/04/17 09:52 Dose: 650 mg Albuterol (Proventil) 2.5 mg IH Q4HRT PRN PRN Reason: Shortness Of Breath Last Admin: 03/06/17 20:25 Dose: 2.5 mg Bisacodyl (Dulcolax) 10 mg OK QDAY PRN PRN Reason: Constipation unrelieved by MOM Diphenhydramine HCl (Benadryl) 25 mg PO Q6H PRN PRN Reason: Itching Last Admin: 03/10/17 22:53 Dose: 25 mg Folic Acid (Folvite) 1 mg PO DAILY [facility] Last Admin: 03/11/17 11:46 Dose: 1 mg Furosemide (Lasix) 40 mg PO 0600,1800 [facility] Last Admin: 03/11/17 06:00 Dose: 40 mg Hydroxyzine HCl (Atarax) 10 mg PO Q6H [facility] Last Admin: 03/11/17 16:46 Dose: 10 mg Levothyroxine Sodium (Synthroid) 25 mcg PO DAILY@0600 [facility] Last Admin: 03/11/17 06:00 Dose: 25 mcg Lisinopril (Zestril) 2.5 mg PO QDAY [facility] Last Admin: 03/11/17 11:45 Dose: Not Given Magnesium Hydroxide (Milk Of Magnesia) 30 ml PO Q4H PRN PRN Reason: Constipation Metoprolol Tartrate (Lopressor) 12.5 mg PO BID [facility] Last Admin: 03/11/17 11:45 Dose: Not Given Ondansetron HCl (Zofran) 4 mg IV Q8H PRN PRN Reason: N/V unrelieved by Reglan Pantoprazole Sodium (Protonix) 40 mg PO QDAY [facility] Last Admin: 03/11/17 11:46 Dose: 40 mg Tramadol HCl (Ultram) 50 mg PO Q4HR PRN PRN Reason: Pain Last Admin: 03/08/17 00:25 Dose: 50 mg Warfarin Sodium (Coumadin Pharmacy To Dose) 1 each PO PKCONSULT [facility] PRN Reason: Protocol Warfarin Sodium (Coumadin) 5 mg PO DAILY@1700 [facility] Last Admin: 03/10/17 17:30 Dose: 5 mg Review of Systems Breasts: deferred Exam - Constitutional Vitals: Temp Pulse Resp BP Pulse Ox 98.2 F 91 H 16 111/71 97 03/11/17 15:46 03/11/17 15:46 03/11/17 15:46 03/11/17 15:46 03/11/17 15:46 General appearance: Present: no acute distress, well-nourished - EENT Eyes: Present: PERRL ENT: hearing intact, clear oral mucosa - Neck Neck: Present: supple, normal ROM - Respiratory Respiratory effort: normal Respiratory: bilateral: diminished - Cardiovascular Heart Sounds: Present: S1 & S2. Absent: rub, click - Extremities Extremities: pulses symmetrical, No edema Peripheral Pulses: within normal limits - Abdominal General gastrointestinal: Present: soft, non-tender, non-distended, normal bowel sounds Female genitourinary: Present: deferred - Rectal Rectal Exam: deferred - Integumentary Integumentary: Present: clear, warm, dry - Musculoskeletal Musculoskeletal: gait normal, strength equal bilaterally - Psychiatric Psychiatric: appropriate mood/affect, intact judgment & insight - Neurologic Neurologic: CNII-XII intact, moves all extremities Results - Labs CBC & Chem 7: 03/05/17 05:52 03/05/17 05:52 Labs: Abnormal lab results 03/11/17 Range/Units 05:39 PT 33.2 H (12.2-14.9) Sec. INR 3.05 H (0.87-1.13) Assessment and Plan - Patient Problems (1) A-fib Current Visit: Yes Status: Acute Qualifiers: Atrial fibrillation type: A Plan to address problem: follow cardilogy. Continue anticoagulation (2) Subtherapeutic anticoagulation Current Visit: Yes Status: Acute Plan to address problem: adjust anticoagulant dosage. (3) Sickle cell anemia Current Visit: Yes Status: Acute Qualifiers: Sickle-cell associated disorders: S Plan to address problem: see notes above. continue with supportive.
[2017-03-11] MEDS: COUMADIN PO SCH ×2 (18:53→23:02)
[2017-03-11] MEDS: BENADRYL PO PRN (23:03)
[2017-03-12 05:57] LABS: INR 2.92 (0.87-1.13)
[2017-03-12] MEDS: LASIX PO SCH ×2 (06:43→18:30)
[2017-03-12] MEDS: SYNTHROID PO SCH (06:43)
[2017-03-12] MEDS: ATARAX PO SCH ×4 (07:06→22:24)
--- NOTE | 2017-03-12 10:46 | Progress Note ---
Assessment and Plan Assessment and plan: patient is 31-year-old, morbidly obese, with pulmonary hypertension, chronic respiratory failure, on home O2, diastolic CHF, RENE , presented for swelling of the lower extremities New onset afib - rate controlled on BB - anticoagulated with Coumadin, monitoring INR. INR supratherapeutic today, 2.92 - cardiology following Acute on chronic hypoxic respiratory failure - likely due to combination of heart failure, cor pulmonale, obesity hypoventilation syndrome and obstructive sleep apnea - continue oxygen supplementation and CPAP while asleep Acute on chronic diastolic CHF with a preserved ejection fraction - continue Lasix (changed to po), beta osmel, CARLOS MANUEL inhibitor - low-sodium diet, strict I's and O's and daily weights - cardiology following Cor pulmonale - Echocardiogram demonstrates a dilated right heart chambers, moderate tricuspid regurgitation and moderate pulmonary hypertension. Findings are consistent with cor pulmonale likely from chronic sleep apnea and obesity hypoventilation syndrome. Left ventricle chamber size and systolic function are normal, EF 50-55%. Sleep apnea/obesity hypoventilation - CPAP while asleep, noninvasive positive pressure ventilator as needed Morbidly obese - has been counseled on lifestyle modification - may be benefited from bariatric surgery as BMI >90, recommended outpatient follow-up Sickle cell disease - chronic, not in acute exacerbation - H and H stable Subclinical Hypothyroidism - continue low-dose Synthroid - TFTs to be rechecked in 4 to 6 weeks History of Buttock abscess - Wound care following DVT prophylaxis - INR therapeutic now, Lovenox discontinued Dispo ROSA working on discharge plans with SW at [place] where she is followed for 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 She is medically stable for discharge, awaiting placement. History Interval history: feels better, less leg edema no chest pain Hospitalist Physical - Physical exam Narrative exam: Gen Appearance: Not in acute distress, morbidly obese HEENT: normocephalic, atraumatic Neck: supple, no JVD Lungs: Clear to auscultation, bilaterally, no rales, no wheeze Heart: S1 and S2 regular, no murmurs or gallop Abdomen: Soft , non tender, non distended, normal bowel sounds Extremity: Trace edema, no clubbing or cyanosis Neuro : Awake,alert, oriented x 3, moves all extremities - Constitutional Vitals: Temp Pulse Resp BP Pulse Ox 97.5 F L 95 H 20 129/52 96 03/12/17 07:35 03/12/17 07:35 03/12/17 07:35 03/12/17 07:35 03/12/17 07:35 General appearance: Present: no acute distress, well-nourished Results - Labs CBC & Chem 7: 03/05/17 05:52 03/05/17 05:52 Labs: Laboratory Last Values WBC 7.4 K/mm3 (4.5-11.0) 03/05/17 05:52 RBC 3.39 M/mm3 (3.65-5.03) L 03/05/17 05:52 Hgb 9.6 gm/dl (10.1-14.3) L 03/05/17 05:52 Hct 28.6 % (30.3-42.9) L 03/05/17 05:52 MCV 84 fl (79-97) 03/05/17 05:52 MCH 28 pg (28-32) 03/05/17 05:52 MCHC 34 % (30-34) 03/05/17 05:52 RDW 19.2 % (13.2-15.2) H 03/05/17 05:52 Plt Count 270 K/mm3 (140-440) 03/05/17 05:52 [place] % (Auto) Senior Reactor Operator 03/05/17 05:52 Add Manual Diff Complete 03/05/17 05:52 Total Counted 100 03/05/17 05:52 Seg Neuts % (Manual) 51 % (40.0-70.0) 03/05/17 05:52 Band Neutrophils % 3.0 % 03/05/17 05:52 Lymphocytes % (Manual) 25.0 % (13.4-35.0) 03/05/17 05:52 Reactive Lymphs % (Man) 0 % 03/05/17 05:52 Monocytes % (Manual) 14 % (0.0-7.3) H 03/05/17 05:52 Eosinophils % (Manual) 7.0 % (0.0-4.3) H 03/05/17 05:52 Basophils % (Manual) 0 % (0.0-1.8) 03/05/17 05:52 Metamyelocytes % 0 % 03/05/17 05:52 Myelocytes % 0 % 03/05/17 05:52 Promyelocytes % 0 % 03/05/17 05:52 Blast Cells % 0 % 03/05/17 05:52 Nucleated RBC % Not Reportable 03/05/17 05:52 Seg Neutrophils # Man 3.9 K/mm3 (1.8-7.7) 03/05/17 05:52 Band Neutrophils # 0.2 K/mm3 03/05/17 05:52 Lymphocytes # (Manual) 1.9 K/mm3 (1.2-5.4) 03/05/17 05:52 Abs React Lymphs (Man) 0.0 K/mm3 03/05/17 05:52 Monocytes # (Manual) 0.9 K/mm3 (0.0-0.8) H 03/05/17 05:52 Eosinophils # (Manual) 0.5 K/mm3 (0.0-0.4) H 03/05/17 05:52 Basophils # (Manual) 0.0 K/mm3 (0.0-0.1) 03/05/17 05:52 Metamyelocytes # 0.0 K/mm3 03/05/17 05:52 Myelocytes # 0.0 K/mm3 03/05/17 05:52 Promyelocytes # 0.0 K/mm3 03/05/17 05:52 Blast Cells # 0.0 K/mm3 03/05/17 05:52 Pathologist Review 02/25/17 19:09 WBC Morphology Not Reportable 03/05/17 05:52 Hypersegmented Neuts Not Reportable 03/05/17 05:52 Hyposegmented Neuts Not Reportable 03/05/17 05:52 Hypogranular Neuts Not Reportable 03/05/17 05:52 Smudge Cells Not Reportable 03/05/17 05:52 Toxic Granulation Not Reportable 03/05/17 05:52 Toxic Vacuolation Not Reportable 03/05/17 05:52 Dohle Bodies Not Reportable 03/05/17 05:52 Pelger-Huet Anomaly Not Reportable 03/05/17 05:52 James Rods Not Reportable 03/05/17 05:52 Platelet Estimate Not Reportable 03/05/17 05:52 Clumped Platelets Not Reportable 03/05/17 05:52 Plt Clumps, EDTA Not Reportable 03/05/17 05:52 Large Platelets Not Reportable 03/05/17 05:52 Giant Platelets Not Reportable 03/05/17 05:52 Platelet Satelliting Not Reportable 03/05/17 05:52 Plt Morphology Comment Not Reportable 03/05/17 05:52 RBC Morphology Not Reportable 03/05/17 05:52 Dimorphic RBCs Not Reportable 03/05/17 05:52 Polychromasia Not Reportable 03/05/17 05:52 Hypochromasia Not Reportable 03/05/17 05:52 Poikilocytosis Not Reportable 03/05/17 05:52 Anisocytosis 1+ 03/05/17 05:52 Microcytosis Not Reportable 03/05/17 05:52 Macrocytosis Not Reportable 03/05/17 05:52 Spherocytes Not Reportable 03/05/17 05:52 Pappenheimer Bodies Not Reportable 03/05/17 05:52 Sickle Cells Not Reportable 03/05/17 05:52 Target Cells 2+ 03/05/17 05:52 Tear Drop Cells Not Reportable 03/05/17 05:52 Ovalocytes Not Reportable 03/05/17 05:52 Stomatocytes 1+ 02/26/17 03:52 Helmet Cells Not Reportable 03/05/17 05:52 [place] Bodies Not Reportable 03/05/17 05:52 [place] Rings Not Reportable 03/05/17 05:52 [place] Cells Not Reportable 03/05/17 05:52 Bite Cells Not Reportable 03/05/17 05:52 Crenated Cell Not Reportable 03/05/17 05:52 Elliptocytes Not Reportable 03/05/17 05:52 Acanthocytes (Spur) Not Reportable 03/05/17 05:52 Rouleaux Not Reportable 03/05/17 05:52 Hemoglobin C Crystals Rare 03/05/17 05:52 Schistocytes Few 03/05/17 05:52 Malaria parasites Not Reportable 03/05/17 05:52 Percent Retic 1.64 % (0.78-2.58) 03/05/17 05:52 Benjamin Bodies Not Reportable 03/05/17 05:52 Hem Pathologist Commnt No 03/05/17 05:52 PT 32.1 Sec. (12.2-14.9) H 03/12/17 03:51 INR 2.92 (0.87-1.13) H 03/12/17 03:51 Sodium 144 mmol/L (137-145) 03/05/17 05:52 Potassium 4.4 mmol/L (3.6-5.0) 03/05/17 05:52 Chloride 97.3 mmol/L (98-107) L 03/05/17 05:52 Carbon Dioxide 38 mmol/L (22-30) H 03/05/17 05:52 Anion Gap 13 mmol/L 03/05/17 05:52 BUN 13 mg/dL (7-17) 03/05/17 05:52 Creatinine 0.9 mg/dL (0.7-1.2) 03/05/17 05:52 Estimated GFR > 60 ml/min 03/05/17 05:52 BUN/Creatinine Ratio 14.44 % 03/05/17 05:52 Glucose 87 mg/dL (65-100) 03/05/17 05:52 Calcium 8.4 mg/dL (8.4-10.2) 03/05/17 05:52 Troponin T < 0.010 ng/mL (0.00-0.029) 02/25/17 19:09 NT-Pro-B Natriuret Pep 1916 pg/mL (0-450) H 02/25/17 19:09 HCG, Qual Negative (Negative) 02/25/17 19:09
[2017-03-12] MEDS: LOPRESSOR PO SCH ×2 (12:43→22:25)
[2017-03-12] MEDS: FOLVITE PO SCH (12:44)
[2017-03-12] MEDS: ZESTRIL PO SCH (12:44)
[2017-03-12] MEDS: PROTONIX PO SCH (12:45)
[2017-03-12] MEDS: COUMADIN PO SCH (18:30)
[2017-03-12] MEDS: BENADRYL PO PRN (22:25)
--- NOTE | 2017-03-13 00:11 | Progress Note ---
Assessment and Plan - Patient Problems (1) A-fib Current Visit: Yes Status: Acute Qualifiers: Atrial fibrillation type: A Plan to address problem: follow cardilogy. Continue anticoagulation (2) Subtherapeutic anticoagulation Current Visit: Yes Status: Acute Plan to address problem: adjust anticoagulant dosage. (3) Sickle cell anemia Current Visit: Yes Status: Acute Qualifiers: Sickle-cell associated disorders: S Plan to address problem: see notes above. continue with supportive. Subjective Date of service: 03/12/17 Principal diagnosis: Corpulmonale. Interval history: patient seen.resting in bed, no new issues at this time. Objective - Constitutional Vitals: Vital Signs - 12hr 03/12/17 03/12/17 03/12/17 12:43 12:44 16:07 Temperature 97.6 F Pulse Rate 95 H 95 H 90 Respiratory 20 Rate Blood Pressure 129/52 129/52 139/88 O2 Sat by Pulse 99 Oximetry 03/12/17 03/12/17 22:22 22:25 Temperature Pulse Rate 88 Respiratory Rate Blood Pressure 134/83 134/83 O2 Sat by Pulse Oximetry General appearance: Present: mild distress, well-nourished - EENT Eyes: PERRL, EOM intact ENT: hearing intact, clear oral mucosa Ears: bilateral: normal - Neck Neck: supple, normal ROM - Respiratory Respiratory: bilateral: diminished - Breasts Breasts: deferred - Cardiovascular Rhythm: regular Heart Sounds: Present: S1 & S2. Absent: gallop, rub Extremities: pulses intact, No edema, normal color, Full ROM - Gastrointestinal General gastrointestinal: Present: soft, non-tender, non-distended, normal bowel sounds Rectal Exam: deferred - Genitourinary Female genitourinary: deferred - Integumentary Integumentary: clear, warm, dry - Musculoskeletal Musculoskeletal: 1, strength equal bilaterally - Neurologic Neurologic: moves all extremities - Psychiatric Psychiatric: memory intact, appropriate mood/affect, intact judgment & insight - Labs CBC & Chem 7: 03/05/17 05:52 03/05/17 05:52 Labs: Abnormal lab results 03/12/17 Range/Units 03:51 PT 32.1 H (12.2-14.9) Sec. INR 2.92 H (0.87-1.13)
[2017-03-13] MEDS: ATARAX PO SCH ×5 (00:12→23:34)
[2017-03-13] MEDS: SYNTHROID PO SCH (07:01)
[2017-03-13 07:18] LABS: INR 2.71 (0.87-1.13)
[2017-03-13] MEDS: LASIX PO SCH ×2 (08:37→17:30)
[2017-03-13] MEDS: LOPRESSOR PO SCH ×2 (10:42→23:34)
[2017-03-13] MEDS: ZESTRIL PO SCH (10:43)
[2017-03-13] MEDS: FOLVITE PO SCH (10:43)
[2017-03-13] MEDS: PROTONIX PO SCH (10:43)
--- NOTE | 2017-03-13 16:40 | Progress Note ---
Assessment and Plan Assessment and plan: patient is 31-year-old, morbidly obese, with pulmonary hypertension, chronic respiratory failure, on home O2, diastolic CHF, RENE , presented for swelling of the lower extremities New onset afib - rate controlled on BB - anticoagulated with Coumadin, monitoring INR. INR supratherapeutic today, 2.92 - cardiology following Acute on chronic hypoxic respiratory failure - likely due to combination of heart failure, cor pulmonale, obesity hypoventilation syndrome and obstructive sleep apnea - continue oxygen supplementation and CPAP while asleep Acute on chronic diastolic CHF with a preserved ejection fraction - continue Lasix (changed to po), beta osmel, CARLOS MANUEL inhibitor - low-sodium diet, strict I's and O's and daily weights - cardiology following Cor pulmonale - Echocardiogram demonstrates a dilated right heart chambers, moderate tricuspid regurgitation and moderate pulmonary hypertension. Findings are consistent with cor pulmonale likely from chronic sleep apnea and obesity hypoventilation syndrome. Left ventricle chamber size and systolic function are normal, EF 50-55%. Sleep apnea/obesity hypoventilation - CPAP while asleep, noninvasive positive pressure ventilator as needed Morbidly obese - has been counseled on lifestyle modification - may be benefited from bariatric surgery as BMI >90, recommended outpatient follow-up Sickle cell disease - chronic, not in acute exacerbation - H and H stable Subclinical Hypothyroidism - continue low-dose Synthroid - TFTs to be rechecked in 4 to 6 weeks History of Buttock abscess - Wound care following DVT prophylaxis - INR therapeutic now, Lovenox discontinued Dispo ROSA working on discharge plans with SW at [place] where she is followed for 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 She is medically stable for discharge, awaiting placement. History Interval history: No new complaints Hospitalist Physical - Physical exam Narrative exam: Gen Appearance: Not in acute distress, morbidly obese HEENT: normocephalic, atraumatic Neck: supple, no JVD Lungs: Clear to auscultation, bilaterally, no rales, no wheeze Heart: S1 and S2 regular, no murmurs or gallop Abdomen: Soft , non tender, non distended, normal bowel sounds Extremity: Trace edema, no clubbing or cyanosis Neuro : Awake,alert, oriented x 3, moves all extremities - Constitutional Vitals: Temp Pulse Resp BP Pulse Ox 98.1 F 97 H 20 120/52 94 03/13/17 07:26 03/13/17 10:42 03/13/17 07:26 03/13/17 10:42 03/13/17 07:26 General appearance: Present: mild distress, well-nourished Results - Labs CBC & Chem 7: 03/05/17 05:52 03/05/17 05:52 Labs: Laboratory Last Values WBC 7.4 K/mm3 (4.5-11.0) 03/05/17 05:52 RBC 3.39 M/mm3 (3.65-5.03) L 03/05/17 05:52 Hgb 9.6 gm/dl (10.1-14.3) L 03/05/17 05:52 Hct 28.6 % (30.3-42.9) L 03/05/17 05:52 MCV 84 fl (79-97) 03/05/17 05:52 MCH 28 pg (28-32) 03/05/17 05:52 MCHC 34 % (30-34) 03/05/17 05:52 RDW 19.2 % (13.2-15.2) H 03/05/17 05:52 Plt Count 270 K/mm3 (140-440) 03/05/17 05:52 [place] % (Auto) Fiber Machine Tender 03/05/17 05:52 Add Manual Diff Complete 03/05/17 05:52 Total Counted 100 03/05/17 05:52 Seg Neuts % (Manual) 51 % (40.0-70.0) 03/05/17 05:52 Band Neutrophils % 3.0 % 03/05/17 05:52 Lymphocytes % (Manual) 25.0 % (13.4-35.0) 03/05/17 05:52 Reactive Lymphs % (Man) 0 % 03/05/17 05:52 Monocytes % (Manual) 14 % (0.0-7.3) H 03/05/17 05:52 Eosinophils % (Manual) 7.0 % (0.0-4.3) H 03/05/17 05:52 Basophils % (Manual) 0 % (0.0-1.8) 03/05/17 05:52 Metamyelocytes % 0 % 03/05/17 05:52 Myelocytes % 0 % 03/05/17 05:52 Promyelocytes % 0 % 03/05/17 05:52 Blast Cells % 0 % 03/05/17 05:52 Nucleated RBC % Not Reportable 03/05/17 05:52 Seg Neutrophils # Man 3.9 K/mm3 (1.8-7.7) 03/05/17 05:52 Band Neutrophils # 0.2 K/mm3 03/05/17 05:52 Lymphocytes # (Manual) 1.9 K/mm3 (1.2-5.4) 03/05/17 05:52 Abs React Lymphs (Man) 0.0 K/mm3 03/05/17 05:52 Monocytes # (Manual) 0.9 K/mm3 (0.0-0.8) H 03/05/17 05:52 Eosinophils # (Manual) 0.5 K/mm3 (0.0-0.4) H 03/05/17 05:52 Basophils # (Manual) 0.0 K/mm3 (0.0-0.1) 03/05/17 05:52 Metamyelocytes # 0.0 K/mm3 03/05/17 05:52 Myelocytes # 0.0 K/mm3 03/05/17 05:52 Promyelocytes # 0.0 K/mm3 03/05/17 05:52 Blast Cells # 0.0 K/mm3 03/05/17 05:52 Pathologist Review 02/25/17 19:09 WBC Morphology Not Reportable 03/05/17 05:52 Hypersegmented Neuts Not Reportable 03/05/17 05:52 Hyposegmented Neuts Not Reportable 03/05/17 05:52 Hypogranular Neuts Not Reportable 03/05/17 05:52 Smudge Cells Not Reportable 03/05/17 05:52 Toxic Granulation Not Reportable 03/05/17 05:52 Toxic Vacuolation Not Reportable 03/05/17 05:52 Dohle Bodies Not Reportable 03/05/17 05:52 Pelger-Huet Anomaly Not Reportable 03/05/17 05:52 James Rods Not Reportable 03/05/17 05:52 Platelet Estimate Not Reportable 03/05/17 05:52 Clumped Platelets Not Reportable 03/05/17 05:52 Plt Clumps, EDTA Not Reportable 03/05/17 05:52 Large Platelets Not Reportable 03/05/17 05:52 Giant Platelets Not Reportable 03/05/17 05:52 Platelet Satelliting Not Reportable 03/05/17 05:52 Plt Morphology Comment Not Reportable 03/05/17 05:52 RBC Morphology Not Reportable 03/05/17 05:52 Dimorphic RBCs Not Reportable 03/05/17 05:52 Polychromasia Not Reportable 03/05/17 05:52 Hypochromasia Not Reportable 03/05/17 05:52 Poikilocytosis Not Reportable 03/05/17 05:52 Anisocytosis 1+ 03/05/17 05:52 Microcytosis Not Reportable 03/05/17 05:52 Macrocytosis Not Reportable 03/05/17 05:52 Spherocytes Not Reportable 03/05/17 05:52 Pappenheimer Bodies Not Reportable 03/05/17 05:52 Sickle Cells Not Reportable 03/05/17 05:52 Target Cells 2+ 03/05/17 05:52 Tear Drop Cells Not Reportable 03/05/17 05:52 Ovalocytes Not Reportable 03/05/17 05:52 Stomatocytes 1+ 02/26/17 03:52 Helmet Cells Not Reportable 03/05/17 05:52 [place] Bodies Not Reportable 03/05/17 05:52 [place] Rings Not Reportable 03/05/17 05:52 Fabi Cells Not Reportable 03/05/17 05:52 Bite Cells Not Reportable 03/05/17 05:52 Crenated Cell Not Reportable 03/05/17 05:52 Elliptocytes Not Reportable 03/05/17 05:52 Acanthocytes (Spur) Not Reportable 03/05/17 05:52 Rouleaux Not Reportable 03/05/17 05:52 Hemoglobin C Crystals Rare 03/05/17 05:52 Schistocytes Few 03/05/17 05:52 Malaria parasites Not Reportable 03/05/17 05:52 Percent Retic 1.64 % (0.78-2.58) 03/05/17 05:52 Benjamin Bodies Not Reportable 03/05/17 05:52 Hem Pathologist Commnt No 03/05/17 05:52 PT 28.9 Sec. (12.2-14.9) H 03/13/17 06:43 INR 2.71 (0.87-1.13) H 03/13/17 06:43 Sodium 144 mmol/L (137-145) 03/05/17 05:52 Potassium 4.4 mmol/L (3.6-5.0) 03/05/17 05:52 Chloride 97.3 mmol/L (98-107) L 03/05/17 05:52 Carbon Dioxide 38 mmol/L (22-30) H 03/05/17 05:52 Anion Gap 13 mmol/L 03/05/17 05:52 BUN 13 mg/dL (7-17) 03/05/17 05:52 Creatinine 0.9 mg/dL (0.7-1.2) 03/05/17 05:52 Estimated GFR > 60 ml/min 03/05/17 05:52 BUN/Creatinine Ratio 14.44 % 03/05/17 05:52 Glucose 87 mg/dL (65-100) 03/05/17 05:52 Calcium 8.4 mg/dL (8.4-10.2) 03/05/17 05:52 Troponin T < 0.010 ng/mL (0.00-0.029) 02/25/17 19:09 NT-Pro-B Natriuret Pep 1916 pg/mL (0-450) H 02/25/17 19:09 HCG, Qual Negative (Negative) 02/25/17 19:09
[2017-03-13] MEDS: COUMADIN PO SCH (17:30)
[2017-03-13] MEDS: BENADRYL PO PRN (23:34)
[2017-03-14] MEDS: ATARAX PO SCH ×5 (00:26→22:49)
[2017-03-14 06:13] LABS: INR 2.04 (0.87-1.13)
[2017-03-14] MEDS: SYNTHROID PO SCH (06:21)
[2017-03-14] MEDS: LASIX PO SCH ×2 (06:22→18:05)
--- NOTE | 2017-03-14 09:29 | Progress Note ---
Assessment and Plan Assessment and plan: patient is 31-year-old, morbidly obese, with pulmonary hypertension, chronic respiratory failure, on home O2, diastolic CHF, RENE , presented for swelling of the lower extremities New onset afib - rate controlled on BB - anticoagulated with Coumadin, monitoring INR. INR supratherapeutic today, 2.05 - cardiology following Acute on chronic hypoxic respiratory failure - likely due to combination of heart failure, cor pulmonale, obesity hypoventilation syndrome and obstructive sleep apnea - continue oxygen supplementation and CPAP while asleep Acute on chronic diastolic CHF with a preserved ejection fraction - continue Lasix (changed to po), beta osmel, CARLOS MANUEL inhibitor - low-sodium diet, strict I's and O's and daily weights - cardiology following Cor pulmonale - Echocardiogram demonstrates a dilated right heart chambers, moderate tricuspid regurgitation and moderate pulmonary hypertension. Findings are consistent with cor pulmonale likely from chronic sleep apnea and obesity hypoventilation syndrome. Left ventricle chamber size and systolic function are normal, EF 50-55%. Sleep apnea/obesity hypoventilation - CPAP while asleep, noninvasive positive pressure ventilator as needed Morbidly obese - has been counseled on lifestyle modification - may be benefited from bariatric surgery as BMI >90, recommended outpatient follow-up Sickle cell disease - chronic, not in acute exacerbation - H and H stable Subclinical Hypothyroidism - continue low-dose Synthroid - TFTs to be rechecked in 4 to 6 weeks History of Buttock abscess - Wound care following DVT prophylaxis - INR therapeutic now, Lovenox discontinued Dispo ROSA working on discharge plans with SW at [place] where she is followed for 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 She is medically stable for discharge, awaiting placement. History Interval history: No new complaints Hospitalist Physical - Physical exam Narrative exam: Gen Appearance: Not in acute distress, morbidly obese HEENT: normocephalic, atraumatic Neck: supple, no JVD Lungs: Clear to auscultation, bilaterally, no rales, no wheeze Heart: S1 and S2 regular, no murmurs or gallop Abdomen: Soft , non tender, non distended, normal bowel sounds Extremity: Trace edema, no clubbing or cyanosis Neuro : Awake,alert, oriented x 3, moves all extremities - Constitutional Vitals: Temp Pulse Resp BP Pulse Ox 98.0 F 98 H 20 106/49 94 03/14/17 07:34 03/14/17 07:34 03/14/17 07:34 03/14/17 07:34 03/14/17 07:34 General appearance: Present: mild distress, well-nourished Results - Labs CBC & Chem 7: 03/05/17 05:52 03/05/17 05:52 Labs: Laboratory Last Values WBC 7.4 K/mm3 (4.5-11.0) 03/05/17 05:52 RBC 3.39 M/mm3 (3.65-5.03) L 03/05/17 05:52 Hgb 9.6 gm/dl (10.1-14.3) L 03/05/17 05:52 Hct 28.6 % (30.3-42.9) L 03/05/17 05:52 MCV 84 fl (79-97) 03/05/17 05:52 MCH 28 pg (28-32) 03/05/17 05:52 MCHC 34 % (30-34) 03/05/17 05:52 RDW 19.2 % (13.2-15.2) H 03/05/17 05:52 Plt Count 270 K/mm3 (140-440) 03/05/17 05:52 [place] % (Auto) [place] 03/05/17 05:52 Add Manual Diff Complete 03/05/17 05:52 Total Counted 100 03/05/17 05:52 Seg Neuts % (Manual) 51 % (40.0-70.0) 03/05/17 05:52 Band Neutrophils % 3.0 % 03/05/17 05:52 Lymphocytes % (Manual) 25.0 % (13.4-35.0) 03/05/17 05:52 Reactive Lymphs % (Man) 0 % 03/05/17 05:52 Monocytes % (Manual) 14 % (0.0-7.3) H 03/05/17 05:52 Eosinophils % (Manual) 7.0 % (0.0-4.3) H 03/05/17 05:52 Basophils % (Manual) 0 % (0.0-1.8) 03/05/17 05:52 Metamyelocytes % 0 % 03/05/17 05:52 Myelocytes % 0 % 03/05/17 05:52 Promyelocytes % 0 % 03/05/17 05:52 Blast Cells % 0 % 03/05/17 05:52 Nucleated RBC % Not Reportable 03/05/17 05:52 Seg Neutrophils # Man 3.9 K/mm3 (1.8-7.7) 03/05/17 05:52 Band Neutrophils # 0.2 K/mm3 03/05/17 05:52 Lymphocytes # (Manual) 1.9 K/mm3 (1.2-5.4) 03/05/17 05:52 Abs React Lymphs (Man) 0.0 K/mm3 03/05/17 05:52 Monocytes # (Manual) 0.9 K/mm3 (0.0-0.8) H 03/05/17 05:52 Eosinophils # (Manual) 0.5 K/mm3 (0.0-0.4) H 03/05/17 05:52 Basophils # (Manual) 0.0 K/mm3 (0.0-0.1) 03/05/17 05:52 Metamyelocytes # 0.0 K/mm3 03/05/17 05:52 Myelocytes # 0.0 K/mm3 03/05/17 05:52 Promyelocytes # 0.0 K/mm3 03/05/17 05:52 Blast Cells # 0.0 K/mm3 03/05/17 05:52 Pathologist Review 02/25/17 19:09 WBC Morphology Not Reportable 03/05/17 05:52 Hypersegmented Neuts Not Reportable 03/05/17 05:52 Hyposegmented Neuts Not Reportable 03/05/17 05:52 Hypogranular Neuts Not Reportable 03/05/17 05:52 Smudge Cells Not Reportable 03/05/17 05:52 Toxic Granulation Not Reportable 03/05/17 05:52 Toxic Vacuolation Not Reportable 03/05/17 05:52 Dohle Bodies Not Reportable 03/05/17 05:52 Pelger-Huet Anomaly Not Reportable 03/05/17 05:52 James Rods Not Reportable 03/05/17 05:52 Platelet Estimate Not Reportable 03/05/17 05:52 Clumped Platelets Not Reportable 03/05/17 05:52 Plt Clumps, EDTA Not Reportable 03/05/17 05:52 Large Platelets Not Reportable 03/05/17 05:52 Giant Platelets Not Reportable 03/05/17 05:52 Platelet Satelliting Not Reportable 03/05/17 05:52 Plt Morphology Comment Not Reportable 03/05/17 05:52 RBC Morphology Not Reportable 03/05/17 05:52 Dimorphic RBCs Not Reportable 03/05/17 05:52 Polychromasia Not Reportable 03/05/17 05:52 Hypochromasia Not Reportable 03/05/17 05:52 Poikilocytosis Not Reportable 03/05/17 05:52 Anisocytosis 1+ 03/05/17 05:52 Microcytosis Not Reportable 03/05/17 05:52 Macrocytosis Not Reportable 03/05/17 05:52 Spherocytes Not Reportable 03/05/17 05:52 Pappenheimer Bodies Not Reportable 03/05/17 05:52 Sickle Cells Not Reportable 03/05/17 05:52 Target Cells 2+ 03/05/17 05:52 Tear Drop Cells Not Reportable 03/05/17 05:52 Ovalocytes Not Reportable 03/05/17 05:52 Stomatocytes 1+ 02/26/17 03:52 Helmet Cells Not Reportable 03/05/17 05:52 [place] Bodies Not Reportable 03/05/17 05:52 [place] Rings Not Reportable 03/05/17 05:52 Fabi Cells Not Reportable 03/05/17 05:52 Bite Cells Not Reportable 03/05/17 05:52 Crenated Cell Not Reportable 03/05/17 05:52 Elliptocytes Not Reportable 03/05/17 05:52 Acanthocytes (Spur) Not Reportable 03/05/17 05:52 Rouleaux Not Reportable 03/05/17 05:52 Hemoglobin C Crystals Rare 03/05/17 05:52 Schistocytes Few 03/05/17 05:52 Malaria parasites Not Reportable 03/05/17 05:52 Percent Retic 1.64 % (0.78-2.58) 03/05/17 05:52 Benjamin Bodies Not Reportable 03/05/17 05:52 Hem Pathologist Commnt No 03/05/17 05:52 PT 23.1 Sec. (12.2-14.9) H 03/14/17 05:10 INR 2.04 (0.87-1.13) H 03/14/17 05:10 Sodium 144 mmol/L (137-145) 03/05/17 05:52 Potassium 4.4 mmol/L (3.6-5.0) 03/05/17 05:52 Chloride 97.3 mmol/L (98-107) L 03/05/17 05:52 Carbon Dioxide 38 mmol/L (22-30) H 03/05/17 05:52 Anion Gap 13 mmol/L 03/05/17 05:52 BUN 13 mg/dL (7-17) 03/05/17 05:52 Creatinine 0.9 mg/dL (0.7-1.2) 03/05/17 05:52 Estimated GFR > 60 ml/min 03/05/17 05:52 BUN/Creatinine Ratio 14.44 % 03/05/17 05:52 Glucose 87 mg/dL (65-100) 03/05/17 05:52 Calcium 8.4 mg/dL (8.4-10.2) 03/05/17 05:52 Troponin T < 0.010 ng/mL (0.00-0.029) 02/25/17 19:09 NT-Pro-B Natriuret Pep 1916 pg/mL (0-450) H 02/25/17 19:09 HCG, Qual Negative (Negative) 02/25/17 19:09
[2017-03-14] MEDS: PROTONIX PO SCH (10:15)
[2017-03-14] MEDS: LOPRESSOR PO SCH ×2 (10:15→22:49)
[2017-03-14] MEDS: FOLVITE PO SCH (10:15)
[2017-03-14] MEDS: ZESTRIL PO SCH (10:16)
[2017-03-14] MEDS: COUMADIN PO SCH (17:30)
--- NOTE | 2017-03-14 22:20 | Progress Note ---
Assessment and Plan - Patient Problems (1) A-fib Current Visit: Yes Status: Acute Qualifiers: Atrial fibrillation type: A Plan to address problem: follow cardilogy. Continue anticoagulation (2) Subtherapeutic anticoagulation Current Visit: Yes Status: Acute Plan to address problem: adjust anticoagulant dosage. (3) Sickle cell anemia Current Visit: Yes Status: Acute Qualifiers: Sickle-cell associated disorders: S Plan to address problem: see notes above. continue with supportive. Subjective Date of service: 03/14/17 Principal diagnosis: Corpulmonale. Interval history: patient seen.resting in bed, no new issues at this time. Patient seen/examined, resting in bed, c/o pain in the left leg, sharp. in nature. Objective - Constitutional Vitals: Vital Signs - 12hr 03/14/17 16:44 Temperature 97.8 F Pulse Rate 106 H Respiratory 20 Rate Blood Pressure 126/86 O2 Sat by Pulse 90 Oximetry General appearance: Present: mild distress, well-nourished - EENT Eyes: PERRL, EOM intact ENT: hearing intact, clear oral mucosa Ears: bilateral: normal - Neck Neck: supple, normal ROM - Respiratory Respiratory: bilateral: diminished - Breasts Breasts: deferred - Cardiovascular Rhythm: regular Heart Sounds: Present: S1 & S2. Absent: gallop, rub Extremities: pulses intact, No edema, normal color, Full ROM - Gastrointestinal General gastrointestinal: Present: soft, non-tender, non-distended, normal bowel sounds Rectal Exam: deferred - Genitourinary Female genitourinary: deferred - Integumentary Integumentary: clear, warm, dry - Musculoskeletal Musculoskeletal: 1, strength equal bilaterally - Neurologic Neurologic: moves all extremities - Psychiatric Psychiatric: memory intact, appropriate mood/affect, intact judgment & insight - Labs CBC & Chem 7: 03/05/17 05:52 03/05/17 05:52 Labs: Abnormal lab results 03/14/17 Range/Units 05:10 PT 23.1 H (12.2-14.9) Sec. INR 2.04 H (0.87-1.13)
[2017-03-14] MEDS: BENADRYL PO PRN (23:41)
[2017-03-15] MEDS: ATARAX PO SCH ×4 (00:31→18:05)
[2017-03-15] MEDS: LASIX PO SCH ×2 (05:28→17:58)
[2017-03-15] MEDS: SYNTHROID PO SCH (05:28)
[2017-03-15 06:17] LABS: INR 2.29 (0.87-1.13)
--- NOTE | 2017-03-15 08:59 | Progress Note ---
Assessment and Plan Assessment and plan: patient is 31-year-old, morbidly obese, with pulmonary hypertension, chronic respiratory failure, on home O2, diastolic CHF, RENE , presented for swelling of the lower extremities New onset afib - rate controlled on BB - anticoagulated with Coumadin, monitoring INR. INR supratherapeutic today, 2.05 - cardiology following Acute on chronic hypoxic respiratory failure - likely due to combination of heart failure, cor pulmonale, obesity hypoventilation syndrome and obstructive sleep apnea - continue oxygen supplementation and CPAP while asleep Acute on chronic diastolic CHF with a preserved ejection fraction - continue Lasix (changed to po), beta osmel, CARLOS MANUEL inhibitor - low-sodium diet, strict I's and O's and daily weights - cardiology following Cor pulmonale - Echocardiogram demonstrates a dilated right heart chambers, moderate tricuspid regurgitation and moderate pulmonary hypertension. Findings are consistent with cor pulmonale likely from chronic sleep apnea and obesity hypoventilation syndrome. Left ventricle chamber size and systolic function are normal, EF 50-55%. Sleep apnea/obesity hypoventilation - CPAP while asleep, noninvasive positive pressure ventilator as needed Morbidly obese - has been counseled on lifestyle modification - may be benefited from bariatric surgery as BMI >90, recommended outpatient follow-up Sickle cell disease - chronic, not in acute exacerbation - H and H stable Subclinical Hypothyroidism - continue low-dose Synthroid - TFTs to be rechecked in 4 to 6 weeks History of Buttock abscess - Wound care following DVT prophylaxis - INR therapeutic now, Lovenox discontinued Dispo ROSA working on discharge plans with SW at [place] where she is followed for 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 She is medically stable for discharge, awaiting placement. History Interval history: No new complaints Hospitalist Physical - Physical exam Narrative exam: Gen Appearance: Not in acute distress, morbidly obese HEENT: normocephalic, atraumatic Neck: supple, no JVD Lungs: Clear to auscultation, bilaterally, no rales, no wheeze Heart: S1 and S2 regular, no murmurs or gallop Abdomen: Soft , non tender, non distended, normal bowel sounds Extremity: Trace edema, no clubbing or cyanosis Neuro : Awake,alert, oriented x 3, moves all extremities - Constitutional Vitals: Temp Pulse Resp BP Pulse Ox 98.0 F 100 H 24 129/64 95 03/15/17 07:59 03/14/17 23:25 03/15/17 07:59 03/15/17 07:59 03/15/17 07:43 General appearance: Present: mild distress, well-nourished Results - Labs CBC & Chem 7: 03/05/17 05:52 03/05/17 05:52 Labs: Laboratory Last Values WBC 7.4 K/mm3 (4.5-11.0) 03/05/17 05:52 RBC 3.39 M/mm3 (3.65-5.03) L 03/05/17 05:52 Hgb 9.6 gm/dl (10.1-14.3) L 03/05/17 05:52 Hct 28.6 % (30.3-42.9) L 03/05/17 05:52 MCV 84 fl (79-97) 03/05/17 05:52 MCH 28 pg (28-32) 03/05/17 05:52 MCHC 34 % (30-34) 03/05/17 05:52 RDW 19.2 % (13.2-15.2) H 03/05/17 05:52 Plt Count 270 K/mm3 (140-440) 03/05/17 05:52 [place] % (Auto) Car Chaser 03/05/17 05:52 Add Manual Diff Complete 03/05/17 05:52 Total Counted 100 03/05/17 05:52 Seg Neuts % (Manual) 51 % (40.0-70.0) 03/05/17 05:52 Band Neutrophils % 3.0 % 03/05/17 05:52 Lymphocytes % (Manual) 25.0 % (13.4-35.0) 03/05/17 05:52 Reactive Lymphs % (Man) 0 % 03/05/17 05:52 Monocytes % (Manual) 14 % (0.0-7.3) H 03/05/17 05:52 Eosinophils % (Manual) 7.0 % (0.0-4.3) H 03/05/17 05:52 Basophils % (Manual) 0 % (0.0-1.8) 03/05/17 05:52 Metamyelocytes % 0 % 03/05/17 05:52 Myelocytes % 0 % 03/05/17 05:52 Promyelocytes % 0 % 03/05/17 05:52 Blast Cells % 0 % 03/05/17 05:52 Nucleated RBC % Not Reportable 03/05/17 05:52 Seg Neutrophils # Man 3.9 K/mm3 (1.8-7.7) 03/05/17 05:52 Band Neutrophils # 0.2 K/mm3 03/05/17 05:52 Lymphocytes # (Manual) 1.9 K/mm3 (1.2-5.4) 03/05/17 05:52 Abs React Lymphs (Man) 0.0 K/mm3 03/05/17 05:52 Monocytes # (Manual) 0.9 K/mm3 (0.0-0.8) H 03/05/17 05:52 Eosinophils # (Manual) 0.5 K/mm3 (0.0-0.4) H 03/05/17 05:52 Basophils # (Manual) 0.0 K/mm3 (0.0-0.1) 03/05/17 05:52 Metamyelocytes # 0.0 K/mm3 03/05/17 05:52 Myelocytes # 0.0 K/mm3 03/05/17 05:52 Promyelocytes # 0.0 K/mm3 03/05/17 05:52 Blast Cells # 0.0 K/mm3 03/05/17 05:52 Pathologist Review 02/25/17 19:09 WBC Morphology Not Reportable 03/05/17 05:52 Hypersegmented Neuts Not Reportable 03/05/17 05:52 Hyposegmented Neuts Not Reportable 03/05/17 05:52 Hypogranular Neuts Not Reportable 03/05/17 05:52 Smudge Cells Not Reportable 03/05/17 05:52 Toxic Granulation Not Reportable 03/05/17 05:52 Toxic Vacuolation Not Reportable 03/05/17 05:52 Dohle Bodies Not Reportable 03/05/17 05:52 Pelger-Huet Anomaly Not Reportable 03/05/17 05:52 James Rods Not Reportable 03/05/17 05:52 Platelet Estimate Not Reportable 03/05/17 05:52 Clumped Platelets Not Reportable 03/05/17 05:52 Plt Clumps, EDTA Not Reportable 03/05/17 05:52 Large Platelets Not Reportable 03/05/17 05:52 Giant Platelets Not Reportable 03/05/17 05:52 Platelet Satelliting Not Reportable 03/05/17 05:52 Plt Morphology Comment Not Reportable 03/05/17 05:52 RBC Morphology Not Reportable 03/05/17 05:52 Dimorphic RBCs Not Reportable 03/05/17 05:52 Polychromasia Not Reportable 03/05/17 05:52 Hypochromasia Not Reportable 03/05/17 05:52 Poikilocytosis Not Reportable 03/05/17 05:52 Anisocytosis 1+ 03/05/17 05:52 Microcytosis Not Reportable 03/05/17 05:52 Macrocytosis Not Reportable 03/05/17 05:52 Spherocytes Not Reportable 03/05/17 05:52 Pappenheimer Bodies Not Reportable 03/05/17 05:52 Sickle Cells Not Reportable 03/05/17 05:52 Target Cells 2+ 03/05/17 05:52 Tear Drop Cells Not Reportable 03/05/17 05:52 Ovalocytes Not Reportable 03/05/17 05:52 Stomatocytes 1+ 02/26/17 03:52 Helmet Cells Not Reportable 03/05/17 05:52 [place] Bodies Not Reportable 03/05/17 05:52 [place] Rings Not Reportable 03/05/17 05:52 [place] Cells Not Reportable 03/05/17 05:52 Bite Cells Not Reportable 03/05/17 05:52 Crenated Cell Not Reportable 03/05/17 05:52 Elliptocytes Not Reportable 03/05/17 05:52 Acanthocytes (Spur) Not Reportable 03/05/17 05:52 Rouleaux Not Reportable 03/05/17 05:52 Hemoglobin C Crystals Rare 03/05/17 05:52 Schistocytes Few 03/05/17 05:52 Malaria parasites Not Reportable 03/05/17 05:52 Percent Retic 1.64 % (0.78-2.58) 03/05/17 05:52 Benjamin Bodies Not Reportable 03/05/17 05:52 Hem Pathologist Commnt No 03/05/17 05:52 PT 25.3 Sec. (12.2-14.9) H 03/15/17 05:46 INR 2.29 (0.87-1.13) H 03/15/17 05:46 Sodium 144 mmol/L (137-145) 03/05/17 05:52 Potassium 4.4 mmol/L (3.6-5.0) 03/05/17 05:52 Chloride 97.3 mmol/L (98-107) L 03/05/17 05:52 Carbon Dioxide 38 mmol/L (22-30) H 03/05/17 05:52 Anion Gap 13 mmol/L 03/05/17 05:52 BUN 13 mg/dL (7-17) 03/05/17 05:52 Creatinine 0.9 mg/dL (0.7-1.2) 03/05/17 05:52 Estimated GFR > 60 ml/min 03/05/17 05:52 BUN/Creatinine Ratio 14.44 % 03/05/17 05:52 Glucose 87 mg/dL (65-100) 03/05/17 05:52 Calcium 8.4 mg/dL (8.4-10.2) 03/05/17 05:52 Troponin T < 0.010 ng/mL (0.00-0.029) 02/25/17 19:09 NT-Pro-B Natriuret Pep 1916 pg/mL (0-450) H 02/25/17 19:09 HCG, Qual Negative (Negative) 02/25/17 19:09
[2017-03-15] MEDS: ZESTRIL PO SCH (10:09)
[2017-03-15] MEDS: LOPRESSOR PO SCH ×2 (10:11→23:00)
[2017-03-15] MEDS: PROTONIX PO SCH (10:12)
[2017-03-15] MEDS: FOLVITE PO SCH (10:12)
[2017-03-15] MEDS: COUMADIN PO SCH (17:57)
--- NOTE | 2017-03-15 21:26 | Event Note ---
Date: 03/15/17 labs /reviewed, no new info/issues at this time.will follow prn, unless a major issues.
[2017-03-15] MEDS: BENADRYL PO PRN (22:59)
[2017-03-16] MEDS: ATARAX PO SCH ×5 (00:24→23:47)
[2017-03-16] MEDS: SYNTHROID PO SCH (06:12)
[2017-03-16] MEDS: LASIX PO SCH ×2 (06:12→18:12)
[2017-03-16 07:41] LABS: INR 2.1 (0.87-1.13)
[2017-03-16] MEDS: LOPRESSOR PO SCH ×2 (09:55→22:24)
[2017-03-16] MEDS: ZESTRIL PO SCH (09:56)
[2017-03-16] MEDS: PROTONIX PO SCH (09:57)
[2017-03-16] MEDS: FOLVITE PO SCH (09:57)
--- NOTE | 2017-03-16 12:05 | Progress Note ---
Assessment and Plan Assessment and plan: patient is 31-year-old, morbidly obese, with pulmonary hypertension, chronic respiratory failure, on home O2, diastolic CHF, RENE , presented for swelling of the lower extremities New onset afib - rate controlled on BB - anticoagulated with Coumadin, monitoring INR. INR supratherapeutic today, 2.10 - cardiology following Acute on chronic hypoxic respiratory failure - likely due to combination of heart failure, cor pulmonale, obesity hypoventilation syndrome and obstructive sleep apnea - continue oxygen supplementation and CPAP while asleep Acute on chronic diastolic CHF with a preserved ejection fraction - continue Lasix (changed to po), beta osmel, CARLOS MANUEL inhibitor - low-sodium diet, strict I's and O's and daily weights - cardiology following Cor pulmonale - Echocardiogram demonstrates a dilated right heart chambers, moderate tricuspid regurgitation and moderate pulmonary hypertension. Findings are consistent with cor pulmonale likely from chronic sleep apnea and obesity hypoventilation syndrome. Left ventricle chamber size and systolic function are normal, EF 50-55%. Sleep apnea/obesity hypoventilation - CPAP while asleep, noninvasive positive pressure ventilator as needed Morbidly obese - has been counseled on lifestyle modification - may be benefited from bariatric surgery as BMI >90, recommended outpatient follow-up Sickle cell disease - chronic, not in acute exacerbation - H and H stable Subclinical Hypothyroidism - continue low-dose Synthroid - TFTs to be rechecked History of Buttock abscess - Wound care following DVT prophylaxis - INR therapeutic now, Lovenox discontinued Dispo CM working on discharge plans with SW at [facility] where she is followed for 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 She is medically stable for discharge, awaiting placement. History Interval history: No new complaints Hospitalist Physical - Physical exam Narrative exam: Gen Appearance: Not in acute distress, morbidly obese HEENT: normocephalic, atraumatic Neck: supple, no JVD Lungs: Clear to auscultation, bilaterally, no rales, no wheeze Heart: S1 and S2 regular, no murmurs or gallop Abdomen: Soft , non tender, non distended, normal bowel sounds Extremity: Trace edema, no clubbing or cyanosis Neuro : Awake,alert, oriented x 3, moves all extremities - Constitutional Vitals: Temp Pulse Resp BP Pulse Ox 98.1 F 108 H 20 102/58 91 03/16/17 07:25 03/16/17 09:56 03/16/17 07:25 03/16/17 09:56 03/16/17 07:25 General appearance: Present: mild distress, well-nourished Results - Labs CBC & Chem 7: 03/05/17 05:52 03/05/17 05:52 Labs: Laboratory Last Values WBC 7.4 K/mm3 (4.5-11.0) 03/05/17 05:52 RBC 3.39 M/mm3 (3.65-5.03) L 03/05/17 05:52 Hgb 9.6 gm/dl (10.1-14.3) L 03/05/17 05:52 Hct 28.6 % (30.3-42.9) L 03/05/17 05:52 MCV 84 fl (79-97) 03/05/17 05:52 MCH 28 pg (28-32) 03/05/17 05:52 MCHC 34 % (30-34) 03/05/17 05:52 RDW 19.2 % (13.2-15.2) H 03/05/17 05:52 Plt Count 270 K/mm3 (140-440) 03/05/17 05:52 [place] % (Auto) Personnel Manager 03/05/17 05:52 Add Manual Diff Complete 03/05/17 05:52 Total Counted 100 03/05/17 05:52 Seg Neuts % (Manual) 51 % (40.0-70.0) 03/05/17 05:52 Band Neutrophils % 3.0 % 03/05/17 05:52 Lymphocytes % (Manual) 25.0 % (13.4-35.0) 03/05/17 05:52 Reactive Lymphs % (Man) 0 % 03/05/17 05:52 Monocytes % (Manual) 14 % (0.0-7.3) H 03/05/17 05:52 Eosinophils % (Manual) 7.0 % (0.0-4.3) H 03/05/17 05:52 Basophils % (Manual) 0 % (0.0-1.8) 03/05/17 05:52 Metamyelocytes % 0 % 03/05/17 05:52 Myelocytes % 0 % 03/05/17 05:52 Promyelocytes % 0 % 03/05/17 05:52 Blast Cells % 0 % 03/05/17 05:52 Nucleated RBC % Not Reportable 03/05/17 05:52 Seg Neutrophils # Man 3.9 K/mm3 (1.8-7.7) 03/05/17 05:52 Band Neutrophils # 0.2 K/mm3 03/05/17 05:52 Lymphocytes # (Manual) 1.9 K/mm3 (1.2-5.4) 03/05/17 05:52 Abs React Lymphs (Man) 0.0 K/mm3 03/05/17 05:52 Monocytes # (Manual) 0.9 K/mm3 (0.0-0.8) H 03/05/17 05:52 Eosinophils # (Manual) 0.5 K/mm3 (0.0-0.4) H 03/05/17 05:52 Basophils # (Manual) 0.0 K/mm3 (0.0-0.1) 03/05/17 05:52 Metamyelocytes # 0.0 K/mm3 03/05/17 05:52 Myelocytes # 0.0 K/mm3 03/05/17 05:52 Promyelocytes # 0.0 K/mm3 03/05/17 05:52 Blast Cells # 0.0 K/mm3 03/05/17 05:52 Pathologist Review 02/25/17 19:09 WBC Morphology Not Reportable 03/05/17 05:52 Hypersegmented Neuts Not Reportable 03/05/17 05:52 Hyposegmented Neuts Not Reportable 03/05/17 05:52 Hypogranular Neuts Not Reportable 03/05/17 05:52 Smudge Cells Not Reportable 03/05/17 05:52 Toxic Granulation Not Reportable 03/05/17 05:52 Toxic Vacuolation Not Reportable 03/05/17 05:52 Dohle Bodies Not Reportable 03/05/17 05:52 Pelger-Huet Anomaly Not Reportable 03/05/17 05:52 James Rods Not Reportable 03/05/17 05:52 Platelet Estimate Not Reportable 03/05/17 05:52 Clumped Platelets Not Reportable 03/05/17 05:52 Plt Clumps, EDTA Not Reportable 03/05/17 05:52 Large Platelets Not Reportable 03/05/17 05:52 Giant Platelets Not Reportable 03/05/17 05:52 Platelet Satelliting Not Reportable 03/05/17 05:52 Plt Morphology Comment Not Reportable 03/05/17 05:52 RBC Morphology Not Reportable 03/05/17 05:52 Dimorphic RBCs Not Reportable 03/05/17 05:52 Polychromasia Not Reportable 03/05/17 05:52 Hypochromasia Not Reportable 03/05/17 05:52 Poikilocytosis Not Reportable 03/05/17 05:52 Anisocytosis 1+ 03/05/17 05:52 Microcytosis Not Reportable 03/05/17 05:52 Macrocytosis Not Reportable 03/05/17 05:52 Spherocytes Not Reportable 03/05/17 05:52 Pappenheimer Bodies Not Reportable 03/05/17 05:52 Sickle Cells Not Reportable 03/05/17 05:52 Target Cells 2+ 03/05/17 05:52 Tear Drop Cells Not Reportable 03/05/17 05:52 Ovalocytes Not Reportable 03/05/17 05:52 Stomatocytes 1+ 02/26/17 03:52 Helmet Cells Not Reportable 03/05/17 05:52 [place] Bodies Not Reportable 03/05/17 05:52 [place] Rings Not Reportable 03/05/17 05:52 Fabi Cells Not Reportable 03/05/17 05:52 Bite Cells Not Reportable 03/05/17 05:52 Crenated Cell Not Reportable 03/05/17 05:52 Elliptocytes Not Reportable 03/05/17 05:52 Acanthocytes (Spur) Not Reportable 03/05/17 05:52 Rouleaux Not Reportable 03/05/17 05:52 Hemoglobin C Crystals Rare 03/05/17 05:52 Schistocytes Few 03/05/17 05:52 Malaria parasites Not Reportable 03/05/17 05:52 Percent Retic 1.64 % (0.78-2.58) 03/05/17 05:52 Benjamin Bodies Not Reportable 03/05/17 05:52 Hem Pathologist Commnt No 03/05/17 05:52 PT 23.6 Sec. (12.2-14.9) H 03/16/17 06:45 INR 2.10 (0.87-1.13) H 03/16/17 06:45 Sodium 144 mmol/L (137-145) 03/05/17 05:52 Potassium 4.4 mmol/L (3.6-5.0) 03/05/17 05:52 Chloride 97.3 mmol/L (98-107) L 03/05/17 05:52 Carbon Dioxide 38 mmol/L (22-30) H 03/05/17 05:52 Anion Gap 13 mmol/L 03/05/17 05:52 BUN 13 mg/dL (7-17) 03/05/17 05:52 Creatinine 0.9 mg/dL (0.7-1.2) 03/05/17 05:52 Estimated GFR > 60 ml/min 03/05/17 05:52 BUN/Creatinine Ratio 14.44 % 03/05/17 05:52 Glucose 87 mg/dL (65-100) 03/05/17 05:52 Calcium 8.4 mg/dL (8.4-10.2) 03/05/17 05:52 Troponin T < 0.010 ng/mL (0.00-0.029) 02/25/17 19:09 NT-Pro-B Natriuret Pep 1916 pg/mL (0-450) H 02/25/17 19:09 HCG, Qual Negative (Negative) 02/25/17 19:09
--- NOTE | 2017-03-16 14:49 | Discharge Summary ---
Providers - Providers Date of Admission: 02/25/17 22:48 Date of discharge: 03/16/17 Attending physician: EMMANUELLE LAL 02/26/17 14:37 Consult to Wound/ET Nurse [CONS] Routine Reason For Exam: wound eval 02/27/17 13:48 Physical Therapy Evaluation and Treat [CONS] Routine Comment: Reason For Exam: deconditioning 02/28/17 14:05 Consult to Physician [CONS] Routine Consulting Provider: RAUL GARVIN Reason For Exam: antocoagulation for afib with SCD Place consult to:: international student counselor hematology Notified:: voice mail Phone number called:: [phone] Was contact made?: No If yes, spoke with:: voice mail Time called:: 16:21 03/05/17 11:43 Occupational Therapy Evaluate and Treat [CONS] Routine Comment: Reason For Exam: For assistance with ADL independence Primary care physician: WASTE COTTON CLEANER Hospitalization Condition: Fair Disposition: DC/TX-06 HOME UNDER HOME HLTH Exam - Constitutional Vitals: Temp Pulse Resp BP Pulse Ox 98.1 F 108 H 20 102/58 91 03/16/17 07:25 03/16/17 09:56 03/16/17 07:25 03/16/17 09:56 03/16/17 07:25 Plan Activity: advance as tolerated Special Instructions: home health RN Additional Instructions: 1.Follow up with PCP or [facility] in 1 week. 2.Check INR on Thursday03/23/17 at office of PCP or [facility]. 3.Continue home oxygen Follow up with: PRIMARY CARE, [Primary Care Provider] - 3-5 Days Forms: Warfarin Discharge Instruction Prescriptions: Folic Acid [Folvite] 1 mg PO DAILY #30 tablet Furosemide [Lasix TAB] 40 mg PO 0600,1800 #60 tablet hydrOXYzine HCL [Atarax] 10 mg PO Q6H PRN #30 tablet PRN Reason: Itching Levothyroxine [Synthroid] 25 mcg PO DAILY@0600 #30 tablet Lisinopril [Zestril TAB] 2.5 mg PO QDAY #30 tablet Metoprolol [Lopressor TAB] 12.5 mg PO BID #60 tablet Warfarin [Coumadin] 5 mg PO DAILY@1700 #30 tablet
[2017-03-16] MEDS: COUMADIN PO SCH (18:12)
[2017-03-16] MEDS: BENADRYL PO PRN (23:47)
--- NOTE | 2017-03-17 00:16 | Event Note ---
Date: 03/16/17 Patient resting in bed earlier. no new issues. D/c in plan.
[2017-03-17] MEDS: ATARAX PO SCH ×4 (01:46→17:37)
[2017-03-17] MEDS: LASIX PO SCH ×2 (06:11→17:36)
[2017-03-17] MEDS: SYNTHROID PO SCH (06:11)
[2017-03-17 06:48] LABS: INR 1.82 (0.87-1.13)
[2017-03-17] MEDS: ZESTRIL PO SCH (10:10)
[2017-03-17] MEDS: LOPRESSOR PO SCH (10:12)
[2017-03-17] MEDS: FOLVITE PO SCH (10:13)
[2017-03-17] MEDS: PROTONIX PO SCH (10:13)
--- NOTE | 2017-03-17 11:08 | Discharge Summary ---
Providers - Providers Date of Admission: 02/25/17 22:48 Attending physician: MACARIO RUBIO MD 02/26/17 14:37 Consult to Wound/ET Nurse [CONS] Routine Reason For Exam: wound eval 02/27/17 13:48 Physical Therapy Evaluation and Treat [CONS] Routine Comment: Reason For Exam: deconditioning 02/28/17 14:05 Consult to Physician [CONS] Routine Consulting Provider: RAUL GARVIN Reason For Exam: antocoagulation for afib with SCD Place consult to:: diamond sizer and sorter hematology Notified:: voice mail Phone number called:: [phone] Was contact made?: No If yes, spoke with:: voice mail Time called:: 16:21 03/05/17 11:43 Occupational Therapy Evaluate and Treat [CONS] Routine Comment: Reason For Exam: For assistance with ADL independence Primary care physician: CMM OPERATOR Hospitalization Condition: Fair Hospital course: patient is 31-year-old, morbidly obese, with pulmonary hypertension, chronic respiratory failure, on home O2, diastolic CHF, RENE , presented for swelling of the lower extremities. She was put on her cardiac medications, she received IV diuresis. She was admitted to have asymptomatic new onset atrial fibrillation. For which she was call managed by cardiology, heart rate was controlled a beta osmel, she was initiated on warfarin for stroke prophylaxis. She received oxygen supplements, and she is being discharged home on home oxygen. There was concern that she might have hypo-ventilation due to obesity and poor sleep apnea. This patient is planned for outpatient sleep study for follow-up of this. She received counseling about lifestyle modification and nutrition consults given morbid obesity. Her labs were otherwise stable. She was continued on the rest of her home medications, and she received wound care for R shoulder stage 1 decub that was present on admission. At the time of planned discharge, how mother refused to take her back home, therefore EPS was called, and it was determined that her mother cannot refuse to allow her back to her place of residence. As the patient does not have insurance, devices including oxygen, wheelchair, walker were provided by the hospital Discharge diagnoses New onset afib, rate controlled Acute on chronic hypoxic respiratory failure Acute on chronic diastolic CHF with a preserved ejection fraction Cor pulmonale Suspected Sleep apnea/obesity hypoventilation Morbidly obese Sickle cell disease Subclinical Hypothyroidism Right shoulder stage 1 ulcer, POA Disposition: CA/[place]-06 HOME UNDER HOME [facility] Time spent for discharge: 33 minutes Core Measure Documentation - Palliative Care Palliative Care/ Comfort Measures: Not Applicable - Core Measures Any of the following diagnoses?: heart failure - Heart Failure Discharge Requirements CARLOS MANUEL/ARB for LVSD if EF <40%: Not Applicable Beta osmel at discharge: Yes Exam - Physical Exam Narrative exam: General.: Appears well, no distress, nontoxic, obese HEENT: Moist mucous membranes, extraocular muscles intact, no lymphadenopathy, scleral icterus Neck: supple Cardiac: S1-S2 Lungs: CTA Abdomen: soft , nontender, nondistended, bowel sounds positive Extremities: trace bilateral lower extremity edema all the way up to the pannus Skin: no rash or lesions Neurologic: no gross focal deficits Psych: appropriate behavior, appropriate mood, corporative, judgment intact - Constitutional Vitals: Temp Pulse Resp BP Pulse Ox 98.2 F 106 H 20 138/56 93 03/17/17 07:45 03/17/17 07:45 03/17/17 07:45 03/17/17 10:12 03/17/17 07:45 Plan Additional Instructions: Dispo. Home with mother and home services. -home with walker and bariatric wheelchair. Outpatient sleep study, pls make an appointment in Pulmonary (Chest medicine) clinic to have this set up Follow up with: PRIMARY CAREMD [Primary Care Provider] - 3-5 Days VISHAL NOE MD [Staff Physician] - 7 Days Forms: Warfarin Discharge Instruction Prescriptions: Folic Acid [Folvite] 1 mg PO DAILY #30 tablet Furosemide [Lasix TAB] 40 mg PO 0600,1800 #60 tablet hydrOXYzine HCL [Atarax] 10 mg PO Q6H PRN #30 tablet PRN Reason: Itching Levothyroxine [Synthroid] 25 mcg PO DAILY@0600 #30 tablet Lisinopril [Zestril TAB] 2.5 mg PO QDAY #30 tablet Metoprolol [Lopressor TAB] 12.5 mg PO BID #60 tablet Warfarin [Coumadin] 5 mg PO DAILY@1700 #30 tablet
[2017-03-17 16:50] VITALS: BP 147/92
[2017-03-17] MEDS ORDERED: COUMADIN PO SCH (17:00)
== END 2017-03-17 18:30 | disposition home health service (06) | DRG 291 ==
LOC: ED 16:56 → 4A 22:48 → 3A 02-26 10:38
PROVIDERS: ADMIT Internal Medicine; ATTEND Internal Medicine
PROC: 3E0234Z Introduction of Serum, Toxoid and Vaccine into Muscle, Percutaneous Approach (ICD-10-PCS; principal; 2017-02-26)
PROC: 5A09357 Assistance with Respiratory Ventilation, Less than 24 Consecutive Hours, Continuous Positive Airway Pressure (ICD-10-PCS; 2017-02-26)
DX: I13.0 Hypertensive heart and chronic kidney disease with heart failure and stage 1 through stage 4 chronic kidney disease, or unspecified chronic kidney disease (principal); I50.33 Acute on chronic diastolic (congestive) heart failure; J96.21 Acute and chronic respiratory failure with hypoxia; Z68.45 Body mass index [BMI] 70 or greater, adult; I11.0 Hypertensive heart disease with heart failure; N18.9 Chronic kidney disease, unspecified; E66.01 Morbid (severe) obesity due to excess calories; D57.1 Sickle-cell disease without crisis; I27.81 Cor pulmonale (chronic); E02 Subclinical iodine-deficiency hypothyroidism; G47.33 Obstructive sleep apnea (adult) (pediatric); I07.1 Rheumatic tricuspid insufficiency; I27.2 Other secondary pulmonary hypertension; I48.91 Unspecified atrial fibrillation; G89.29 Other chronic pain; L89.111 Pressure ulcer of right upper back, stage 1; Z79.899 Other long term (current) drug therapy; Z88.6 Allergy status to analgesic agent; Z91.013 Allergy to seafood; Z82.49 Family history of ischemic heart disease and other diseases of the circulatory system; Z74.01 Bed confinement status; Z23 Encounter for immunization
CPT/HCPCS: 36415; 71010; 80048; 83880; 84484; 84703; 85007; 85025; 85045; 85610; 90732; 93005; 93010; 94640; 94660; 94760; 96372; 96374; 99285; J1650; J1940; Q0163